=== PATIENT | female | born 1980 | race Caucasian/White ===

== ENCOUNTER 2023-07-03 21:05 | Outpatient (REF) | payer BC, SELFPAY ==
[2023-07-09 13:09] LABS: Age Gdln ACOG Testing Note (.); HPV Aptima Positive (Negative); IGP, Aptima HPV, rfx 16/18,45 Note (.)
== END 2023-07-03 21:06 | disposition home or self-care (01) ==
LOC: LAB 21:05
PROVIDERS: Visit Provider Obstetrics & Gynecology
DX: Z01.419 Encounter for gynecological examination (general) (routine) without abnormal findings (principal)
CPT/HCPCS: 87624; G0145

== ENCOUNTER 2023-07-17 06:55 | Outpatient (REF) | payer BC, SELFPAY ==
--- OUTSIDE RECORDS SUMMARY | 2023-07-20 06:59 | XMS_ITS | CCD ---
Author Name Unknown Address [address] [place] [address] Organization [facility] Care Team Providers Care Switching Clerk Name Role Phone DR GIANFRANCO MORE Attending Unavailable DERIK, DR PENDLETON Consulting Unavailable DR GIANFRANCO MORE Admitting Unavailable Kiepert Sarah REA Primary Care Provider [phone] Derek Manzanares Unavailable Unavailable Unavailable SARAH CHAVEZ Primary Care Unavailable SELF, SELF Referring Unavailable GHAZOUL FREDY Attending Unavailable KIEPERT SARAH A Primary Care Unavailable SELF, SELF Referring Unavailable GHAZOULMARGARITAFREDY Attending Unavailable KIEPERTSARAH A Primary Care Unavailable GHAZOUL FREDY Referring Unavailable GHAZOULRAEANNA Attending Unavailable GHAZOUL FREDY Admitting Unavailable ADI LOPEZ Attending Unavailable Leighton, Dr. Derek Gomez Primary Care Unavailab ADI St Attending Unavailable ADI LOPEZ Referring Unavailable Manzanares, Dr. Derek Gomez Primary Care Unavailab ADI St Attending Unavailable ADI LOPEZ Referring Unavailable Manzanares, Dr. Derek Gomez Primary Care Unavailab ADI St Admitting Unavailable Qi Brantley Unavailable Unavailable Manzanares, Dr. Derek Gomez Primary Care Unavailab MD ADI St Attending Unavailab MD ADI St Attending Unavailab Dr. Jacey Will Referring Unavailable Manzanares, Dr. Derek Gomez Primary Care Unavailab le Leighton, Dr. Derek Gomez Primary Care Unavailab MD ADI St Attending UnavailDerek Barbour MD Primary Care Provider ADI LOPEZ Attending Unavailable DEREK MANZANARES Primary Care Unavailable Work, Summer Admitting Unavailable Workman, Summer Attending Unavailable DEREK MANZANARES Primary Care Unavailable ADI LOPEZ Referring Unavailable DEREK MANZANARES Primary Care Unavailable DEREK LINN Attending Unavailable Derek Manzanares MD Primary Care Provider [phone] WORKMAN, MARBELLA M Referring Unavailable DEREK LINN Referring Unavailable WORKMANMARBELLA M Referring Unavailable DERIK, GIANFRANCO Attending Unavailable DERIK, GIANFRANCO Attending Unavailable Derik, Gianfranco Attending Unavailable Derik, Gianfranco Admitting Unavailable Allergies Allergy Classification Reported Allergen(s) Allergy Type Date of Onset Reaction(s) Facility (12 sources) Azithromycin; Translations: [Azithromycin PACK] Drug Allergy 06-13-19 Hives [facility] (12 sources) Codeine; Translations: [codeine] Drug Allergy 06-13-19 Nausea and Vomiting [facility] (12 sources) Fluconazole; Translations: [Diflucan] Drug Allergy 06-13-19 Arthralgia, Other [facility] (12 sources) moxifloxacin; Translations: [Avelox] Drug Allergy 06-13-19 Shortness of Breath [facility] (12 sources) Penicillins; Translations: [Penicillins] Propensity to adverse reactions to drug 06-13-19 Rash [facility] (12 sources) Sulfamethoxazole / Trimethoprim; Translations: [Bactrim] Drug Allergy 06-13-19 Anaphylaxis [facility] (6 sources) Nyquil Cold & Flu; Translations: [Nyquil Cold & Flu] Allergy to drug (finding) Vomiting MG-Otolaryngol o[facility] [place] [facility] [place] Work Phone: (1 source) No Alert Propensity to adverse reactions to drug 09-05-19 Dept. 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 18 g 3 11/16/2022 Active take 2 puff(s) by in halation every four hours for wheezing albuterol 90 mcg/actuation inhaler Inhal e 2 puffs every 4 hours if needed for wheezing. 0 Active cefdinir 300 mg oral capsule (2 sources) Cephalosporin Antibacterial Start: 07-06-2022 End: 07-11-2022 take 1 capsule by mouth every twelve hours Cefdinir (OMNICEF) 300 MG capsule Take 1 capsule by mouth every 12 hours for 5 days. 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 Inject into upper leg. Call 911 after use. 2 each 1 11/16/2022 11/17/2023 Active EPINEPHrine 0.3 mg/0.3 mL injection syringe inject INTO UPPER LEG 0.3 milliliter if needed for ANAPHYLAXIS CALL 911 AFTER 0 Active Completed/Discontinued Medications Medication Drug Class(es) Dates Sig (Normalized) Sig (Original) lidocaine 1%/ epinephrine 1:100,000 with sodium bicarbonate 8.4% (10 mL Prepared by Pharmacy) (1 source) Start: 07-06-2022 End: 07-06-2022 lidocaine 1%/ epinephrine 1:100,000 with sodium bicarbonate 8.4% (10 mL Prepared by Pharmacy) Multivitamin TABS (1 source) Multivitamin TAB S Quantity: 0 Refills: 0 Ordered: 24-Apr-2023 DO Active sodium chloride 0.154 meq/ml irrigation solution (1 source) Start: 07-06-2022 End: 07-06-2022 Sodium chloride 0.9 % irrigation traMADol hydrochloride 50 mg oral tablet (2 sources) Opioid Agonist Start: 08-09-2022 take 1 tablet by mouth every six hours as needed for pain traMADol HCl - 50 MG Oral Tablet TAKE 1 TABLET Every 6 hours As Needed for pain Quantity: 12 Refills: 0 Ordered: 09-Aug-2022 Adi Lopez MD Start : 09-Aug-2022 Active Problems Active Problems Problem Classification Problem Date Documented Date Episodic/Chronic Abdominal pain (4 sources) Pelvic and perineal pain; Translations: [PELVIC AND PERINEAL PAIN] Onset: 01-03-2022 Episodic Allergic reactions (2 sources) Allergy status to penicillin; Translations: [Allergy to penicillin] Onset: 08-09-2022 08-20-2022 Episodic Asthma (3 sources) Unspecified asthma, uncomplicated; Translations: [Exercise induced bronchospasm] Onset: 08-02-2022 08-20-2022 Chronic Esophageal disorders (2 sources) Gastro-esophageal reflux disease without esophagitis; Translations: [Gastroesophageal reflux disease without esophagitis] Onset: 08-09-2022 08-20-2022 Chronic Immunizations and screening for infectious disease (1 source) Encounter for screening for human papillomavirus (HPV); Translations: [ENC SCREENING HUMAN PAPILLOMAVIRUS] Onset: 01-04-2022 Episodic Melanomas of skin (19 sources) Malignant melanoma of neck; Translations: [Malignant melanoma of scalp and neck] Onset: 07-18-2022 Chronic Neoplasms of unspecified nature or uncertain behavior (6 sources) Neoplasm of uncertain behavior of skin; Translations: [Neoplasm of uncertain behavior of skin] Onset: 07-06-2022 Episodic Other aftercare (1 source) Other product support analyst (current) drug therapy; Translations: [Other product support analyst (current) drug therapy] Onset: 08-02-2022 Episodic Other infections; including parasitic (1 source) Personal history of other infectious and parasitic diseases; Translations: [Personal history of COVID-19] 08-20-2022 Episodic Other nervous system disorders (3 sources) Acute postoperative pain; Translations: [Other acute postoperative pain] Episodic Other screening for suspected conditions (not mental disorders or infectious disease) (1 source) Encounter for screening for malignant neoplasm of cervix; Translations: [ENC SCREENING MALIG NEOPLASM CERV] Onset: 01-04-2022 Episodic Residual codes; unclassified (1 source) No current problems or disability; Translations: [Other specified conditions influencing health status] Onset: 09-04-2022 Episodic Unclassified (2 sources) Post Op Visit; Translations: [Post Op Visit] Onset: 07-18-2022 Unclassified (1 source) Personal history of COVID-19; Translations: [Personal history of COVID-19] Onset: 08-09-2022 Past or Other Problems Problem Classification Problem Date Documented Da te Episodic/Chronic Unclassified (1 source) Onset: 04-15-2023 04-15-2023 Results Test Name Value Interpretation Reference Range Facility [facility] 07-17-2023 L Specimen: [id number] Received: 07/18/23 Status: MONTEZ Galeas Num: [id number] Spec Type: Surgical Subm Dr: Gianfranco More Tissues: A Endocervix - Curettings (ECC) Procedures: HE/2, Gross/Micro L4 Age/ Patient Sex Location Account Attending Physician Magalie Rodriguez 43/F [facility] [id number] Gianfranco More SPEC NUM: [id number] RECD: 07/18/23 STATUS: MONTEZ GALEAS NUM: [id number] DANUTA: 07/17/23- SUBM DR: Gianfranco More ENTERED: 07/18/[address] [facility] [address]: Max,Lab SPEC TYPE: Surgical DEPT: [facility] ORDERED: HE/2, Gross/Micro L4 ORDERED: HE/2, Gross/Micro L4 Pathological Diagnosis Endocervical curettings: -Several small strips of endocervical glandular elements are intermixed among larger portions of squamous epithelial cells, and displaying at least 2 small foci of koilocytosis within the squamous cells, consistent with features of LGSIL, encompassing mild HPV effect, otherwise without any high-grade dysplasia identified Clinical Information ASCUS, HPV Gross Description Received in formalin labeled with the patient's name, date of and ECC is a 3.0 x 0.9 x 0.2 cm aggregate of romo-white mucus and tissue. Entirely submitted in one cassette labeled A1. CPT Codes 52308 Specimen: [id number] Received: 07/18/23 Status: MONTEZ Galeas Num: [id number] Spec Type: Surgical Subm Dr: Gianfranco More Tissues: A Endocervix - Curettings (ECC) Procedures: Pam DIAS/Norberto L4 Patient: Magalie Rodriguez [id number] (Continued) Signed (signature on file) Hermelinda Willis MD 07/19/23 5058 [facility] [place] 05-23-2023 RONAN Telephone ([place]) ----- MAGALIE RODRIGUEZ ([id number]) 1980 F Date Time Provider Department 05/23/23 JUANY MOON During your visit today, we recorded the following information about you: Juany Moon RN 05/23/2023 9:[address] reports reviewed by UDAY. Pt notified of incidental findings of 4-5 mm RML nodule and nonspecific 7mm soft tissue density within SQ structure of L lateral chest wall. He feels both are observable with repeat imaging in 1 year. Pt agreeable and will discuss further at appt in August. She denies further questions, needs or concerns at this time. Juany Moon RN Allergies As of Date: 05/23/2023 Noted Allergy Reaction MOXIFLOXACIN 06/13/2022 12 - Shortness of Breath Comments: Per patient Per patient SULFAMETHOXAZOLE-TRIMETHO PRIM 06/13/2022 10 - Anaphylaxis Comments: Per patient Per patient AZITHROMYCIN 06/13/2022 4 - Hives Comments: Per patient Per patient CODEINE 06/13/2022 11 - Vomiting Comments: Per patient Per patient DIFLUCAN (FLUCONAZOLE) 05/03/2023 14 - Other: See Comments Comments: Muscle weakness NYQUIL ([id number]-ACETAMI N*05/03/2023 11 - Vomiting PENICILLINS 06/13/2022 2 - Rash Comments: Per patient Per patient Date Reviewed: 05/03/2023 Reviewed by: Gretchen Mcrae - Fully Assessed Reason for Visit: Results [95] Prescriptions as of 05/23/2023 - cholecalciferol, vitamin D3, (VITAMIN D3 ORAL) Take 2,000 unit/mL by mouth once daily. - albuterol HFA (PROVENTIL HFA, VENTOLIN HFA) 90 mcg/actuation inhaler inhale 2 puffs every 4 hours if needed for wheezing - EPINEPHrine (EPIPEN) 0.3 mg/0.3 mL auto-injector inject INTO UPPER LEG 0.3 milliliter if needed for ANAPHYLAXIS CALL 911 AFTER Problem List As Of Date: 05/23/2023 (None) Encounter Status:Closed by JUANY MOON on 05/23/23 Normal [facility] CT ABDOMEN PELVIS W IV CONTR Asad 05-22-2023 CT ABDOMEN PELVIS W IV CONTRAST EXAM: CT ABDOMEN PELVIS W IV CONTRAST History: Enlarged inguinal lymph nodes. Malignant melanoma of skin Technique: Multiple contiguous axial images were obtained of the abdomen and pelvis from the level of the lung bases through the ischial tuberosities with contrast. Multiplanar reformats were obtained. Delayed images were obtained. All CT scans at this facility use dose modulation, iterative reconstruction, and/or weight based dosing when appropriate to reduce radiation dose to as low as reasonably achievable. Comparison: None available Findings: A 1.2 cm fluid density structure of the left lobe of the liver is most compatible with a liver cyst. The liver is otherwise unremarkable. The gallbladder, stomach, pancreas, spleen, and adrenal glands are within normal limits. The kidneys enhance uniformly. No urinary tract calculi or hydronephrosis. Delayed images demonstrate normal course and contour of the ureters. Urinary bladder is incompletely distended but otherwise unremarkable. The uterus is present. A small amount of free fluid within the pelvis is likely physiologic. Abdominal aorta is nonaneurysmal. No retroperitoneal or abdominal/pelvic lymphadenopathy. No small bowel obstruction. No overt colonic mass or pericolonic inflammation. No findings of acute appendicitis. No pneumatosis intestinalis, portal venous gas, or pneumoperitoneum. No acute osseous abnormality. Normal-appearing bilateral inguinal lymph nodes are identified. IMPRESSION: No acute abdominopelvic process. ELECTRONICALLY SIGNED BY: Malorie Sorensen, DO Normal Not Available CT CHEST W IV CONTRASTon CT CHEST W IV CONTRAST EXAM: CT CHEST W IV CONTRAST History: Malignant melanoma of skin. And large inguinal lymph nodes. Technique: Multiple contiguous axial images were obtained of the thorax from the thoracic inlet through the upper abdomen With IV contrast. Multiplanar reformats were obtained including coronal maximum intensity projection images (MIPS). All CT scans at this facility use dose modulation, iterative reconstruction, and/or weight based dosing when appropriate to reduce radiation dose to as low as reasonably achievable. Comparison: Chest radiographs November 13, 2022 Findings: Visualized portion of the thyroid gland is within normal limits. No axillary, mediastinal, or hilar lymphadenopathy. No thoracic aortic aneurysm or dissection. Heart size is within normal limits. No significant pericardial effusion. No coronary artery calcifications noted. Esophagus is within normal limits. 4-5 mm right middle lobe nodule as seen on axial series 6 image 36. No consolidation, pleural effusion, or pneumothorax. Respiratory motion mimics sternal and rib fractures. No acute osseous abnormality. No osteoblastic or osteolytic bone lesions identified given motion artifact. Nonspecific 7 mm soft tissue density structure within the subcutaneous soft tissues of the left lateral chest wall as seen on axial series 2 image 48. IMPRESSION: No acute intrathoracic process. 4-5 mm right middle lobe nodule. Follow-up recommended per Fleischner criteria. Nonspecific 7 mm soft tissue density structure within the subcutaneous soft tissues of the left lateral chest wall may represent a lymph node however continued clinical surveillance is recommended. Fleischner Society 2017 Guidelines for Management of Incidentally Detected Pulmonary Nodules in Adults A: Solid Nodules* Single Low risk <6 mm No routine follow-up 6-[address] at 6-12 months, then consider CT at 18-24 months >[address] at 3 months, PET/CT, or tissue sampling Nodules <6 mm do not require routine follow-up, but certain patients at high risk with suspicious nodule morphology, upper lobe location, or both may warrant 12-month follow-up (recommendation 1A). High risk <[address] at 12 months 6-[address] at 6-12 months, then CT at 18-24 months >[address] at 3 months, PET/CT, or tissue sampling Nodules <6 mm do not require routine follow-up, but certain patients at high risk with suspicious nodule morphology, upper lobe location, or both may warrant 12-month follow-up (recommendation 1A). Multiple Low risk <6 mm No routine follow-up 6-[address] at 3-6 months, then consider CT at 18-24 months >[address] at 3-6 months, then consider CT at 18-24 months Use most suspicious nodule as guide to management. Follow-up intervals may vary according to size and risk (recommendation 2A). High risk <[address] at 12 months 6-[address] at 3-6 months, then at 18-24 months >[address] at 3-6 months, then at 18-24 months Use most suspicious nodule as guide to management. Follow-up intervals may vary according to size and risk (recommendation 2A). B: Subsolid Nodules* Single Ground glass <6 mm No routine follow-up >=[address] at 6-12 months to confirm persistence, then CT every 2 years until 5 years In certain suspicious nodules <6 mm, consider follow-up at 2 and 4 years. If solid component(s) or growth develops, consider resection. (Recommendations 3A and 4A). Part solid <6 mm No routine follow-up >=[address] at 3-6 months to confirm persistence. If unchanged and solid component remains <6 mm, annual CT should be performed for 5 years. In practice, part-solid nodules cannot be defined as such until >=6 mm, and nodules <6 mm do not usually require follow-up. Persistent part-solid nodules with solid components >=6 mm should be considered highly suspicious (recommendations 4A-4C) Multiple <[address] at 3-6 months. If stable, consider CT at 2 and 4 years. >=[address] at 3-6 months. Subsequent management based on the most suspicious nodule(s). Multiple <6 mm pure ground-glass nodules are usually benign, but consider follow-up in selected patients at high risk at 2 and 4 years (recommendation 5A). Note.--These recommendations do not apply to lung cancer screening, patients with immunosuppression, or patients with known primary cancer. * Dimensions are average of long and short axes, rounded to the nearest millimeter. Consider all relevant risk factors (see Risk Factors). ELECTRONICALLY SIGNED BY: Malorie Sorensen, DO Normal Not Available CNOVSPon 05-09-2023 CNOVSP Visit (SP) Office ([place]) ----- MAGALIE RODRIGUEZ ([id number]) 1980 F Date Time Provider Department 05/09/23 4:00 PM DEREK LINN During your visit today, we recorded the following information about you: Temperature Pulse Respiration Blood pressure 97.5 degrees 110/minute 16/minute 125/80 Weight Height Last Period 53.6 kg 1.702 m 04/22/23 Derek Linn MD 05/10/2023 7:06 AM Signed PATIENT NAME: Magalei Rodriguez DATE: 05/09/2023 PRIMARY CARE PHYSICIAN: Derek Manzanares MD OTHER PHYSICIANS: Dr. Fredy Johnson, Dr. Adi Lopez ( Onc[facility] ENT), Hyacinth Ramirez PA-C HPI: This is a 43 year old female with a history of early-stage melanoma, self-referred for evaluation of bilateral inguinal lymphadenopathy. The patient presented in the spring with a pigmented lesion over her right lateral neck. She was seen by plastic surgery, and excisional biopsy 07/06/2022 revealed invasive melanoma with a Breslow depth of 0.8 mm. She subsequently was seen by ENT at (Dr. Lopez) and underwent wide excision plus sentinel node biopsy on 08/10/2022. Final pathology revealed no residual disease in the resected specimen, and the sentinel lymph node was negative for metastasis. She was classified as stage IB disease and routine follow-up recommended. She did not undergo preop staging scans. She follows closely with her ENT physician and her outer diameter grinder. She has had no evidence of local recurrence, and no new suspicious skin lesions. However, since November 2022 she has noticed persistent lymphadenopathy in her bilateral inguinal regions. Ultrasound obtained 11/13/2022 revealed lymph nodes measuring up to 1.3 cm. Repeat ultrasound 04/15/2023 revealed the nodes had increased in size to 1.5 cm. Apparently there was some question of vaginal infection after her initial ultrasound, but despite antibiotics the lymph nodes did not resolve. She denies any other areas of adenopathy. No unusual pain. Over the past 2 years she has lost 60 pounds with diet and exercise. She has had no unexpected weight loss, fevers, night sweats or other systemic symptoms. She currently works as a nurse practitioner at [employer]. MEDICATIONS: Current Outpatient Medications Medication Sig albuterol HFA (PROVENTIL HFA, VENTOLIN HFA) 90 mcg/actuation inhaler inhale 2 puffs every 4 hours if needed for wheezing EPINEPHrine (EPIPEN) 0.3 mg/0.3 mL auto-injector inject INTO UPPER LEG 0.3 milliliter if needed for ANAPHYLAXIS CALL 911 AFTER No current facility-administered medications for this visit. ALLERGIES: ALLERGIES Allergen Reactions Moxifloxacin Shortness of Breath Per patient Per patient Sulfamethoxazole-Tr* Anaphylaxis Per patient Per patient Azithromycin Hives Per patient Per patient Codeine Vomiting Per patient Per patient Diflucan [Fluconazo* Other: See Comments Muscle weakness Nyquil [Doxylamin-P* Vomiting Penicillins Rash Per patient Per patient PAST MEDICAL HISTORY: PAST MEDICAL HISTORY Diagnosis Date Melanoma (HCC) PAST SURGICAL HISTORY: No past surgical history on file. FAMILY HISTORY: FAMILY HISTORY Problem Relation Age of Onset Breast Cancer Maternal cousin SOCIAL HISTORY: Social History Tobacco Use Smoking status: Never COMPLETE REVIEW OF SYSTEMS: CONSTITUTION: Negative for pain, fatigue, weight loss, or appetite loss. EENT: Negative for mouth soreness, antibiotics use, epistaxis, visual problems, neck or facial swelling, fever/chills, bleeding gums, or hearing loss. CV: Negative for edema, calf swelling, palpitations, or chest pain. RESPIRATORY: Negative for cough, SOB, hemoptysis, or wheezing. GI: Negative for nausea/vomiting, heartburn, vomiting blood, dysphasia, diarrhea, blood in stool, constipation, early satiety, PICA, vegetarian, poor nutrition, abdominal fullness, or abdominal pain. NEUROLOGICAL: Negative for numbness/tingling, dizziness, gait disturbance, headache, speech disturbance, tremor, hemiparesis/sensory loss, or change in mental status. MUSCULOSKELETAL: Negative for joint pain, joint swelling, or proximal muscle weakness. SKIN: Negative for hair loss, bruising, nail changes, rash, itching, pallor, or jaundice. ENDO/URO: Negative for hot flashes, cold or heat intolerance, urinary frequency, urinary hesitancy, menorrhagia, or hematuria. PSYCH: Negative for anxiety, depression, or other. PHYSICAL EXAM: BP 125/80 Pulse 110 Temp 36.4 ?C (97.5 ?F) (Temporal) Resp 16 Ht 170.2 cm (5' 7 ) Wt 53.6 kg (118 lb 2.7 oz) LMP 04/22/2023 SpO2 100% BMI 18.51 kg/m? GENERAL EXAM: Well developed/well nourished; in no acute distress. SKIN: Negative for lesions, rashes, or ulcers on the upper and lower extremities and face. Negative for palpations/nodules, purpura, and ecchymosis. EENT: Negative for conjunctiva, mucosal p (more content not included)... Normal [facility] Release of Informationon Release of Information [id number] [facility] Coding Summaryon 05-07-2023 Coding Summary HTMLBase 64 KqhdnaxqEXf9eTx+PGhlYWQ+P S7BQRPrN29bwAMndP4nJ4MFTT lOSywgQVBQTElOSyIgbmFtZT1 kaXNjZXJu IC8+MV1kDSPuIxmaiZJfo1S4r TT8P66xoy1sUKjiuGI5QQNnJp Bxnqomj6ypvGh9QUivQdnrPpE t BWAelQ13WQE7mW92Sz86kDAko DQns6fqqHo6LfUcYQIfBQY5vP ksDCohd0YyHJOgU39jkHBqh7U 6 NMRoyWlegICqTxWxjSM3gJ1dU Utjkwvwe8jqstzkLim1bs75gC Fxg2V5wUK9O6NqhfY7WLGauVG g EnwocBNJfF9bqpyss7vyffvvH qDbRZPrTBp5OIn3GTUmzZnhUp DrVA60HQU5ZRUwblUzI1XtVLI s sQnsWwX8g7V1Zz9XA3MBObqpI 1VNTUFSWTwvdGQ+YN55po57U8 NxJbnvQdi6LCIdKKX0wKI4gD2 n QRWmYIxnc3Q0wWD1V8EgzjGqx p3wf3trYQMzQYoaS53yoZHsa0 T8BSBhsBA8FZEdlSqjEbQehE8 3 Oyc+TRAdxRzrm4ZcAaxfd0vqz 8velRi4PykyHGBhkqSwdIuvOR J1c8QwTi0rAYEuiGX9aXN7dC4 i MwGwUoQ2ANcoU975VeFzeLYvY wgvX67sO9XwnSZ+FWEaDzv1YJ BzhCcuFY2jI7ZiZKBuhcvwdLO m mKdzWY1rIZDzgnwoTDLquK0pK NBbQ2i8BbYeJpS0SRplD4EhSA ErporxWz79yZ4iQwQlGfW1QEy u Q1ZtbwK1KABkxQDvZCvtWTP5R 28py7B6ZEHhBYZrQOU6rIP2gZ 1hbGlnbjogbGVmdDsgdmVydGl j MYmcFZgkE234JBCfpRwaToRzG GluZyBEYXRlOiAgMDEvMDIvMj AyNDwvdGQ+JWKbMXR4tFmeSDY n pUUzQZskKq7vbNjzfJdeBT8pQ UTuofqqNUTnuW7tLRBsvLXvkU edNI0qHBEodgxcw321PjKmGXG 0 LYUsmTIpA1YjmG9kFcGkLLMlP NXbY9BbzUOlUElqL267YXbgVc W0HZHrfrFuX8UvUCMerLpcNfA 0 e4G6Bh1Ix9TlblnhQ7KgvMUvL hGiRrjjFHy2Z0SiOmolgYE+PC 00ARBwQZ36ZYd6HDR0iZfzTSm i BDEgQ5DfgD6dEzOlIUFaBKVmI yc+PHRhYmxlIHdpZHRoPScxMD KoGdCqvAdzOV5xZk9zGOPuHVV v hPossFAkOyQfu1fmSWZfITwuU S9nwIfcQ1PitXG7UOCud0j0Vx 11Q45vD9FkfCA+PLPfbFV9cQJ 0 vG6tNqPaOmV6WUcvP814RaWdp STlIbxki9kcn3uhbNe2PmY0JF BdorGxqVgzTEP0o0YjJb57L73 s IHdpZHRoPSIxNSUiIHZhbGlnb w9kuC5aTs3+AUNrrZV9gEJ5fX 2vCfRyRkU1STmiI590RcXimTG v Orvah9kfu4audVu9JyAgNONkk xEvpYvlGAQ5h1GaTk35I5HgbN fpg0PdMkz7li55uOMxg0H5yEY 9 X6DcHAQdxiwcjMAmbAwbSC7rV KLquwckPJSsgO9jHTFiB2d7It KqUlP8OPvrD8CdyvL8XADlvAZ g KQOzdNJIbX6pkeowl2lpaygxV pVtXOUyYGw1QCy1DZZnuRorGq XoEHH7WrS6OLN5mUAfaG0snHv n zaasdN9xXar+SHE9bEUbhOGKS E9mJsnkdHT+EESvOYO4vDgqCJ riLWUhnV2qLRJmV0d3DtBwHoW 1 LHpsX2AbjxR6LEJdkWFqOGChj IMHyP5sfwovy8gphcojKdYuSZ PrCAm6WVf9DKVqhIpxPnSoJGF 0 VlB6USU0vCKwkA4wnFcmdwrne G9wOyc+KczckPvkZPG5NNm0X3 YcVla4GNLjuJwcRN0uvAKwRTa u Qs6wmJlfrTggVR5vBCXqanqbo 952ZlIfp4jwWODdbLHpHTxzKP H8V08bs5E3KLKoARPzFMI7kWK 4 tL5kzOxpjuksmFWmoDmeorHai SswYChyOGjjV390NKSbyMspTp WfVTj4H1EtFms8BLDbkIqnHR7 n sHFgPXvzHu1cmPzoaIikWE6mO ZQqqvteu420ErMza5nnSZOsxS XqKYdgNWQ6X61pn6X0XRSrEQA w KQV8tDV9uE0hgYjhjupflIXdx RdwyjYemKysQFmeXEmoE386GU TagMgpVpHivUn0C8DuAyy9BDH z pPnvFL1ufDDaQUnkFk7sgBxjp NmwUT7uFKFnalsrj343DmZpn7 rjDBAexUUhHQolUBA1U03jc5S 6 NACgDHRlHXZ4qZW2tB5muXtvl jogbGVmdDsgdmVydGljYWwtYW tfK899ERDbqPoiHgClmUacufX g VRcyFJw8H7UiQyzngRX+PC90Y JUqAI27yHPwaRKzn5grvBd3Pf PwBYDfWQY4xDikHFmqq6IuSNT t Y87htVMsx9P8YUWsdThlfUFmC rVbvFC0wF9lCKmbqhvyx9gfhh dfYbcny0jqrh08rI90Z98oWId p EGDnBDYzYATqJMGglTyqtq9xa G9wIi8+GKKooHR4sKH8xT6yTM MjSgQ5LTltV977BpIhoHFoJka j k1cmj2yvbFg1HvY1CTTywqEra SqoLBM1w3OzSe04Q61jYYmxSM IfMPMbRXKvYBQpdGuqbo8mnF4 w Ii8+SIWmvBS8wCA0zK5gBbByP vX2XKkuR161XxKaxRFaVpbbO2 4nZ6LqkID+UAIoRxa5OSXhbSp s MN9uaJLyWQrfEw4kYCW9WuDsP cSpVBloW7FwROUniixdkmhrhY P1LLLeIXZhqF57Ve9reBhhAGZ w jGAFlX8ulrvzy6dxcldxJyCeQ KYrOGs4YKo3NKByjHpgHyRvIL Y0McP9CBA8mGGqmZ9zrPmjhrt g xV4wJ0XqXMImiijzIa81rC0uA tXbPbI9NKeiEct+YNFIV91ZLk tyYWfXRJHOOUBYZQG2J9OkIgv 0 WGYdnLwvNF2rrLUwHPtjTq9ck AlptXayEI1fFKXxwgmiXNRsrL 0uZHVuuOCtpWuuCV7yBBRjvtl m r756AcVyBBW4SLHptMBaP8Pom H3kSzBaGGWeKBHeR2VosAGwVS gmL356EBppPwF1QISzmaGuG8E s KRHclRmdIkI5m9K6Bb8mSI5eZ o9bLSutQG02LX29nZAju1K6jZ S2Q8OwJRKawchsxhxtxFT3NER u ACPkeK18xEAyPRhkEo5dr5M0n 085UCEnBMLycD78Sw1cxPfjKP CmyQOBtR5aamoam3zfrzjzFjU w RNZdAGt2BHk0ECKnkHuwCbKgI KY7GjN6EUA1vTYpuY5ewXtbps kecD5aOlt+ASJcZDUudqI7W5U k Odk1YQNrqGniDC0mlZViSTwkG h8xnWeyqGdiYV9gFLPsgejuSF SkzX4ySIQrmCCahFulRA8uIIX p vuwph334TdBiFHU8MVWntVIgB 2ZzwW8bVmKuWKCwCSFqU4LjkC RxGViaH301TFlmLvK4KUUqmaO p U6FbPFFegSrhLiC0f1K8Yl6WO H4RZFH1C7VrNut8IPMetAjsVX 8vcQZdDGhtLq4zjUzhpGcxKK8 w BISwxluwRYBfmJ8cWVJezQRux BazFJ2mATIqqaoil020GfXhLF F0HTPuxJBwG5QvdX5lVgAnLBF w VGPnB4XarVSnPOglR546ERciO fV4KSZwxeLpT9SySZMjcSqkOw R0t3K7Gw7HPAlrjLZ+CP20mq0 8 P2DyEqllGex1VXSkDTF1dVY6y Y4zXRQrTFthl9V4lGX9G3Xegu Tnaf3gi5zeENUdRDzpK66goTM w s3T2QTAftYM8YNJewPwqVxBmi G93Oyc+LYOplCzvq9HbCplix1 pxu1yiuKe6ZvYsDYHbvkFltMk u JMY9u3EhGn59E85vBPkhXLKpL OPpGFXuMPKzaSathr9foB9hIl 8+YVGqiWG7kVJ6sY0rHwYoYmM 2 MSoyN800SwObrZGlBjgwl8psz 0qwmKh3RnQnIJOcrpGlpRhcOT B0m0AbYe77O1LlhCgqd1KcUch 0 pg59nCOhu9A3wYY5C7WcSIZna zqdpOYaeKjgVL6jPIZcestzXV ZgsF8pTBFcR1i5LiZhAjM2XFi u K8YzzfW1YBRjmTNlWFQetCZJz J9aixzru4ppnkiwDlVjOKSyZS q8YFx7CQIlmKgyViBwOOV2AdQ 2 ATG6eBQxoF7oaVbglytfbD5rR yc+PNu8a6lsqWQrHR5dfCZ7SW 00NG01tUSgd8Y4mCX1K8XsWZS p dsegpcjqyZQ7LMPuLAZxpB21H c3okMvsDd3sUCXeBIZ1ULFihM JpU4KzrV2fXrJmTVMzSEHfP4T l aSQuNFxdJ980UQymFzG1FAFmx iKsN9KyZFIvcOseVzZ1h5C2Wp 0IFS79OT37JA35qVVzv8G7xMF 9 R9MqTDKlhnpgcgnpbHH5ILAlE RNloD96Lw7hmNtlXj9lWETgQG K6ZCJtkLAfZ9StvC6tFaWcYSP w GARpS6CpeLRjZBbwT391RIkmB nF3BAWjxoFrO8LqJEJpwNhnRj B2k0E2Yl5MKc04UT21MB93wOG g q7J1zTY3V7SsXHKseniermhxo GY2GSKqQYLpnX56Po3ffNfzLs 1uSNOoEQN1QYSpuTKiO2ZfwM6 y PvArGPDcHZSfH3MdvQPaQBllL 420XRitYhB5SEMukeLhZ4MzPX WvpGbyUaN7h4N0Dl1VMBdsxke 8 D8GrMffcmQH+CZ96QYWnLW91u YRdeVJzm7rmgZl1VjOtAOIjBS R0sHseBQbnq4LnTDXpS68efCX w c2U (more content not included)... Normal [facility] BI MAMMOGRAM SCREENING TOMOS YPARKERMARYIS BILATERALon 05-01-2023 BI MAMMOGRAM SCREENING TOMOSYNTHESIS BILATERAL This is a summary report. The complete report is available in the patient's medical record. If you cannot access the medical record, please contact the sending organization for a detailed fax or copy. EXAMINATION: BI MAMMOGRAM SCREENING TOMOSYNTHESIS BILATERAL CLINICAL HISTORY: screen COMPARISON: Priors dating back to 2019. RESULT: 3-D tomosynthesis imaging of the bilateral breast(s) was performed. Density: Heterogeneously dense [3] There are no suspicious masses or asymmetries, areas of architectural distortion or suspicious areas of microcalcifications. Stable asymmetries and coarse calcifications. IMPRESSION: BIRADS 2 - Benign Recommended follow-up: Routine Screening Mamm Board Certified Radiologists. Accredited by the ACR and FDA. MAMMOGRAPHY IS VERY IMPORTANT TO YOUR HEALTH. THE [employer] GUIDELINES RECOMMEND THAT WOMEN 40 YEARS OF AGE AND OLDER SHOULD HAVE A MAMMOGRAM EVERY YEAR. A REMINDER LETTER WILL BE SENT AT THE APPROPRIATE TIME. THIS FACILITY UTILIZES A REMINDER SYSTEM TO ENSURE ALL PATIENTS RECEIVE REMINDER NOTIFICATIONS AT THE APPROPRIATE TIME BASED ON THE RECOMMENDATIONS OF THIS EXAM. THIS INCLUDES REMINDERS FOR ROUTINE SCREENING MAMMOGRAMS, DIAGNOSTIC MAMMOGRAMS IN WHICH THE PATIENT IS ASKED TO RETURN FOR ADDITIONAL VIEWS, OR OTHER BREAST IMAGING INTERVENTIONS WHEN APPROPRIATE. THE PATIENT WILL BE PLACED IN THE APPROPRIATE REMINDER SYSTEM INCLUDING A REMINDER AT THE APPROPRIATE TIME FOR ANY PENDING ADDITIONAL VIEWS. ELECTRONICALLY SIGNED BY: Edilson Murdock MD Normal Not Available .Auto Diff 04-27-2023 Auto [place] % 10 % Normal 05-17 [facility] Comment on above: Performed By: #### 1 [id number], 2440189, [id number], 4696645, 8090536, 81693487 #### [facility] (DEFAULT) [address] [place] [address] 96799 Baso Abs# 0.0 x10 Normal 0.0-0.2 [facility] Comment on above: Performed By: #### 1 [id number], 7622846, [id number], 4478256, 6533218, 96204983 #### [facility] (DEFAULT) [address] [place] [address] 27251 Basophils/100 WBC (Bld) 0.8 % Normal 0.2-2.0 [facility] Comment on above: Performed By: #### 1 [id number], 9048897, 7172848746, 5754884, 5099739, 74768286 #### [facility] (DEFAULT) [address] [place] [address] 23091 Eos Abs# 0.0 x10 Normal 0.0-0.4 [facility] Comment on above: Performed By: #### 1 [id number], 6521033, 7550227264, 3644600, 1120060, 32350638 #### [facility] (DEFAULT) [address] [place] [address] 54604 Eosinophils/100 WBC (Bld) 0.8 % Low 0.9-4.0 [facility] Comment on above: Performed By: #### 1 [id number], 1992343, 8545918573, 4764168, 6687346, 04341577 #### [facility] (DEFAULT) [address] [place] [address] Lymph Abs# 1.6 x10 Normal 1.3-2.9 [facility] Comment on above: Performed By: #### 1 [id number], 0360006, 9213004856, 5301389, 1379389, 57802060 #### [facility] (DEFAULT) [address] [place] [address] Lymphocytes/100 WBC (Bld) 36 % Normal 14-48 [facility] Comment on above: Performed By: #### 1 [id number], 7466064, 5179242376, 4707200, 3083853, 61895580 #### [facility] (DEFAULT) [address] [place] [address] [place] Abs# 0.5 x10 Normal 0.0-0.8 [facility] Comment on above: Performed By: #### 1 [id number], 9286307, 7011698628, 8079905, 0617508, 96134335 #### [facility] (DEFAULT) [address] [place] [address] Neut Abs# 2.3 x10 Normal 1.5-9.2 [facility] Comment on above: Performed By: #### 1 [id number], 0542718, 3401790627, 6097081, 3139740, 26679030 #### [facility] (DEFAULT) [address] [place] [address] Neutrophils/100 WBC (Bld) 52 % Normal 44-88 [facility] Comment on above: Performed By: #### 1 [id number], 7927421, 9186986344, 4757672, 4370243, 05476318 #### [facility] (DEFAULT) [address] [place] [address] CBC w/ Auto Diffon 3 Erythrocyte distribution width (RBC) [Ratio] 13.4 % Normal 11.5-15.0 [facility] Comment on above: Performed By: #### 1 [id number], 6779540, 8564369089, 4323433, 4254908, 05377541 #### [facility] (DEFAULT) [address] [place] [address] Hematocrit (Bld) [Volume fraction] 43.3 % High 33.7-40.4 [facility] Comment on above: Performed By: #### 1 [id number], 3410198, 4460971122, 3356120, 5309271, 91089416 #### [facility] (DEFAULT) [address] [place] [address] Hemoglobin (Bld) [Mass/Vol] 14.6 g/dL Normal 11.3-15.9 [facility] Comment on above: Performed By: #### 1 [id number], 4273892, 7759765662, 8257915, 1852690, 89577747 #### [facility] (DEFAULT) [address] [place] [address] Man Diff? Auto Invalid Interpretation Code [facility] Comment on above: Performed By: #### 1 [id number], 3631598, 6960097464, 3046554, 9019543, 01188517 #### [facility] (DEFAULT) [address] [place] [address] MCH (RBC) [Entitic mass] 31 pg Normal 24-34 [facility] Comment on above: Performed By: #### 1 463012670, 1879736, 3998010593, 5116343, 6456142, 88034961 #### [facility] (DEFAULT) [address] [place] [address] MCHC (RBC) [Mass/Vol] 34 g/dL Normal 26-37 [facility] Comment on above: Performed By: #### 1 [id number], 8645108, 1572152281, 9864547, 3976991, 10631533 #### [facility] (DEFAULT) [address] [place] [address] 89545 MCV (RBC) [Entitic vol] 92 fL Normal 81-100 [facility] Comment on above: Performed By: #### 1 [id number], 3883034, 7028216106, 5772731, 2339494, 92107384 #### [facility] (DEFAULT) [address] [place] [address] Platelet 294 x10 Normal 138-427 [facility] Comment on above: Performed By: #### 1 [id number], 1923724, 4194456113, 9990742, 5231953, 88102498 #### [facility] (DEFAULT) [address] [place] [address] Platelet mean volume (Bld) [Entitic vol] 8.9 fL Normal 6.3-10.2 [facility] Comment on above: Performed By: #### 1 396385691, 4672384, 8987409325, 0794443, 1462915, 13623005 #### [facility] (DEFAULT) [address] [place] [address] RBC 4.73 x10 Normal 3.70-5.30 [facility] Comment on above: Performed By: #### 1 [id number], 9601202, 2669946551, 4484468, 5612784, 14944524 #### [facility] (DEFAULT) [address] [place] [address] WBC 4.5 x10 Normal 3.5-10.5 [facility] Comment on above: Performed By: #### 1 [id number], 6491920, 0181572992, 4762438, 4930225, 69009599 #### [facility] (DEFAULT) [address] [place] [address] CMP Standardon 04-27-2023 eGFR Non AA >60 Invalid Interpretation Code [facility] Comment on above: Performed By: #### 1 [id number], 1885010, 6034985016, 9338946, 8312146, 51072524 #### [facility] (DEFAULT) [address] [place] [address] eGFR AA >60 Invalid Interpretation Code [facility] Comment on above: Performed By: #### 1 [id number], 7787877, 7057326698, 0055911, 5289887, 70876238 #### [facility] (DEFAULT) [address] [place] [address] Albumin [Mass/Vol] 4.2 g/dL Normal 3.5-5.[address] [facility] Comment on above: Performed By: #### 1 [id number], 4589397, 6548359429, 5812987, 6043964, 98761035 #### [facility] (DEFAULT) [address] [place] [address] Albumin/Globulin [Mass ratio] 1.5 {ratio} Normal 1.4-2.6 [facility] Comment on above: Performed By: #### 1 [id number], 3598219, 7842000429, 2776934, 7365750, 35703130 #### [facility] (DEFAULT) [address] [place] [address] Alk Phos 73 IU/L Normal 32-91 [facility] Comment on above: Performed By: #### 1 [id number], 9570763, 8151324396, 3482974, 7542939, 92680812 #### [facility] (DEFAULT) [address] [place] [address] ALT [Catalytic activity/Vol] 19.0 U/L Normal 14.0-54.0 [facility] Comment on above: Performed By: #### 1 186407110, 2063230, 3501477158, 5887768, 4301439, 85937174 #### [facility] (DEFAULT) [address] [place] [address] Anion gap [Moles/Vol] 10.5 mmol/L Normal 5.0-19.0 [facility] Comment on above: Performed By: #### 1 636663140, 3464193, 4620303463, 1906190, 7959685, 50418171 #### [facility] (DEFAULT) [address] [place] [address] AST [Catalytic activity/Vol] 22 U/L Normal 15-41 [facility] Comment on above: Performed By: #### 1 980821655, 9785211, 3678967072, 1687329, 5368865, 04204095 #### [facility] (DEFAULT) [address] [place] [address] 25089 Bili Total 0.7 mg/dL Normal 0.3-1.2 [facility] Comment on above: Performed By: #### 1 463164059, 1367321, 0329504383, 3126486, 9904658, 28762604 #### [facility] (DEFAULT) [address] [place] [address] 78281 Calcium [Mass/Vol] 8.8 mg/dL Low 8.9-10.[address] [facility] Comment on above: Performed By: #### 1 [id number], 9660007, 9252164548, 4642369, 3115871, 25120115 #### [facility] (DEFAULT) [address] [place] [address] 80716 Chloride [Moles/Vol] 107 mmol/L Normal 101-111 [facility] Comment on above: Performed By: #### 1 [id number], 7499711, 3321419904, 7478643, 9595051, 50494676 #### [facility] (DEFAULT) [address] [place] [address] 99199 CO2 [Moles/Vol] 26 mmol/L Normal 21-32 [facility] Comment on above: Performed By: #### 1 [id number], 3188522, 7844265993, 6568865, 1839269, 52186696 #### [facility] (DEFAULT) [address] [place] [address] 00952 Creatinine [Mass/Vol] 0.80 mg/dL Normal 0.60-1.30 [facility] Comment on above: Performed By: #### 1 [id number], 9956829, 6529614857, 8841305, 2508437, 50906452 #### [facility] (DEFAULT) [address] [place] [address] 27109 Globulin (S) [Mass/Vol] 2.8 g/dL Normal 1.5-4.3 [facility] Comment on above: Performed By: #### 1 671901756, 0651844, 4726657243, 2232051, 8439273, 48980447 #### [facility] (DEFAULT) [address] [place] [address] 94839 Glucose [Mass/Vol] 100.0 mg/dL Normal 74.0-118.0 [facility] Comment on above: Performed By: #### 1 868074963, 7762997, 3933670146, 8998789, 7436012, 36828889 #### [facility] (DEFAULT) [address] [place] [address] 52897 Osmolality 280 mOsm/L Invalid Interpretation Code [facility] Comment on above: Performed By: #### 1 [id number], 7680569, 6650402958, 0049162, 5595426, 88060366 #### [facility] (DEFAULT) [address] [place] [address] 16696 Potassium [Moles/Vol] 3.5 mmol/L Low 3.6-5.1 [facility] Comment on above: Performed By: #### 1 492948125, 4301344, 7924240273, 3148154, 7292054, 01324866 #### [facility] (DEFAULT) [address] [place] [address] 93979 Protein [Mass/Vol] 7.0 g/dL Normal 6.5-8.[address] [facility] Comment on above: Performed By: #### 1 [id number], 7498861, 8013199186, 5348242, 9047882, 83743123 #### [facility] (DEFAULT) [address] [place] [address] 77784 Sodium [Moles/Vol] 140.0 mmol/L Normal 136.0-144.0 [facility] Comment on above: Performed By: #### 1 362549903, 0444627, 2660018719, 0933737, 4007058, 59221112 #### [facility] (DEFAULT) [address] [place] [address] 23668 Urea nitrogen [Mass/Vol] 15 mg/dL Normal 8-26 [facility] Comment on above: Performed By: #### 1 [id number], 0250847, 3448044049, 0079081, 3321441, 76976477 #### [facility] (DEFAULT) [address] [place] [address] 15785 Urea nitrogen/Creatinine [Mass ratio] 18.7 mg/mg High 4.6-16.2 [facility] Comment on above: Performed By: #### 1 [id number], 0599258, 2244246836, 6742806, 4189449, 15431174 #### [facility] (DEFAULT) [address] [place] [address] 75993 Lipid Panel Standardon 04-27 Cholesterol [Mass/Vol] 154.0 mg/dL Normal 66.0-200.0 [facility] Comment on above: Performed By: #### 1 [id number], 9846000, 7658291260, 0711768, 9547410, 12588387 #### [facility] (DEFAULT) [address] [place] [address] 28624 Cholesterol in HDL [Mass/Vol] 52 mg/dL Normal 40-71 [facility] Comment on above: Performed By: #### 1 [id number], 7949938, 1263391494, 5793839, 7610648, 55199792 #### [facility] (DEFAULT) [address] [place] [address] 71610 Cholesterol in LDL [Mass/Vol] 92 mg/dL Normal 1-100 [facility] Comment on above: Performed By: #### 1 045510861, 0452071, 8194076976, 4057496, 4266793, 27812004 #### [facility] (DEFAULT) [address] [place] [address] 36901 Cholesterol.total/Cho lesterol in HDL [Mass ratio] 2.9 {ratio} Normal 0.0-4.5 [facility] Comment on above: Performed By: #### 1 [id number], 4595648, 4615813597, 1083990, 6705765, 52706051 #### [facility] (DEFAULT) [address] [place] [address] 53274 Triglyceride [Mass/Vol] 54.0 mg/dL Normal 0.0-150.0 [facility] Comment on above: Performed By: #### 1 068326460, 8609198, 6633303748, 3121450, 5427521, 46987397 #### [facility] (DEFAULT) [address] [place] [address] VLDL. 11 mg/dL Normal 5-40 [facility] Comment on above: Performed By: #### 1 305821549, 1222789, 0309216307, 3272155, 8001848, 61919687 #### [facility] (DEFAULT) [address] [place] [address] Provider Orderson 04-27-2023 Provider Orders [id number] Normal [facility] TSHon 04-27-2023 TSH Qn 2.91 m[IU]/L Normal 0.45-5.33 [facility] Comment on above: Performed By: #### 1 [id number], 3702827, 0754843070, 4206649, 8887140, 70221137 #### [facility] (DEFAULT) [address] [place] [address] Vit D25 OHon 04-27-2023 Vitamin D 25 OH 37 ng/mL Normal 30-100 [facility] Comment on above: Performed By: #### 1 [id number], 4005994, 0077745778, 6393114, 7198739, 16941679 #### [facility] (DEFAULT) [address] [place] [address] US ABDOMEN LIMITEDon 023 US ABDOMEN LIMITED US ABDOMEN LIMITED : 04/15/2023 12:58 PM CLINICAL HISTORY: re-check bilateral inguinal lymph nodes. COMPARISON: November 13, 2022 TECHNIQUE: ROUTINE FINDINGS: Multiple lymph nodes are again seen in the groin. The 2 largest in the right groin measure 1.5 x 0.8 x 0.4 cm and 0.5 x 0.5 x 0.3 cm. The 2 largest seen in the left groin measure 1.3 x 0.6 x 0.4 cm and 1.0 x 0.8 x 0.4 cm. IMPRESSION: THERE ARE MULTIPLE LYMPH NODES AGAIN SEEN IN THE GROIN. THE LARGEST MEASURES 1.5 CM AND IS SLIGHTLY LARGER THAN PREVIOUS STUDY. THESE MAY BE REACTIVE. ELECTRONICALLY SIGNED BY: Jacinta Isbell, DO Normal Not Available Established Visit (Otolaryng ology)on 08-27-2022 Established Visit (Otolaryngology) Diagnoses/Problems Melanoma of scalp or neck (172.4) (C43.4) Provider Impressions 42-year-old female referred for melanoma of the right neck with 0.8 mm depth status post wide local excision, sentinel node biopsy. Final pathology showed negative margins and lymph nodes -We will discuss at tumor board -Continue regular follow-up with dermatology -Follow-up with me in 3 to 4 months or earlier with any issues Chief Complaint Melanoma of the right neck History of Present [id number] female referred by Dr. Jacey Chung for evaluation of a melanoma of the right neck. She had a mole on the right side of her neck for quite some time that was recently excised showing a melanoma with approximately 0.8 mm depth. There is no ulceration. She has no prior history of melanoma or other skin cancers. 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 She has not noticed any lymphadenopathy She is otherwise fairly healthy. She uses inhaler for asthma. She has not had any issues with anesthesia in the past. She is a non-smoker. She does not have any listed drug allergies 08/27/22: Patient returns for follow-up after surgery. She is doing well Review of Systems All other systems have been reviewed and are negative for complaint. Active Problems Acute postoperative pain (338.18) (G89.18) Melanoma of scalp or neck (172.4) (C43.4) Allergies Avelox Shortness of breath;; Recorded By: Judi Garcia; 07/30/2022 2:44:30 PM Azithromycin PACK Hives;; Recorded By: Judi Garcia; 07/30/2022 2:44:30 PM Bactrim Anaphylaxis;; Recorded By: Judi Garcia; 07/30/2022 2:44:30 PM codeine Vomiting; Recorded By: Judi Garcia; 07/30/2022 2:44:30 PM Diflucan Muscle weakness; Recorded By: Judi Garcia; 07/30/2022 2:44:30 PM Nyquil Cold AND Flu Vomiting; Recorded By: Judi Garcia; 07/30/2022 2:44:30 PM Penicillins Rash; Recorded By: Judi Garcia; 07/30/2022 2:44:30 PM Current Meds Medication NameInstruction Multivitamin TABS Vitals Vital Signs Recorded: 27Aug2022 11:29AM Height5 ft 6 in [id number] lb BMI Oodwpphjue26.37 kg/m2 BSA Calculated1.61 Tobacco Useb) No PHQ-2 #1. Over the last 2 weeks have you felt down, depressed or hopeless? (If yes, answer PHQ-9 below)No PHQ-2 #2. Over the last 2 weeks have you felt little interest or pleasure in doing things? (If yes, answer PHQ-9 below)No Falls Screening (Age 18+)a) No falls within the last year Physical Exam Steri-Strips removed Right neck incision well approximated and no sign of infection 'Scores and Scales' Signatures Electronically signed by : Adi Lopez MD; Aug 27 2022 12:27PM EST (Author) Normal [employer] Tobacco Screening.on 023 Adult depression screening assessment No [facility] [place] Work Phone: Fall risk assessment a) No falls within the last year [facility] [place] Work Phone: Tobacco use status [facility] b) No [facility] [place] Work Phone: SURGICAL PATHOLOGY RESULTSon 08-16-2022 Pathology Report Name MYNOR RODRIGUEZ Pathologist: MARCELLE SCHNEIDER MD, Board Certified Dermatopathologist Date of Procedure: 08/09/2022 Date Received: 08/10/2022 Date Reported 08/16/2022 Submitting Physician: ADI LOPEZ MD Location: [facility] Other External # FINAL DIAGNOSIS A. SKIN, RIGHT NECK, WIDE LOCAL EXCISION: -- SCAR AND BIOPSY SITE CHANGES, NEGATIVE FOR RESIDUAL MELANOMA -- INCIDENTAL COMPOUND NEVUS, NOT PRESENT AT SURGICAL MARGINS B. SENTINEL LYMPH NODE #1, RIGHT LEVEL 3, EXCISION: -- ONE LYMPH NODE, NEGATIVE FOR METASTATIC MELANOMA (0/1) COMMENT: Routine and immunostained slides including Melan-A, SOX10 and HMB45 were reviewed. C. SENTINEL LYMPH NODE #2, RIGHT LEVEL 3, EXCISION: -- ONE LYMPH NODE, NEGATIVE FOR METASTATIC MELANOMA (0/1) COMMENT: Routine and immunostained slides including Melan-A, SOX10 and HMB45 were reviewed. Electronically Signed Out By MARCELLE SCHNEIDER MD, Board Certified Dermatopathologist/DAVI By the signature on this report, the individual or group listed as making the Final Interpretation/Diagnosis certifies that they have reviewed this case. Diagnostic interpretation performed at [facility] [address] 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 A short stitch is present and is designated as 12:00. A long stitch is present and is designated as 3:00. The specimen is inked: 12:00 to 3:00 to 6:00 blue, 6:00 to 9:00 to 12:00 green. The deep margin is inked juliana. On the skin surface is scar area measuring 2.5 cm in length which extends within 1.0 cm to the 12:00 margin and 1.1 cm from 6:00. The specimen is serially sectioned from 12:00 to 6:00 and entirely submitted in 12 cassettes. EXO B: Received in formalin, labeled with the patient's name and hospital number and B, sentinel lymph node #1 , is a possible lymph node measuring 1.2 x 0.5 x 0.4. The specimen is serially sectioned and entirely submitted in 2 cassettes. EXO C: Received in formalin, labeled with the patient's name and hospital number and C, sentinel lymph node #2 , is a possible lymph node measuring 1.6 x 0.4 x 0.4. The specimen is serially sectioned and entirely submitted in 2 cassettes. EXO Summary of Cassettes: Specimen Label Site A 1 12:00 tip bisected 2-11 body of ellipse 12 6:00 tip bisected exo/08/10/2022 The assays/tests were performed with appropriate positive and negative controls which stained appropriately. [facility] Department of Pathology [address] [place] [id number] [facility] HCG ( test) Johan boy Ql (U)on 08-09-2022 HCG ( test) Ql (U) CANCELED [facility] Comment on above: Result canceled by kendal silver. [facility] HCG,URINEon 08-09-2022 Beta HCG ( test) Ql (U) Negative Normal Negative [facility] Comment on above: Performed By: #### H CGU #### [address] [address] Beta HCG ( test) Ql (U) Canceled Normal [facility] Comment on above: Order Comment: TEST HCG,URINE WAS CANCELLED, 08/09/2022 10:51 DUPLICATE ORDER. Performed By: #### H CGU #### [address] [address] LYMPH GLANDon 08-09-2022 LYMPH GLAND Patient Name: MAGALIE RODRIGUEZ STUDY: LYMPH GLAND; TUMOR LOC SPECT/CT; 08/09/2022 10:08 am; 08/09/2022 10:10 am INDICATION: lymphosentigraphy for SLNB right neck melanoma C43.4: Melanoma of scalp or neck. COMPARISON: None. ACCESSION NUMBER(S): [id number]; [id number] ORDERING CLINICIAN: ADI LOPEZ TECHNIQUE: DIVISION OF NUCLEAR MEDICINE RADIONUCLIDE SENTINEL LYMPH NODE LYMPHOSCINTIGRAPHY A total of 1 millicuries of Tc-99m tilmanocept (Nextworth) was injected intradermally in a circumferential pattern surrounding the patient's right neck melanoma biopsy site. Immediate dynamic images were obtained followed by multiple static images in multiple projections. SPECT/CT images localized to the likely sentinel node region were also acquired. FINDINGS: Immediate dynamic images reveal tracer deposition traveling to right anterior neck, corresponding to an enlarged lymph node in this region. Activity likely representing a sentinel lymph node was identified in the right level 5A. SPECT/CT images localize to the site of likely sentinel location were obtained and localized images were sent to PACS. IMPRESSION: Successful sentinel lymph node localization to the right cervical level 5A. Lead Cytogenetic Technologist localizing images were sent to PACS. I personally reviewed the images/study and I agree with the findings as stated. This study was interpreted at [place], [place]. Electronically signed by: MALORIE LEES MD Normal [facility] NM Lymph Glandon 08-09-2022 NM Lymph node Views Normal [facility] Work Phone: NM Tumor Loc Spec/CTon 08-09 NM Tumor Loc Spec/CT [facility] Work Phone: No Panel Informationon 08-09 [facility] Work Phone: Successful sentinel lymph node localization to the right cervical level 5A. Lead Cytogenetic Technologist localizing images were sent to PACS. I personally reviewed the images/study and I agree with the findings as stated. This study was interpreted at [facility], [place], [place]. [facility] Interpreted By: MALORIE JADE MD and SOLOMON SOL MD Patient Name: MAGALIE RODRIGUEZ STUDY: LYMPH GLAND; TUMOR LOC SPECT/CT; 08/09/2022 10:08 am; 08/09/2022 10:10 am INDICATION: lymphosentigraphy for SLNB right neck melanoma C43.4: Melanoma of scalp or neck. COMPARISON: None. ACCESSION NUMBER(S): [id number]; [id number] ORDERING CLINICIAN: ADI LOPEZ TECHNIQUE: DIVISION OF NUCLEAR MEDICINE RADIONUCLIDE SENTINEL LYMPH NODE LYMPHOSCINTIGRAPHY A total of 1 millicuries of Tc-99m tilmanocept (Lymphoseek) was injected intradermally in a circumferential pattern surrounding the patient's right neck melanoma biopsy site. Immediate dynamic images were obtained followed by multiple static images in multiple projections. SPECT/CT images localized to the likely sentinel node region were also acquired. FINDINGS: Immediate dynamic images reveal tracer deposition traveling to right anterior neck, corresponding to an enlarged lymph node in this region. Activity likely representing a sentinel lymph node was identified in the right level 5A. SPECT/CT images localize to the site of likely sentinel location were obtained and localized images were sent to PACS. [facility] Malorie Lees MD - 08/09/2022 Interpreted By: MALORIE LEES MD and SOLOMON SOL MD Patient Name: MAGALIE RODRIGUEZ STUDY: LYMPH GLAND; TUMOR LOC SPECT/CT; 08/09/2022 10:08 am; 08/09/2022 10:10 am INDICATION: lymphosentigraphy for SLNB right neck melanoma C43.4: Melanoma of scalp or neck. COMPARISON: None. ACCESSION NUMBER(S): [id number]; [id number] ORDERING CLINICIAN: ADI LOPEZ TECHNIQUE: DIVISION OF NUCLEAR MEDICINE RADIONUCLIDE SENTINEL LYMPH NODE LYMPHOSCINTIGRAPHY A total of 1 millicuries of Tc-99m tilmanocept (Lymphoseek) was injected intradermally in a circumferential pattern surrounding the patient's right neck melanoma biopsy site. Immediate dynamic images were obtained followed by multiple static images in multiple projections. SPECT/CT images localized to the likely sentinel node region were also acquired. FINDINGS: Immediate dynamic images reveal tracer deposition traveling to right anterior neck, corresponding to an enlarged lymph node in this region. Activity likely representing a sentinel lymph node was identified in the right level 5A. SPECT/CT images localize to the site of likely sentinel location were obtained and localized images were sent to PACS. IMPRESSION: Successful sentinel lymph node localization to the right cervical level 5A. Lead Cytogenetic Technologist localizing images were sent to PACS. I personally reviewed the images/study and I agree with the findings as stated. This study was interpreted at [facility], [place], [place]. [facility] Work Phone: No Panel InformationOrdered By: Malorie Lees on 08-09-2022 [facility] Work Phone: Order Reconciliationon 08-09 Order Reconciliation Page 1 Discharge Reconciliation Document Reconciliation Type: Discharge requested on behalf of Adi Lopez (Physician) done by Adi Lopez) Discharge - Reconciliation: 09-Aug-2022 14:01 by: Adi Lopez) Home Medications EnteredHOME MEDICATIONS AT DISCHARGE DateReconciliation Comment/ Additional Information Emergen-C with D 1 tab(s) orally once a day 02-Aug-2022 10:53 Emergen-C with D 1 tab(s) orally once a day 02-Aug-2022 10:53 Emergen-C with D is continued as Emergen-C with D Epi EZ Pen 0.3 mg injectable kit 1 injectable Saturday and Saturday, As Needed 02-Aug-2022 10:53 Epi EZ Pen 0.3 mg injectable kit 1 injectable Saturday and Saturday, As Needed 02-Aug-2022 10:53 Epi EZ Pen 0.3 mg injectable kit is continued as Epi EZ Pen 0.3 mg injectable kit ProAir HFA 90 mcg/inh inhalation aerosol 2 puff(s) inhaled every 6 hours, As Needed 02-Aug-2022 10:53 ProAir HFA 90 mcg/inh inhalation aerosol 2 puff(s) inhaled every 6 hours, As Needed 02-Aug-2022 10:53 ProAir HFA 90 mcg/inh inhalation aerosol is continued as ProAir HFA 90 mcg/inh inhalation aerosol Current OrdersDateHOME MEDICATIONS AT DISCHARGE DateReconciliation Comment/ Additional Information Albuterol 2.5 mg/ 3 mL Nebulizer Soln (PROVENTIL)DOSE = 3 mL Inhalation Once via Nebulizer, PRN Wheezing (PACU)Clinician Notes: Ethel-operative order ONLY 09-Aug-2022 11:48 albuterol 2.5 mg/3 mL (0.083%) inhalation solution 3 milliliter(s) inhaled once, As needed, Wheezing (PACU) 09-Aug-2022 14:01 Albuterol 2.5 mg/ 3 mL Nebulizer Soln is continued as albuterol 2.5 mg/3 mL (0.083%) inhalation solution hydrALAZINE (APRESOLINE) Injectable DOSE = 5 mg IntraVenous Push Every 30 Minutes, PRN for SPB>180 and HR<60.Clinician Notes: Ethel-operative order ONLY 09-Aug-2022 11:48 hydrALAZINE (APRESOLINE) Injectable is not required HYDROmorphone Injectable (DILAUDID)DOSE = 0.5 mg IntraVenous Push Every 5 Minutes, PRN Pain - Mod (4-6) (PACU)Clinician Notes: Ethel-operative order ONLYMax total of 4 mg regardless of dose. 09-Aug-2022 11:48 HYDROmorphone Injectable is not required HYDROmorphone Injectable (DILAUDID)DOSE = 1 mg IntraVenous Push Every 5 Minutes, PRN Pain - Severe (7-10) (PACU)Clinician Notes: Ethel-operative order ONLYMax total of 4 mg regardless of dose. 09-Aug-2022 11:48 HYDROmorphone Injectable is not required Labetalol Injectable (TRANDATE)DOSE = 5 mg IntraVenous Push Once, PRN For SBP>180, DBP>100, HR>60Clinician Notes: Ethel-operative order ONLY 09-Aug-2022 11:48 Labetalol Injectable is not required Lactated Ringers Infusion IV Bag Volume = 1,000 mL Run at: 100 mL/hr IntraVenous Clinician Notes: Ethel-operative order ONLY 09-Aug-2022 11:48 Lactated Ringers Infusion is not required Naloxone Injectable (NARCAN)DOSE = 0.2 mg IntraVenous Push Once, PRN If patient RR below 10, obtunded or unarousableClinician Notes: DO NOT ADMINISTER UNTIL PHYSiCIAN HAS BEEN NOTIFIED AND ASSESSED PATIENT 09-Aug-2022 11:48 Naloxone Injectable is not required oxyCODONE 5 mg - Acetaminophen 325 mg Tablet (PERCOCET)DOSE = 1 tablet(s) Oral Every 4 Hours, PRN Pain - Mod (4-6) (PACU) when able to take oralClinician Notes: Ethel-operative order ONLY 09-Aug-2022 11:48 oxyCODONE 5 mg - Acetaminophen 325 mg is not required Promethazine IV Piggy Back in Sodium Chloride 0.9% 50 mL (PHENERGAN)DOSE = 6.25 mg Once, PRN persistent PONV if first line ineffectiveRecommended Infusion Time: 15 minute(s)Clinician Notes: Ethel-operative order ONLY 09-Aug-2022 11:48 Promethazine IV Piggy Back is not required Racemic EPINEPHrine 2.25% Nebulizer Solution DOSE = 0.5 mL Inhalation Every 4 Hours via Nebulizer, PRN Stridor (PACU)Clinician Notes: Ethel-operative order ONLY 09-Aug-2022 11:48 Racemic EPINEPHrine 2.25% Nebulizer Solution is not required All Active Home Medications at time of Discharge Reconciliation: 09-Aug-2022 14:01 albuterol 2.5 mg/3 mL (0.083%) inhalation solution 3 milliliter(s) inhaled once, As needed, Wheezing (PACU) Emergen-C with D 1 tab(s) orally once a day Epi EZ Pen 0.3 mg injectable kit 1 injectable Saturday and Saturday, As Needed ProAir HFA 90 mcg/inh inhalation aerosol 2 puff(s) inhaled every 6 hours, As Needed Normal [facility] Patient Profile - Preop v3on 08-09-2022 Patient Profile - Preop v3 Patient Profile - Preop: Initial Info: Patient DemographicsName: MAGALIE RODRIGUEZ Date: 1980 Address: [address] [place] [address] Primary Phone [phone] Instructions Givenappropriate clothing, bring glasses/contacts case, bring list of medications, 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 (procedure may be cancelled if no school bus driver/custodian), center location, insurance information, remove jewerly/piercings Prep Instructions Reviewedn/a How to be AddressedLINSEY Spoken Language PreferredEnglish Source of Informationpatient Stated Reason for AdmissionWIDE LOCAL EXCISION RIGHT NECK Primary Contact Name and [phone] Limitations on Visitors/Phone Callsnone Medications Brought to Hospitalno General Health: Weight in kg53.1 kilogram(s) Weight in [id number] pound(s) Weight Methodstated Scale Typechair Height in feet5 feet Height in inches5.94 inch(es) Height in cm167.4 centimeter(s) Height Methodstated BMI (kg/m2)18.948 square meter Patient or Family Member Reaction to Anesthesiapatient reaction Patient Reaction to Anesthesianausea and vomiting Blood Avoidance/Restrictionsnon e Previous Transfusion Reactionnot applicable Health Mgmt: [facility] Are You Currently Breastfeedingno Barriers to Managing Healthnone Relationship/Environ: Lives Withalone Living Arrangementshouse Resource/Environmental Concernsnone [facility] at [facility] Tobacco Use: Tobacco Useno Pre-op Checklist: Arrival [id number] Arrival Time06:45 Procedure TypeWIDE EXCISION OF RIGHT NECK MASS NPOyes Last Food [id number] 21:45 Last Clear Fluid [id number] 07:30 ID Band On Patientpatient ID (name), allergy Consent Signedpending Preop Antibioticsnot ordered HCG Urine TestComplete Chlorhexadine Bath Givencompleted at home Soap and Water Bath the Night Before Surgeryyes Hair Washed with Shampooyes Surgical Site Infection Preventionyes Pain Scales and Managementyes Additional Information: Information Review: Allergies, Home Meds and Significant Events have been Reviewed and Verified with Patient/Familyyes Allergy, Intolerance, Adverse Event: Allergies: penicillin: Drug, Rash, Active Zithromax Z-Bakari: Drug, Hives/Urticaria, Active Avelox: Drug, Resp Distress, Active Bactrim: Drug, Anaphylaxis, Active Bee Stings: Environment, Anaphylaxis, Active Berries: Food, Anaphylaxis, Active Intolerances: codeine: Drug, Nausea/Vomiting, Active Diflucan: Drug, Myalgia, Active NyQuil Cold/Flu Relief: Drug, Vomiting, Active Electronic Signatures: Iveth Valentin (BRANDON PRN) (Signed 09-Aug-2022 11:38) Authored: Initial Info, General Health, Health Mgmt, Relationship/Environ, Tobacco Use, Pre-op Checklist, Additional Information Last Updated: 09-Aug-2022 11:38 by Iveth Valentin (RN PRN) Normal [facility] TUMOR LOC SPECT/CTon 023 TUMOR LOC SPECT/CT Patient Name: MAGALIE RODRIGUEZ STUDY: LYMPH GLAND; TUMOR LOC SPECT/CT; 08/09/2022 10:08 am; 08/09/2022 10:10 am INDICATION: lymphosentigraphy for SLNB right neck melanoma C43.4: Melanoma of scalp or neck. COMPARISON: None. ACCESSION NUMBER(S): [id number]; [id number] ORDERING CLINICIAN: ADI LOPEZ TECHNIQUE: DIVISION OF NUCLEAR MEDICINE RADIONUCLIDE SENTINEL LYMPH NODE LYMPHOSCINTIGRAPHY A total of 1 millicuries of Tc-99m tilmanocept (Lymphoseek) was injected intradermally in a circumferential pattern surrounding the patient's right neck melanoma biopsy site. Immediate dynamic images were obtained followed by multiple static images in multiple projections. SPECT/CT images localized to the likely sentinel node region were also acquired. FINDINGS: Immediate dynamic images reveal tracer deposition traveling to right anterior neck, corresponding to an enlarged lymph node in this region. Activity likely representing a sentinel lymph node was identified in the right level 5A. SPECT/CT images localize to the site of likely sentinel location were obtained and localized images were sent to PACS. IMPRESSION: Successful sentinel lymph node localization to the right cervical level 5A. Lead Cytogenetic Technologist localizing images were sent to PACS. I personally reviewed the images/study and I agree with the findings as stated. This study was interpreted at [facility], [place], [place]. Electronically signed by: MALORIE LEES MD [facility] Surgical Pathology Depar tmenton 08-09-2022 [facility] Surgical Pathology Department Name MAGALIE RODRIGUEZ Pathologist: MARCELLE SCHNEIDER MD, Board Certified Dermatopathologist Date of Procedure: 08/09/2022 Date Received: 08/10/2022 Date Reported 08/16/2022 Submitting Physician: ADI LOPEZ MD Location: [facility] Other External # FINAL DIAGNOSIS A. SKIN, RIGHT NECK, WIDE LOCAL EXCISION: -- SCAR AND BIOPSY SITE CHANGES, NEGATIVE FOR RESIDUAL MELANOMA -- INCIDENTAL COMPOUND NEVUS, NOT PRESENT AT SURGICAL MARGINS B. SENTINEL LYMPH NODE #1, RIGHT LEVEL 3, EXCISION: -- ONE LYMPH NODE, NEGATIVE FOR METASTATIC MELANOMA (0/1) COMMENT: Routine and immunostained slides including Melan-A, SOX10 and HMB45 were reviewed. C. SENTINEL LYMPH NODE #2, RIGHT LEVEL 3, EXCISION: -- ONE LYMPH NODE, NEGATIVE FOR METASTATIC MELANOMA (0/1) COMMENT: Routine and immunostained slides including Melan-A, SOX10 and HMB45 were reviewed. Electronically Signed Out By MARCELLE SCHNEIDER MD, Board Certified Dermatopathologist/DAVI By the signature on this report, the individual or group listed as making the Final Interpretation/Diagnosis certifies that they have reviewed this case. Diagnostic interpretation performed at [facility] [address] 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 A short stitch is present and is designated as 12:00. A long stitch is present and is designated as 3:00. The specimen is inked: 12:00 to 3:00 to 6:00 blue, 6:00 to 9:00 to 12:00 green. The deep margin is inked juliana. On the skin surface is scar area measuring 2.5 cm in length which extends within 1.0 cm to the 12:00 margin and 1.1 cm from 6:00. The specimen is serially sectioned from 12:00 to 6:00 and entirely submitted in 12 cassettes. EXO B: Received in formalin, labeled with the patient's name and hospital number and B, sentinel lymph node #1 , is a possible lymph node measuring 1.2 x 0.5 x 0.4. The specimen is serially sectioned and entirely submitted in 2 cassettes. EXO C: Received in formalin, labeled with the patient's name and hospital number and C, sentinel lymph node #2 , is a possible lymph node measuring 1.6 x 0.4 x 0.4. The specimen is serially sectioned and entirely submitted in 2 cassettes. EXO Summary of Cassettes: Specimen Label Site A 1 12:00 tip bisected 2-11 body of ellipse 12 6:00 tip bisected exo/08/10/2022 The assays/tests were performed with appropriate positive and negative controls which stained appropriately. [facility] Department of Pathology [address] [place] [address] Normal [facility] Comment on above: Performed By: #### U [facility] #### [facility] Surgical Pathology Department [address] [place], [place] [id number] Urine Teston 08-09 HCG ( test) Ql (U) Negative Negative [facility] Work Phone: HCG ( test) Ql (U) Canceled [facility] Work Phone: No Panel Informationon 08-07 [facility] Work Phone: [facility] Surgical Pathology Depar tmenton 08-07-2022 [facility] Surgical Pathology Department Name MAGALIE RODRIGUEZ Pathologist: MARCELLE SCHNEIDER MD, Board Certified Dermatopathologist Date of Procedure: 08/07/2022 Date Received: 08/07/2022 Date Reported 08/08/2022 Submitting Physician: ADI LOPEZ MD Location: [facility] Other External # FINAL DIAGNOSIS [facility] [place], [place] SKIN, RIGHT NECK, EXCISION ([id number]: 07/06/2022): -- MELANOMA, INVASIVE, ESTIMATED [facility] [facility] 0.8 MM, SEE COMMENT AND SYNOPTIC REPORT COMMENT: The provided routine and immunostained sections including Melan-A/Ki-67, PRAME and HMB45 with adequate controls show a broad asymmetric compound melanocytic proliferation comprised of increased single and nested moderately enlarged junctional melanocytes with increased ming cytoplasm irregularly distributed along a partially effaced epidermis with confluent growth, pagetoid spread and adnexal extension, transected at a peripheral margin. There are similar-appearing atypical dermal melanocytes measuring 0.8 mm in depth without maturation and with rare mitoses admixed with brisk lymphocytic inflammation. Junctional and dermal melanocytes are positive for Melan-A and PRAME. HMB45 stains junctional and focal dermal melanocytes. Reexcision of this site with 1 cm margins and consideration for sentinel lymph node biopsy are recommended. CASE SUMMARY REPORT Gerry Blcak Vijay [id number] (07/06/2022): SPECIMEN Procedure: Excision Specimen Laterality: Right TUMOR Tumor Site: Skin of scalp and neck: Neck Histologic Type: Superficial spreading melanoma (low-cumulative sun damage (CSD) melanoma) Maximum Tumor ([place]) Thickness (Millimeters): 0.8 mm Macroscopic Satellite Nodule(s): Not identified Ulceration: Not identified Anatomic (Allen) Level: III (Melanoma fills and expands papillary dermis) Mitotic Rate: 1 mitoses per mm2 Microsatellite(s): Not identified Lymphovascular Invasion: Not identified Neurotropism: Not identified Tumor-Infiltrating Lymphocytes: Present, brisk Tumor Regression: Not identified MARGINS Margin Status for Invasive Melanoma: All margins negative for invasive melanoma Distance from Invasive Melanoma to Peripheral Margin: Less than: 2 mm Distance from Invasive Melanoma to Deep Margin: 1.7 mm Margin Status for Melanoma in situ: Melanoma in situ present at margin Margin(s) Involved by Melanoma in Situ: Peripheral REGIONAL LYMPH NODES Regional Lymph Node Status: Not applicable (no regional lymph nodes submitted or found) DISTANT METASTASIS PATHOLOGIC STAGE CLASSIFICATION (pTNM, AJCC 8th Edition) Reporting of pT, pN, and (when applicable) pM categories is based on information available to the pathologist at the time the report is issued. As per the AJCC (Chapter 1, 8th Ed.) it is the managing physician?s responsibility to establish the final pathologic stage based upon all pertinent information, including but potentially not limited to this pathology report. pT Category: pT1b pN Category: pN not assigned (no nodes submitted or found) ADDITIONAL TESTING Lead Cytogenetic Technologist Blocks: Tumor Block: A1 Electronically Signed Out By MARCELLE SCHNEIDER MD, Board Certified Dermatopathologist/DAVI By the signature on this report, the individual or group listed as making the Final Interpretation/Diagnosis certifies that they have reviewed this case. Clinical History: right neck lesion Specimens Submitted As: A: Sofia BienvenidoBienvenido [id number] (07/06/2022) Slide/Block Description Received from [facility], Dept of Pathology, [address] [place] [address], are 9 slides labeled [id number] Keep Slides: N Slides Returned: N Personal Consult: N The assays/tests were performed with appropriate positive and negative controls which stained appropriately. Normal [facility] Comment on above: Performed By: #### U [facility] #### [facility] Surgical Pathology Department [address] [facility] [address] CBC AND DIFFERENTIALon 08-02 % AUTOMATED IMMATURE GRAN 0.2 % Normal 0.0 - 0.9 [facility] Comment on above: Result Comment: Candi ture Granulocyte Count (IG) includes promyelocytes, myelocytes and metamyelocytes but does not include bands. Percent differential counts (%) should be interpreted in the context of the absolute cell counts (cells/L). Performed By: #### C BCDF #### [facility] [address] [address] [address] Basophils (Bld) [#/Vol] 0.02 10*3/uL Normal 0.00 - 0.10 [facility] Comment on above: Performed By: #### C BCDF #### [address] [place] [address] Basophils/100 WBC (Bld) 0.2 % Normal 0.0 - 2.0 [facility] Comment on above: Performed By: #### C BCDF #### [address] [place] [place] [address] Eosinophils (Bld) [#/Vol] 0.01 10*3/uL Normal 0.00 - 0.70 [facility] Comment on above: Performed By: #### C BCDF #### [address] [place] [address] Eosinophils/100 WBC (Bld) 0.1 % Normal 0.0 - 6.0 [facility] Comment on above: Performed By: #### C BCDF #### [address] [place] [address] Erythrocyte distribution width (RBC) [Ratio] 12.9 % Normal 11.5 - 14.5 [facility] Comment on above: Performed By: #### C BCDF #### [address] [place] [address] Hematocrit (Bld) [Volume fraction] 42.5 % Normal 36.0 - 46.0 [facility] Comment on above: Performed By: #### C BCDF #### [address] [place] [address] Hemoglobin (Bld) [Mass/Vol] 13.7 g/dL Normal 12.0 - 16.0 [facility] Comment on above: Performed By: #### C BCDF #### [address] [place] [address] Lymphocytes (Bld) [#/Vol] 1.40 10*3/uL Normal 1.20 - 4.80 [facility] Comment on above: Performed By: #### C BCDF #### [address] [place] [address] Lymphocytes/100 WBC (Bld) 15.7 % Normal 13.0 - 44.0 [facility] Comment on above: Performed By: #### C BCDF #### [address] [place] [address] MCHC (RBC) [Mass/Vol] 32.2 g/dL Normal 32.0 - 36.0 [facility] Comment on above: Performed By: #### C BCDF #### [address] [place] [address] MCV (RBC) [Entitic vol] 93 fL Normal 80 - 100 [facility] Comment on above: Performed By: #### C BCDF #### [address] [place] [address] Monocytes (Bld) [#/Vol] 0.74 10*3/uL Normal 0.10 - 1.00 [facility] Comment on above: Performed By: #### C BCDF #### [address] [place] [address] Monocytes/100 WBC (Bld) 8.3 % Normal 2.0 - 10.0 [facility] Comment on above: Performed By: #### C BCDF #### [address] [place] [address] Neutrophils (Bld) [#/Vol] 6.72 10*3/uL Normal 1.20 - 7.70 [facility] Comment on above: Performed By: #### C BCDF #### [address] [place] [address] Neutrophils/100 WBC (Bld) 75.5 % Normal 40.0 - 80.0 [facility] Comment on above: Performed By: #### C BCDF #### [address] [place] [address] NUCLEATED RBC 0.0 /100 WBC Normal 0.0 - 0.0 [facility] Comment on above: Performed By: #### C BCDF #### [address] [place] [address] Platelets (Bld) [#/Vol] 308 10*3/uL Normal 150 - 450 [facility] Comment on above: Performed By: #### C BCDF #### [address] [place] [address] RBC 4.56 x10E12/L Normal 4.00 - 5.20 [facility] [place] Comment on above: Performed By: #### C BCDF #### [address] [place] [address] WBC (Bld) [#/Vol] 8.9 10*3/uL Normal 4.4 - 11.3 [facility] Comment on above: Performed By: #### C BCDF #### [address] [place] [address] COMPREHENSIVE PANELon 08-02- 2022 Albumin [Mass/Vol] 4.2 g/dL Normal 3.4 - 5.0 [facility] Comment on above: Performed By: #### C MP #### [address] [place] [address] ALP [Catalytic activity/Vol] 68 U/L Normal 33 - 110 [facility] Comment on above: Performed By: #### C MP #### [address] [place] [address] ALT [Catalytic activity/Vol] 20 U/L Normal 7 - 45 [facility] Comment on above: Result Comment: Moon ents treated with Sulfasalazine may generate falsely decreased results for ALT. Performed By: #### C MP #### [address] [place] [address] Anion gap [Moles/Vol] 11 mmol/L Normal 10 - 20 [facility] Comment on above: Performed By: #### C MP #### [address] [place] [address] AST [Catalytic activity/Vol] 16 U/L Normal 9 - 39 [facility] Comment on above: Performed By: #### C MP #### [address] [place] [address] Bilirubin [Mass/Vol] 0.4 mg/dL Normal 0.0 - 1.2 [facility] [place] Comment on above: Performed By: #### C MP #### [address] [place] [address] Calcium [Mass/Vol] 9.1 mg/dL Normal 8.6 - 10.3 [facility] Comment on above: Performed By: #### C MP #### [address] [place] [address] Chloride [Moles/Vol] 105 mmol/L Normal 98 - 107 [facility] [place] Comment on above: Performed By: #### C MP #### [address] [place] [address] Creatinine [Mass/Vol] 0.73 mg/dL Normal 0.50 - 1.05 [facility] Comment on above: Performed By: #### C MP #### [address] [place] [address] eGFR FEMALE >90 Normal >90 [facility] Comment on above: Result Comment: CALC ULATIONS OF ESTIMATED GFR ARE PERFORMED USING THE 2020 CKD-EPI STUDY REFIT EQUATION WITHOUT THE RACE VARIABLE FOR THE IDMS-TRACEABLE CREATININE METHODS. https://jasn.asnjournals.org/content//ASN.577782 4180 Performed By: #### C MP #### [address] [place] [address] Glucose [Mass/Vol] 101 mg/dL High 74 - 99 [facility] Comment on above: Performed By: #### C MP #### [address] [place] [address] HCO3 (Bld) [Moles/Vol] 27 mmol/L Normal 21 - 32 [facility] Comment on above: Performed By: #### C MP #### [address] [place] [address] Potassium [Moles/Vol] 3.6 mmol/L Normal 3.5 - 5.3 [facility] Comment on above: Performed By: #### C MP #### [address] [place] [address] Protein [Mass/Vol] 6.8 g/dL Normal 6.4 - 8.2 [facility] Comment on above: Performed By: #### C MP #### [address] [place] [address] Sodium [Moles/Vol] 139 mmol/L Normal 136 - 145 [facility] Comment on above: Performed By: #### C MP #### [address] [place] [address] Urea nitrogen [Mass/Vol] 10 mg/dL Normal 6 - 23 [facility] Comment on above: Performed By: #### C MP #### [address] [place] [address] Complete Blood Count + Diffe rentialon 08-02-2022 Basophils/100 WBC (Bld) 0.2 % 0.0 - 2.0 [employer] [facility] cityRevel SystemsLakeWood [facility] Center Work Phone: [phone] Erythrocyte distribution width (RBC) [Ratio] 12.9 % See Below [email or web address] cityYour Office [facility]ol[facility] Work Phone: Comment on above: Reference Range: 11. 5 - 14.5 Hematocrit (Bld) [Volume fraction] 42.5 % See Below [email or web address]Lex[facility] cityYour Office Agentnj [facility] [employer] Work Phone: Comment on above: Reference Range: 36. 0 - 46.0 Hemoglobin (Bld) [Mass/Vol] 13.7 g/dL See Below [email or web address] cityYour Office Agentnj [facility] [employer] Work Phone: Comment on above: Reference Range: 12. 0 - 16.0 Lymphocytes/100 WBC (Bld) 15.7 % See Below [employer]LexVictorOpsnj [employer] Work Phone: Comment on above: Reference Range: 13. 0 - 44.0 MCHC (RBC) [Mass/Vol] 32.2 g/dL See Below [employer] [facility]Lex[facility] cityYour Office Agentnj [facility] [employer] Work Phone: Comment on above: Reference Range: 32. 0 - 36.0 MCV (RBC) [Entitic vol] 93 fL 80 - 100 [facility] Work Phone: Monocytes/100 WBC (Bld) 8.3 % 2.0 - 10.0 [facility] Work Phone: Neutrophils/100 WBC (Bld) 75.5 % See Below [facility] Work Phone: Comment on above: Reference Range: 40. 0 - 80.0 Platelets (Bld) [#/Vol] 308 10*3/uL 150 - 450 [facility] Work Phone: RBC (Bld) [#/Vol] 4.56 {x10E12/L} See Below [facility] Work Phone: Comment on above: Reference Range: 4.0 0 - 5.20 WBC (Bld) [#/Vol] 8.9 10*3/uL 4.4 - 11.3 [facility] SystemsMarianna juliane [facility] Work Phone: Complete Blood Count + Differential 0.02 {x10E9/L} See Below [facility] Work Phone: Comment on above: Reference Range: 0.0 0 - 0.10 Complete Blood Count + Differential 0.01 {x10E9/L} See Below [facility] Work Phone: Comment on above: Reference Range: 0.0 0 - 0.70 Complete Blood Count + Differential 0.74 {x10E9/L} See Below Bharat MatrimonyRoosevelt sevillaRevel SystemsDarling [place] Work Phone: Comment on above: Reference Range: 0.1 0 - 1.00 Complete Blood Count + Differential 1.40 {x10E9/L} See Below Bharat MatrimonyRoosevelt sevillaRevel SystemsDarling [place] Work Phone: Comment on above: Reference Range: 1.2 0 - 4.80 Complete Blood Count + Differential 6.72 {x10E9/L} See Below [employer] Work Phone: Comment on above: Reference Range: 1.2 0 - 7.70 Complete Blood Count + Differential 0.1 % 0.0 - 6.0 [employer] Work Phone: Complete Blood Count + Differential 0.2 % 0.0 - 0.9 [employer] Work Phone: Comment on above: Immature Granulocyte Count (IG) includes promyelocytes, myelocytes and metamyelocytes but does not include bands. Percent differential counts (%) should be interpreted in the context of the absolute cell counts (cells/L). Complete Blood Count + Differential 0.0 {/100_WBC} 0.0 - 0.0 [employer] Work Phone: Laboratory - Chemistry and C hemistry - challengeon 08-02-2022 Albumin BCP dye [Mass/Vol] 4.2 g/dL 3.4 - 5.0 [employer] Work Phone: ALP [Catalytic activity/Vol] 68 U/L 33 - 110 [employer] Work Phone: ALT With P-5'-P [Catalytic activity/Vol] 20 U/L 7 - 45 [email or web address] [employer] Work Phone: Comment on above: Patients treated wit h Sulfasalazine may generate falsely decreased results for ALT. Anion gap [Moles/Vol] 11 mmol/L 10 - 20 [facility] [employer] Work Phone: AST With P-5'-P [Catalytic activity/Vol] 16 U/L 9 - 39 MGActelis [employer] Work Phone: Bilirubin [Mass/Vol] 0.4 mg/dL 0.0 - 1.2 [facility] tolaryng ology-[place] [facility] Work Phone: Calcium [Mass/Vol] 9.1 mg/dL 8.6 - 10.3 [facility]Marianna laryng ology-[place] [facility] Work Phone: Chloride [Moles/Vol] 105 mmol/L 98 - 107 [facility] tolaryng olog[facility] [facility] Work Phone: CO2 [Moles/Vol] 27 mmol/L 21 - 32 [facility]Otolar yng ology-[place] Work Phone: Creatinine [Mass/Vol] 0.73 mg/dL See Below [facility] Otolaryng olog[facility]-[place] [facility] Work Phone: Comment on above: Reference Range: 0.5 0 - 1.05 Glucose [Mass/Vol] 101 mg/dL above high threshold 74 - 99 [facility]tol[facility] Work Phone: Potassium [Moles/Vol] 3.6 mmol/L 3.5 - 5.3 [facility]ol[facility] Work Phone: Protein [Mass/Vol] 6.8 g/dL 6.4 - 8.2 [facility]Marianna laryng ology-[place] [facility] Work Phone: Sodium [Moles/Vol] 139 mmol/L 136 - 145 [facility]Reza laryng ology-[place] [facility] Work Phone: Urea nitrogen [Mass/Vol] 10 mg/dL 6 - 23 [facility]tol[facility] Work Phone: No Panel Informationon 08-02 >90 >90 [facility]tol[facility] Work Phone: Comment on above: CALCULATIONS OF TABITHA MATED GFR ARE PERFORMED USING THE 2020 CKD-EPI STUDY REFIT EQUATION WITHOUT THE RACE VARIABLE FOR THE IDMS-TRACEABLE CREATININE METHODS.https://jasn.asnjournals.org/content/early// N.7418772140 No Panel Informationon 07-30 Radiology Study observation (narrative) [facility] Work Phone: Initial Visit (Otolaryngolog y)on 07-27-2022 Initial Visit (Otolaryngology) Diagnoses/Problems Melanoma of scalp or neck (172.4) (C43.4) Provider Impressions 42-year-old female referred for melanoma of the right neck with 0.8 mm depth. We discussed indications for sentinel lymph node biopsy. She certainly falls in the consider category however she will require additional excision and morbidity of sentinel lymph node biopsy is low. We discussed risks of bleeding, infection, numbness, cranial neuropathies. We discussed how sentinel lymph node status impacts overall staging. All questions were answered and consent was obtained. Chief Complaint Melanoma of the right neck History of Present [id number] female referred by Dr. Jacey Chung for evaluation of a melanoma of the right neck. She had a mole on the right side of her neck for quite some time that was recently excised showing a melanoma with approximately 0.8 mm depth. There is no ulceration. She has no prior history of melanoma or other skin cancers. 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 She has not noticed any lymphadenopathy She is otherwise fairly healthy. She uses inhaler for asthma. She has not had any issues with anesthesia in the past. She is a non-smoker. She does not have any listed drug allergies Review of Systems All other systems have been reviewed and are negative for complaint. Active Problems Melanoma of scalp or neck (172.4) (C43.4) Physical Exam CONSTITUTIONAL: Vitals -deferred due to COVID precautions, well developed, well nourished. VOICE: Normal RESPIRATION: Breathing comfortably, no stridor. CV: No clubbing/cyanosis/edema in hands. EYES: EOM Intact, sclera normal. NEURO: Alert and oriented times 3, Cranial nerves II-XII intact and symmetric bilaterally. HEAD AND FACE: Symmetric facial features, no masses or lesions, sinuses nontender to palpation. SALIVARY GLANDS: Parotid and submandibular glands normal bilaterally. EARS: Normal external ears, external auditory canals, and TMs to otoscopy, normal hearing to whispered voice. NOSE: External nose midline, anterior rhinoscopy is normal with limited visualization to the anterior aspect of the interior turbinates. No lesions noted. ORAL CAVITY/OROPHARYNX/LIPS: Normal mucous membranes, normal floor of mouth/tongue/OP, no masses or lesions are noted. PHARYNGEAL VILLELA AND NASOPHARYNX: No masses noted. Mucosa appears clean and moist NECK/LYMPH: No LAD, no thyroid masses. Trachea palpably midline, right neck incision is healing well SKIN: No surrounding pigmentation or nodularity PSYCH: Alert and oriented with appropriate mood and affect 'Scores and Scales' Signatures Electronically signed by : Adi Lopez MD; Jul 30 2022 4:03AM EST (Author) Normal [employer] SCREENING MAMMOGRAM W/VALENTÍN, BILATERAL*on 01-22-2022 SCREENING MAMMOGRAM W/VALENTÍN, BILATERAL* CLINICAL HISTORY: Screening Mammogram COMPARISON: Priors from 2019 TECHNIQUE: 2D and 3D mammogram imaging of both breasts was performed. RESULT: DENSITY: Heterogeneously dense, which may obscure small masses. There is no suspicious mass, asymmetry, architectural distortion, or calcification. No significant change since the prior mammograms. Calcifications, unchanged. IMPRESSION: BIRADS 2 : BENIGN FINDINGS, NORMAL INTERVAL FOLLOW UP. FOLLOW UP: 12 months DENSITY: Heterogeneously dense MAMMOGRAPHY IS VERY IMPORTANT TO YOUR HEALTH. THE CURRENT [employer] GUIDELINES RECOMMENDS ANNUAL MAMMOGRAPHY BEGINNING AT AGE 40 THIS FACILITY USES A REMINDER SYSTEM TO ENSURE ALL PATIENTS RECEIVE REMINDER NOTIFICATIONS AT THE APPROPRIATE TIME BASED ON THE RECOMMENDATIONS OF THIS EXAM. Board Certified Radiologist. Accredited by the ACR and FDA. Report reported and signed by Edilson Murdock on 01/22/[address] [facility] US Pelvic Complete w/Transva ginalon 01-15-2022 US Pelvic Complete w/Transvaginal HISTORY: Pelvic pain and pressure. COMPARISON: None TECHNIQUE: Sonography of the pelvis was performed by transvaginal and transabdominal techniques. Images were obtained and stored in a permanent archive. RESULT: Uterus: -Orientation: Anteverted -Size: 7.5 x 5.1 x 3.5 -Myometrium: Homogeneous echotexture. Probable small fibroid within the fundal region measuring around 0.9 cm. -Endometrial echo complex: 0.6 cm. -Cervix: normal Right ovary: Normal sonographic appearance. -Size: 2.1 x 1.5 x 1.5 -Complex cyst: None. -Solid mass: None. -Vascular flow present. Left ovary: 1.5 cm anechoic cyst/follicle. 0.8 cm anechoic cyst/follicle. -Size: 2.6 x 2.2 x 1.7 -Complex cyst: None. -Solid mass: None. -Vascular flow present. Free fluid: Small volume, likely physiologic. IMPRESSION: Probable small fibroid within the fundal region. Unremarkable sonographic appearance of the ovaries. Small volume free fluid, likely physiologic. Report reported and signed by Edilson Murdock on 01/15/2022 1212 Normal [facility] [employer] PAP ACOG PANEL 2: 30 to 65on 01-12-2022 . . Normal [facility] Comment on above: Result Comment: Perf ormed at: WB Performed By: #### [id number] #### [facility] [address] [address] [address] Petey Willis Age Gdln ACOG Testing 30-65 Normal [facility] Comment on above: Performed By: #### [id number] #### [facility] [address] [address] [address] Petey Willis DIAGNOSIS: Comment Normal [facility] Comment on above: Result Comment: NEGA TIVE FOR INTRAEPITHELIAL LESION OR MALIGNANCY. Performed at: WB Performed By: #### [id number] #### [facility] [address] [address] [address] Petey Willis HPV Aptima Positive Abnormal Negative [facility] Comment on above: Result Comment: This nucleic acid amplification test detects fourteen high-risk HPV types (16,18,31,33,35,39,45,51,52,56,58,59,66,68) without differentiation. Performed at: =G Performed By: #### [id number] #### [facility] [address] [address] [address] Petey Willis HPV Genotype 16 Negative Normal Negative [facility] Comment on above: Result Comment: Perf ormed at: =G Performed By: #### [id number] #### [facility] [address] [address] [address] Petey Willis HPV Genotype 18,45 Negative Normal Negative [facility] Comment on above: Result Comment: Perf ormed at: =G Performed By: #### [id number] #### [facility] [address] [place] [address] Dr. Petey Willis Methodology: Comment Normal [facility] Comment on above: Result Comment: This liquid based ThinPrep(R) pap test was screened with the use of an image guided system. Performed at: WB Performed By: #### 4 [id number] #### [facility] [address] [place] [address] Dr. Petey Willis Note: Comment Normal [facility] Comment on above: Result Comment: The Pap smear is a screening test designed to aid in the detection of premalignant and malignant conditions of the uterine cervix. It is not a diagnostic procedure and should not be used as the sole means of detecting cervical cancer. Both false-positive and false-negative reports do occur. . Performed at: WB Performed By: #### [id number] #### [facility] [address] [place] [address] Dr. Petey Willis Performed by: Comment Normal [facility] Comment on above: Result Comment: Rasheeda Parekh, Sole Conditioner (ASCP) Performed at: WB Performed By: #### [id number] #### [facility] [address] [place] [address] Dr. Petey Willis Specimen adequacy: Comment Normal [facility] Comment on above: Result Comment: Sati sfactory for evaluation. Performed at: WB Performed By: #### [id number] #### [facility] [address] [place] [address] Dr. Petey Willis CHLAMYDIA/GONOCOCCUS BA (SW AB/URINE/PAPon 01-06-2022 Chlamydia trachomatis, BA Negative Normal Negative [facility] Comment on above: Performed By: #### C T/NGNA #### [facility] [address] [place] [address] Dr. Petey Willis Neisseria gonorrhoeae, BA Negative Normal Negative [facility] Comment on above: Performed By: #### C T/NGNA #### [facility] [address] [place] [address] Dr. Petey Willis VAGINITIS/VAGINOSIS DNA PROB Bhavik 01-05-2022 Summer species Negative Normal Negative [facility] Comment on above: Performed By: #### V AGINT #### [facility] [address] [address] [address] Petey Willis Gardnerella vaginalis Negative Normal Negative [facility] Comment on above: Performed By: #### V AGINT #### [facility] [address] [address] [address] Petey Willis Trichomonas vaginalis Negative Normal Negative [facility] Comment on above: Performed By: #### V AGINT #### [facility] [address] [address] [address] Petey Willis Vital Signs Date Time Vital Sign Value Performing Clinician Facility 04-15-2023 10:35-0500 Body height 170.2 cm Adi Lopez MD Work Phone: [facility] 04-15-2023 10:35-0500 Body mass index (BMI) [Ratio] 18.89 kg/m2 Adi Lopez MD Work Phone: [facility] 04-15-2023 10:35-0500 Body temperature 97.2 [degF] Adi Lopez MD Work Phone: [facility] 04-15-2023 10:35-0500 Body weight 54.7 kg Adi Lopez MD Work Phone: [facility] 08-27-2022 11:29-0400 Body height 167.64 cm Derek Manzanares Work Phone: [facility] [place] Work Phone: 08-27-2022 11:29-0400 Body mass index (BMI) [Ratio] 19.37 kg/m2 Derek Manzanares Work Phone: [facility] [place] Work Phone: 08-27-2022 11:29-0400 Body surface area Derived from formula 1.61 m2 Derek Manzanares Work Phone: [facility] [place] Work Phone: 08-27-2022 11:29-0400 Body weight 54.43 kg Derek Manzanares Work Phone: [facility] [place] Work Phone: 08-09-2022 10:54-0400 Body height 167.4 cm Adi Lopez MD Work Phone: [facility] 08-09-2022 10:54-0400 Body mass index (BMI) [Ratio] 18.95 kg/m2 Adi Lopez MD Work Phone: [facility] 08-09-2022 10:54-0400 Body weight 53.1 kg Adi Lopez MD Work Phone: [facility] 07-18-2022 10:34-0400 Body height 167.6 cm Fredy Johnson MD Work Phone: [facility] 07-18-2022 10:34-0400 Body mass index (BMI) [Ratio] 18.76 kg/m2 Fredy Johnson MD Work Phone: [facility] 07-18-2022 10:34-0400 Body temperature 97.2 [degF] Fredy Johnson MD Work Phone: [facility] 07-18-2022 10:34-0400 Body weight 52.71 kg Fredy Johnson MD Work Phone: [facility] 07-18-2022 10:34-0400 Diastolic blood pressure 66 mm[Hg] Fredy Johnson MD Work Phone: [facility] 07-18-2022 10:34-0400 Heart rate 95 /min Fredy Johnson MD Work Phone: [facility] 07-18-2022 10:34-0400 Systolic blood pressure 120 mm[Hg] Fredy Johnson MD Work Phone: 1(337)233-398812 [place] [address] 07-06-2022 13:44-0500 Diastolic blood pressure 58 mm[Hg] Fredy Johnson MD Work Phone: 5(745)278-140712 [place] [address] 07-06-2022 13:44-0500 Heart rate 83 /min Fredy Johnson MD Work Phone: 8(478)045-187112 [place] [address] 07-06-2022 13:44-0500 Respiratory rate 16 /min Fredy Johnson MD Work Phone: 9(528)644-394912 [place] [address] 07-06-2022 13:44-0500 SaO2% (BldA) [Mass fraction] 98 % Fredy Johnson MD Work Phone: 2(093)756-697112 [place] [address] 07-06-2022 13:44-0500 Systolic blood pressure 118 mm[Hg] Fredy Johnson MD Work Phone: 0(373)822-062512 [place] [address] 07-06-2022 13:29-0500 Body temperature 98.01 [degF] Fredy Johnson MD Work Phone: 8(084)287-398112 [place] [address] 07-06-2022 12:44-0500 Body height 167.6 cm Fredy Johnson MD Work Phone: 0(294)214-966012 [place] [address] 07-06-2022 12:37-0500 Body mass index (BMI) [Ratio] 18.88 kg/m2 Fredy Johnson MD Work Phone: 5(824)611-097712 [place] [address] 07-06-2022 12:37-0500 Body weight 53.07 kg Fredy Johnson MD Work Phone: 1(639)319-182912 [place] [address] 06-13-2022 11:38-0500 Body height 167.6 cm Fredy Johnson MD Work Phone: 9(593)331-194312 [place] [address] 06-13-2022 11:38-0500 Body mass index (BMI) [Ratio] 19.09 kg/m2 Fredy Johnson MD Work Phone: [facility] 06-13-2022 11:38-0500 Body temperature 97.9 [degF] Fredy Johnson MD Work Phone: [facility] 06-13-2022 11:38-0500 Body weight 53.66 kg Fredy Johnson MD Work Phone: [facility] 06-13-2022 11:38-0500 Diastolic blood pressure 76 mm[Hg] Fredy Johnson MD Work Phone: [facility] 06-13-2022 11:38-0500 Heart rate 78 /min Fredy Johnson MD Work Phone: [facility] 06-13-2022 11:38-0500 Systolic blood pressure 122 mm[Hg] Fredy Johnson MD Work Phone: [facility] 1980 23:00-0500 >na< Qi Brantley Dept. of Dermato logy Encounters Encounter Date Encounter Type Care Provider Facility Start: 07-17-2023 End: 07-17-2023 ambulatory GIANFRANCO DERIK Not Available Start: 07-17-2023 End: 07-17-2023 ambulatory Gianfranco Derik Facility:[facility] Start: 07-03-2023 End: 07-03-2023 ambulatory GIANFRANCO DERIK Not Available Start: 06-12-2023 Chart abstracting Gianfranco Derik DO Work Phone: [facility] Start: 05-22-2023 End: 05-23-2023 ambulatory DEREK LINN Not Available Start: 05-09-2023 End: 05-09-2023 ambulatory ADI LOPEZ Facility:[facility] Start: 05-01-2023 End: 05-02-2023 ambulatory SUMMER M WORKMAN Not Available Start: 04-27-2023 End: 04-28-2023 ambulatory Summer Workman Facility:[facility] Start: 04-15-2023 End: 04-16-2023 ambulatory SUMMER M WORKMAN Not Available Start: 04-15-2023 End: 04-16-2023 ambulatory ADI LOPEZ [facility] Start: 04-15-2023 End: 04-15-2023 Office outpatient visit 15 minutes Adi Lopez MD Work Phone: [facility] Comment on above: Melanoma of neck (CM S/HCC) (Primary Dx) Start: 09-04-2022 Qi Brantley Dept. of D ermatology Start: 08-27-2022 Postop follow up vis it related to original px Derek Manzanares Work Phone: [facility] [place] Work Phone: Start: 08-27-[address] Derek Manzanares Facility:[id number] Start: 08-09-2022 End: 08-09-2022 ambulatory ADI LOPEZ Facility:[id number] Start: 08-09-2022 End: 08-09-2022 Subsequent hospital visit by physician Adi Lopez MD Work Phone: [facility] Comment on above: Malignant melanoma o f scalp and neck (CMS/HCC); Unspecified asthma, uncomplicated; Gastro-esophageal reflux disease without esophagitis; Personal history of COVID-19; Allergy status to penicillin Start: 08-09-2022 Chart Update Derek Manzanares Work Phone: [facility] Work Phone: Start: 08-09-2022 ambulatory ADI LOPEZ Faci lity:[id number] Start: 08-07-[address] Derek Manzanares Facility:[facility] Start: 08-02-2022 Chart Update Derek Manzanares Work Phone: [facility] Work Phone: Start: 08-02-2022 ambulatory ADI Rosadoi lity:[id number] Start: 08-02-2022 Encounter for preprocedural laboratory examination ADI LOPEZ [facility] Start: 07-27-2022 Office consultation new/estab patient 60 min Derek Manzanares Work Phone: [facility] Work Phone: Start: 07-27-2022 ambulatory MD ADI LOPEZ Facility:[id number] Start: 07-18-2022 ambulatory [facility] Start: 07-18-2022 End: 07-18-2022 Office outpatient visit 25 minutes Fredy Johnson MD Work Phone: [facility] Plastic Surgery Comment on above: Melanoma of right si de of neck (Primary Dx) Start: 07-06-2022 End: [facility] Start: 07-06-2022 End: 07-06-2022 Subsequent hospital visit by physician Fredy Johnson MD Work Phone: [facility] Comment on above: Neoplasm of uncertai n behavior of skin Start: 06-13-2022 New [facility] Start: 06-13-2022 End: 06-13-2022 Office outpatient new 30 minutes Fredy Johnson MD Work Phone: [facility] Plastic Surgery Comment on above: Neoplasm of uncertai n behavior of skin (Primary Dx) Start: 01-03-2022 End: 01-03-[address] GIANFRANCO MORE Facility:H1 Procedures Date Procedure Procedure Detail Performing Clinician Start: 05-01-2023 Mammography Gianfranco More DO Work Phone: Start: 09-04-2022 Qi Brantley Start: 08-09-2022 SURGICAL PATHOLOGY RESULTS Adi stallings MD Work Phone: Start: 08-09-2022 NM TUMOR LOC SPECT CT Adi Lopez MD Work Phone: Start: 08-09-2022 Lymphatics & lymph nodes imaging Adi Lopez MD Work Phone: Start: 08-09-2022 Choriogonadotropin ( test) [Presence] in Urine Adi Lopez MD Work Phone: Start: 01-22-2022 Mammography Adi Lopez MD Work Phone: Plan of Treatment Date Care Activity Detail Author Start: 2030 Zoster Vaccines (1 o f 2) Zoster Vaccines (1 of 2) [facility] Start: 05-01-2024 Screening for malignant neoplasm of breast Mammogram [facility] Start: 07-03-2023 End: 07-03-2023 Patient encounter procedure 07/03/2023 11:00 AM EST Office Visit [facility] [address] [place] [place] [id number] Gianfranco More DO [address] [place] [address] [facility] Start: 04-15-2023 End: 04-15-2023 Patient encounter procedure 04/15/2023 10:45 AM EST Office Visit [address] [place] [address] [place] [address] [place] [id number] [address] [place] [address] [facility] Start: 01-22-2023 Screening for malignant neoplasm of breast Mammogram [facility] Start: 01-04-2023 Influenza vaccination Influenza Vacc ine (#1) [facility] Start: 08-27-2022 POV, Provider: Adi Lopez, Status: Pen, Time: 11:15 AM POV, Provider: Adi Lopez, Status: Pen, Time: 11:15 AM [facility] Work Phone: Start: 08-09-2022 [facility], Provider: Adi Lopez, Status: Pen, Time: 12:00 PM [facility], Provider: Adi Lopez, Status: Pen, Time: 12:00 PM [id number] on [address] Work Phone: Start: 07-18-2022 End: 07-18-2022 Patient encounter procedure 07/18/2022 Office Visit Plastic Surgery Fredy Johnson MD [address] [place] [address] [facility] Start: 07-06-2022 End: 07-06-2022 Exc b9 lesion mrgn xcp sk tg s/n/h/f/g 2.1-3.0cm EXCISION LESION SKIN NECK SCALP Neoplasm of uncertain behavior of skin 07/06/2022 12:50 PM EST [facility] Start: 01-04-2022 Influenza vaccination INFLUENZA VACC INE (#1) [facility] Start: 08-04-2020 COVID-19 Vaccine (3 - Moderna series) COVID-19 Vaccine (3 - Moderna series) [facility] Start: 2020 Lipid panel LIPID SCREENING [facility] Start: 2020 Screening for malignant neoplasm of breast [facility] Start: 2010 Screening for malignant neoplasm of cervix [facility] Start: 2002 DTaP/Tdap/Td Vaccine s (1 - Tdap) DTaP/Tdap/Td Vaccines (1 - Tdap) [facility] Start: 2001 Screening for malignant neoplasm of cervix [facility] Start: 1999 Third diphtheria, tetanus and acellular pertussis (DTaP) vaccination TDAP (ADULT) [facility] Start: 1998 Hepatitis C screening Hepatitis C [facility] Start: 1995 HIV screening HIV SCREENING DISCUSSI ON [facility] Start: 1981 MMR Vaccines (1 of 1 - Standard series) MMR Vaccines (1 of 1 - Standard series) [facility] Start: 1980 COVID-19 VACCINE (#1) COVID-19 VACCI NE (#1) [facility] Start: 1980 Examination of skin Derm Melanoma Sk in Check [facility] Start: 1980 Hepatitis B Vaccines (1 of 3 - 3-dose series) Hepatitis B Vaccines (1 of 3 - 3-dose series) [facility] Start: 1980 Hepatitis C screening HEPATITI S C VIRUS SCREENING [facility] Start: 1980 HIV screening HIV Screening [facility] Start: 1980 Lipid panel Lipid Panel [facility] Start: 1980 Tetanus vaccination TETANUS [facility] Start: 1980 Yearly Adult Physical Yearly Adult P hysical [facility] SURGICAL PATHOLOGY REQUEST SURGICAL PATHOLOGY REQUEST Surg Path Routine Neoplasm of uncertain behavior of skin Release Upon Ordering for 1 Occurrences starting 07/06/2022 [facility] Comment on above: Release Upon Orderin g for 1 Occurrences starting 07/06/2022 Immunizations Immunization Date Immunization Notes Care Provider Loraine mae 1980 pneumococcal conjuga te vaccine, 7 valent Qi Brantley Dept. of Dermatology Payers Date Payer Category Payer Self-pay 2021 Unknown [id number] 2021 Unknown [id number] 1980 Unknown [id number] 2.16.84 [id number] 1980 Unknown [id number] 2.16.8 40.1.198102.3.579.2.983 1980 Unknown [id number] 2.16.8 40.1.750843.3.579.2.983 1980 Unknown [id number] 2.16.8 40.1.617299.3.579.2.983 1980 Unknown [id number] 2.16.8 40.1.168685.3.579.2.1069 1980 Unknown [id number] 2.16.8 40.1.052157.3.579.2.1069 1980 Unknown [id number] 2.16.8 40.1.040874.3.579.2.1069 1980 Unknown [id number] 2.16. 840.1.775752.3.579.2.356 1980 Unknown [id number] 2.16. 840.1.410617.3.579.2.356 1980 Unknown [id number] 2.16. 840.1.029155.3.579.2.356 1980 Unknown [id number] 2.16.8 40.1.702683.3.579.2.1245 1980 Unknown [id number] 2.16.8 40.1.084119.3.579.2.718 1980 Unknown [id number] 2.16.84 0.1.314132.3.579.2.1259 1980 Unknown [id number] 2.16.84 0.1.413038.3.579.2.1259 1980 Unknown [id number] 2.16.84 0.1.418504.3.579.2.1259 1980 Unknown [id number] 2.16.84 0.1.531042.3.579.2.1259 1980 Unknown [id number] 2.16.840 .1.063971.3.579.2.1259 1980 Unknown [id number] 2.16.840 .1.968601.3.579.2.1259 1959 Unknown [id number] Unknown [id number] 2.16.8 40.1.537014.3.579.2.531 Social History Date Type Detail Facility Start: 06-13-2022 End: 06-12-2023 Tobacco smoking status OKIS Never smoked tobacco [facility] Start: 06-13-2022 End: 06-12-2023 Tobacco use and exposure Smokeless tobacco non-user [facility] Start: 06-13-2022 End: 07-18-2022 Alcohol intake Ex-drinker (finding) [facility] Start: 1980 Sex Assigned At Not on file [facility] Start: 07-08-2022 End: 04-15-2023 Exposure to SARS-CoV-2 (event) Not sure [facility] Start: 09-04-2022 Dept. of D ermatology Start: 1980 Sex Assigned At Female D ept. of Dermatology Start: 04-15-2023 Gender identity Not on file [facility] Work Phone: Start: 04-15-2023 History of Social function [facility] Work Phone: Start: 06-12-2023 Alcohol intake Lifetime non-d jhon (finding) [facility] Start: 06-12-2023 Alcohol Comment caffeine: 1-2 cups per day [facility] Goals Date Patient Goal Desired Activity /State Clinical Notes 06-13-2022 to 05-09-2023 Adi Lopez MD - 04/15/2023 10:45 AM ESTOp Note - Adi Lopez MD - 08/09/2022 1:38 PM EDTOp Note - Adi Lopez MD - 08/09/2022 1:38 PM EDTAdi Lopez MD - 08/09/2022 1:36 PM EDT Note Date & Type Note Facility 05-09-2023 Note HNO ID: [id number] Author: DEREK LINN MD Service: ? Author Type: Physician Type: Progress Notes Filed: 05/10/2023 07:06 Note Text: PATIENT NAME: Magalie Rodriguez DATE: 05/09/2023 PRIMARY CARE PHYSICIAN: Derek aMnzanares MD OTHER PHYSICIANS: Dr. Fredy Johnson, Dr. Adi Lopez ( Oncologic ENT), Hyacinth Ramirez PA-C HPI: This is a 43 year old female with a history of early-stage melanoma, self-referred for evaluation of bilateral inguinal lymphadenopathy. The patient presented in the spring with a pigmented lesion over her right lateral neck. She was seen by plastic surgery, and excisional biopsy 07/06/2022 revealed invasive melanoma with a Breslow depth of 0.8 mm. She subsequently was seen by ENT at (Dr. Lopez) and underwent wide excision plus sentinel node biopsy on 08/10/2022. Final pathology revealed no residual disease in the resected specimen, and the sentinel lymph node was negative for metastasis. She was classified as stage IB disease and routine follow-up recommended. She did not undergo preop staging scans. She follows closely with her ENT physician and her outer diameter grinder. She has had no evidence of local recurrence, and no new suspicious skin lesions. However, since November 2022 she has noticed persistent lymphadenopathy in her bilateral inguinal regions. Ultrasound obtained 11/13/2022 revealed lymph nodes measuring up to 1.3 cm. Repeat ultrasound 04/15/2023 revealed the nodes had increased in size to 1.5 cm. Apparently there was some question of vaginal infection after her initial ultrasound, but despite antibiotics the lymph nodes did not resolve. She denies any other areas of adenopathy. No unusual pain. Over the past 2 years she has lost 60 pounds with diet and exercise. She has had no unexpected weight loss, fevers, night sweats or other systemic symptoms. She currently works as a nurse practitioner at [employer]. MEDICATIONS: Current Outpatient Medications Medication Sig albuterol HFA (PROVENTIL HFA, VENTOLIN HFA) 90 mcg/actuation inhaler inhale 2 puffs every 4 hours if needed for wheezing EPINEPHrine (EPIPEN) 0.3 mg/0.3 mL auto-injector inject INTO UPPER LEG 0.3 milliliter if needed for ANAPHYLAXIS CALL 911 AFTER No current facility-administered medications for this visit. ALLERGIES: ALLERGIES Allergen Reactions Moxifloxacin Shortness of Breath Per patient Per patient Sulfamethoxazole-Tr* Anaphylaxis Per patient Per patient Azithromycin Hives Per patient Per patient Codeine Vomiting Per patient Per patient Diflucan [Fluconazo* Other: See Comments Muscle weakness Nyquil [Doxylamin-P* Vomiting Penicillins Rash Per patient Per patient PAST MEDICAL HISTORY: PAST MEDICAL HISTORY Diagnosis Date Melanoma (HCC) PAST SURGICAL HISTORY: No past surgical history on file. FAMILY HISTORY: FAMILY HISTORY Problem Relation Age of Onset Breast Cancer Maternal cousin SOCIAL HISTORY: Social History Tobacco Use Smoking status: Never COMPLETE REVIEW OF SYSTEMS: CONSTITUTION: Negative for pain, fatigue, weight loss, or appetite loss. EENT: Negative for mouth soreness, antibiotics use, epistaxis, visual problems, neck or facial swelling, fever/chills, bleeding gums, or hearing loss. CV: Negative for edema, calf swelling, palpitations, or chest pain. RESPIRATORY: Negative for cough, SOB, hemoptysis, or wheezing. GI: Negative for nausea/vomiting, heartburn, vomiting blood, dysphasia, diarrhea, blood in stool, constipation, early satiety, PICA, vegetarian, poor nutrition, abdominal fullness, or abdominal pain. NEUROLOGICAL: Negative for numbness/tingling, dizziness, gait disturbance, headache, speech disturbance, tremor, hemiparesis/sensory loss, or change in mental status. MUSCULOSKELETAL: Negative for joint pain, joint swelling, or proximal muscle weakness. SKIN: Negative for hair loss, bruising, nail changes, rash, itching, pallor, or jaundice. ENDO/URO: Negative for hot flashes, cold or heat intolerance, urinary frequency, urinary hesitancy, menorrhagia, or hematuria. PSYCH: Negative for anxiety, depression, or other. PHYSICAL EXAM: BP 125/80 Pulse 110 Temp 36.4 ?C (97.5 ?F) (Temporal) Resp 16 Ht 170.2 cm (5' 7 ) Wt 53.6 kg (118 lb 2.7 oz) LMP 04/22/2023 SpO2 100% BMI 18.51 kg/m? GENERAL EXAM: Well developed/well nourished; in no acute distress. SKIN: Negative for lesions, rashes, or ulcers on the upper and lower extremities and face. Negative for palpations/nodules, purpura, and ecchymosis. EENT: Negative for conjunctiva, mucosal pallor, JVD, LAP, thyromegaly, and glossitis. Supple AND PERRL. EXTREMITIES: Negative for cyanosis, clubbing, and crepitus. LUNGS: Negative to auscultation, respiratory effort, and percussion. CARDIOVASCULAR: Regular rate. Negative for murmurs/S3S4/abnormal sounds, edema, and carotid bruits. ABDOMEN: Negative for masses, hernia, a (more content not included)... [facility] 04-15-2023 History of Present illness Narrative ENT Follow up Visit History Of Present Illness Magalie Rodriguez is a 43 y.o. female presents for follow up referred by Dr. Jacey Chung for evaluation of a melanoma of the right neck. She had a mole on the right side of her neck for quite some time that was recently excised showing a melanoma with approximately 0.8 mm depth. She underwent wide local excision and SLN. margins and nodes negative. stage 1a 04/15/23: Patient returns for follow-up. She recently had an ultrasound of her inguinal nodes due to palpable lymph nodes. These are not enlarged and they are planning a 3-month follow-up which will be completed today. She is otherwise doing well. She continues to see dermatology Past Medical History She has no past medical history on file. Surgical History She has no past surgical history on file. Social History She has no history on file for tobacco use, alcohol use, and drug use. Family History No family history on file. Allergies Patient has no allergy information on record. Physical Exam: CONSTITUTIONAL: No acute distress VOICE: No hoarseness or other abnormality RESPIRATION: Breathing comfortably, no stridor CV: No clubbing/cyanosis/edema in hands EYES: EOM intact, sclera normal NEURO: Alert and oriented times 3, Cranial nerves II-XII grossly intact and symmetric bilaterally HEAD AND FACE: Symmetric facial features, no masses or lesions, sinuses non-tender to palpation SALIVARY GLANDS: Parotid and submandibular glands normal bilaterally EARS: Normal external ears, external auditory canals, and TMs to otoscopy, normal hearing to whispered voice. NOSE: External nose midline, anterior rhinoscopy is normal with limited visualization to the anterior aspect of the interior turbinates, no bleeding or drainage, no lesions ORAL CAVITY/OROPHARYNX/LIPS: Normal mucous membranes, normal floor of mouth/tongue/OP, no masses or lesions PHARYNGEAL VILLELA: No masses or lesions NECK/LYMPH: No palpable LAD, no thyroid masses, trachea midline SKIN: incision well healed, small area of redundant skin at the bottom of the incision PSYCH: Alert and oriented with appropriate mood and affect Last Recorded Vitals There were no vitals taken for this visit. Assessment and Plan 43 y.o. femalereferred for melanoma of the right neck with 0.8 mm depth status post wide local excision, sentinel node biopsy. Final pathology showed negative margins and lymph nodes. stage 1a -Continue regular follow-up with dermatology -Follow-up with me in 4-6 months or earlier with any issues -She will contact our office if there are any concerns on follow-up ultrasound Adi Lopez MD documented in this encounter [facility] Work Phone: 08-09-2022 Note Post Operative Note: PreOp Diagnosis: melanoma right neck Post-Procedure Diagnosis: melanoma right neck Procedure: 1. Wide local excision right neck melanoma > 4 cm 2. sentinel lymph node biopsy 3. Identification of sentinel node with gamma. Surgeon: lawanda Resident/Fellow/Other Laundry Marker Supervisor: lilibeth Estimated Blood Loss (mL): 2 Specimen: yes Findings: sentinel node identified level 3 Commission on Cancer Synoptic Reports: Operation performed with curative intentyes mm (to the tenth of a millimeter)0.8 Clinical margin width (measured from the edge of the lesion or the prior excision scar)1 cm Depth of excisionfull-thickness skin/subcutaneous tissue down to fascia (melanoma) Operative Report Dictated: Dictation: not applicable - note contains Operative Report Operative Report: Indications: Patient was referred for management of a invasive melanoma of the right neck with 0.8 mm depth. Margins were negative for invasive melanoma however there is still some melanoma in situ at one of the margins. Therefore 1 cm wide local excision and sentinel lymph node biopsy was discussed. We reviewed risks of bleeding, infection, numbness, cranial neuropathies. Consent was obtained Procedure: Patient was taken back to the operating room and laid supine on the table. Timeout was performed, general anesthesia induced, patient was intubated. The table was turned and the right neck was exposed. The prior scar was outlined with 1 cm margins. The skin was then injected with local anesthesia. The neck was then prepped and draped in sterile fashion. We started with the wide local excision. 15 blade was used to make skin incision down into the subcutaneous fat. Bovie cautery was then used to elevate the lesion off of the lateral surface of the sternocleidomastoid muscle and the great auricular nerve. The greater auricular nerve was intact. The lesion was excised circumferentially until it was removed. It was then oriented for pathology and passed off the field. The defect measured larger than 4 cm. Next the sentinel lymph node was identified deep to the anterior aspect of the sternocleidomastoid muscle. The anterior edge of the muscle was dissected away from the jugular vein. The fascia overlying the fibrofatty tissue of level 3 was then opened identifying 2 lymph nodes adjacent to each other. Both of these were circumferentially dissected and removed. One of them had strong activity with the gamma probe and was called sentinel lymph node 1. The other had weaker activity and was sentinel node 2. The remainder of the surgical bed and neck was then inspected with the gamma probe and there is no further activity. The wound was then copiously irrigated and hemostasis was achieved. Fibrillar was placed in the lateral neck surgical bed. The incision was then closed in layers using 3-0 Vicryl for the deep layer and a running subcuticular Monocryl for the skin. Mastisol and Steri-Strips were placed. Patient was then extubated without issue and taken to PACU in stable condition Attestation: Note Completion: Attending AttestationI performed the procedure without a resident Electronic Signatures: Adi Lopez) (Signed 09-Aug-2022 13:44) Authored: Post Operative Note, Note Completion Last Updated: 09-Aug-2022 13:44 by Adi Lopez) [facility] 08-09-2022 Note History & Physical R eviewed: /Lactating: Are You no Are You Currently Breastfeedingno (1) I have reviewed the History and Physical dated: 02-Aug-2022 History and Physical reviewed and relevant findings noted. Patient examined to review pertinent physical findings.: No significant changes Home Medications Reviewed: no changes noted Allergies Reviewed: no changes noted ERAS (Enhanced Recovery After Surgery): ERAS Patient: no Consent: COVID-19 Consent: COVID-19 Risk ConsentSurgeon has reviewed del cid risks related to the risk of luis COVID-19 and if they contract COVID-19 what the risks are. Electronic Signatures: Adi Lopez) (Signed 09-Aug-2022 13:37) Authored: History & Physical Reviewed, ERAS, Consent, Note Completion Last Updated: 09-Aug-2022 13:37 by Adi Lopez) References: 1. Data Referenced From Patient Profile - Preop v3 09-Aug-2022 10:54 [facility] 08-09-2022 Miscellaneous Notes Post Operative Note: PreOp Diagnosis: melanoma right neck Post-Procedure Diagnosis: melanoma right neck Procedure: 1. Wide local excision right neck melanoma > 4 cm 2. sentinel lymph node biopsy 3. Identification of sentinel node with gamma. Surgeon: lawanda Resident/Fellow/Other Laundry Marker Supervisor: lilibeth Estimated Blood Loss (mL): 2 Specimen: yes Findings: sentinel node identified level 3 Commission on Cancer Synoptic Reports: Operation performed with curative intent yes mm (to the tenth of a millimeter) 0.8 Clinical margin width (measured from the edge of the lesion or the prior excision scar) 1 cm Depth of excision full-thickness skin/subcutaneous tissue down to fascia (melanoma) Operative Report Dictated: Dictation: not applicable - note contains Operative Report Operative Report: Indications: Patient was referred for management of a invasive melanoma of the right neck with 0.8 mm depth. Margins were negative for invasive melanoma however there is still some melanoma in situ at one of the margins. Therefore 1 cm wide local excision and sentinel lymph node biopsy was discussed. We reviewed risks of bleeding, infection, numbness, cranial neuropathies. Consent was obtained Procedure: Patient was taken back to the operating room and laid supine on the table. Timeout was performed, general anesthesia induced, patient was intubated. The table was turned and the right neck was exposed. The prior scar was outlined with 1 cm margins. The skin was then injected with local anesthesia. The neck was then prepped and draped in sterile fashion. We started with the wide local excision. 15 blade was used to make skin incision down into the subcutaneous fat. Bovie cautery was then used to elevate the lesion off of the lateral surface of the sternocleidomastoid muscle and the great auricular nerve. The greater auricular nerve was intact. The lesion was excised circumferentially until it was removed. It was then oriented for pathology and passed off the field. The defect measured larger than 4 cm. Next the sentinel lymph node was identified deep to the anterior aspect of the sternocleidomastoid muscle. The anterior edge of the muscle was dissected away from the jugular vein. The fascia overlying the fibrofatty tissue of level 3 was then opened identifying 2 lymph nodes adjacent to each other. Both of these were circumferentially dissected and removed. One of them had strong activity with the gamma probe and was called sentinel lymph node 1. The other had weaker activity and was sentinel node 2. The remainder of the surgical bed and neck was then inspected with the gamma probe and there is no further activity. The wound was then copiously irrigated and hemostasis was achieved. Fibrillar was placed in the lateral neck surgical bed. The incision was then closed in layers using 3-0 Vicryl for the deep layer and a running subcuticular Monocryl for the skin. Mastisol and Steri-Strips were placed. Patient was then extubated without issue and taken to PACU in stable condition Attestation: Note Completion: Attending Attestation I performed the procedure without a resident Electronic Signatures: Adi Lopez) (Signed 09-Aug-2022 13:44) Authored: Post Operative Note, Note Completion Last Updated: 09-Aug-2022 13:44 by Adi Lopez) documented in this encounter [facility] Work Phone: 08-09-2022 Note Formatting of this n ote is different from the original. Post Operative Note: PreOp Diagnosis: melanoma right neck Post-Procedure Diagnosis: melanoma right neck Procedure: 1. Wide local excision right neck melanoma > 4 cm 2. sentinel lymph node biopsy 3. Identification of sentinel node with gamma. Surgeon: lawanda Resident/Fellow/Other Laundry Marker Supervisor: lilibeth Estimated Blood Loss (mL): 2 Specimen: yes Findings: sentinel node identified level 3 Commission on Cancer Synoptic Reports: Operation performed with curative intent yes mm (to the tenth of a millimeter) 0.8 Clinical margin width (measured from the edge of the lesion or the prior excision scar) 1 cm Depth of excision full-thickness skin/subcutaneous tissue down to fascia (melanoma) Operative Report Dictated: Dictation: not applicable - note contains Operative Report Operative Report: Indications: Patient was referred for management of a invasive melanoma of the right neck with 0.8 mm depth. Margins were negative for invasive melanoma however there is still some melanoma in situ at one of the margins. Therefore 1 cm wide local excision and sentinel lymph node biopsy was discussed. We reviewed risks of bleeding, infection, numbness, cranial neuropathies. Consent was obtained Procedure: Patient was taken back to the operating room and laid supine on the table. Timeout was performed, general anesthesia induced, patient was intubated. The table was turned and the right neck was exposed. The prior scar was outlined with 1 cm margins. The skin was then injected with local anesthesia. The neck was then prepped and draped in sterile fashion. We started with the wide local excision. 15 blade was used to make skin incision down into the subcutaneous fat. Bovie cautery was then used to elevate the lesion off of the lateral surface of the sternocleidomastoid muscle and the great auricular nerve. The greater auricular nerve was intact. The lesion was excised circumferentially until it was removed. It was then oriented for pathology and passed off the field. The defect measured larger than 4 cm. Next the sentinel lymph node was identified deep to the anterior aspect of the sternocleidomastoid muscle. The anterior edge of the muscle was dissected away from the jugular vein. The fascia overlying the fibrofatty tissue of level 3 was then opened identifying 2 lymph nodes adjacent to each other. Both of these were circumferentially dissected and removed. One of them had strong activity with the gamma probe and was called sentinel lymph node 1. The other had weaker activity and was sentinel node 2. The remainder of the surgical bed and neck was then inspected with the gamma probe and there is no further activity. The wound was then copiously irrigated and hemostasis was achieved. Fibrillar was placed in the lateral neck surgical bed. The incision was then closed in layers using 3-0 Vicryl for the deep layer and a running subcuticular Monocryl for the skin. Mastisol and Steri-Strips were placed. Patient was then extubated without issue and taken to PACU in stable condition Attestation: Note Completion: Attending Attestation I performed the procedure without a resident Electronic Signatures: Aid Lopez) (Signed 09-Aug-2022 13:44) Authored: Post Operative Note, Note Completion Last Updated: 09-Aug-2022 13:44 by Adi Lopez) [facility] Work Phone: 08-09-2022 History and physical note History & Physical Reviewed: /Lactating: Are You no Are You Currently no (1) I have reviewed the History and Physical dated: 02-Aug-2022 History and Physical reviewed and relevant findings noted. Patient examined to review pertinent physical findings.: No significant changes Home Medications Reviewed: no changes noted Allergies Reviewed: no changes noted ERAS (Enhanced Recovery After Surgery): ERAS Patient: no Consent: COVID-19 Consent: COVID-19 Risk Consent Surgeon has reviewed del cid risks related to the risk of luis COVID-19 and if they contract COVID-19 what the risks are. Electronic Signatures: Adi Lopez) (Signed 09-Aug-2022 13:37) Authored: History & Physical Reviewed, ERAS, Consent, Note Completion Last Updated: 09-Aug-2022 13:37 by Adi Lopez) References: 1. Data Referenced From Patient Profile - Preop v3 09-Aug-2022 10:54 [facility] Work Phone: 08-09-2022 History and physical note History & Physical Reviewed: /Lactating: Are You no Are You Currently no (1) I have reviewed the History and Physical dated: 02-Aug-2022 History and Physical reviewed and relevant findings noted. Patient examined to review pertinent physical findings.: No significant changes Home Medications Reviewed: no changes noted Allergies Reviewed: no changes noted ERAS (Enhanced Recovery After Surgery): ERAS Patient: no Consent: COVID-19 Consent: COVID-19 Risk Consent Surgeon has reviewed del cid risks related to the risk of luis COVID-19 and if they contract COVID-19 what the risks are. Electronic Signatures: Adi Lopez) (Signed 09-Aug-2022 13:37) Authored: History & Physical Reviewed, ERAS, Consent, Note Completion Last Updated: 09-Aug-2022 13:37 by Adi Lopez) References: 1. Data Referenced From Patient Profile - Preop v3 09-Aug-2022 10:54 documented in this encounter [facility] Work Phone: 07-18-2022 History of Present illness Narrative General Plastics Review of Systems: Do you have any of the following: Chills, Fatigue, Fever or Night Sweats: no. Ear pain or eye discharge: no. Hearing loss or visual changes: no. Sore throat or chronic cough: no. Shortness of breath: states resolving covid. Chest pain, swelling, or heart palpitations: no. Abdominal pain: no. Constipation or diarrhea: no. Heartburn or Nausea: no. Rash or skin problems: no. Dizziness or numbness: states dizziness related to resolving covid. Headaches or Migraines: no. Seizures: no. Joint pain, joint swelling or muscle weakness: no. Bruise or bleed easily: no. Any swollen lymph nodes: no. Have you used any nicotine products in the last 3 months? no. Do you use any cannabis, THC or marijuana containing products? no. Subjective: Magalie Rodriguez is an 42 y.o. female who presents for evaluation of recently excised lesion of the right neck. She denies any problems postsurgical. Is recently recovering from Covid. Allergies Allergen Reactions Avelox [Moxifloxacin] Shortness of Breath Per patient Bactrim [Sulfamethoxazole-Trimethoprim] Anaphylaxis Per patient Codeine Nausea and Vomiting Per patient Diflucan [Fluconazole] Arthralgia Per patient Penicillins Rash Per patient Z-Bakari [Azithromycin] Hives Per patient No current outpatient medications on file. No current facility-administered medications for this visit. No past medical history on file. Past Surgical History: Procedure Laterality Date EXCISION LESION SKIN NECK SCALP Right 07/06/2022 Excision lesion Rt neck (3cm) OTHER SURGICAL 2014 excision sun lesion bridge of nose WISDOM TEETH EXTRACTION 1998 Family History Problem Relation Age of Onset Breast Cancer Maternal Cousin Social History Socioeconomic History Marital status: Spouse name: Not on file Number of children: Not on file Years of education: Not on file Highest education level: Not on file Occupational History Not on file Tobacco Use Smoking status: Never Smokeless tobacco: Never Substance and Sexual Activity Alcohol use: Not Currently Drug use: Never Sexual activity: Not on file Other Topics Concern Not on file Social History Narrative Not on file Social Determinants of Health Financial Resource Strain: Not on file Food Insecurity: Not on file Transportation Needs: Not on file Physical Activity: Not on file Stress: Not on file Social Connections: Not on file Intimate Partner Violence: Not on file Housing Stability: Not on file Review of Systems Pertinent items are noted in HPI. General Plastics Review of Systems: Do you have any of the following: Chills, Fatigue, Fever or Night Sweats: no. Ear pain or eye discharge: no. Hearing loss or visual changes: no. Sore throat or chronic cough: no. Shortness of breath: states resolving covid. Chest pain, swelling, or heart palpitations: no. Abdominal pain: no. Constipation or diarrhea: no. Heartburn or Nausea: no. Rash or skin problems: no. Dizziness or numbness: states dizziness related to resolving covid. Headaches or Migraines: no. Seizures: no. Joint pain, joint swelling or muscle weakness: no. Bruise or bleed easily: no. Any swollen lymph nodes: no. Have you used any nicotine products in the last 3 months? no. Do you use any cannabis, THC or marijuana containing products? no. Objective: BP 120/66 (BP Location: Left arm, BP Position: Sitting) Pulse 95 Temp 97.2 F (36.2 C) (Temporal) Ht 1.676 m (5' 6 ) Wt 52.7 kg (116 lb 3.2 oz) BMI 18.76 kg/m Smoking Status Never On examination, the incision is well approximated. Reinforcing Prolene sutures are removed. A thin layer of antibiotic ointment is applied to the site. The pathology was reviewed with the patient which demonstrated an invasive melanoma (Allen's level III, Breslow's thickness 0.8 mm) of approximately 2.5 cm at its widest diameter. There was no ulceration, no lymphovascular perineural invasion. The radial melanoma in situ is within 1 mm of the margin. I described the need for further surgical intervention for complete excision. Additionally I reviewed the need for complete dermatologic evaluation. She desires referral to [facility] and we will put this referral into the ENT department. Additionally, we will refer her to Dr. Perez dermatology for evaluation and surveillance Assessment: Melanoma right neck Plan: The pt is to call with any further problems or questions, otherwise I will see them back PRN. We will coordinate referrals. documented in this encounter [facility] 07-06-2022 Nurse Surgical operation note Discharged in stable condition with personal belongings and written discharge instructions. Patient walked to discharge door per self. [facility] 07-06-2022 Nurse Note Discharged in stable condition with personal belongings and written discharge instructions. Patient walked to discharge door per self. Discharge instructions reviewed with patient, understanding stated. Patient transported to PACU via cart with this RN and REPAIR COIL WINDER. Report given to BRANDON Mensah. OR 2 temp 67.2F, humidity 47%. documented in this encounter [facility] 07-06-2022 Nurse Surgical operation note Discharge instructions reviewed with patient, understanding stated. [facility] 07-06-2022 Hospital Discharge instructions Fredy Johnson MD - 07/06/2022 1:37 PM EST Keep your back elevated (recliner position) for the next 2-3 nights to reduce bleeding and swelling. Take the oral antibiotic (Omnicef) 2 x a day until finished. Keep steri-strips dry. Do not remove tape until seen in the office. If tape falls off, apply antibiotic ointment (like neosporin or bacitracin) on the area daily. documented in this encounter [facility] 07-06-2022 Note Formatting of this n ote is different from the original. POST OPERATIVE/PROCEDURE NOTE Magalie Rodriguez ([id number]) SURGEON Surgeon(s) and Role: * Fredy Johnson MD - Primary AERONAUTICAL INSPECTOR None ANESTHESIOLOGIST No anesthesia staff entered. SURGICAL STAFF Plant Sciences Professor: Laura Lambert RN; Emily Sharma RN Scrub Person: Ros Bhatti PROCEDURE PERFORMED Excision lesion right neck (3.0cm) with intermediate closure PRIMARY CLOSURE Yes ANESTHESIA (type of) Local ESTIMATED BLOOD LOSS Minimal DRAINS None BLOOD PRODUCTS None FLUIDS No intake or output data in the 24 hours ending 07/06/22 1332 PRE OPERATIVE DIAGNOSIS Neoplasm of uncertain behavior of skin [D48.5] POST OPERATIVE DIAGNOSIS Post-Op Diagnosis Codes: * Neoplasm of uncertain behavior of skin [D48.5] FINDINGS pending CONDITION OF PATIENT stable COMPLICATIONS None GRAFTS AND/OR IMPLANTS See OR Nursing Documentation SPECIMENS Microbiology specimen sent ID Type Source Tests Collected by Time Destination A : right neck lesion Permanent TISSUE SURGICAL PATHOLOGY REQUEST Fredy Johnson MD 07/06/2022 1315 Fredy Johnson MD July 06, 2022 1:32 PM [facility] 07-06-2022 Miscellaneous Notes POST OPERATIVE/PROCEDURE NOTE Magalie Rodriguez ([id number]) SURGEON Surgeon(s) and Role: * Fredy Johnson MD - Primary AERONAUTICAL INSPECTOR None ANESTHESIOLOGIST No anesthesia staff entered. SURGICAL STAFF Plant Sciences Professor: Laura Lambert RN; Emily Sharma RN Scrub Person: Ros Bhatti PROCEDURE PERFORMED Excision lesion right neck (3.0cm) with intermediate closure PRIMARY CLOSURE Yes ANESTHESIA (type of) Local ESTIMATED BLOOD LOSS Minimal DRAINS None BLOOD PRODUCTS None FLUIDS No intake or output data in the 24 hours ending 07/06/22 1332 PRE OPERATIVE DIAGNOSIS Neoplasm of uncertain behavior of skin [D48.5] POST OPERATIVE DIAGNOSIS Post-Op Diagnosis Codes: * Neoplasm of uncertain behavior of skin [D48.5] FINDINGS pending CONDITION OF PATIENT stable COMPLICATIONS None GRAFTS AND/OR IMPLANTS See OR Nursing Documentation SPECIMENS Microbiology specimen sent ID Type Source Tests Collected by Time Destination A : right neck lesion Permanent TISSUE SURGICAL PATHOLOGY REQUEST Fredy Johnson MD 07/06/2022 1315 Fredy Johnson MD July 06, 2022 1:32 PM documented in this encounter [facility] 07-06-2022 Nurse Surgical operation note Patient transported to PACU via cart with this RN and REPAIR COIL WINDER. Report given to BRANDON Mensah. [facility] 07-06-2022 History and physical note I have examined the patient and reviewed the previous H&P completed on date 06/13/22 and there are no changes. See paper H&P in chart Fredy Johnson MD, 07/06/2022, 12:40 PM. [facility] 07-06-2022 History and physical note I have examined the patient and reviewed the previous H&P completed on date 06/13/22 and there are no changes. See paper H&P in chart Freyd Johnson MD, 07/06/2022, 12:40 PM. documented in this encounter [facility] 07-06-2022 Nurse Surgical operation note OR 2 temp 67.2F, humidity 47%. [facility] 06-13-2022 History of Present illness Narrative General Plastics Review of Systems: Do you have any of the following: Chills, Fatigue, Fever or Night Sweats: no. Ear pain or eye discharge: no. Hearing loss or visual changes: no. Sore throat or chronic cough: no. Shortness of breath: no. Chest pain, swelling, or heart palpitations: no. Abdominal pain: no. Constipation or diarrhea: no. Heartburn or Nausea: no. Rash or skin problems: no. Dizziness or numbness: states hx of vertigo. Headaches or Migraines: no. Seizures: no. Joint pain, joint swelling or muscle weakness: no. Bruise or bleed easily: states bruises easily. Any swollen lymph nodes: no. Have you used any nicotine products in the last 3 months? no. Do you use any cannabis, THC or marijuana containing products? no. Subjective: Jennifer Mejias is an 42 y.o. female who presents for evaluation of Lesion on right side of neck. States present for at least 9 years, and more recently increase in size and became flaky. Denies pain to site but does c/o itching. Allergies Allergen Reactions Avelox [Moxifloxacin] Shortness of Breath Per patient Bactrim [Sulfamethoxazole-Trimethoprim] Anaphylaxis Per patient Codeine Nausea and Vomiting Per patient Diflucan [Fluconazole] Arthralgia Per patient Penicillins Rash Per patient Z-Bakari [Azithromycin] Hives Per patient No current outpatient medications on file. No current facility-administered medications for this visit. No past medical history on file. Past Surgical History: Procedure Laterality Date OTHER SURGICAL 2014 excision sun lesion bridge of nose WISDOM TEETH EXTRACTION 1998 Family History Problem Relation Age of Onset Breast Cancer Maternal Cousin Social History Socioeconomic History Marital status: Spouse name: Not on file Number of children: Not on file Years of education: Not on file Highest education level: Not on file Occupational History Not on file Tobacco Use Smoking status: Never Smokeless tobacco: Never Substance and Sexual Activity Alcohol use: Not Currently Drug use: Never Sexual activity: Not on file Other Topics Concern Not on file Social History Narrative Not on file Social Determinants of Health Financial Resource Strain: Not on file Food Insecurity: Not on file Transportation Needs: Not on file Physical Activity: Not on file Stress: Not on file Social Connections: Not on file Intimate Partner Violence: Not on file Housing Stability: Not on file Review of Systems Pertinent items are noted in HPI. General Plastics Review of Systems: Do you have any of the following: Chills, Fatigue, Fever or Night Sweats: no. Ear pain or eye discharge: no. Hearing loss or visual changes: no. Sore throat or chronic cough: no. Shortness of breath: no. Chest pain, swelling, or heart palpitations: no. Abdominal pain: no. Constipation or diarrhea: no. Heartburn or Nausea: no. Rash or skin problems: no. Dizziness or numbness: states hx of vertigo. Headaches or Migraines: no. Seizures: no. Joint pain, joint swelling or muscle weakness: no. Bruise or bleed easily: states bruises easily. Any swollen lymph nodes: no. Have you used any nicotine products in the last 3 months? no. Do you use any cannabis, THC or marijuana containing products? no. Objective: BP 122/76 (BP Location: Left arm, BP Position: Sitting) Pulse 78 Temp 97.9 F (36.6 C) (Temporal) Ht 1.676 m (5' 6 ) Wt 53.7 kg (118 lb 4.8 oz) BMI 19.09 kg/m Smoking Status Never General: alert, cooperative, no distress, appears stated age Skin: Pigmented hyperkeratotic lesion of right neck which is oval and well-circumscribed. Some variegation in color Eyes: conjunctivae/corneas clear. PERRL, EOM's intact. Mouth: no lesions Lymph Nodes: Cervical, supraclavicular, and axillary nodes normal. Lungs: clear to auscultation bilaterally Heart: regular rate and rhythm, S1, S2 normal, no murmur Abdomen: soft, non-tender. No masses, no organomegaly Extremities: extremities normal, atraumatic, no edema Neurologic: negative Psychiatric: non focal. Judgement and Affect WNL. Assessment: Lesion right neck Plan: The procedure for excision / biopsy was reviewed with the patient. They are aware that this will be done in a procedure room at the hospital. Alternatives and risks were also reviewed. (these include but are not exclusive of scar tissue, tenderness, and potential need for further surgery.) The specimen will be evaluated by pathology. The patient is aware of the potential need for further surgery depending on the results. We will SCHEDULE THE PROCEDURE in the near future. SURGERY TO BE SCHEDULED FOLLOWS: ANESTHESIA: local PROCEDURE: 1. Excision lesion right neck documented in this encounter [facility] Evaluation note Diagnosis Neoplasm of uncertain behavior of skin- Primary [facility] Neoplasm of uncertain behavior of skin [facility] Diagnosis Melanoma of right side of neck- Primary [facility]AD[facility]. [facility] Dermatology Evaluation note* Diagnosis Malignant melanoma of scalp and neck (CMS/HCC) Unspecified asthma, uncomplicated Gastro-esophageal reflux disease without esophagitis Personal history of COVID-19 Allergy status to penicillin documented in this encounter [facility] Work Phone: Evaluation note* Diagnosis Melanoma of neck (CMS/HCC)- Primary documented in this encounter [facility] Work Phone: History of Present illness Narrative* 42-year-old female referred by Dr. Jacey Chung for evaluation of a melanoma of the right neck. She had a mole on the right side of her neck for quite some time that was recently excised showing a melanoma with approximately 0.8 mm depth. There is no ulceration. She has no prior history of melanoma orother skin cancers. 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 She has not noticed any lymphadenopathy * She is otherwise fairly healthy. She uses inhaler for asthma. She has not had any issues with anesthesia in the past. She is a non-smoker. She does not have any listed drug allergies [id number] Work Phone: History of Present illness Narrative* 42-year-old female referred by Dr. Jacey Chung for evaluation of a melanoma of the right neck. She had a mole on the right side of her neck for quite some time that was recently excised showing a melanoma with approximately 0.8 mm depth. There is no ulceration. She has no prior history of melanoma orother skin cancers. 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 She has not noticed any lymphadenopathy * She is otherwise fairly healthy. She uses inhaler for asthma. She has not had any issues with anesthesia in the past. She is a non-smoker. She does not have any listed drug allergies [facility] Work Phone: History of Present illness Narrative* 42-year-old female referred by Dr. Jacey Chung for evaluation of a melanoma of the right neck. She had a mole on the right side of her neck for quite some time that was recently excised showing a melanoma with approximately 0.8 mm depth. There is no ulceration. She has no prior history of melanoma orother skin cancers. 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 She has not noticed any lymphadenopathy * She is otherwise fairly healthy. She uses inhaler for asthma. She has not had any issues with anesthesia in the past. She is a non-smoker. She does not have any listed drug allergies [id number] Work Phone: History of Present illness Narrative* 42-year-old female referred by Dr. Jacey Chung for evaluation of a melanoma of the right neck. She had a mole on the right side of her neck for quite some time that was recently excised showing a melanoma with approximately 0.8 mm depth. There is no ulceration. She has no prior history of melanoma orother skin cancers. 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 She has not noticed any lymphadenopathy * She is otherwise fairly healthy. She uses inhaler for asthma. She has not had any issues with anesthesia in the past. She is a non-smoker. She does not have any listed drug allergies [facility] Work Phone: History of Present illness Narrative* 42-year-old female referred by Dr. Jacey Chung for evaluation of a melanoma of the right neck. She had a mole on the right side of her neck for quite some time that was recently excised showing a melanoma with approximately 0.8 mm depth. There is no ulceration. She has no prior history of melanoma orother skin cancers. 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 She has not noticed any lymphadenopathy * She is otherwise fairly healthy. She uses inhaler for asthma. She has not had any issues with anesthesia in the past. She is a non-smoker. She does not have any listed drug allergies * 08/27/22: Patient returns for follow-up after surgery. She is doing well [id number] Work Phone: Reason for referral (narrative)* Consultation (Urgent) - New Request Specialty Diagnoses / Procedures Referred By Roman edmonds Referred To Contact Dermatology Diagnoses Melanoma of right side of neck Fredy Johnson MD [address] [place] [address] Guero Perez MD [address] [facility] [address] [place] [address] Referral ID Status Reason Start Date Expiration Date V isits Requested Visits Authorized [id number] New Request 07/18/2022 08/12/2023 1 1 * Consultation (Urgent) - New Request Specialty Diagnoses / Procedures Referred By Roman edmonds Referred To Contact Otolaryngology Diagnoses Melanoma of right side of neck Fredy Johnson MD [address] [place] [id number] Referral ID Status Reason Start Date Expiration Date V isits Requested Visits Authorized [id number] New Request 07/18/2022 08/12/2023 1 [facility] Name Reason for referral NA NA Dept. of Dermatology Reason for visit Narrative* Auth/Cert Specialty Diagnoses / Procedures Referred By Roman edmonds Referred To Contact Diagnoses Neoplasm of uncertain behavior of skin Neoplasm of uncertain behavior of skin [D48.5] Procedures ND EXC SKIN BENIG 2.1-3CM REMAINDR BODY EXCISION LESION SKIN NECK SCALP Fredy Johnson MD [address] [place] [address] Referral ID Status Reason Start Date Expiration Date Visits Re quested Visits Authorized [id number] 06/18/2022 1 1 [facility] Summary Purpose Family History No Family History Records FoundNo Family History Records FoundNo Family History Records FoundNo Family History Records FoundNo Family History Records FoundNo Family History Records FoundNo Family History Records FoundNo Family History Records FoundNo Family History Records FoundNo Family History Records FoundNo Family History Records Found Advance Directives No Advanced Directives Records FoundNo Advanced Directives Records FoundNo Advanced Directives Records FoundNo Advanced Directives Records FoundNo Advanced Directives Records FoundNo Advanced Directives Records FoundNo Advanced Directives Records FoundNo Advanced Directives Records FoundNo Advanced Directives Records FoundNo Advanced Directives Records FoundNo Advanced Directives Records Found Chief Complaint Melanoma of the right neckMelanoma of the right neckMelanoma of the right neck Melanoma of the right neckMelanoma of the right neck Additional Source Comments INFORMATION SOURCE (unrecogn ized section and content) DATE CREATED AUTHOR 01/12/2022 [facility] DATE CREATED AUTHOR AUTHOR'S ORGANIZ ATION 02/03/2022 [facility] DATE CREATED AUTHOR AUTHOR'S ORGANIZ ATION 08/10/2022 [facility] DATE CREATED AUTHOR AUTHOR'S ORGANIZ ATION 08/20/2022 [facility] DATE CREATED AUTHOR AUTHOR'S ORGANIZ ATION 08/28/2022 [employer] DATE CREATED AUTHOR AUTHOR'S ORGANIZ ATION 09/07/2022 [facility] DATE CREATED AUTHOR AUTHOR'S ORGANIZ ATION 04/21/2023 [facility] DATE CREATED AUTHOR AUTHOR'S ORGANIZ ATION 05/10/2023 [facility] DATE CREATED AUTHOR AUTHOR'S ORGANIZ ATION 05/24/2023 [facility] DATE CREATED AUTHOR AUTHOR'S ORGANIZ ATION 07/19/2023 [facility]ists EPIC DATE CREATED AUTHOR AUTHOR'S ORGANIZ ATION 07/19/2023 [facility] Reason for Visit (unrecogniz ed section and content) Reason Comments New Patient Lesion on right side of neck. States present for at least 9 years, and more recently increase in size and became flaky. Denies pain to site but does c/o itching. Reason Comments Post Op Visit Post op 07/06/22 excis ion lesion of right neck. States COVID positive x10 days ago. Reason Comments Other Wide loca excision r ight neck, possible skin graft, sentinel lymph node biopsy for right neck melanoma [id number] C43.4 Reason Comments Follow-up Care Teams (unrecognized sec tion and content) Switching Clerk Relationship Specialty Start Date End Date SaltySarah jarrett, CYTOMETRY TECHNOLOGIST [address] [place] [phone] PCP - General Nurse Practitioner - [facility] 06/13/22 Switching Clerk Relationship Specialty Start Date End Date RamosSarah edmonds CYTOMETRY TECHNOLOGIST [address] [place] [phone] PCP - General Nurse Practitioner - [facility] 06/13/22 Switching Clerk Relationship Specialty Start Date End Date RamosSarah edmonds CYTOMETRY TECHNOLOGIST [address] [place] [address] PCP - General Nurse Practitioner - [facility] 06/13/22 Switching Clerk Relationship Specialty Start Date End Date Derek Manzanares MD [address] [place] [address] PCP - General 07/27/22 Switching Clerk Relationship Specialty Start Date End Date Derek Manzanares MD [address] [place] [phone] PCP - General 07/27/22 Switching Clerk Relationship Specialty Start Date End Date Derek Manzanares MD [address] [place] [address] PCP - General Family Medicine 09/11/22 PRN Active and Recently Administ ered Medications (unrecognized section and content) Medication Order 07/04/2022 07/05/2022 07/06/2022 lidocaine 1%/ epinephrine 1:100,000 with sodium bicarbonate 8.4% (10 mL Prepared by Pharmacy) NEEDED, Starting on Sat07/06/22 at 1314, Until Sat07/06/22 at 1555, Intra-op/Intra-Proc 1314 (Given - Provid er: Fredy Johnson MD - Comment: given to sterile field) Sodium chloride 0.9 % irrigation NEEDED, Starting on Sat07/06/22 at 1314, Until Sat07/06/22 at 1555, Intra-op/Intra-Proc 1314 (Given - Provid er: Fredy Johnson MD - Comment: given to sterile field) FOR RECORDS PERTAINING TO PATIENTS WHO ARE OR HAVE BEEN ENROLLED IN A CHEMICAL DEPENDENCY/SUBSTANCEABUSE PROGRAM, SOME INFORMATION MAY BE OMITTED. This clinical summary was aggregated from multiple sources. Caution should be exercised in using it in the provision of clinical care. This summary normalizes information from multiple sources, and as a consequence, information in this document may materially change the coding, format and clinical context of patient data. In addition, data may be omitted in some cases. CLINICAL DECISIONS SHOULD BE BASED ON THE PRIMARY CLINICAL RECORDS. [email or web address] provides no warranty or guarantee of the accuracy or completeness of information in this document.
== END 2023-07-17 06:56 | disposition home or self-care (01) ==
LOC: LAB 06:55
PROVIDERS: Visit Provider Obstetrics & Gynecology
DX: R87.612 Low grade squamous intraepithelial lesion on cytologic smear of cervix (LGSIL) (principal)
CPT/HCPCS: 88305

== ENCOUNTER 2024-01-22 19:31 | Outpatient (REF) | payer BC, SELFPAY ==
--- OUTSIDE RECORDS SUMMARY | 2024-01-22 19:36 | XMS_ITS | CCD ---
Author Organization [facility] Care Team Providers Care Qa Consultant Name Role Phone DERIK, DR PENDLETON Attending Unavailable DERIK, DR PENDLETON Consulting Unavailable DERIK, DR PENDLETON Admitting Unavailable Kiepert Sarah REA Primary Care Provider [phone] Derek Manzanares Unavailable Unavailable Unavailable KATHY SARAH A Primary Care Unavailable SELF, SELF Referring Unavailable GHAZOUL, FREDY Attending Unavailable KIEPERT, SARAH A Primary Care Unavailable SELF, SELF Referring Unavailable GHAZOUL, FREDY Attending Unavailable KIEPERT, SARAH A Primary Care Unavailable GHAZOUL, FREDY Referring Unavailable GHAZOUL, FREDY Attending Unavailable GHAZOUL, FREDY Admitting Unavailable ADI LOPEZ Attending Unavailable Leighton, Dr. Derek Natarajan Primary Care Unavailab ADI St Attending Unavailable ADI LOPEZ Referring Unavailable Leighton, Dr. Derek Natarajan Primary Care Unavailab ADI St Attending Unavailable ADI LOPEZ Referring Unavailable Manzanares, Dr. Derek Natarajan Primary Care Unavailab ADI St Admitting Unavailable Qi Brantley Unavailable Unavailable Manzanares, Dr. Derek Natarajan Primary Care Unavailab MD ADI St Attending Unavailab MD ADI St Attending Unavailab Dr. Jacey Will Referring Unavailable Manzanares, Dr. Derek Natarajan Primary Care Unavailab le Leighton, Dr. Derek Natarajan Primary Care Unavailab MD ADI St Attending Unavailab le Derek Manzanares MD Primary Care Provider ADI LOPEZ Attending Unavailable DEREK MANZANARES Primary Care Unavailable Workman, Summer Admitting Unavailable Workman, Summer Attending Unavailable DEREK MANZANARES Primary Care Unavailable Derek Manzanares MD Primary Care Provider Hazel Morey Attending Unavailable Derik, Gianfranco Admitting Unavailable Derik, Gianfranco Attending Provider Fredy Johnson Unavailable Derek Manzanares MD Primary Care Provider DEREK LINN Attending Unavailable MANZANARES, DEREK NATARAJAN Primary Care Unavailable DEREK LINN Referring Unavailable ADI LOPEZ Referring Unavailable MANZANARES, DEREK NATARAJAN Primary Care Unavailable DEREK LINN Attending Unavailable ADI LOPEZ Attending Unavailable DEREK MANZANARES Primary Care Unavailable WORKMAN, SUMMER M Referring Unavailable DEREK LINN Referring Unavailable GIANFRANCO MORE Attending Unavailable GIANFRANCO MORE Attending Unavailable DERIK, GIANFRANCO Referring Unavailable WORKMAN, SUMMER M Referring Unavailable DOUGLAS CISNEROS Attending Unavailable SARAH GANDHI Referring Unavailable Allergies Allergy Classification Reported Allergen(s) Allergy Type Date of Onset Reaction(s) Facility (15 sources) Azithromycin; Translations: [Azithromycin PACK] Drug Allergy 06-13-19 Hives [facility] (15 sources) Codeine; Translations: [codeine] Drug Allergy 06-13-19 Nausea and Vomiting, Vomiting [facility] (15 sources) Fluconazole; Translations: [Diflucan] Drug Allergy 06-13-19 Arthralgia, Other, Other: See Comments [facility] (15 sources) moxifloxacin; Translations: [Avelox] Drug Allergy 06-13-19 Shortness of Breath [facility] (15 sources) Penicillins; Translations: [Penicillins] Propensity to adverse reactions to drug 06-13-19 Rash [facility] (15 sources) Sulfamethoxazole / Trimethoprim; Translations: [Bactrim] Drug Allergy 06-13-19 Anaphylaxis [facility] (6 sources) Nyquil Cold & Flu; Translations: [Nyquil Cold & Flu] Allergy to drug (finding) Vomiting MG-Otolaryngol ogy-[place] [facility] [place] Work Phone: (1 source) No Alert Propensity to adverse reactions to drug 09-05-19 Dept. of Dermatology (2 sources) Acetaminophen / Dextromethorphan / Doxylamine / Pseudoephedrine; Translations: [OZXAHFYNX-OGQ-MH-A CETAMINOPHEN] Drug Allergy 05-03-20 Vom[facility] Medications Current Medications Medication Drug Class(es) Dates Sig (Normalized) Sig (Original) cefdinir 300 mg oral capsule (2 sources) Cephalosporin Antibacterial Start: 07-06-2022 End: 07-11-2022 take 1 capsule by mouth every twelve hours Cefdinir (OMNICEF) 300 MG capsule Take 1 capsule by mouth every 12 hours for 5 days. 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 18 g 3 11/16/2022 Active take 2 puff(s) by in halation every four hours for wheezing albuterol 90 mcg/actuation inhaler Inhale 2 puffs every 4 hours if needed for wheezing. Active Comment on above: inhale 2 puffs every 4 hours if needed for wheezing cholecalciferol, vitamin D3, (VITAMIN D3 ORAL) (1 source) take 2000 [IU] by mouth once daily cholecalciferol, vitamin D3, (VITAMIN D3 ORAL) Take 2,000 unit/mL by mouth once daily. 0 Active Comment on above: Take 2,000 unit/mL b y mouth once daily. 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 Inject into upper leg. Call 911 after use. 2 each 1 11/16/2022 11/17/2023 Active Comment on above: inject INTO UPPER LE G 0.3 milliliter if needed for ANAPHYLAXIS CALL 911 AFTER lidocaine 1%/ epinephrine 1:100,000 with sodium bicarbonate 8.4% (10 mL Prepared by Pharmacy) (1 source) Start: 3 End: 3 lidocaine 1%/ epinephrine 1:100,000 with sodium bicarbonate 8.4% (10 mL Prepared by Pharmacy) Multivitamin TABS (1 source) Multivitamin TAB S Quantity: 0 Refills: 0 Ordered: 27-Aug-2022 DO Active sodium chloride 0.154 meq/ml irrigation solution (1 source) Start: 3 End: 3 Sodium chloride 0.9 % irrigation traMADol hydrochloride 50 mg oral tablet (2 sources) Opioid Agonist Start: 3 take 1 tablet by mouth every six [...] [ENC SCREENING HUMAN PAPILLOMAVIRUS] Onset: 01-04-2022 Episodic Lymphadenitis (1 source) Inguinal lymphadenopathy; Translations: [Localized enlarged lymph nodes] 08-14-2023 Episodic Melanomas of skin (20 sources) Malignant melanoma of neck; Translations: [Malignant melanoma of scalp and neck] Onset: 07-18-2022 Chronic Neoplasms of unspecified nature or uncertain behavior (6 sources) Neoplasm of uncertain behavior of skin; Translations: [Neoplasm of uncertain behavior of skin] Onset: 07-06-2022 Episodic Other aftercare (1 source) Other longterm (current) drug therapy; Translations: [Other termite control technician (current) drug therapy] Onset: 08-02-2022 Episodic Other infections; including parasitic (1 source) Personal history of other infectious and parasitic diseases; Translations: [Personal history of COVID-19] 08-20-2022 Episodic Other lower respiratory disease (1 source) Nodule of lung; Translations: [Solitary pulmonary nodule] 08-19-2023 Episodic Other lower respiratory disease (2 sources) Solitary pulmonary nodule; Translations: [Solitary pulmonary nodule] Onset: 08-19-2023 Episodic Other nervous system disorders (3 sources) [...] Problem Date Documented Da te Episodic/Chronic Unclassified (2 sources) Onset: 04-15-2023 Resolved: 08-19-2023 04-15-2023 Results Test Name Value Interpretation Reference Range Facility BI US BREAST LIMITED RIGHTon 10-04-2023 BI US BREAST LIMITED RIGHT This is a summary report. The complete report is available in the patient's medical record. If you cannot access the medical record, please contact the sending organization for a detailed fax or copy. FINDINGS: Two benign cysts correspond with the palpable lump, 11 o'clock location, largest 1.5 x 2.3 x 2.9 cm, the second approximates 1.0 - 2.0 cm. No suspicious nodule or mass. IMPRESSION: BI-RADS 2 - Benign TRANSCRIBED BY: ELECTRONICALLY SIGNED BY: Isai Amato MD Normal Not Available CNOVSPon 08-13-2023 CNOVSP Visit (SP) Office ([place]) ----- EVEMAGALIE SORIANO ([id number]) 1980 F Date Time Provider Department 08/13/23 3:45 PM DEREK LINN During your visit today, we recorded the following information about you: Temperature Pulse Respiration Blood pressure 97 degrees 69/minute 16/minute 133/61 Weight Height 55.4 kg 1.702 m Derek Linn MD 08/14/2023 7:41 AM Signed PATIENT NAME: Magalie Rodriguez DATE: 08/13/2023 PRIMARY CARE PHYSICIAN: Derek Manzanares MD OTHER PHYSICIANS: Dr. Fredy Johnson, Dr. Adi Lopez ( Oncologic ENT), Hyacinth Ramirez PA-C Portions of this encounter note have been copied from my note from 05/09/2023 and has been updated where appropriate, and reflect my current medical decision making from today. CC: This is a 43 year old female with a history of early-stage melanoma, seen for scheduled follow-up. INTERIM HISTORY: Since the patient's initial visit here she underwent staging CT scans on 05/22/2023. Her chest CT revealed a small pulmonary nodule with benign characteristics, as well as a small soft tissue density over her left chest wall. She was seen by dermatology and there was a small mole near that area which was resected and benign. CT abdomen/pelvis negative. Normal-appearing inguinal lymph nodes were identified. Clinically the patient can still feel small lymph nodes in her bilateral inguinal regions, but unchanged. No tenderness or signs of infection. She also has noticed 2 small areas around the surgical scar over her right neck. These appear to be areas of a previous stitch. No evidence of malignancy. MEDICATIONS: Current Outpatient Medications Medication Sig cholecalciferol, vitamin D3, (VITAMIN D3 ORAL) Take 2,000 unit/mL by mouth once daily. albuterol HFA (PROVENTIL HFA, VENTOLIN HFA) 90 [...] Diagnosis Date Melanoma (HCC) PAST SURGICAL HISTORY: PAST SURGICAL HISTORY Procedure Laterality Date PAST SURGICAL HISTORY OF Melanoma removed Right neck FAMILY HISTORY: FAMILY HISTORY Problem Relation Age of Onset other (Nonhodgkins) Paternal Grandmother Breast Cancer Maternal cousin SOCIAL HISTORY: Social History Tobacco Use Smoking status: Never Passive exposure: Never Smokeless tobacco: Never Substance Use Topics Alcohol use: Not Currently Drug use: Not Currently COMPLETE REVIEW OF SYSTEMS: CONSTITUTION: Negative for [...] anxiety, depression, or other. PHYSICAL EXAM: BP 133/61 Pulse 69 Temp 36.1 ?C (97 ?F) (Temporal) Resp 16 Ht 170.2 cm (5' 7.01 ) Wt 55.4 kg (122 lb 2.2 oz) LMP 04/22/2023 SpO2 98% BMI 19.12 kg/m? GENERAL EXAM: Well developed/well nourished; in [...] and percussion. CARDIOVASCULAR: Regular rate. Negative for murm (more content not included)... Normal [facility] 07-17-2023 L Specimen: [id number] Received: 07/18/23 Status: MONTEZ Galeas Num: [id number] Spec Type: Surgical Subm Dr: Gianfranco More Tissues: A Endocervix - Curettings (ECC) Procedures: HE/2, Gross/Micro L4 Age/ Patient Sex Location Account Attending Physician Magalie Rodriguez 43/F [facility] [id number] Gianfranco More SPEC NUM: [id number] RECD: 07/18/23 STATUS: MONTEZ GALEAS NUM: [id number] DANUTA: 07/17/23- SUBM DR: Gianfranco More ENTERED: 07/18/23 [facility] DR: Max,Lab SPEC TYPE: Surgical DEPT: [...] in one cassette labeled A1. CPT Codes 60196 Specimen: [id number] Received: 07/18/23 Status: MONTEZ Gudelia Num: [id number] Spec Type: Surgical Subm Dr: Gianfranco More Tissues: A Endocervix - Curettings (ECC) Procedures: HE/2, Gross/Micro L4 Patient: Magalie Rodriguez R [id number] (Continued) Signed (signature on file) Chin-Emmanuel Willis MD 07/19/23 1633 [facility] Rossy 05-23-2023 CNPN Telephone ([place]) ----- MAGALIE RODRIGUEZ ([id number]) 1980 F Date Time Provider Department 05/23/23 JUANY MOON HEMILYA During your visit today, we recorded the following information about you: Juany Moon RN 05/23/2023 9:[address] reports reviewed by BRTori. Pt notified of incidental findings of 4-5 mm RML nodule and nonspecific 7mm soft tissue density within SQ structure of L lateral chest wall. He feels both are observable with repeat imaging in 1 year. Pt agreeable and [facility]. She denies further questions, needs [...] Other: See Comments Comments: Muscle weakness NYQUIL ([id number] N*05/03/2023 11 - Vomiting PENICILLINS 06/13/2022 2 [...] JUANY MOON on 05/23/23 Normal [facility] CT ABDOMEN PELVIS W IV CONTR [...] Sorensen, DO Normal Not Available CNOVSPon 05-09-2023 CNOVS Visit (SP) Office ([place]) ----- MAGALIE RODRIGUEZ ([id number]) 1980 F Date Time Provider Department 05/09/23 4:00 PM DEREK LINN During your visit today, we recorded the following information about you: Temperature Pulse Respiration Blood pressure 97.5 degrees 110/minute 16/minute 125/80 Weight Height Last Period 53.6 kg 1.702 m 04/22/23 Derek Linn MD 05/10/2023 7:06 AM Signed PATIENT NAME: Magalie Rodriguez DATE: 05/09/2023 PRIMARY [...] closely with her ENT physician and her welding machine operator helper gas. She has had no evidence of local [...] currently works as a nurse practitioner at [employer]. MEDICATIONS: Current Outpatient Medications Medication [...] (more content not included)... Normal [facility] Release of Informationon Release of Information [id number] [facility] Coding Summaryon 05-07-2023 Coding Summary HTMLBase 64 CjraghahOMx1uPo+PGhlYWQ+P [id number] lOSywgQVBQTElOSyIgbmFtZT1 kaXNjZXJu IC8+OZ4aVVBaZiffrAYud0M6s GW3N51hhn1aUOuywRH7NUSzXf Upnviic0wvvJo0IGwdGasbVfQ t AOEceR73KKP9oF71Yc79bYWvx ZNut9epoNp5SjIyDBAcRYD5rM uaNFchw1KmZEUcJ03nwNUzu0T 6 LXJbfDxtyGJcKqImlVD7pI9nY Lvsffisd1lghmwwUtc1wl98jY Psd5C8eKY4R5TdgbU7RNQobLE g WburkONThV3vexxtr2llrcuqV gWaVSYaNXz4YFz1CVWkkOxqOa UqOO65JIZ5NEAbkzXmJ0QgDOQ s eWebBbO3j0N2Ol9UB8HOSdmuZ 1VNTUFSWTwvdGQ+QX35wj49Q1 GvDbowEvw6KBUmTIU1mSS9sW8 n YGKtXRzxw1A6zEL5Y9SfeqAyn b0qx2wzWDQeGJvcG05bmGCxv8 O0XWAycXG8JANvdVxxDfZstB7 3 Oyc+ELZolIppb1LcScdiq4gng 0qlaMm3XkkwVHLwvjYokTucIQ O0j8PxGv6tLPBoqNI6mVW6zQ9 i QiUnUnF4XWvuN543DyHofSHrS vgnN67iU3JozZG+OMVgAik3PT KbcOxkXE0xQ1RcZLZocjpjtWZ m mMcrLF1wVXLayzulQYGsdN1rO LFiH4h5MiYxTkU2LKujY3WgUD SihwurGn82mU4eGbYtQjA7HPd u P8ZsjzT6IMIojIKnBDsuDDA2E 85gh2T7YSXtBDSzALG2bUC1iE 1hbGlnbjogbGVmdDsgdmVydGl j ZAqhXDygN764BBOklVwfGlEiT GluZyBEYXRlOiAgMDEvMDIvMj AyNDwvdGQ+MQGvAXX8eXwgDIZ n cNLuCBvuIg0ixRsdzPitYW0yM MUpfsjsQCWkhY1xGCLptQUgcK lzKL1fIQZcgbifm053VeQpDAJ 0 DFXrqWGeD0JplI5kJuKdSXYpS LRaS4YasXFiBMaeM746MIjsCg A6DNSbphLyW9AxOAIxpIwwCvQ 0 i3O3Xk8Lt4LhhwcbT2JlsEAeZ sJqSzmxNDm7D4FmHsfwvMZ+PC 67JCYhTE61XZf8NHZ7oFsjOPb i MOBlS1XzsX0oKdPgWTMgZCVpE yc+PHRhYmxlIHdpZHRoPScxMD WkZmBfcKkaWZ0mTf6wVRDhOYS v xBpphUDgPuWys6vzTUNsNMsyD Y4dhSimX6IegYM1QPBmw4z1Zr 12L57sG7PxlAT+MADrgVP2tOO 0 vD8wOkHwKzT3KYwsP302MjMqo SYxXzdem6bze4tgnWz1GuC9HT PuyxVckDdiYRJ0d6OsEw69T11 s IHdpZHRoPSIxNSUiIHZhbGlnb b4ixZ1zFd9+BVLbbIP0kYZ2sU 4wLdJiFcX3YZchE467CgEodXA v Etmmr0oso4cjqMi3XyYoRSXma kGgvGpyGEG2q8MaOz48R5OpvB gfh0BzJiq0lt33eWYge2O5yNI 9 N0LyHCPwmhwmwKSxhNeoDJ5iZ YUiyyyxHPQdwU7iTMQhN1h3Jx EaLbW2XThxQ8VphnB3VEWgxBH g NHVzoTZEyI6hetrvm1kvqnixH rGuLDPeGJv0AOl1VMGjnMikJy JxCGF9WzM8UPT1sCWyzD8diIt n lfwbbC5bLck+APP9lPCubBDNO X8pHfgljFS+EGZdKCD6aQyuZC shEKNxbN6bKIOmS6y2IzPkWpT 1 TNqsG2HvjeF2BZItoAOvDQFly BWOdH1wicwpw4dfymwjMqSmMU FxLAs7JHo2OBWmpXfrStCbINJ 0 RlP9TZD8tNStqM0faXrctwxnt G9wOyc+FfblxNpuNFY6KFj3C0 LcMcy3DDAxgIcdCD4kwKQiLGq u Lq2nyIskkFuaHI0iHJFhtivdt 223GmHcy0pvYFKxpSPeGUzeGU M8F96gq6Y3HASdTAVqMXJ9oIG 4 rT7ftPkmbgzsoKBfkExepzLcu XitVLwdUJfcD077WJIatMfnUj EiVBp0L2MiOoj5IZJyuKxhAR4 n fIFgPBxyEq6erNtbfBalKA7zU LLzmuagr043ByNmc2heTOIytM OyBPqcOWU4W10dz2R2SYZvZNH w YHR0wJO4sM1ugOfpepngsWTbr QztknImvWnwHTnsRBpsM609LW AhbJkiGpQrjCu6Z3UtHqi8NZV z hTpwQZ7oePLpNDmbOm4vdJvec CrzAP2rQXYuskocs745WoUtc2 tdEPAqiQEuGWvcFEL9M68kg9E 6 YHIjUXBjNWV2aLH6mN0duViak jogbGVmdDsgdmVydGljYWwtYW mdC723PGGkkUbeGaEtpTfiwxT g GIakYQv5Y9PiWsarkXI+PC90Y WWaBF25eNResMPri6sriSz8Pp RkAHVbYHX1gRheBQccw2EyXCQ t F40cdSOnm6Q5FHMyjSedeEAdH hBmsJB1nQ8hSMbwyibel6czdp epPhiyp7wpya35eV13A28iJWb p DKJqQZWyILMuKTShgLlsdr8uk G9wIi8+MGDdhSJ1bTH0pX1bBL VyDsS8IGytQ881RwIkcALrTdv j y5hwi9vbbGh6EsW0SFFybtMnx RliSUA8g2QlXi94K43aWJsmLV ExUJBvEJKcYTKukHqrvz1qpO2 w Ii8+KQVsiYY1jPI4nA2pPkZtJ mG7MIwfJ162DjYjuTSaQajmK8 1uE2GkjLL+UWNkTgf6WXKbrIv s AO4yrOEhWQegAm6aTZZ0UjTfR mUnOOoxC2FuTCFdshxsmghhfM A0IXVwLXVdbJ36Nr3zpQqsLLO w fECPkO9kzfsyw6hshfhnIvWjQ HAhJZl9UDk5SEZvsVdbQeMrFB X7GvR5JLQ2hJOfsL5fiYklynv g kB6pO6NfYQOxmrtiEn12uU6nL lJaBzW2ZFziUgx+DEIIA41NOv ggXYoFNYFPOYZIMWT5U1VmCyh 0 KKAtqWbtSH7wiIKmXKmoGz5ow PndiFabOY3yYDAhskbbBVSrxM 4oVSAruADzvQbxYS4oCTYiaso m m387EgDnWKZ5MHGtkFUuR2Zna F7qSwPfHZMtOBEvF9EwrFVdEV uoV448BGzhJeP0BRYgbtTsD2R s MCFqoJyzKdG4r3X5Ov7mXA8yP b2vGHvyHO21CK88tHWod6E6aC E6K3CeDCKtliqgotnakBT8XAK u QPXedV98mNThQQhdDn9jy2B5d 124XEFtVHSuvE76Sc0fiVsjUM GgeVCXiD6umzoly8hphtdsZpY w ALVvNFm4LNm3DDVpxFfvHqQrQ NV5PuJ9IDM2oDYkyJ3nxNymel oncN5pRdi+ZWMrZPRepgQ7B8Z k Nxf8EHNnpFjgOI6djSGfUAhbH w7irHmnmYnkRJ7iJXSxauvlQC JnwQ0kISEtoXZatEomQN2oUHJ p ghivk588UgTkORV7XVSsvUToL 7JhlV7xOoTtXDCtCWNwZ8TksQ IjQXgpG519YAbkVhV7BOHbrzJ p H7QaJMPalWsdDzN0v6S9Ce3TL L0BBOV4O7ZbUjd3EJCuxAtgKU 0bnJUcBVukCg4kqCvojTnvNI2 w PMFankiwHYEkwP2kJGAxiECih BibQU4yAWXmqkmht950KbPqKT W9WGLdgXQzI7IncB1dCdXjXUU w WLMnJ0KblFWuSEccI759MCvcZ dI8BYAfsqLtX8LoNLHzcPwwYi V3e5C0Rt0BFQxzyOH+ZG68ng2 8 H8WdXwpxFlk2WDClJUH1rJY7q F2nULAuNJthj7X3iGF1C9Neig Pvue5wh7mqWWDaFBbqC23qgES w a9H6EVErxKZ0FXUhtAtrErJmh G93Oyc+VMPhqRyyc2UbWxogl9 sdf6nabKe1JxPjRVButnMkpPi u YCO7d4UaRt54B64fSWazRQMqF DGxUFFtLBXpoBkngn8geD4hNe 8+WEGojUV8mKP1mJ2tKpMaGdV 2 GMgdR477SaOioELtIftvh5ioz 9rrkYg4RbEzKQFqzzBcxOcqWD Y3k8ApCh75R7EehIgrc1BdNmj 0 fe69gARfe1S9mLH7T6KjSVRgy qbywRUevNqtEZ1gCNVkpuhjVV NrfC4tQCWiP1o5OpIkYiA9TEa u A0IbgnI1AVZlcADhQDMmlCHTw L6xuoqhs2msvxcvXhMmIQHgQV u5DAr2LVAucRdbNhCeRLE2ZvD 2 XOQ8nRMsmN6ygPlouaqwzE5jC yc+TJw0f5wtqIVzHQ7svXJ5YF 31ZH30nZMyx8G8oTI5C0FhLZL p hxsdhpvnhKJ4UVJyTEDrxA53R o7mgCuoWz6lFBHzCLK1XLWwsO MgF7IvqH0hSgXrCKYbGXGqU5X l zVNrOUurX200SXxnRpJ3FYVaz uQqR6QyFZWzxRxtKcR0b5Y6Wa 8LLF32KN71LY06rRCtr1U7xZQ 9 H7ZbZBHddhgqjuokmET3HZMkU MJxfH24Dp0ttGhtSh3mXPHgUF R4SNNrqQYjO5FkyK4sWzHrHOU w FAGuL7TthHSfHGyuA868QHmlJ fE6FCWytmJzL9BsCDFjeMfgLj K5v3Z6Gs2HRy06TJ24BZ68vAE g k2T9rHS0C0AvXITqvxjyakiuc EI9JWEwHKDpgH67Ij3kuVogAe 6lUQWwZUR0MXYesKUtQ1ZejH8 y MiWyAEIdOLJxL4VogARyNFpoS 710OUudZkF5BWXkqlMdG1HhFK UikWfzShY3c5E1Iu8TNQmcxcl 8 I4EbOcpymHM+KW48OCYbPF98e SMlkUVst9mlfYi7XdXpQIWwXL X4cWpmJKthw3MvYWFtJ74hxPL w c2U (more content not included)... Normal [facility] BI MAMMOGRAM SCREENING TOMOS MAXIMIS BILATERALon 05-01-2023 BI MAMMOGRAM SCREENING TOMOSYNTHESIS BILATERAL [...] IS VERY IMPORTANT TO YOUR HEALTH. THE [employer] GUIDELINES RECOMMEND THAT WOMEN 40 [...] Murdock MD Normal Not Available .Auto Diff 1on 04-27-2023 Auto [employer] % 10 % Normal 05-17 [facility] Comment on above: Performed By: #### 1 [id number] #### [facility] (DEFAULT) [address] [place] [address] Baso Abs# 0.0 x10 Normal 0.0-0.2 [facility] Comment on above: Performed By: #### 1 [id number] #### [facility] (DEFAULT) [address] [place] [address] Basophils/100 WBC (Bld) 0.8 % Normal 0.2-2.0 [facility] Comment on above: Performed By: #### 1 [id number], [id number] #### [facility] (DEFAULT) [address] [place] [address] Eos Abs# 0.0 x10 Normal 0.0-0.4 [facility] Comment on above: Performed By: #### 1 [id number], [id number], [id number], [id number] #### [facility] (DEFAULT) [address] [place] [address] Eosinophils/100 WBC (Bld) 0.8 % Low 0.9-4.0 [facility] Comment on above: Performed By: #### 1 [id number], [id number], [id number], 7403192, 3702007, [id number] #### [facility] (DEFAULT) [address] [place] [address] Lymph Abs# 1.6 x10 Normal 1.3-2.9 [facility] Comment on above: Performed By: #### 1 [id number], 5317227, [id number], 1896847, 4917504, [id number] #### [facility] (DEFAULT) [address] [place] [address] Lymphocytes/100 WBC (Bld) 36 % Normal 14-48 [facility] Comment on above: Performed By: #### 1 [id number], 6853442, [id number], 8016025, 5496474, 09100136 #### [facility] (DEFAULT) [address] [place] [address] Bucks Abs# 0.5 x10 Normal 0.0-0.8 [facility] Comment on above: Performed By: #### 1 [id number], 5334485, [id number], 7323964, 4367690, 62449646 #### [facility] (DEFAULT) [address] [place] [address] Neut Abs# 2.3 x10 Normal 1.5-9.2 [facility] Comment on above: Performed By: #### 1 [id number], 6950570, [id number], 2463558, 7199053, 92160622 #### [facility] (DEFAULT) [address] [place] [address] Neutrophils/100 WBC (Bld) 52 % Normal 44-88 [facility] Comment on above: Performed By: #### 1 [id number], 2963619, [id number], 6979703, 6727046, 87901713 #### [facility] (DEFAULT) [address] [place] [address] CBC w/ Auto Diffon 3 Erythrocyte distribution width (RBC) [Ratio] 13.4 % Normal 11.5-15.0 [facility] Comment on above: Performed By: #### 1 [id number], 5214914, [id number], 0217342, 4666800, 89948296 #### [facility] (DEFAULT) [address] [place] [address] Hematocrit (Bld) [Volume fraction] 43.3 % High 33.7-40.4 [facility] Comment on above: Performed By: #### 1 [id number], 4342212, 4409686324, 9450315, 4008835, 69073258 #### [facility] (DEFAULT) [address] [place] [address] Hemoglobin (Bld) [Mass/Vol] 14.6 g/dL Normal 11.3-15.9 [facility] Comment on above: Performed By: #### 1 [id number], 5947913, [id number], 4221881, 5811228, 36422299 #### [facility] (DEFAULT) [address] [place] [address] Man Diff? Auto Invalid Interpretation Code [facility] Comment on above: Performed By: #### 1 [id number], 5697311, [id number], 3566299, 6968869, 97682677 #### [facility] (DEFAULT) [address] [place] [address] MCH (RBC) [Entitic mass] 31 pg Normal 24-34 [facility] Comment on above: Performed By: #### 1 [id number], 8069240, [id number], 8894461, 4340785, 66140284 #### [facility] (DEFAULT) [address] [place] [address] MCHC (RBC) [Mass/Vol] 34 g/dL Normal 26-37 [facility] Comment on above: Performed By: #### 1 [id number], 9477267, 7673789056, 1436765, 4635708, 79080382 #### [facility] (DEFAULT) [address] [place] [address] MCV (RBC) [Entitic vol] 92 fL Normal 81-100 [facility] Comment on above: Performed By: #### 1 [id number], 1706848, [id number], 7639774, 3233955, 10455415 #### [facility] (DEFAULT) [address] [place] [address] Platelet 294 x10 Normal 138-427 [facility] Comment on above: Performed By: #### 1 [id number], 8037360, 0971012361, 2260429, 7303658, 90910041 #### [facility] (DEFAULT) [address] [place] [address] Platelet mean volume (Bld) [Entitic vol] 8.9 fL Normal 6.3-10.2 [facility] Comment on above: Performed By: #### 1 [id number], 9392210, 6887069558, 3727087, 8590887, 07067696 #### [facility] (DEFAULT) [address] [place], [place] [address] RBC 4.73 x10 Normal 3.70-5.30 [facility] Comment on above: Performed By: #### 1 [id number], 0371838, [id number], 0351127, 4565640, 05641697 #### [facility] (DEFAULT) [address] [place] [address] WBC 4.5 x10 Normal 3.5-10.5 [facility] Comment on above: Performed By: #### 1 [id number], 7273721, [id number], 3437729, 1213531, 24747189 #### [facility] (DEFAULT) [address] [place] [address] CMP Standardon 04-27-2023 eGFR Non AA >60 Invalid Interpretation Code [facility] Comment on above: Performed By: #### 1 [id number], 6484140, [id number], 6191565, 6840311, 08803755 #### [facility] (DEFAULT) [address] [place] [address] eGFR AA >60 Invalid Interpretation Code [facility] Comment on above: Performed By: #### 1 [id number], 3817536, [id number], 0635367, 9986625, 52957503 #### [facility] (DEFAULT) [address] [place] [address] Albumin [Mass/Vol] 4.2 g/dL Normal 3.5-5.0 [facility] Comment on above: Performed By: #### 1 [id number], 7820219, 8463064262, 4863313, 9626906, 61226157 #### [facility] (DEFAULT) [address] [place] [address] Albumin/Globulin [Mass ratio] 1.5 {ratio} Normal 1.4-2.6 [facility] Comment on above: Performed By: #### 1 [id number], 2921283, 5651094556, 0244707, 0930794, 23627500 #### [facility] (DEFAULT) [address] [place] [address] Alk Phos 73 IU/L Normal 32-91 [facility] Comment on above: Performed By: #### 1 [id number], 8583356, 4643443412, 4124103, 3861698, 15771668 #### [facility] (DEFAULT) [address] [place] [address] ALT [Catalytic activity/Vol] 19.0 U/L Normal 14.0-54.0 [facility] Comment on above: Performed By: #### 1 [id number], 2673126, 6346298307, 5728096, 9552664, 83993811 #### [facility] (DEFAULT) [address] [place] [address] Anion gap [Moles/Vol] 10.5 mmol/L Normal 5.0-19.0 [facility] Comment on above: Performed By: #### 1 [id number], 4126014, 3737981573, 5117619, 6793582, 53707152 #### [facility] (DEFAULT) [address] [place] [address] 57694 AST [Catalytic activity/Vol] 22 U/L Normal 15-41 [facility] Comment on above: Performed By: #### 1 [id number], 9945038, 8821006846, 8033856, 1620025, 10328669 #### [facility] (DEFAULT) [address] [place] [address] Bili Total 0.7 mg/dL Normal 0.3-1.2 [facility] Comment on above: Performed By: #### 1 [id number], 1401627, 8308207775, 6567997, 1902562, 67652560 #### [facility] (DEFAULT) [address] [place] [address]402 Calcium [Mass/Vol] 8.8 mg/dL Low 8.9-10.3 [facility] Comment on above: Performed By: #### 1 [id number], 9618835, 0995570572, 8746986, 5566699, 77514520 #### [facility] (DEFAULT) [address] [place] [address] 98345 Chloride [Moles/Vol] 107 mmol/L Normal 101-111 [facility] Comment on above: Performed By: #### 1 [id number], 6992369, 4857296168, 2996996, 2751582, 66713995 #### [facility] (DEFAULT) [address] [place] [address] 34008 CO2 [Moles/Vol] 26 mmol/L Normal 21-32 [facility] Comment on above: Performed By: #### 1 [id number], 8587189, 7379818846, 1263883, 8136535, 17399112 #### [facility] (DEFAULT) [address] [place] [address] Creatinine [Mass/Vol] 0.80 mg/dL Normal 0.60-1.30 [facility] Comment on above: Performed By: #### 1 [id number], 8063215, 2762311410, 3285563, 5493747, 49959958 #### [facility] (DEFAULT) [address] [place] [address] Globulin (S) [Mass/Vol] 2.8 g/dL Normal 1.5-4.3 [facility] Comment on above: Performed By: #### 1 [id number], 0547233, 4024985136, 7963080, 5017107, 24497227 #### [facility] (DEFAULT) [address] [place] [address] Glucose [Mass/Vol] 100.0 mg/dL Normal 74.0-118.0 [facility] Comment on above: Performed By: #### 1 [id number], 9438815, 6293407206, 7260113, 0818623, 85605361 #### [facility] (DEFAULT) [address] [place] [address] 18563 Osmolality 280 mOsm/L Invalid Interpretation Code [facility] Comment on above: Performed By: #### 1 [id number], 1573641, 9342420449, 7099940, 3776215, 15958320 #### [facility] (DEFAULT) [address] [place] [address] 96608 Potassium [Moles/Vol] 3.5 mmol/L Low 3.6-5.1 [facility] Comment on above: Performed By: #### 1 [id number], 9817139, 6266429130, 6010006, 7415470, 71509259 #### [facility] (DEFAULT) [address] [place] [address] 02863 Protein [Mass/Vol] 7.0 g/dL Normal 6.5-8.1 [facility] Comment on above: Performed By: #### 1 [id number], 7830112, 7757270618, 4165608, 1127088, 50371490 #### [facility] (DEFAULT) [address] [place] [address] 49060 Sodium [Moles/Vol] 140.0 mmol/L Normal 136.0-144.0 [facility] Comment on above: Performed By: #### 1 [id number], 6058451, 9750102909, 1510275, 6174224, 72463323 #### [facility] (DEFAULT) [address] [place] [address] 69453 Urea nitrogen [Mass/Vol] 15 mg/dL Normal 8-26 [facility] Comment on above: Performed By: #### 1 989043599, 7111835, 5373952443, 9193128, 1485424, 73652711 #### [facility] (DEFAULT) [address] [place] [address] 89031 Urea nitrogen/Creatinine [Mass ratio] 18.7 mg/mg High 4.6-16.2 [facility] Comment on above: Performed By: #### 1 395654336, 2187015, 3764322417, 6266264, 3426408, 58270929 #### [facility] (DEFAULT) [address] [place] [address] 57778 Lipid Panel Standardon 04-27 Cholesterol [Mass/Vol] 154.0 mg/dL Normal 66.0-200.0 [facility] Comment on above: Performed By: #### 1 [id number], 5598145, 7910521610, 5046692, 5230967, 71233517 #### [facility] (DEFAULT) [address] [place] [address] 09376 Cholesterol in HDL [Mass/Vol] 52 mg/dL Normal 40-71 [facility] Comment on above: Performed By: #### 1 [id number], 3136424, 1156092292, 1080804, 4792429, 92777053 #### [facility] (DEFAULT) [address] [place] [address] 47927 Cholesterol in LDL [Mass/Vol] 92 mg/dL Normal 1-100 [facility] Comment on above: Performed By: #### 1 337951648, 7477074, 2564995204, 3011689, 1106443, 96280277 #### [facility] (DEFAULT) [address] [place] [address] 62261 Cholesterol.total/Cho lesterol in HDL [Mass ratio] 2.9 {ratio} Normal 0.0-4.5 [facility] Comment on above: Performed By: #### 1 394906289, 1687033, 8253930156, 9057171, 5207347, 04642290 #### [facility] (DEFAULT) [address] [place] [address] 88665 Triglyceride [Mass/Vol] 54.0 mg/dL Normal 0.0-150.0 [facility] Comment on above: Performed By: #### 1 195683581, 5100089, 0986270573, 5318424, 9918225, 00837241 #### [facility] (DEFAULT) [address] [place] [address] 50747 VLDL. 11 mg/dL Normal 5-40 [facility] Comment on above: Performed By: #### 1 056500224, 3807078, 3280722921, 0826322, 3884592, 98255192 #### [facility] (DEFAULT) [address] [place] [address] 42035 Provider Orderson 04-27-2023 Provider Orders [id number] FF Normal [facility] TSHon 04-27-2023 TSH Qn 2.91 m[IU]/L Normal 0.45-5.33 [facility] Comment on above: Performed By: #### 1 [id number], 5500498, 0731392585, 9339258, 3520136, 75339679 #### [facility] (DEFAULT) [address] [place] [address] 25507 Vit D25 OHon 04-27-2023 Vitamin D 25 OH 37 ng/mL Normal 30-100 [facility] Comment on above: Performed By: #### 1 [id number], 2307123, 5135747842, 5484742, 8124276, 98665606 #### [facility] (DEFAULT) [address] [place] [address] US ABDOMEN LIMITEDon 023 US ABDOMEN LIMITED [...] MAY BE REACTIVE. ELECTRONICALLY SIGNED BY: Jacinta Isbell DO Normal Not Available Established Visit (Otolaryng [...] of the right neck History of Present [id number]-yvo female referred by Dr. 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 She has not noticed any lymphadenopathy She [...] Recorded: 27Aug2022 11:29AM Height5 ft 6 in Shafvr106 lb BMI Epdrbfxsup52.37 kg/m2 BSA Calculated1.61 Tobacco Useb) No PHQ-2 [...] Aug 27 2022 12:27PM EST (Author) Normal [employer] Tobacco Screening.on 023 Adult depression screening assessment No [facility] [facility] [place] Work Phone: Fall risk assessment a) No falls within the last year [facility] [facility] [place] Work Phone: Tobacco use status CPHS b) No [facility] [facility] [place] Work Phone: SURGICAL PATHOLOGY RESULTSon 08-16-2022 Pathology Report Name MYNOR RODRIGUEZ Pathologist: MARCELLE SCHNEIDER MD, Board Certified Dermatopathologist Date of Procedure: 08/09/2022 Date Received: 08/10/2022 Date Reported 08/16/2022 Submitting Physician: ADI LOPEZ MD Location: [facility] Other External # FINAL DIAGNOSIS A. SKIN, [...] reviewed this case. Diagnostic interpretation performed at [facility] [address] [facility] [address] Clinical History: malignant melanoma of head ICD-10 [...] positive and negative controls which stained appropriately. [facility] Department of Pathology [address] [place] [address] HCG ( test) IAliya brunson Ql (U)on 08-09-2022 HCG ( test) Ql (U) CANCELED [facility] Comment on above: Result canceled by kendal silver. [facility] HCG,URINEon 08-09-2022 Beta HCG ( test) Ql (U) Negative Normal Negative [facility] Comment on above: Performed By: #### H CGU #### [address] [address] Beta HCG ( test) Ql (U) Canceled Normal [facility] Comment on above: Order Comment: TEST HCG,URINE WAS CANCELLED, 08/09/2022 10:51 DUPLICATE ORDER. Performed By: #### H CGU #### [address] [address] LYMPH GLANDon 08-09-2022 LYMPH GLAND Patient Name: MAGALIE RODRIGUEZ STUDY: LYMPH GLAND; TUMOR LOC SPECT/CT; 08/09/2022 10:08 am; 08/09/2022 10:10 am INDICATION: lymphosentigraphy for SLNB right neck melanoma C43.4: Melanoma of scalp or neck. COMPARISON: None. ACCESSION NUMBER(S): [id number]; [id number] ORDERING CLINICIAN: ADI LOPEZ TECHNIQUE: DIVISION OF NUCLEAR MEDICINE RADIONUCLIDE SENTINEL LYMPH NODE LYMPHOSCINTIGRAPHY A total of 1 millicuries of Tc-99m tilmanocept ([employer]) was injected intradermally in a circumferential pattern [...] localization to the right cervical level 5A. [employer] localizing images were sent to PACS. I personally reviewed the images/study and I agree with the findings as stated. This study was interpreted at [place], [place]. Electronically signed by: MALORIE LEES MD Normal [facility] NM Lymph Glandon 08-09-2022 NM Lymph node Views Normal [facility] Work Phone: NM Tumor Loc Spec/CTon 08-09 NM Tumor Loc Spec/CT Normal [facility] Work Phone: No Panel Informationon 08-09 [facility] Work Phone: Successful sentinel lymph node localization to the right cervical level 5A. [employer] Engineer localizing images were sent to PACS. I personally reviewed the images/study and I agree with the findings as stated. This study was interpreted at [place], [place]. [facility] Interpreted By: MALORIE JADE MD and SOLOMON SOL MD Patient Name: MAGALIE RODRIGUEZ STUDY: LYMPH GLAND; TUMOR LOC SPECT/CT; 08/09/2022 10:08 am; 08/09/2022 10:10 am INDICATION: lymphosentigraphy for SLNB right neck melanoma C43.4: Melanoma of scalp or neck. COMPARISON: None. ACCESSION NUMBER(S): [id number]; [id number] ORDERING CLINICIAN: ADI LOPEZ TECHNIQUE: DIVISION OF [...] and localized images were sent to PACS. [facility] Malorie Lees MD - 08/09/2022 Interpreted By: MALORIE LEES MD and SOLOMON SOL MD Patient Name: MAGALIE RODRIGUEZ STUDY: LYMPH GLAND; TUMOR LOC SPECT/CT; 08/09/2022 10:08 am; 08/09/2022 10:10 am INDICATION: lymphosentigraphy for SLNB right neck melanoma C43.4: Melanoma of scalp or neck. COMPARISON: None. ACCESSION NUMBER(S): [id number]; [id number] ORDERING CLINICIAN: ADI LOPEZ TECHNIQUE: DIVISION OF [...] localization to the right cervical level 5A. Solar Mechanical Engineer localizing images were sent to PACS. I personally reviewed the images/study and I agree with the findings as stated. This study was interpreted at [facility], [place], [place]. [facility] Work Phone: No Panel InformationOrdered By: Malorie Lees on 08-09-2022 [facility] Work Phone: Order Reconciliationon 08-09 Order Reconciliation [...] inhaled every 6 hours, As Needed Normal [facility] Patient Profile - Preop v3on 08-09-2022 Patient Profile - Preop v3 Patient Profile - Preop: Initial Info: Patient DemographicsName: MAGALIE RODRIGUEZ Date: 1980 Address: [address] [place] [address] Primary Phone [phone] Instructions Givenappropriate clothing, bring glasses/contacts case, bring list of medications, 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 (procedure may be cancelled if no tow bar driver), center location, insurance information, remove jewerly/piercings Prep Instructions Reviewedn/a How to be AddressedLINSEY Spoken Language PreferredEnglish Source of Informationpatient Stated Reason for AdmissionWIDE LOCAL EXCISION RIGHT NECK Primary Contact Name and [id number] Limitations on Visitors/Phone Callsnone Medications Brought to Hospital[facility] General Health: Weight in kg53.1 kilogram(s) Weight in xcu029 pound(s) Weight Methodstated Scale Typechair Height in feet5 feet Height in inches5.94 inch(es) Height in cm167.4 centimeter(s) Height Methodstated BMI (kg/m2)18.948 square meter Patient or Family Member Reaction to Anesthesiapatient reaction Patient Reaction to Anesthesianausea and vomiting Blood Avoidance/Restrictionsnon e Previous Transfusion Reactionnot applicable Health Mgmt: [facility] Are You Currently Breastfeedingno Barriers to Managing Healthnone Relationship/Environ: Lives Withalone Living Arrangementshouse Resource/Environmental Concernsnone Anticipated Transition [facility] Services Anticipated at Transitionnone Tobacco Use: Tobacco Useno Pre-op Checklist: Arrival [id number] Arrival Time06:45 Procedure TypeWIDE EXCISION OF RIGHT NECK MASS NPOyes Last Food [id number]-7465 21:45 Last Clear Fluid [id number]-Kms-6444 07:30 ID Band On Patientpatient ID (name), [...] Relief: Drug, Vomiting, Active Electronic Signatures: Iveth Valentin) (Signed 09-Aug-2022 11:38) Authored: Initial Info, General Health, Health Mgmt, Relationship/Environ, Tobacco Use, Pre-op Checklist, Additional Information Last Updated: 09-Aug-2022 11:38 by Iveth Valentin (RN PRN) [facility] TUMOR LOC SPECT/CTon 023 TUMOR LOC SPECT/CT Patient Name: MAGALIE RODRIGUEZ STUDY: LYMPH GLAND; TUMOR LOC SPECT/CT; 08/09/2022 10:08 am; 08/09/2022 10:10 am INDICATION: lymphosentigraphy for SLNB right neck melanoma C43.4: Melanoma of scalp or neck. COMPARISON: None. ACCESSION NUMBER(S): [id number]; [id number] ORDERING CLINICIAN: ADI LOPEZ TECHNIQUE: DIVISION OF [...] localization to the right cervical level 5A. Solar Mechanical Engineer localizing images were sent to PACS. I personally reviewed the images/study and I agree with the findings as stated. This study was interpreted at [facility], [place], [place]. Electronically signed by: MALORIE LEES MD [facility] Surgical Pathology Depar tmenton 08-09-2022 [facility] Surgical Pathology Department Name MAGALIE RODRIGUEZ Pathologist: [...] HMB45 were reviewed. Electronically Signed Out By MARECLLE SCHNEIDER MD, Board Certified Dermatopathologist/DAVI By the signature on this report, the individual or group listed as making the Final Interpretation/Diagnosis certifies that they have reviewed this case. Diagnostic interpretation performed at [facility] [address] [address] 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 [facility] Department of Pathology [id number] [place] [address] Normal [facility] Comment on above: Performed By: #### U [facility] #### [facility] Surgical Pathology Department [address] [facility] [address] Urine Teston 08-09 HCG ( test) Ql (U) Negative Negative [facility] Work Phone: HCG ( test) Ql (U) Canceled [facility] [facility] Work Phone: No Panel Informationon 08-07 [facility] [facility] Work Phone: [facility] Surgical Pathology Depar tmenton 08-07-2022 [facility] Surgical Pathology Department Name MAGALIE RODRIGUEZ Pathologist: MARCELLE SCHNEIDER MD, Board Certified Dermatopathologist Date of Procedure: 08/07/2022 Date Received: 08/07/2022 Date Reported 08/08/2022 Submitting Physician: ADI LOPEZ MD Location: [facility] Other External # FINAL DIAGNOSIS [facility] [place], [place] SKIN, RIGHT NECK, EXCISION ([id number]: 07/06/2022): -- MELANOMA, INVASIVE, ESTIMATED [facility] [...] node biopsy are recommended. CASE SUMMARY REPORT HerbertBienvenido Sofia Potter [id number] (07/06/2022): SPECIMEN Procedure: Excision Specimen Laterality: Right [...] (no nodes submitted or found) ADDITIONAL TESTING Solar Mechanical Engineer Blocks: Tumor Block: A1 Electronically Signed Out By MARCELLE SCHNEIDER MD, Board Certified Dermatopathologist/DAIV By the signature on this report, the individual or group listed as making the Final Interpretation/Diagnosis certifies that they have reviewed this case. Clinical History: right neck lesion Specimens Submitted As: A: Sofia Potter [id number] (07/06/2022) Slide/Block Description Received from [facility], Dept of Pathology, [address] [facility], [place] [address], are 9 slides labeled [id number] Keep Slides: N Slides Returned: N Personal Consult: N The assays/tests were performed with appropriate positive and negative controls which stained appropriately. Normal [facility] Comment on above: Performed By: #### U [facility] #### [facility] Surgical Pathology Department [address] [facility] [address] CBC AND DIFFERENTIALon 08-02 % AUTOMATED IMMATURE GRAN 0.2 % Normal 0.0 - 0.9 [facility] Comment on above: Result Comment: Candi ture Granulocyte Count (IG) includes promyelocytes, myelocytes and metamyelocytes but does not include bands. Percent differential counts (%) should be interpreted in the context of the absolute cell counts (cells/L). Performed By: #### C BCDF #### [address] [address] Basophils (Bld) [#/Vol] 0.02 10*3/uL Normal 0.00 - 0.10 [facility] Comment on above: Performed By: #### C BCDF #### [address] [address] Basophils/100 WBC (Bld) 0.2 % Normal 0.0 - 2.0 [facility] Comment on above: Performed By: #### C BCDF #### [address] [address] Eosinophils (Bld) [#/Vol] 0.01 10*3/uL Normal 0.00 - 0.70 [facility] Comment on above: Performed By: #### C BCDF #### [address] [address] Eosinophils/100 WBC (Bld) 0.1 % Normal 0.0 - 6.0 [facility] Comment on above: Performed By: #### C BCDF #### [address] [address] Erythrocyte distribution width (RBC) [Ratio] 12.9 % Normal 11.5 - 14.5 [facility] Comment on above: Performed By: #### C BCDF #### [address] [place] [address] Hematocrit (Bld) [Volume fraction] 42.5 % Normal 36.0 - 46.0 [facility] Comment on above: Performed By: #### C BCDF #### [address] [place] [address] Hemoglobin (Bld) [Mass/Vol] 13.7 g/dL Normal 12.0 - 16.0 [facility] Comment on above: Performed By: #### C BCDF #### [address] [place] [address] Lymphocytes (Bld) [#/Vol] 1.40 10*3/uL Normal 1.20 - 4.80 [facility] Comment on above: Performed By: #### C BCDF #### [address] [place] [address] Lymphocytes/100 WBC (Bld) 15.7 % Normal 13.0 - 44.0 [facility] Comment on above: Performed By: #### C BCDF #### [address] [place] [address] MCHC (RBC) [Mass/Vol] 32.2 g/dL Normal 32.0 - 36.0 [facility] Comment on above: Performed By: #### C BCDF #### [address] [place] [address] MCV (RBC) [Entitic vol] 93 fL Normal 80 - 100 [facility] Comment on above: Performed By: #### C BCDF #### [address] [place] [address] Monocytes (Bld) [#/Vol] 0.74 10*3/uL Normal 0.10 - 1.00 [facility] Comment on above: Performed By: #### C BCDF #### [address] [place] [address] Monocytes/100 WBC (Bld) 8.3 % Normal 2.0 - 10.0 [facility] Comment on above: Performed By: #### C BCDF #### [address] [place] [address] Neutrophils (Bld) [#/Vol] 6.72 10*3/uL Normal 1.20 - 7.70 [facility] Comment on above: Performed By: #### C BCDF #### [address] [place] [address] Neutrophils/100 WBC (Bld) 75.5 % Normal 40.0 - 80.0 [facility] Comment on above: Performed By: #### C BCDF #### [address] [place] [address] NUCLEATED RBC 0.0 /100 WBC Normal 0.0 - 0.0 [facility] [place] Comment on above: Performed By: #### C BCDF #### [address] [place] [address] Platelets (Bld) [#/Vol] 308 10*3/uL Normal 150 - 450 [facility] Comment on above: Performed By: #### C BCDF #### [address] [place] [address] RBC 4.56 x10E12/L Normal 4.00 - 5.20 [facility] Comment on above: Performed By: #### C BCDF #### [address] [place] [address] WBC (Bld) [#/Vol] 8.9 10*3/uL Normal 4.4 - 11.3 [facility] Comment on above: Performed By: #### C BCDF #### [address] [place] [address] COMPREHENSIVE PANELon 2022 Albumin [Mass/Vol] 4.2 g/dL Normal 3.4 - 5.0 [facility] Comment on above: Performed By: #### C MP #### [address] [place] [address] ALP [Catalytic activity/Vol] 68 U/L Normal 33 - 110 [facility] Comment on above: Performed By: #### C MP #### [address] [place] [address] ALT [Catalytic activity/Vol] 20 U/L Normal 7 - 45 [facility] Comment on above: Result Comment: Moon ents treated with Sulfasalazine may generate falsely decreased results for ALT. Performed By: #### C MP #### [address] [place] [address] Anion gap [Moles/Vol] 11 mmol/L Normal 10 - 20 [facility] Comment on above: Performed By: #### C MP #### [address] [place] [address] AST [Catalytic activity/Vol] 16 U/L Normal 9 - 39 [facility] Comment on above: Performed By: #### C MP #### [address] [place] [address] Bilirubin [Mass/Vol] 0.4 mg/dL Normal 0.0 - 1.2 [facility] Comment on above: Performed By: #### C MP #### [address] [place] [address] Calcium [Mass/Vol] 9.1 mg/dL Normal 8.6 - 10.3 [facility] Comment on above: Performed By: #### C MP #### [address] [place] [address] Chloride [Moles/Vol] 105 mmol/L Normal 98 - 107 [facility] Comment on above: Performed By: #### C MP #### [address] [place] [address] Creatinine [Mass/Vol] 0.73 mg/dL Normal 0.50 - 1.05 [facility] Comment on above: Performed By: #### C MP #### [address] [place] [address] eGFR FEMALE >90 Normal >90 [facility] Comment on above: Result Comment: CALC ULATIONS OF ESTIMATED GFR ARE PERFORMED USING THE 2020 CKD-EPI STUDY REFIT EQUATION WITHOUT THE RACE VARIABLE FOR THE IDMS-TRACEABLE CREATININE METHODS. https://jasn.asnjournals.org/content/early//ASN.177265 4367 Performed By: #### C MP #### [address] [place] [address] Glucose [Mass/Vol] 101 mg/dL High 74 - 99 [facility] Comment on above: Performed By: #### C MP #### [address] [place] [address] HCO3 (Bld) [Moles/Vol] 27 mmol/L Normal 21 - 32 [facility] Comment on above: Performed By: #### C MP #### [address] [place] [address] Potassium [Moles/Vol] 3.6 mmol/L Normal 3.5 - 5.3 [facility] Comment on above: Performed By: #### C MP #### [address] [place] [address] Protein [Mass/Vol] 6.8 g/dL Normal 6.4 - 8.2 [facility] Comment on above: Performed By: #### C MP #### [address] [place] [address] Sodium [Moles/Vol] 139 mmol/L Normal 136 - 145 [facility] Comment on above: Performed By: #### C MP #### [address] [place] [address] Urea nitrogen [Mass/Vol] 10 mg/dL Normal 6 - 23 [facility] Comment on above: Performed By: #### C MP #### [address] [place] [address] Complete Blood Count + Diffe rentialon 08-02-2022 Basophils/100 WBC (Bld) 0.2 % 0.0 - 2.0 MG-Otolaryng ology-[facility] Work Phone: Erythrocyte distribution width (RBC) [Ratio] 12.9 % See Below [facility] Work Phone: Comment on above: Reference Range: 11. 5 - 14.5 Hematocrit (Bld) [Volume fraction] 42.5 % See Below Flow StudiokittyWoqu.com roelLocation Based TechnologiesDarling leone Work Phone: Comment on above: Reference Range: 36. 0 - 46.0 Hemoglobin (Bld) [Mass/Vol] 13.7 g/dL See Below RangespanRenetta suzypriteshLocation Based TechnologiesDarling leone Work Phone: Comment on above: Reference Range: 12. 0 - 16.0 Lymphocytes/100 WBC (Bld) 15.7 % See Below Flow Studioreese suzyCa leone Work Phone: Comment on above: Reference Range: 13. 0 - 44.0 MCHC (RBC) [Mass/Vol] 32.2 g/dL See Below Rangespan Renetta Zahira leone Work Phone: Comment on above: Reference Range: 32. 0 - 36.0 MCV (RBC) [Entitic vol] 93 fL 80 - 100 Jalousierreese suzypriteshLocation Based TechnologiesDarling leone Work Phone: Monocytes/100 WBC (Bld) 8.3 % 2.0 - 10.0 JalousierkittyWoqu.com suzypriteshLocation Based TechnologiesDarling leone Work Phone: Neutrophils/100 WBC (Bld) 75.5 % See Below Flow Studioreese suzypriteshLocation Based TechnologiesDarling leone Work Phone: Comment on above: Reference Range: 40. 0 - 80.0 Platelets (Bld) [#/Vol] 308 10*3/uL 150 - 450 JalousierkittyWoqu.com szuypriteshLocation Based TechnologiesDarling leone Work Phone: RBC (Bld) [#/Vol] 4.56 {x10E12/L} See Below TechTurnkittyWoqu.com roelLocation Based TechnologiesDarling leone Work Phone: Comment on above: Reference Range: 4.0 0 - 5.20 WBC (Bld) [#/Vol] 8.9 10*3/uL 4.4 - 11.3 [facility]Rezacarol[facility] roelLocation Based TechnologiesDarling leone Work Phone: Complete Blood Count + Differential 0.02 {x10E9/L} See Below Flow Studiovasquez Y'allpriteshLocation Based TechnologiesDarling leone Work Phone: Comment on above: Reference Range: 0.0 0 - 0.10 Complete Blood Count + Differential 0.01 {x10E9/L} See Below Flow Studiovasquez almontepriteshLocation Based TechnologiesDarling leone Work Phone: Comment on above: Reference Range: 0.0 0 - 0.70 Complete Blood Count + Differential 0.74 {x10E9/L} See Below Flow Studioreese Y'allpriteshLocation Based TechnologiesDarling [employer] Work Phone: Comment on above: Reference Range: 0.1 0 - 1.00 Complete Blood Count + Differential 1.40 {x10E9/L} See Below Flow Studiovasquez Y'allpriteshDividend Solarclaritza [employer] Work Phone: Comment on above: Reference Range: 1.2 0 - 4.80 Complete Blood Count + Differential 6.72 {x10E9/L} See Below Flow StudiokittyWoqu.com Y'allmakeristclaritza [employer] Work Phone: Comment on above: Reference Range: 1.2 0 - 7.70 Complete Blood Count + Differential 0.1 % 0.0 - 6.0 Flow Studioreese Y'allpriteshDividend Solarclaritza [employer] Work Phone: Complete Blood Count + Differential 0.2 % 0.0 - 0.9 Flow Studioreese Y'allpriteshDividend Solarnh [employer] Work Phone: Comment on above: Immature Granulocyte Count (IG) includes promyelocytes, myelocytes and metamyelocytes but does not include bands. Percent differential counts (%) should be interpreted in the context of the absolute cell counts (cells/L). Complete Blood Count + Differential 0.0 {/100_WBC} 0.0 - 0.0 Location Based TechnologiesRoosevelt Y'allpriteshLocation Based TechnologiesDarling leone Work Phone: Laboratory - Chemistry and C hemistry - challengeon 08-02-2022 Albumin BCP dye [Mass/Vol] 4.2 g/dL 3.4 - 5.0 MG-Otolaryng oly-[facility] Work Phone: ALP [Catalytic activity/Vol] 68 U/L 33 - 110 MG-Otolaryng oly-[facility] Work Phone: ALT With P-5'-P [Catalytic activity/Vol] 20 U/L 7 - 45 MG-Otolaryng oly-[facility] Work Phone: Comment on above: Patients treated wit h Sulfasalazine may generate falsely decreased results for ALT. Anion gap [Moles/Vol] 11 mmol/L 10 - 20 MG- Otolaryng oly-[facility] Work Phone: AST With P-5'-P [Catalytic activity/Vol] 16 U/L 9 - 39 MG-Otolaryng Y'ally-[facility] Work Phone: Bilirubin [Mass/Vol] 0.4 mg/dL 0.0 - 1.2 MG-O tolaryng [facility] Work Phone: Calcium [Mass/Vol] 9.1 mg/dL 8.6 - 10.3 [facility] [facility] Work Phone: Chloride [Moles/Vol] 105 mmol/L 98 - 107 [facility]aryng [facility] Work Phone: CO2 [Moles/Vol] 27 mmol/L 21 - 32 [facility] yng [facility] Work Phone: Creatinine [Mass/Vol] 0.73 mg/dL See Below MG- Otolaryng oly-[facility] Work Phone: Comment on above: Reference Range: 0.5 0 - 1.05 Glucose [Mass/Vol] 101 mg/dL above high threshold 74 - 99 MG-Otolaryng oly-[facility] Work Phone: Potassium [Moles/Vol] 3.6 mmol/L 3.5 - 5.3 [facility] Work Phone: Protein [Mass/Vol] 6.8 g/dL 6.4 - 8.2 MG-Reza laryng ology-Toonh vasu Work Phone: Sodium [Moles/Vol] 139 mmol/L 136 - 145 [place] laryng [facility]logy-[facility] vasu Work Phone: Urea nitrogen [Mass/Vol] 10 mg/dL 6 - 23 MG-Otolaryng oly-[facility] Work Phone: No Panel Informationon 08-02 >90 >90 MG[facility]tolaryng oly[facility] vasu Work Phone: Comment on above: CALCULATIONS OF TABITHA MATED GFR ARE PERFORMED USING THE 2020 CKD-EPI STUDY REFIT EQUATION WITHOUT THE RACE VARIABLE FOR THE IDMS-TRACEABLE CREATININE METHODS.https://jasn.asnjournals.org/content/early/ N.0081579016 No Panel Informationon 07-30 Radiology Study observation (narrative) [facility] Work Phone: Initial Visit (Otolaryngolog y)on 07-27-2022 [...] of the right neck History of Present [id number] female referred by Dr. Jacey Chung for [...] NOMS. She has not noticed any lymphadenopathy She [...] Jul 30 2022 4:03AM EST (Author) Normal [employer] SCREENING MAMMOGRAM W/VALENTÍN, BILATERAL*on 01-22-2022 SCREENING MAMMOGRAM [...] VERY IMPORTANT TO YOUR HEALTH. THE CURRENT [employer] AND [employer] GUIDELINES RECOMMENDS ANNUAL MAMMOGRAPHY BEGINNING AT AGE 40 THIS FACILITY USES A REMINDER SYSTEM TO ENSURE ALL PATIENTS RECEIVE REMINDER NOTIFICATIONS AT THE APPROPRIATE TIME BASED ON THE RECOMMENDATIONS OF THIS EXAM. Board Certified Radiologist. Accredited by the ACR and FDA. Report reported and signed by Edilson Murdock on 01/22/2022 1008 Normal [facility] US Pelvic Complete w/Transva ginalon 01-15-2022 [...] by Edilson Murdock on 01/15/2022 1212 Normal [facility] PAP ACOG PANEL 2: 30 to 65on 01-12-2022 . . Normal [facility] Comment on above: Result Comment: Perf ormed at: WB Performed By: #### [id number] #### [facility] [address] [address] [address] Petey Willis Age Gdln ACOG Testing 30-65 Normal [facility] Comment on above: Performed By: #### [id number] #### [facility] [address] [address] [address] Petey iWllis DIAGNOSIS: Comment Normal [facility] Comment on above: Result Comment: NEGA TIVE FOR INTRAEPITHELIAL LESION OR MALIGNANCY. Performed at: WB Performed By: #### [id number] #### [facility] [address] [address] [address] Petey Willis HPV Aptima Positive Abnormal Negative [facility] Comment on above: Result Comment: This nucleic acid amplification test detects fourteen high-risk HPV types (16,18,31,33,35,39,45,51,52,56,58,59,66,68) without differentiation. Performed at: =G Performed By: #### [id number] #### [facility] [address] [address] [address] Petey Willis HPV Genotype 16 Negative Normal Negative [facility] Comment on above: Result Comment: Perf ormed at: =G Performed By: #### [id number] #### [facility] [address] [address] [address] Petey Willis HPV Genotype 18,45 Negative Normal Negative [facility] Comment on above: Result Comment: Perf ormed at: =G Performed By: #### [id number] #### [facility] [address] [address] [address] Petey Willis Methodology: Comment Normal [facility] Comment on above: Result Comment: This liquid based ThinPrep(R) pap test was screened with the use of an image guided system. Performed at: WB Performed By: #### [id number] #### [facility] [address] [place] [address] Dr. Petey Willis Note: Comment Normal [facility] Comment on above: Result Comment: The Pap smear is a screening test designed to aid in the detection of premalignant and malignant conditions of the uterine cervix. It is not a diagnostic procedure and should not be used as the sole means of detecting cervical cancer. Both false-positive and false-negative reports do occur. . Performed at: WB Performed By: #### [id number] #### [facility] [address] [address] [address] Petey Willis Performed by: Comment Normal [facility] Comment on above: Result Comment: Rasheeda Parekh, [employer] (ASCP) Performed at: WB Performed By: #### [id number] #### [facility] [address] [address] [address] Petey Willis Specimen adequacy: Comment Normal [facility] Comment on above: Result Comment: Sati sfactory for evaluation. Performed at: WB Performed By: #### [id number] #### [facility] [address] [place] [address] Dr. Petey Willis CHLAMYDIA/GONOCOCCUS BA (SW AB/URINE/PAPon 01-06-2022 Chlamydia trachomatis, BA Negative Normal Negative [facility] Comment on above: Performed By: #### C T/NGNA #### [facility] [address] [place] [address] Dr. Petey Willis Neisseria gonorrhoeae, BA Negative Normal Negative [facility] Comment on above: Performed By: #### C T/NGNA #### [facility] [address] [place] [address] Dr. Petey Willis VAGINITIS/VAGINOSIS DNA PROB Bhavik 01-05-2022 Summer species Negative Normal Negative [facility] Comment on above: Performed By: #### V AGINT #### [facility] [address] [place] [address] Dr. Petey Willis Gardnerella vaginalis Negative Normal Negative [facility] Comment on above: Performed By: #### V AGINT #### [facility] [address] [place] [address] Dr. Petey Willis Trichomonas vaginalis Negative Normal Negative [facility] Comment on above: Performed By: #### V AGINT #### [facility] [address] [place] [address] Dr. Petey Willis Vital Signs Date Time Vital Sign Value Performing Clinician Facility 08-19-2023 16:09-0400 Body height 170.2 cm Adi Lopez MD Work Phone: [facility] 08-19-2023 16:09-0400 Body mass index (BMI) [Ratio] 18.7 kg/m2 Adi Lopez MD Work Phone: [facility] 08-19-2023 16:09-0400 Body temperature 98.8 [degF] Adi Lopez MD Work Phone: [facility] 08-19-2023 16:09-0400 Body weight 54.16 kg Adi Lopez MD Work Phone: [facility] 08-19-2023 16:09-0400 Diastolic blood pressure 85 mm[Hg] Adi Lopez MD Work Phone: [facility] 08-19-2023 16:09-0400 Systolic blood pressure 135 mm[Hg] Adi Lopez MD Work Phone: [facility] 08-13-2023 15:39-0400 Body height 170.2 cm Derek Linn MD Work Phone: [facility] 08-13-2023 15:39-0400 Body temperature 97 [degF] Derek Linn MD Work Phone: [facility] 08-13-2023 15:39-0400 Body weight 55.4 kg Derek Linn MD Work Phone: [facility] 08-13-2023 15:39-0400 Diastolic blood pressure 61 mm[Hg] Derek Linn MD Work Phone: [facility] 08-13-2023 15:39-0400 Heart rate 69 /min Derek Linn MD Work Phone: [facility] 08-13-2023 15:39-0400 Respiratory rate 16 /min Derek Linn MD Work Phone: [facility] 08-13-2023 15:39-0400 SaO2% (BldA) [Mass fraction] 98 % Derek Linn MD Work Phone: [facility] 08-13-2023 15:39-0400 Systolic blood pressure 133 mm[Hg] Derek Linn MD Work Phone: [facility] 04-15-2023 10:35-0500 Body height 170.2 cm Adi Lopez MD Work Phone: [facility] 04-15-2023 10:35-0500 Body mass index (BMI) [Ratio] 18.89 kg/m2 Adi Lopez MD Work Phone: [facility] 04-15-2023 10:35-0500 Body temperature 97.2 [degF] Adi Lopez MD Work Phone: [facility] 04-15-2023 10:35-0500 Body weight 54.7 kg Adi Lopez MD Work Phone: [facility] 08-27-2022 11:29-0400 Body height 167.64 cm Derek Godinez [employer] Work Phone: LL-Trxgskmuodgwhf-Ry on [facility] [place] Work Phone: 08-27-2022 11:29-0400 Body mass index (BMI) [Ratio] 19.37 kg/m2 Derek Godinez Manzanares Work Phone: SE-Viqnowgajafzcw-Ty on [facility] [place] Work Phone: 08-27-2022 11:29-0400 Body surface area Derived from formula 1.61 m2 Derek Godinez [employer] Work Phone: QF-Avcgvicuuruied-Qo on [facility] [place] Work Phone: 08-27-2022 11:29-0400 Body weight 54.43 kg Derek Godinez Manzanares Work Phone: PD-Ggobjubfdxgwyo-Rh on [facility] [place] Work Phone: 08-09-2022 10:54-0400 Body height 167.4 cm Adi Lopez MD Work Phone: [facility] 08-09-2022 10:54-0400 Body mass index (BMI) [Ratio] 18.95 kg/m2 Adi Lopez MD Work Phone: [facility] 08-09-2022 10:54-0400 Body weight 53.1 kg Adi Lopez MD Work Phone: [facility] 07-18-2022 10:34-0400 Body height 167.6 cm Fredy Johnson MD Work Phone: [facility] 07-18-2022 10:34-0400 Body mass index (BMI) [Ratio] 18.76 kg/m2 Fredy Johnson MD Work Phone: 9(245)270-144180 [place] [address] 07-18-2022 10:34-0400 Body temperature 97.2 [degF] Fredy Johnson MD Work Phone: 4(506)588-229380 [place] [address] 07-18-2022 10:34-0400 Body weight 52.71 kg Fredy Johnson MD Work Phone: 1(444)179-441780 [place] [address] 07-18-2022 10:34-0400 Diastolic blood pressure 66 mm[Hg] Fredy Johnson MD Work Phone: 7(751)873-653380 [place] [address] 07-18-2022 10:34-0400 Heart rate 95 /min Fredy Johnson MD Work Phone: 4(145)830-742480 [place] [address] 07-18-2022 10:34-0400 Systolic blood pressure 120 mm[Hg] Fredy Johnson MD Work Phone: 0(256)794-452580 [place] [address] 07-06-2022 13:44-0500 Diastolic blood pressure 58 mm[Hg] Fredy Johnson MD Work Phone: 8(102)711-873880 [place] [address] 07-06-2022 13:44-0500 Heart rate 83 /min Fredy Johnson MD Work Phone: 8(103)468-724761 [place] [address] 07-06-2022 13:44-0500 Respiratory rate 16 /min Fredy Johnson MD Work Phone: [facility] 07-06-2022 13:44-0500 SaO2% (BldA) [Mass fraction] 98 % Fredy Johnson MD Work Phone: 8(888)535-010961 [place] [address] 07-06-2022 13:44-0500 Systolic blood pressure 118 mm[Hg] Fredy Johnson MD Work Phone: 2(144)243-309980 [place] [address] 07-06-2022 13:29-0500 Body temperature 98.01 [degF] Fredy Johnson MD Work Phone: 2(382)821-306080 [place] [address] 07-06-2022 12:44-0500 Body height 167.6 cm Fredy Johnson MD Work Phone: 3(933)510-935380 [place] [address] 07-06-2022 12:37-0500 Body mass index (BMI) [Ratio] 18.88 kg/m2 Fredy Johnson MD Work Phone: 5(958)223-702380 [place] [address] 07-06-2022 12:37-0500 Body weight 53.07 kg Fredy Johnson MD Work Phone: 1(307)561-451480 [place] [address] 06-13-2022 11:38-0500 Body height 167.6 cm Fredy Johnson MD Work Phone: 3(822)002-892480 [place] [address] 06-13-2022 11:38-0500 Body mass index (BMI) [Ratio] 19.09 kg/m2 Fredy Johnson MD Work Phone: 8(789)023-538380 [place] [address] 06-13-2022 11:38-0500 Body temperature 97.9 [degF] Fredy Johnson MD Work Phone: 1(935)817-965380 [place] [address] 06-13-2022 11:38-0500 Body weight 53.66 kg Fredy Johnson MD Work Phone: 4(398)308-329780 [place] [address] 06-13-2022 11:38-0500 Diastolic blood pressure 76 mm[Hg] Fredy Johnson MD Work Phone: 6(140)965-744880 [place] [address] 06-13-2022 11:38-0500 Heart rate 78 /min Fredy Johnson MD Work Phone: 0(701)418-559580 [place] [address] 06-13-2022 11:38-0500 Systolic blood pressure 122 mm[Hg] Fredy Johnson MD Work Phone: [facility] 1980 23:00-0500 >na< Qi [facility] Dept. of Dermato logy Encounters Encounter Date Encounter Type Care Provider Facility Start: 01-08-2024 End: 01-08-2024 ambulatory DOUGLAS CRAFTJaylanGABRIELENORMA Not Available Start: 10-04-2023 End: 10-04-2023 ambulatory GIANFRANCO DERIK Not Available Start: 08-19-2023 End: 08-19-2023 ambulatory [facility] Ambulatory Start: 08-19-2023 End: 08-19-2023 Office outpatient visit 15 minutes Adi Lopez MD Work Phone: [facility] Comment on above: Melanoma of neck (Mu lti); Lung nodule Start: 08-13-2023 End: 08-13-2023 ambulatory DEREK LINN Facility:[facility] Start: 08-13-2023 End: 08-13-2023 ambulatory Derek Linn MD Work Phone: Hematology/Oncology Comment on above: Malignant melanoma o f skin (HCC) (Primary Dx); Inguinal lymphadenopathy Start: 08-13-2023 End: 08-13-2023 Patient encounter procedure Derek Linn MD Work Phone: [facility] Start: 07-17-2023 End: 07-17-2023 ambulatory GIANFRANCO DERIK Not Available Start: 07-17-2023 End: 07-17-2023 ambulatory Gianfranco Derik Facility:[facility] Start: 07-17-2023 End: 07-17-2023 ambulatory Gianfranco Derik Work Phone: [facility] Work Phone: Start: 07-17-2023 End: 07-17-2023 Departed Referred Gianfranco Derik Work Phone: [facility] Behavioral Health Work Phone: Start: 07-03-2023 End: 07-03-2023 ambulatory GIANFRANCO DERIK Not Available Start: 06-12-2023 Chart abstracting Gianfranco Derikandres MCCRACKEN Work Phone: [facility] Start: 05-22-2023 End: 05-22-2023 ambulatory DEREK LINN Not Available Start: 05-09-2023 End: 05-09-2023 ambulatory ADI LOPEZ Facility:[facility] Start: 05-01-2023 End: 05-01-2023 ambulatory MARBELLA Valle WORKMAN Not Available Start: 04-27-2023 End: 04-28-2023 ambulatory Summer Workman Facility:[facility] Start: 04-15-2023 End: 04-16-2023 ambulatory ADI LOPEZ [facility] Start: 04-15-2023 End: 04-15-2023 Office outpatient visit 15 minutes Adi Lopez MD Work Phone: [facility] Comment on above: Melanoma of neck (CM S/HCC) (Primary Dx) Start: 09-04-2022 Qi [facility] Dept. of D ermatology Start: 08-27-2022 Postop follow up vis it related to original px Derek Manzanares Work Phone: EJ-Nmcgrgkpznxqfo-Pik n [facility] [place] Work Phone: Start: 08-27-[address] Derek Manzanares Facility:[id number] Start: 08-09-2022 End: 08-09-2022 ambulatory ADI LOPEZ Facility:[id number] Start: 08-09-2022 End: 08-09-2022 Subsequent hospital visit by physician Adi Lopez MD Work Phone: [facility] Comment on above: Malignant melanoma o f scalp and neck (CMS/HCC); Unspecified asthma, uncomplicated; Gastro-esophageal reflux disease without esophagitis; Personal history of COVID-19; Allergy status to penicillin Start: 08-09-2022 Chart Update Derek Manzanares Work Phone: KO-Anttjzm[facility]otlik-[place] Work Phone: Start: 08-09-2022 ambulatory ADI LOPEZ Faci lity:[id number] Start: 08-07-[address] Derek Manzanares Facility:[facility] Start: 08-02-2022 Chart Update Derek Manzanares Work Phone: EV-[facility]ruanpyygteny-[place] Work Phone: Start: 08-02-2022 ambulatory ADI LOPEZ Faci lity:[id number] Start: 08-02-2022 Encounter for preprocedural laboratory examination ADI LOPEZ [facility] Start: 07-27-2022 Office consultation new/estab patient 60 min Derek Manzanares Work Phone: WM-Alfyepcqlhiqzl-[place] Work Phone: Start: 07-27-2022 ambulatory MD ADI LOPEZ Facility:[id number] Start: 07-18-2022 [facility] Start: 07-18-2022 End: 07-18-2022 Office outpatient visit 25 minutes Fredy Johnson MD Work Phone: [facility] Comment on above: Melanoma of right si de of neck (Primary Dx) Start: 07-06-2022 End: 07-06-2022 [facility] Start: 07-06-2022 End: 07-06-2022 Subsequent hospital visit by physician Fredy Johnson MD Work Phone: [facility] Comment on above: Neoplasm of uncertai n behavior of skin Start: 06-13-2022 [facility] Start: 06-13-2022 End: 06-13-2022 Office outpatient new 30 minutes Fredy Johnson MD Work Phone: [facility] Comment on above: Neoplasm of [...] Treatment Date Care Activity Detail Author Start: 2040 RSV patient s and/or patients aged 60+ years (1 - 1-dose 60+ series) RSV patients and/or patients aged 60+ years (1 - 1-dose 60+ series) [facility] Start: 2030 Zoster Vaccines (1 o f 2) Zoster Vaccines (1 of 2) [facility] Start: 05-01-2024 Screening for malign ant neoplasm of breast [facility] Start: 01-05-2024 Influenza vaccination Influenz a Vaccine (Season Ended) [facility] Start: 08-19-2023 End: 08-18-2024 Creatinine [Mass/volume] in Serum or Plasma Creatinine Lab Routine Melanoma of neck (Multi) Lung nodule Expected: 08/19/2023 (Approximate), Expires: 08/18/2024 [facility] Work Phone: Comment on above: Expected: 08/19/2023 (Approximate), Expires: 08/18/2024 Start: 08-19-2023 End: 08-18-2024 CT Chest W contrast IV CT chest w IV contrast Imaging Routine Melanoma of neck (Multi) Lung nodule Expected: 08/19/2023, Expires: 08/18/2024 [facility] Service Area Work Phone: Comment on above: Expected: 08/19/2023 , Expires: 08/18/2024 Start: 08-19-2023 End: 08-18-2024 Urea nitrogen [Mass/volume] in Serum or Plasma Blood Urea Nitrogen Lab Routine Melanoma of neck (Multi) Lung nodule Expected: 08/19/2023 (Approximate), Expires: 08/18/2024 [facility] Work Phone: Comment on above: Expected: 08/19/2023 (Approximate), Expires: 08/18/2024 Start: 07-03-2023 End: 07-03-2023 Patient encounter procedure 07/03/2023 11:00 AM EST Office Visit [facility] [address] [place] [id number] Gianfranco More DO [address] [place] [address] [facility] Start: 05-06-2023 Behavioral Health Screening [facility]al [facility] Scre[facility] Start: 04-15-2023 End: 04-15-2023 Patient encounter procedure 04/15/2023 10:45 AM EST Office Visit [facility] [address] [place] [address] [place] [id number] [address] [facility] Department of [place] [address] [facility] Start: 01-22-2023 Screening for malign ant neoplasm of breast Mammogram [facility] Start: 01-04-2023 Covid-19 Vaccine ( season) Covid-19 Vaccine ( season) [facility] Start: 01-04-2023 COVID-19 Vaccine ( season) COVID-19 Vaccine ( season) [facility] Start: 01-04-2023 Influenza vaccination Influenza Vacc ine (#1) [facility] Start: 08-27-2022 POV, Provider: Adi Lopez, Status: Pen, Time: 11:15 AM POV, Provider: Adi Lopez, Status: Pen, Time: 11:15 AM [facility] Work Phone: Start: 08-09-2022 [facility]: Adi Lopez, Status: Pen, Time: 12:00 PM [facility], Provider: Adi Lopez, Status: Pen, Time: 12:00 PM LY-Jnlrravymrozoq-Er on [id number] [place] Work Phone: Start: 07-18-2022 End: 07-18-2022 Patient encounter procedure 07/18/2022 Office Visit Plastic Surgery Fredy Johnson MD [address] [place] [address] [facility] Start: 07-06-2022 End: 07-06-2022 Exc b9 lesion mrgn xcp sk tg s/n/h/f/g 2.1-3.0cm EXCISION LESION SKIN NECK SCALP Neoplasm of uncertain behavior of skin 07/06/2022 12:50 PM EST [facility] Start: 01-04-2022 Influenza vaccination INFLUENZA VACC INE (#1) [facility] Start: 08-04-2020 COVID-19 Vaccine (3 - Moderna series) COVID-19 Vaccine (3 - Moderna series) [facility] Start: 2020 Lipid panel LIPID SCREENING [facility] Start: 2020 Screening for malign ant neoplasm of breast [facility] Start: 2010 Screening for malign ant neoplasm of cervix [facility] Start: 2002 DTaP/Tdap/Td Vaccine s (1 - Tdap) DTaP/Tdap/Td Vaccines (1 - Tdap) [facility] Start: 2001 Screening for malign ant neoplasm of cervix [facility] Start: 1999 Hepatitis B Vaccine (1 of 3 - 19+ 3-dose series) Hepatitis B Vaccine (1 of 3 - 19+ 3-dose series) [facility] Start: 1999 Hepatitis B Vaccines (1 of 3 - 19+ 3-dose series) Hepatitis B Vaccines (1 of 3 - 19+ 3-dose series) [facility] Start: 1999 Third diphtheria, tetanus and acellular pertussis (DTaP) vaccination TDAP (ADULT) [facility] Start: 1999 Urine microalbumin profile DTaP,Tdap,Td Vaccine (1 - Tdap) [facility] Start: 1998 Hepatitis C screening Hepatitis C Sc reening [facility] Start: 1998 HIV screening HIV Screening [facility] Start: 1995 HIV screening HIV SCREENING DISCUSSI ON [facility] Start: 1981 MMR Vaccines (1 of 1 - Standard series) MMR Vaccines (1 of 1 - Standard series) [facility] Start: 1980 COVID-19 VACCINE (#1) COVID-19 VACCI NE (#1) [facility] Start: 1980 Examination of skin Derm Melanoma Sk in Check [facility] Start: 1980 Hepatitis B Vaccines (1 of 3 - 3-dose series) Hepatitis B Vaccines (1 of 3 - 3-dose series) [facility] Start: 1980 Hepatitis C screening HEPATITI S C VIRUS SCREENING [facility] Start: 1980 HIV screening HIV Screening [facility] Start: 1980 Lipid panel Lipid Panel [facility] Start: 1980 Tetanus vaccination TETANUS [facility] Start: 1980 Yearly Adult Physical Yearly Adult P hysical [facility] SURGICAL PATHOLOGY REQUEST SURGICAL PATHOLOGY REQUEST Surg Path Routine Neoplasm of uncertain behavior of skin Release Upon Ordering for 1 Occurrences starting 07/06/2022 [facility] Comment on above: Release Upon Orderin g for 1 Occurrences starting 07/06/2022 Immunizations Immunization Date Immunization Notes Care Provider Loraine mae 1980 pneumococcal conjuga te vaccine, 7 valent Qi [facility] Payers Date Payer Category Payer Self-pay 2021 Unknown [id number] 2021 Unknown [id number] 1980 Unknown [id number] 2.16.84 [id number] 1980 Unknown [id number] 2.16.8 40.1.109466.3.579.2.983 1980 Unknown [id number] 2.16.8 40.1.500340.3.579.2.983 1980 Unknown [id number] 2.16.8 40.1.036758.3.579.2.983 1980 Unknown [id number] 2.16.8 40.1.748745.3.579.2.1069 1980 Unknown [id number] 2.16.8 40.1.359564.3.579.2.1069 1980 Unknown [id number] 2.16.8 40.1.025580.3.579.2.1069 1980 Unknown [id number] 2.16. 840.1.131880.3.579.2.356 1980 Unknown [id number] 2.16. 840.1.617957.3.579.2.356 1980 Unknown [id number] 2.16. 840.1.202282.3.579.2.356 1980 Unknown [id number] 2.16.8 40.1.280769.3.579.2.1245 1980 Unknown [id number] 2.16.8 40.1.254617.3.579.2.718 1980 Unknown [id number] 2.16.8 40.1.411848.3.579.2.1244 1980 Unknown [id number] 2.16.84 0.1.338125.3.579.2.1259 1980 Unknown [id number] 2.16.84 0.1.077319.3.579.2.1259 1980 Unknown [id number] 2.16.84 0.1.324664.3.579.2.1259 1980 Unknown [id number] 2.16.84 0.1.471594.3.579.2.1259 1980 Unknown [id number] 2.16.84 0.1.290240.3.579.2.1259 1980 Unknown [id number] 2.16.84 0.1.377261.3.579.2.1259 1980 Unknown [id number] 2.16.840 .1.105666.3.579.2.1259 1980 Unknown [id number] 2.16.840 .1.619930.3.579.2.1259 1959 Unknown [id number] Unknown [id number] 2.16.8 40.1.601222.3.579.2.531 Unknown Anabel JOYCE/DEDRICK [id number] Social History Date Type Detail Facility Start: 06-13-2022 End: 04-15-2023 Tobacco smoking status NHIS Never smoked tobacco [facility] Start: 06-13-2022 End: 04-15-2023 Tobacco use and exposure Smokeless tobacco non-user [facility] Start: 06-13-2022 End: 08-13-2023 Alcohol intake Ex-drinker (finding) [facility] Start: 1980 Sex Assigned At Not on file A [facility] Start: 07-08-2022 End: 08-19-2023 Exposure to SARS-CoV-2 (event) Not sure [facility] Start: 09-04-2022 Dept. of D ermatology Start: 1980 End: 1980 Sex Assigned At Female [facility] Start: 04-15-2023 End: 08-19-2023 Gender identity Not on file [facility] Work Phone: Start: 04-15-2023 End: 08-19-2023 History of Social function [facility] Work Phone: Start: 06-12-2023 Alcohol intake Lifetime non-d jhon (finding) [facility] Start: 06-12-2023 Alcohol Comment caffeine: 1-2 cups per day [facility] Adult Depression Screening Assessment 0 [facility] NEGATED: Highlighted rowStart: NINF History of tobacco use Passive smoker [facility] Goals Date Patient Goal Desired Activity /State Clinical Notes 06-13-2022 to 08-19-2023 Adi Lopez MD - 08/19/2023 4:00 PM EDTMDerek zaldivar MD - 08/13/2023 6:11 AM RICHTAdi Lopez MD - 04/15/2023 10:45 AM ESTOp Note - Adi Lopez MD - 08/09/2022 1:38 PM EDT Note Date & Type Note Facility 08-19-2023 History of Present illness Narrative ENT Follow [...] SLN. margins and nodes negative. stage 1a 08/19/23: Patient returns for follow-up. After last visit she had CT scans and was evaluated by oncology. There was a lung nodule noted on her CT scan. She also had a chest wall lymph node. She had an excision except that area. She is also noticed an area by the incision that looks like possible suture Past Medical History She has no past medical history on file. Surgical History She has no past surgical history on file. Social History She reports that she has never smoked. She has never used smokeless tobacco. No history on file for alcohol use and drug use. Family History No family history on file. Allergies Moxifloxacin, Sulfamethoxazole-trimethoprim, Azithromycin, Codeine, Fluconazole, and Penicillins Physical Exam: CONSTITUTIONAL: No acute distress VOICE: [...] redundant skin at the bottom of the incision. Small portion of exposed Vicryl near the superior aspect of the incision PSYCH: Alert and oriented with appropriate mood and affect Last Recorded Vitals Blood pressure 135/85, temperature 37.1 C (98.8 F), temperature source Temporal, height 1.702 m (5' 7 ), weight 54.2 kg (119 lb 6.4 oz). Assessment and Plan 43 y.o. femalereferred for melanoma of the right neck with 0.8 mm depth status post wide local excision, sentinel node biopsy. Final pathology showed negative margins and lymph nodes. stage 1a -Continue regular follow-up with dermatology -Follow-up with me in 4-6 months or earlier with any issues -Order was provided for repeat CT scan of the chest. Although the lung nodule is small we would like to follow given her history of melanoma -She will contact our office if there are any concerns Adi Lopez MD documented in this encounter [facility] Work Phone: 08-13-2023 Note HNO ID: [id number] Author: DEREK LINN MD Service: ? Author Type: Physician Type: Progress Notes Filed: 08/14/2023 07:41 Note Text: PATIENT NAME: Magalie Rodriguez DATE: 08/13/2023 PRIMARY CARE PHYSICIAN: Derek Manzanares MD OTHER PHYSICIANS: Dr. Fredy Johnson, Dr. Adi Lopez ( Oncologic ENT), Hyacinth Ramirez PA-C Portions of this encounter note have been copied from my note from 05/09/2023 and has been updated where appropriate, and reflect my current medical decision making from today. CC: This is a 43 year old female with a history of early-stage melanoma, seen for scheduled follow-up. INTERIM HISTORY: Since the patient's initial visit here she underwent staging CT scans on 05/22/2023. Her chest CT revealed a small pulmonary nodule with benign characteristics, as well as a small soft tissue density over her left chest wall. She was seen by dermatology and there was a small mole near that area which was resected and benign. CT abdomen/pelvis negative. Normal-appearing inguinal lymph nodes were identified. Clinically the patient can still feel small lymph nodes in her bilateral inguinal regions, but unchanged. No tenderness or signs of infection. She also has noticed 2 small areas around the surgical scar over her right neck. These appear to be areas of a previous stitch. No evidence of malignancy. MEDICATIONS: Current Outpatient Medications Medication Sig cholecalciferol, vitamin D3, (VITAMIN D3 ORAL) Take 2,000 unit/mL by mouth once daily. albuterol HFA (PROVENTIL HFA, VENTOLIN HFA) 90 [...] Diagnosis Date Melanoma (HCC) PAST SURGICAL HISTORY: PAST SURGICAL HISTORY Procedure Laterality Date PAST SURGICAL HISTORY OF Melanoma removed Right neck FAMILY HISTORY: FAMILY HISTORY Problem Relation Age of Onset other (Nonhodgkins) Paternal Grandmother Breast Cancer Maternal cousin SOCIAL HISTORY: Social History Tobacco Use Smoking status: Never Passive exposure: Never Smokeless tobacco: Never Substance Use Topics Alcohol use: Not Currently Drug use: Not Currently COMPLETE REVIEW OF SYSTEMS: CONSTITUTION: Negative for [...] anxiety, depression, or other. PHYSICAL EXAM: BP 133/61 Pulse 69 Temp 36.1 ?C (97 ?F) (Temporal) Resp 16 Ht 170.2 cm (5' 7.01 ) Wt 55.4 kg (122 lb 2.2 oz) LMP 04/22/2023 SpO2 98% BMI 19.12 kg/m? GENERAL EXAM: Well developed/well nourished; in [...] carotid bruits. ABDOMEN: Negative for masses, hernia, and spleen/liver abnormalities. RECTAL: Not done PSYCHIATRIC: Negative for mood/affect changes, recent AND remote memory changes, and judgement and insight. NEUROLOGICAL: Alert, oriented x person, place, time. Cranial n (more content not included)... [facility] 08-13-2023 History of Present illness Narrative PATIENT NAME: Magalie Rodriguez DATE: 08/13/2023 PRIMARY CARE PHYSICIAN: Derek Manzanares MD OTHER PHYSICIANS: Dr. Fredy Johnson, Dr. Adi Lopez ( Oncologic ENT), Hyacinth Ramirez PA-C Portions of this encounter note have been copied from my note from 05/09/2023 and has been updated where appropriate, and reflect my current medical decision making from today. CC: This is a 43 year old female with a history of early-stage melanoma, seen for scheduled follow-up. INTERIM HISTORY: Since the patient's initial visit here she underwent staging CT scans on 05/22/2023. Her chest CT revealed a small pulmonary nodule with benign characteristics, as well as a small soft tissue density over her left chest wall. She was seen by dermatology and there was a small mole near that area which was resected and benign. CT abdomen/pelvis negative. Normal-appearing inguinal lymph nodes were identified. Clinically the patient can still feel small lymph nodes in her bilateral inguinal regions, but unchanged. No tenderness or signs of infection. She also has noticed 2 small areas around the surgical scar over her right neck. These appear to be areas of a previous stitch. No evidence of malignancy. MEDICATIONS: Current Outpatient Medications Medication Sig cholecalciferol, vitamin D3, (VITAMIN D3 ORAL) Take 2,000 unit/mL by mouth once daily. albuterol HFA (PROVENTIL HFA, VENTOLIN HFA) 90 [...] Diagnosis Date Melanoma (HCC) PAST SURGICAL HISTORY: PAST SURGICAL HISTORY Procedure Laterality Date PAST SURGICAL HISTORY OF Melanoma removed Right neck FAMILY HISTORY: FAMILY HISTORY Problem Relation Age of Onset other (Nonhodgkins) Paternal Grandmother Breast Cancer Maternal cousin SOCIAL HISTORY: Social History Tobacco Use Smoking status: Never Passive exposure: Never Smokeless tobacco: Never Substance Use Topics Alcohol use: Not Currently Drug use: Not Currently COMPLETE REVIEW OF SYSTEMS: CONSTITUTION: Negative for [...] anxiety, depression, or other. PHYSICAL EXAM: BP 133/61 Pulse 69 Temp 36.1 C (97 F) (Temporal) Resp 16 Ht 170.2 cm (5' 7.01 ) Wt 55.4 kg (122 lb 2.2 oz) LMP 04/22/2023 SpO2 98% BMI 19.12 kg/m GENERAL EXAM: Well developed/well nourished; in no acute distress. SKIN: Negative for lesions, rashes, or ulcers on the upper and lower extremities and face. Negative for palpations/nodules, purpura, and ecchymosis. EENT: Negative for conjunctiva, mucosal pallor, JVD, LAP, thyromegaly, and glossitis. Supple & PERRL. EXTREMITIES: Negative for cyanosis, clubbing, and crepitus. LUNGS: Negative to auscultation, respiratory effort, and percussion. CARDIOVASCULAR: Regular rate. Negative for murmurs/S3S4/abnormal sounds, edema, and carotid bruits. ABDOMEN: Negative for masses, hernia, and spleen/liver abnormalities. RECTAL: Not done PSYCHIATRIC: Negative for mood/affect changes, recent & remote memory changes, and judgement and insight. NEUROLOGICAL: Alert, oriented x person, place, time. Cranial nerves 2-12 intact. Sensory for pain, light touch, vibration intact on all 4 extremities. Reflexes symmetric for biceps/brachioradial/patella/achi lles. LYMPH NODES: 1 to 2 cm lymph nodes palpable in both inguinal regions. No associated redness or tenderness. No other obvious adenopathy. PATHOLOGY: 08/10/2022 Right neck wide excision and sentinel node biopsy Scar and biopsy site changes, negative for residual melanoma. Incidental compound nevus. 1 lymph node, negative for metastatic melanoma (0/1) 07/06/2022 Excisional biopsy right neck lesion ([employer]) Invasive melanoma, Breslow's depth 0.8 mm RADIOLOGY/OTHER STUDIES: 05/22/2023 CT chest, abdomen, [facility] No acute intrathoracic process. 4 to 5 mm right middle lobe nodule stable. No acute abdominal pelvic process. Normal-appearing bilateral inguinal lymph nodes are identified. 04/15/2023 Abdominal ultrasound ([facility]) Multiple lymph nodes again seen in the groin, largest measures 1.5 cm and is slightly larger than previous study. These may be reactive. 11/13/2022 Abdominal ultrasound ([facility]) Prominent lymph nodes in the left inguinal area measuring 1.3 x 0.4 x 0.8 cm ASSESSMENT/PLAN: 1. Melanoma of skin (HCC) - ICD9: 172.9, ICD10: C43.9 Stage IB (T1b, N0, M0) invasive melanoma of the right neck diagnosed July 2022. Status post excisional biopsy 07/06/2022. Tumor depth 0.8 mm. Status post wide excision with sentinel node biopsy 08/10/2022. Final pathology revealed no residual disease in the wide excision, and the sentinel lymph node was negative for metastasis. Staging CT scans 05/22/2023 revealed no evidence of metastases. Currently the patient has no evidence disease. At this time I would recommend continued routine follow-up to include physical exam every 6 months. Would check labs +/- restaging scans if suspicious signs or symptoms develop. Per patient request she will follow-up with her welding machine operator helper gas and surgeon. I did not schedule a return visit here, but would be happy to see her in the future if I can be of assistance. 2. Bilateral inguinal lymphadenopathy Persistent lymphadenopathy in the bilateral inguinal regions since November 2022. Baseline ultrasounds nondiagnostic. CT abdomen/pelvis 06/01/2023 revealed no suspicious lymphadenopathy. Most likely she has benign lymphadenopathy from chronic inflammation. She will follow-up with her PCP for continued management. Derek Linn MD CC: Dr. Adi Lopez (ENT at ) Hyacinth Ramirez PA-C ([facility]) documented in this encounter [facility] 05-09-2023 Note HNO ID: [id number] Author: DEREK LINN MD Service: ? Author [...] closely with her ENT physician and her welding machine operator helper gas. She has had no evidence of local [...] currently works as a nurse practitioner at [employer]. MEDICATIONS: Current Outpatient Medications Medication [...] a (more content not included)... [facility] 04-15-2023 History of Present illness Narrative [...] Adi Lopez MD documented in this encounter [facility] Work Phone: 08-09-2022 Note Post Operative Note: PreOp Diagnosis: melanoma right neck Post-Procedure Diagnosis: melanoma right neck Procedure: 1. Wide local excision right neck melanoma > 4 cm 2. sentinel lymph node biopsy 3. Identification of sentinel node with gamma. Surgeon: lawanda Resident/Fellow/Other Mold Presser: lilibeth Estimated Blood Loss (mL): 2 Specimen: [...] Last Updated: 09-Aug-2022 13:44 by Adi Lopez) [facility] 08-09-2022 Note History & Physical R eviewed: [...] Patient Profile - Preop v3 09-Aug-2022 10:54 [facility] 08-09-2022 Miscellaneous Notes Post Operative Note: PreOp Diagnosis: melanoma right neck Post-Procedure Diagnosis: melanoma right neck Procedure: 1. Wide local excision right neck melanoma > 4 cm 2. sentinel lymph node biopsy 3. Identification of sentinel node with gamma. Surgeon: lawanda Resident/Fellow/Other Mold Presser: lilibeth Estimated Blood Loss (mL): 2 Specimen: [...] by Adi Lopez) documented in this encounter [facility] Work Phone: 08-09-2022 Note Formatting of this n ote is different from the original. Post Operative Note: PreOp Diagnosis: melanoma right neck Post-Procedure Diagnosis: melanoma right neck Procedure: 1. Wide local excision right neck melanoma > 4 cm 2. sentinel lymph node biopsy 3. Identification of sentinel node with gamma. Surgeon: lawanda Resident/Fellow/Other Mold Presser: lilibeth Estimated Blood Loss (mL): 2 Specimen: [...] Last Updated: 09-Aug-2022 13:44 by Adi Lopez) [facility] Work Phone: 08-09-2022 History and physical note [...] Patient Profile - Preop v3 09-Aug-2022 10:54 [facility] Work Phone: 08-09-2022 History and physical note [...] v3 09-Aug-2022 10:54 documented in this encounter [facility] Work Phone: 07-18-2022 History of Present illness [...] complete dermatologic evaluation. She desires referral to [facility] and we will put this referral into the ENT department. Additionally, we will refer her to Dr. Perez dermatology for evaluation and surveillance Assessment: Melanoma right neck Plan: The pt is to call with any further problems or questions, otherwise I will see them back PRN. We will coordinate referrals. documented in this encounter [facility] 07-06-2022 Nurse Surgical operation note Discharged in stable condition with personal belongings and written discharge instructions. Patient walked to discharge door per self. [facility] 07-06-2022 Nurse Note Discharged in stable condition with personal belongings and written discharge instructions. Patient walked to discharge door per self. Discharge instructions reviewed with patient, understanding stated. Patient transported to PACU via cart with this RN and WEB SITE DESIGNER. Report given to BRANDON Mensah. OR 2 temp 67.2F, humidity 47%. documented in this encounter [facility] 07-06-2022 Nurse Surgical operation note Discharge instructions reviewed with patient, understanding stated. [facility] 07-06-2022 Hospital Discharge instructions Fredy Johnson MD [...] the area daily. documented in this encounter [facility] 07-06-2022 Note Formatting of this n ote is different from the original. POST OPERATIVE/PROCEDURE NOTE Magalie Rodriguez ([id number]) SURGEON Surgeon(s) and Role: * Fredy Johnson MD - Primary FISHER PURSE SEINE None ANESTHESIOLOGIST No anesthesia staff entered. SURGICAL STAFF Lunchroom Food Service Supervisor: Laura Lambert RN; Emily Sharma RN Scrub Person: Ros Tyler Bhatti PROCEDURE PERFORMED Excision lesion right neck [...] TISSUE SURGICAL PATHOLOGY REQUEST Fredy Johnson MD 07/06/20221314 Fredy Johnson MD July 06, 2022 1:32 PM [facility] 07-06-2022 Miscellaneous Notes POST OPERATIVE/PROCEDURE NOTE Magalie Rodriguez ([id number]) SURGEON Surgeon(s) and Role: * Fredy Johnson MD - Primary FISHER PURSE SEINE None ANESTHESIOLOGIST No anesthesia staff entered. SURGICAL STAFF Lunchroom Food Service Supervisor: Laura Lambert RN; Emily Sharma RN Scrub Person: Ros Tyler Bhatti PROCEDURE PERFORMED Excision lesion right neck [...] TISSUE SURGICAL PATHOLOGY REQUEST Fredy Johnson MD 07/06/20221314 Fredy Johnson MD July 06, 2022 1:32 PM documented in this encounter [facility] 07-06-2022 Nurse Surgical operation note Patient transported to PACU via cart with this RN and WEB SITE DESIGNER. Report given to BRANDON Mensah. [facility] 07-06-2022 History and physical note I have examined the patient and reviewed the previous H&P completed on date 06/13/22 and there are no changes. See paper H&P in chart Fredy Johnson MD, 07/06/2022, 12:40 PM. [facility] 07-06-2022 History and physical note I have examined the patient and reviewed the previous H&P completed on date 06/13/22 and there are no changes. See paper H&P in chart Fredy Johnson MD, 07/06/2022, 12:40 PM. documented in this encounter [facility] 07-06-2022 Nurse Surgical operation note OR 2 temp 67.2F, humidity 47%. [facility] 06-13-2022 History of Present illness Narrative [...] lesion right neck documented in this encounter [facility] Evaluation note Diagnosis Neoplasm of uncertain behavior of skin- Primary [facility] Diagnosis Neoplasm of uncertain behavior of skin [facility] Melanoma of right side of neck- Primary [facility]/ADept. of Dermatology Evaluation note* Diagnosis Malignant melanoma of scalp and neck (CMS/HCC) Unspecified asthma, uncomplicated Gastro-esophageal reflux disease without esophagitis Personal history of COVID-19 Allergy status to penicillin documented in this encounter [facility] Work Phone: Evaluation note* Diagnosis Melanoma of neck (CMS/HCC)- Primary documented in this encounter [facility] Work Phone: Evaluation noteNo assessment information available [facility] Work Phone: Evaluation note* Diagnosis Malignant melanoma of skin (HCC)- Primary Melanoma of skin, site unspecified Inguinal lymphadenopathy Enlargement of lymph nodes [facility] Melanoma of neck (Multi) Lung nodule Other diseases of lung, not elsewhere classified documented in this encounter [facility] Work Phone: History of Present illness Narrative* [...] does not have any listed drug allergies AD-Zykpppolrxmjig-Gvttvrfk Work Phone: History of Present illness Narrative* [...] does not have any listed drug allergies RF-Jvffinabcvxgxw-Cxiq MOB02 [place] Work Phone: History of Present illness Narrative* [...] does not have any listed drug allergies UF-Zemtnfjvwmgnrd-Yetslmkr Work Phone: History of Present illness Narrative* [...] does not have any listed drug allergies [facility] Work Phone: History of Present illness [...] follow-up after surgery. She is doing well YK-Qmbqusvcfqluok-[id number] [facility]02 [place] Work Phone: Reason for referral (narrative)* Consultation (Urgent) - New Request Specialty Diagnoses / Procedures Referred By Roman edmonds Referred To Contact Dermatology Diagnoses Melanoma of right side of neck Fredy Johnson MD [address] [place] [address] Guero Perez MD [address] [place] [address] Referral ID Status Reason Start Date Expiration Date V isits Requested Visits Authorized [id number] New Request 07/18/2022 08/12/2023 1 1 * Consultation (Urgent) - New Request Specialty Diagnoses / Procedures Referred By Roman edmonds Referred To Contact Otolaryngology Diagnoses Melanoma of right side of neck Fredy Johnson MD [address] [place] [phone] Referral ID Status Reason Start Date Expiration Date V isits Requested Visits Authorized [id number] New Request 07/18/2022 08/12/2023 1 1 [facility] Name Reason for referral NA NA Dept. of Dermatology Reason for visit Narrative* Auth/Cert Specialty Diagnoses / Procedures Referred By Roman edmonds Referred To Contact Diagnoses Neoplasm of uncertain behavior of skin Neoplasm of uncertain behavior of skin [D48.5] Procedures CA EXC SKIN BENIG 2.1-3CM REMAINDR BODY EXCISION LESION SKIN NECK SCALP Fredy Johnson MD [address] [place] [address] Referral ID Status Reason Start Date Expiration Date Visits Re quested Visits Authorized [id number] 06/18/2022 1 1 [facility] Summary Purpose Family History No Family History [...] the right neckMelanoma of the right neck Reason for Referral Specialty Diagnoses / Procedures Referred By Roman edmonds Referred To Contact Radiology Diagnoses Melanoma of neck (Multi) Lung nodule Procedures [place] [address] [facility] Department [place] [address] Referral ID Status Reason Start Date Expiration Date Visits Requested Visits Authorized [id number] Pending Review Perform Procedure 08/19/2023 08/18/2024 1 1 Additional Source Comments INFORMATION SOURCE (unrecogn ized section and content) DATE CREATED AUTHOR 01/12/2022 [facility] DATE CREATED AUTHOR AUTHOR'S ORGANIZ ATION 02/03/2022 [facility] dical Specialist DATE CREATED AUTHOR AUTHOR'S ORGANIZ ATION 08/10/2022 [facility] DATE CREATED AUTHOR AUTHOR'S ORGANIZ ATION 08/20/2022 [facility] DATE CREATED AUTHOR AUTHOR'S ORGANIZ ATION 08/28/2022 [employer] DATE CREATED AUTHOR AUTHOR'S ORGANIZ ATION 09/07/2022 [facility] DATE CREATED AUTHOR AUTHOR'S ORGANIZ ATION 04/21/2023 [facility] DATE CREATED AUTHOR AUTHOR'S ORGANIZ ATION 05/10/2023 [facility] DATE CREATED AUTHOR AUTHOR'S ORGANIZ ATION 07/19/2023 [facility] DATE CREATED AUTHOR AUTHOR'S ORGANIZ ATION 08/14/2023 [facility] DATE CREATED AUTHOR AUTHOR'S ORGANIZ ATION 08/23/2023 [facility] DATE CREATED AUTHOR AUTHOR'S ORGANIZ ATION 01/10/2024 [facility] dical Specialists EPIC Reason for Visit (unrecogniz ed section and [...] lymph node biopsy for right neck melanoma [id number] C43.4 Reason Comments Follow-up Reason Comments Melanoma Follow up Care Teams (unrecognized sec tion and content) Qa Consultant Relationship Specialty Start Date End Date Sarah Panchal RN BUILDING [address] [place] [address] PCP - General Nurse Practitioner - Family 06/13/22 Qa Consultant Relationship Specialty Start Date End Date Sarah Panchal CNP [address] [place] [address] PCP - General Nurse Practitioner - Family 06/13/22 Qa Consultant Relationship Specialty Start Date End Date Sarah Panchal RN [address]ILDING [address] [place] [address] PCP - General Nurse Practitioner - Family 06/13/22 Qa Consultant Relationship Specialty Start Date End Date Derek Manzanares MD [address] [place] [phone] PCP - General 07/27/22 Qa Consultant Relationship Specialty Start Date End Date Derek Manzanares MD [address] [place] [phone] PCP - General 07/27/22 Qa Consultant Relationship Specialty Start Date End Date Derek Manzanares MD [address] [place] [address] PCP - General Family Medicine 09/11/22 Team Status: Inactive Member Role Status Dates Gianfranco More Attending Provider Active Start: [facility] 2023 End: July 17, 2023 Qa Consultant Relationship Specialty Start Date End Date Derek Manzanares MD [address] [place] [address] PCP - General Family Medicine 05/03/23 Fredy Johnson [address] [place] [address] Referring Plastic Surgery 07/24/22 Qa Consultant Relationship Specialty Start Date End Date Derek Manzanares MD [address] [place] [phone] PCP - General 07/27/22 PRN Active and Recently Administ ered Medications [...] MD - Comment: given to sterile field) Goals (unrecognized section and content) Goals may be documented in a n alternate section Source Comments (unrecognize d section and content) In the event this informatio n is protected by the Federal Confidentiality of Alcohol and Drug Abuse Patient Records regulations: The Federal rules restrict any use of the information to criminally investigate or prosecute any alcohol or drug abuse patient.[facility] FOR RECORDS PERTAINING TO PATIENTS WHO ARE [...] BE BASED ON THE PRIMARY CLINICAL RECORDS. [employer] provides no warranty or guarantee of the accuracy or completeness of information in this document.
[2024-01-29 02:07] LABS: HPV Aptima Positive (Negative); HPV Genotype 16 Negative (Negative); HPV Genotype 18,45 Negative (Negative); Pap IG (Image Guided) Note (.)
== END 2024-01-22 19:32 | disposition home or self-care (01) ==
LOC: LAB 19:31
PROVIDERS: Visit Provider Obstetrics & Gynecology
DX: R87.610 Atypical squamous cells of undetermined significance on cytologic smear of cervix (ASC-US) (principal); R87.810 Cervical high risk human papillomavirus (HPV) DNA test positive
CPT/HCPCS: 87624; 88175

== ENCOUNTER 2024-08-12 21:14 | Outpatient (REF) | payer OTHER, SELFPAY ==
--- OUTSIDE RECORDS SUMMARY | 2024-08-12 21:20 | XMS_ITS | CCD ---
Author Organization [facility] Care Team Providers Care Tie In Hand Name Role Phone DERIK, DR PENDLETON Attending Unavailable DERIK, DR PENDLETON Consulting Unavailable DERIK, DR PENDLETON Admitting Unavailable Kiepert Sarah REA Primary Care Provider [phone] Derek Manzanares Unavailable Unavailable Unavailable KIEPERT, SARAH A Primary Care Unavailable SELF, SELF Referring Unavailable GHAZOUL, FREDY Attending Unavailable KIEPERT, SARAH A Primary Care Unavailable SELF, SELF Referring Unavailable GHAZOUL, FREDY Attending Unavailable KIEPERT, SARAH A Primary Care Unavailable GHAZOUL, FREDY Referring Unavailable GHAZOUL, FREDY Attending Unavailable GHAZOUL, FREDY Admitting Unavailable ADI MCCARTNEY Attending Unavailable Leighton, Dr. Derek Natarajan Primary Care Unavailab ADI St Attending Unavailable ADI MCCARTNEY Referring Unavailable Leighton, Dr. Derek Natarajan Primary Care Unavailab ADI St Attending Unavailable ADI MCCARTNEY Referring Unavailable Leighton, Dr. Derek Natarajan Primary Care Unavailab ADI St Admitting Unavailable Fercho Qi Unavailable Unavailable Manzanares, Dr. Derek Natarajan Primary Care Unavailab MD ADI St Attending Unavailab MD ADI St Attending Unavailab kelly Chung, Dr. Jacey Lancaster Referring Unavailable Manzanares, Dr. Derek Natarajan Primary Care Unavailab le Leighton, Dr. Derek Natarajan Primary Care Unavailab MD ADI St Attending Unavailab le Derek Manzanares MD Primary Care Provider [phone] ADI MCCARTNEY Attending Unavailable DEREK MANZANARES Primary Care Unavailable Work, Summer Admitting Unavailable Work, Summer Attending Unavailable DEREK MANZANARES Primary Care Unavailable Derek Manzanares MD Primary Care Provider Derik, Gianfranco Attending Unavailable Deirk, Gianfranco Admitting Unavailable Derik, Gianfranco Attending Provider [phone] Fredy Johnson Unavailable Derek Manzanares MD Primary Care Provider [phone] DEREK LINN Attending Unavailable MANZANARES, DEREK NATARAJAN Primary Care Unavailable DEREK LINN Referring Unavailable THADI SAWYER Referring Unavailable MANZANARES, DEREK NATARAJAN Primary Care Unavailable DEREK LINN Attending Unavailable THUENERADI Attending Unavailable MANZANARESDEREK Primary Care Unavailable ADI MCCARTNEY E Attending Unavailable MANZANARESDEREK Primary Care Unavailable DERIK, GIANFRANCO Referring Unavailable DERIK, GIANFRANCO Attending Unavailable DERIK, GIANFRANCO Attending Unavailable DERIK, GIANFRANCO Referring Unavailable ITZDOUGLAS ANTHONY H Attending Unavailable ANDREI VELAZQUEZ Referring Unavailable DERIK, GIANFRANCO Attending Unavailable ITZKOHEATHERTZ, DOUGLAS H Attending Unavailable PAKO MCCARTNEYSON Referring Unavailable Allergies Allergy Classification Reported Allergen(s) Allergy Type Date of Onset Reaction(s) Facility (20 sources) Azithromycin; Translations: [Azithromycin PACK] Drug Allergy 06-13-19 [facility] (20 sources) Codeine; Translations: [codeine] Drug Allergy 06-13-19 Nausea and Vomiting, Vomiting, Rash, GI intolerance [facility] (16 sources) Fluconazole; Translations: [Diflucan] Drug Allergy 06-13-19 Arthralgia, Other, Other: See Comments [facility] (20 sources) moxifloxacin; Translations: [Avelox] Drug Allergy 06-13-19 Shortness of Breath, Palpitations [facility] (20 sources) Penicillins; Translations: [Penicillins] Propensity to adverse reactions to drug 06-13-19 Rash [facility] (20 sources) Sulfamethoxazole / Trimethoprim; Translations: [Bactrim] Drug Allergy 06-13-19 23 Anaphylaxis [facility] (6 sources) Nyquil Cold & Flu; Translations: [Nyquil Cold & Flu] Allergy to drug (finding) Vomiting [facility]-Otol[facility]o [facility] [facility] [place] Work Phone: (1 source) No Alert Propensity to adverse reactions to drug 09-05-19 [facility] (2 sources) Acetaminophen / Dextromethorphan / Doxylamine / Pseudoephedrine; Translations: [[id number]-[id number]-GJ-A CETAMINOPHEN] Drug Allergy 05-03-20 23 Vomiting [facility] (11 sources) Fluconazole Propensity to adverse reactions 06-13-19 Unknown [facility] (11 sources) Honey bee venom Allergy to substance 07-01-19 Anaphylaxis [facility] (11 sources) Covid-19 (Mrna) Vaccine Allergy to substance 07-01-19 [facility] Medications Current Medications Medication Drug Class(es) Dates Sig (Normalized) Sig (Original) betamethasone 0.5 mg/ml / clotrimazole 10 mg/ml topical cream (8 sources) Azole Antifungal, Corticosteroid Start: 01-22-2024 clotrimazole-beta methasone (Lotrisone) cream Indications: Vaginal irritation Apply 1 application topically Daily Apply to affected area daily for 7 days 45 g 01/22/2024 Active cefdinir 300 mg oral capsule (6 sources) Cephalosporin Antibacterial Start: 02-14-2024 End: 02-24-2024 take 1 capsule by mouth once cefdinir (Omnicef) 300 MG capsule Indications: Acute bronchitis, unspecified organism Take 1 capsule (300 mg) by mouth every 12 (twelve) hours for 10 days 20 capsule 02/14/2024 02/24/2024 Active Start: 01-21-2024 End: 01-28-2024 take 1 capsule by mouth in the morning cefdinir (Omnicef) 300 MG capsule Indications: Dysuria Take 1 capsule (300 mg) by mouth in the morning and 1 capsule (300 mg) before bedtime. Do all this for 7 days. 14 capsule 01/21/2024 01/28/2024 Active Start: 07-06-2022 End: 07-11-2022 take 1 capsule by mouth every twelve hours Cefdinir (OMNICEF) 300 MG capsule Take 1 capsule by mouth every 12 hours for 5 days. 10 capsule 0 07/06/2022 07/11/2022 Active terconazole 4 mg/ml vaginal cream (3 sources) Azole Antifungal Start: 02-14-2024 End: 02-21-2024 terconazole (Terazol 7) 0.4 % vaginal cream Indications: Acute bronchitis, unspecified organism Insert 1 applicator into the vagina at bedtime for 7 days 45 g 02/14/2024 02/21/2024 Active Start: 01-22-2024 End: 01-29-2024 terconazole (Terazol 7) 0.4 % vaginal cream Indications: Vaginal irritation Insert 1 applicator into the vagina at bedtime for 7 days 45 g 01/22/2024 01/29/2024 Active Completed/Discontinued Medications Medication Drug Class(es) Dates Sig (Normalized) Sig (Original) [id number] 200 actuat albuterol 0.09 mg/actuat metered dose inhaler (15 sources) beta2-Adrenergic Agonist Start: 04-03-2023 take 2 [...] 2,000 unit/mL b y mouth once daily. [id number] 0.3 ml EPINEPHrine 1 mg/ml auto-injector (15 sources) alpha-Adrenergic Agonist, beta-Adrenergic Agonist, Catecholamine Start: [...] 911 after use. 2 each 1 11/16/2022 Active Comment on above: inject INTO UPPER [...] Quantity: 12 Refills: 0 Ordered: 09-Aug-2022 Adi Mccartney MD Start : 09-Aug-2022 Active Problems Active Problems Problem Classification Problem Date Documented Date Episodic/Chronic Abdominal pain (4 sources) Pelvic and perineal pain; Translations: [PELVIC AND PERINEAL PAIN] Onset: 01-03-2022 Episodic Acute bronchitis (1 source) Acute bronchitis; Translations: [Acute bronchitis, unspecified] 02-14-2024 Episodic Allergic reactions (2 sources) Allergy status to penicillin; Translations: [Allergy to penicillin] Onset: 08-09-2022 08-20-2022 Episodic Asthma (3 sources) Unspecified asthma, uncomplicated; Translations: [Exercise induced bronchospasm] Onset: 08-02-2022 08-20-2022 Chronic Cancer of cervix (1 source) Atypical squamous cells of undetermined significance on cervical Papanicolaou smear; Translations: [Atypical squamous cells of undetermined significance on cytologic smear of cervix (ASC-US)] 01-22-2024 Episodic Esophageal disorders (2 sources) Gastro-esophageal reflux disease without esophagitis; Translations: [Gastroesophageal reflux disease without esophagitis] Onset: 08-09-2022 08-20-2022 Chronic Genitourinary symptoms and ill-defined conditions (1 source) Dysuria; Translations: [Dysuria] 01-21-2024 Episodic Immunizations and screening for infectious disease (1 source) Encounter for screening for human papillomavirus (HPV); Translations: [ENC SCREENING HUMAN PAPILLOMAVIRUS] Onset: 01-04-2022 Episodic Lymphadenitis (1 source) Inguinal lymphadenopathy; Translations: [Localized enlarged lymph nodes] 08-14-2023 Episodic Melanomas of skin (20 sources) Malignant melanoma of neck; Translations: [Malignant melanoma of scalp and neck] Onset: 07-18-2022 Chronic Menstrual disorders (4 sources) Menometrorrhagia; Translations: [Excessive and frequent menstruation with irregular cycle] 01-22-2024 Chronic Neoplasms of unspecified nature or uncertain behavior (6 sources) Neoplasm of uncertain behavior of skin; Translations: [Neoplasm of uncertain behavior of skin] Onset: 07-06-2022 Episodic Other aftercare (1 source) Other long-term (current) drug therapy; Translations: [Other manager long term care (current) drug therapy] Onset: 08-02-2022 Episodic Other female genital disorders (1 source) Pain in female genitalia on intercourse; Translations: [Unspecified dyspareunia] 01-22-2024 Chronic Other female genital disorders (1 source) Abnormal uterine bleeding; Translations: [Abnormal uterine and vaginal bleeding, unspecified] 01-22-2024 Chronic Other female genital disorders (1 source) Vaginal irritation; Translations: [Other specified noninflammatory disorders of vagina] 01-22-2024 Episodic Other infections; including parasitic (1 source) Personal history of other infectious and parasitic diseases; Translations: [Personal history of COVID-19] 08-20-2022 Episodic Other lower respiratory disease (2 sources) Nodule of lung; Translations: [Solitary pulmonary nodule] 08-19-2023 Episodic Other nervous system disorders (3 sources) Acute postoperative pain; Translations: [Other acute postoperative pain] Episodic Other screening for suspected conditions (not mental disorders or infectious disease) (3 sources) Encounter for screening for malignant neoplasm of cervix; Translations: [Patient encounter status] Onset: 01-04-2022 08-12-2024 Episodic Residual codes; unclassified (1 source) No current problems or disability; Translations: [Other specified conditions influencing health status] Onset: 09-04-2022 Episodic Unclassified (2 sources) Post Op Visit; Translations: [Post Op Visit] Onset: 07-18-2022 Unclassified (1 source) Personal history of COVID-19; Translations: [Personal history of COVID-19] Onset: 08-09-2022 Past or Other Problems Problem Classification Problem Date Documented Da te Episodic/Chronic Nonmalignant breast conditions (14 sources) Solitary cyst of breast; Translations: [Solitary cyst of right breast] Onset: 01-08-2024 01-08-2024 Episodic Other lower respiratory disease (2 sources) Solitary pulmonary nodule; Translations: [Solitary pulmonary nodule] Onset: 08-19-2023 Episodic Unclassified (3 sources) Onset: 04-15-2023 Resolved: 03-13-2024 04-15-2023 Results Test Name Value Interpretation Reference Range Facility Urinalysis macro (dipstick) panel (U)on 08-12-2024 Bilirubin, UA Negative Negative - 4(70) +++ mg/dL [facility] Blood, UA Negative Negative - 50 Michael/mcL [facility] Clarity, UA Clear [facility] Color, UA Yellow [facility] Glucose, UA Negative Negative - 1999(110) ++++ mg/dL [facility] Interpretation and review of laboratory results Normal [facility] Ketones, UA Negative Negative - 160(16) ++++ mg/dL [facility] Leukocytes, UA Negative Negative - 500+++ Diana/mcL [facility] Nitrite, UA Negative Negative - Positive [facility] pH, UA 5.5 5 - 9 [facility] Protein, UA Negative Negative - 1999(20) ++++ mg/dL [facility] Spec Grav, UA 1.015 1 - 1.03 [facility] Urobilinogen, UA 0.2 0.2 - 12 mg/dL [facility] BI MAMMOGRAM SCREENING TOMOS YNTHESIS BILATERALon 06-18-2024 BI MAMMOGRAM SCREENING TOMOSYNTHESIS BILATERAL This is a summary report. The complete report is available in the patient's medical record. If you cannot access the medical record, please contact the sending organization for a detailed fax or copy. Examination: BI MAMMOGRAM SCREENING TOMOSYNTHESIS BILATERAL Clinical History: yearly Technique: Screening digital mammography study of both breasts was performed with 2-D and 3-D tomosynthesis imaging. Study was compared to the screening mammogram study of the breasts dated 05/01/2023 and ultrasound study of the right breast dated 10/04/2023. Findings: There is no evidence of interval dominant spiculated mass, grouped microcalcifications, or skin thickening which would be suggestive of malignancy. Scattered benign-appearing calcifications are noted bilaterally. Partially visualized axillary lymph node suggested on the left which appears grossly unremarkable. IMPRESSION: Impression: No specific evidence of malignancy seen in either breast. BIRADS 2 - Benign Findings DENSITY: The breasts are extremely dense, which lowers the sensitivity of mammography. FOLLOW-UP: Routine Screening Mammogram ELECTRONICALLY SIGNED BY: Adrian Betancourt M.D. Normal Not Available CT CHEST WO IV CONTRASTon CT CHEST WO IV CONTRAST EXAMINATION: CT CHEST WO IV CONTRAST HISTORY: Follow-up lung nodules. History of melanoma. TECHNIQUE: Spiral CT acquisition of the chest from the thoracic inlet to the upper abdomen without contrast. Dedicated sagittal and coronal reconstructions. All CT scans at this facility use dose modulation, iterative reconstruction, and/or weight based dosing when appropriate to reduce radiation dose to as low as reasonably achievable. COMPARISON: None. RESULT: Lung parenchyma and pleura: Central airways grossly patent. No focal consolidation, pleural effusion, or pneumothorax. Biapical pleural-parenchymal thickening/scarring. Few small, less than 6 mm, pulmonary nodules. For example 5 mm nodule right middle lobe (series 3 image 74), unchanged. 5 mm nodule left lower lobe (series 3 image 86), probably grossly unchanged from prior study but partially obscured by motion on the prior study. For additional areas of subpleural reticulation, probably representing areas of scarring/atelectasis, for example right lower lobe (series 3 image 102). Thoracic inlet, heart, and mediastinum: Visualized thyroid unremarkable. No axillary, mediastinal, or hilar lymphadenopathy. Normal thoracic aorta. Normal pulmonary size artery. Normal heart size. No coronary artery calcifications. No pericardial effusion or thickening. Esophagus nondilated. Bones: No acute osseous findings. No destructive osseous lesions. Soft tissues: 7 mm nodule within the subcutaneous tissues of the left lateral chest wall (series 2 image 87), unchanged, likely benign process such as lymph node. Upper abdomen: No acute abnormality in the imaged upper abdomen. Small liver cyst, partially imaged, grossly unchanged. IMPRESSION: Small, less than 6 mm, pulmonary nodules, unchanged. ELECTRONICALLY SIGNED BY: Edilson Murdock MD Normal Not Available PAP IG, APT HPV RFX 16/18,45 on 01-29-2024 HPV APTIMA Positive Abnormal Negative [facility] Comment on above: This nucleic acid am plification test detects fourteen high- risk HPV types (16,18,31,33,35,39,45,51,52,56,58,59,66,68) without differentiation. Interpretation and review of laboratory results Abnormal [facility] PAP IG (IMAGE GUIDED) Note . [facility] Comment on above: TESTS RESULT FLAG UN ITS REF RANGE LAB Clinician Provided Cytology Information Source.............Cervix;Endocervix No. of containers..01 ThinPrep Vial DIAGNOSIS: 01 NEGATIVE FOR INTRAEPITHELIAL LESION OR MALIGNANCY. Specimen adequacy: 01 Satisfactory for evaluation. Endocervical and/or squamous metaplastic cells (endocervical component) are present. Performed by: [facility] ([facility]) . 01 Note: Note 01 The Pap smear is a screening test designed to aid in the detection of premalignant and malignant conditions of the uterine cervix. It is not a diagnostic procedure and should not be used as the sole means of detecting cervical cancer. Both false-positive and false-negative reports do occur. Test Methodology: Note 01 This liquid based ThinPrep(R) pap test was screened with the use of an image guided system. HPV Genotype Reflex Note 01 Criteria met, see HPV Genotype results. FLAG LEGEND: L-Low Normal,H-High Normal,LL-Alert Low,HH-Alert High <-Panic Low,>-Panic High,A-Abnormal,AA-Critical Abnormal Performed at: [address] [facility] [id number] Luli Vanessa MD, [facility] HPV GENOTYPE 16 Negative Negative [facility] HPV GENOTYPE 18,45 Negative Negative [facility] Comment on above: Performed at: WB - [facility] [address] [id number] Drop Board Worker: Luli Vanessa MD, Phone: [phone] Performed at: =G - [facility] [address] [id number] Drop Board Worker: Luli Vanessa MD, Phone: [phone] BRUSH-SPATULA CERVIX ENDOCERVIX [facility] BREAST LIMITED RIGHTon 10-04-2023 [facility] BREAST LIMITED RIGHT This is a summary [...] Amato MD Normal Not Available CNOVSPon 08-13-2023 [facility] Visit (SP) Office ([place]) ----- MAGALIE RODRIGUEZ ([id number]) 1980 F Date Time Provider Department 08/13/23 3:45 PM DEREK ILNN During your visit today, we recorded the following information about you: Temperature Pulse Respiration Blood pressure 97 degrees 69/minute 16/minute 133/61 Weight Height 55.4 kg 1.702 m Derek Linn MD 08/14/2023 7:41 AM Signed PATIENT NAME: Magalie Rodriguez DATE: 08/13/2023 PRIMARY CARE PHYSICIAN: Derek Manzanares MD OTHER PHYSICIANS: Dr. Fredy Johnson, Dr. Adi Mccartney ( Oncologic ENT), Hyacinth Ramirez PA-C Portions [...] for murm (more content not included)... Normal [facility] 07-17-2023 L Specimen: [id number] Received: 07/18/23 Status: MONTEZ Faust Num: [id number] Spec Type: Surgical Subm Dr: Gianfranco More Tissues: A Endocervix - Curettings (ECC) Procedures: HE/2, Gross/Micro L4 Age/ Patient Sex Location Account Attending Physician Magalie Rodriguez R 43/F [facility] [id number] Gianfranco More SPEC NUM: [id number] RECD: 07/18/23 STATUS: MONTEZ FAUST NUM: [id number] DANUTA: 07/17/23- SUBM DR: Gianfranco More ENTERED: 07/18/[address] [facility] [address]: Max,Lab SPEC TYPE: Surgical DEPT: [...] in one cassette labeled A1. CPT Codes 54523 Specimen: [id number] Received: 07/18/23 Status: MONTEZ Faust Num: [id number] Spec Type: Surgical Subm Dr: Gianfranco More Tissues: A Endocervix - Curettings (ECC) Procedures: LIZZ/Pam Larios/Norberto L4 Patient: Magalie Rodriguez [id number] (Continued) Signed (signature on file) Ky Willis MD 07/19/23 1633 [facility] Rossy 05-23-2023 CNPN Telephone ([place]) ----- MAGALIE RODRIGUEZ ([id number]) 1980 F Date Time Provider Department 05/23/23 JUANY MOONILYA During your visit today, we recorded the [...] Other: See Comments Comments: Muscle weakness NYQUIL ([id number] N*05/03/2023 11 - Vomiting PENICILLINS 06/13/2022 2 [...] Encounter Status:Closed by JUANY MOON on 05/23/23 [facility] CNOVSPon 05-09-2023 CNOVSP Visit (SP) Office ([place]) ----- MAGALIE RODRIGUEZ ([id number]) 1980 F Date Time Provider Department 05/09/23 [...] OTHER PHYSICIANS: Dr. Fredy Johnson, Dr. Adi Mccartney ( Oncologic ENT), Hyacinth Ramirez PA-C HPI: [...] subsequently was seen by ENT at (Dr. Mccartney) and underwent wide excision plus sentinel node biopsy on 08/10/2022. Final pathology revealed no residual disease in the resected specimen, and the sentinel lymph node was negative for metastasis. She was classified as stage IB disease and routine follow-up recommended. She did not undergo preop staging scans. She follows closely with her ENT physician and her financial services technician. She has had no evidence of local [...] currently works as a nurse practitioner at [employer]. MEDICATIONS: Current Outpatient Medications Medication [...] mucosal p (more content not included)... Normal [facility] Release of Informationon Release of Information [id number] [facility] Coding Summaryon 05-07-2023 Coding Summary [facility] ZzylceoiEAh3eKu+PGhlYWQ+P T1KYONtY81mvGLriF4jB3DUVT lOSywgQVBQTElOSyIgbmFtZT1 kaXNjZXJu IC8+NC5vCAEdMqeciDGvs4E6t CV2Q64hgg8tEJidiNV5CHPiVu Begxeeu2dqmLw0AGrePfwsVtJ t FXUvcG91MCA6rH92Tc27oEKsv BUzg3rchEp8HiHgUUOkPXQ7lF vwAKcwe1PsZFNdW10hyFTed2I 6 CATlyXxpaIAnBoGviXE3gW5bD Tdgzjqjw2opbxsnZxo0lk65xJ Abg0T4aQR8W1DxcvQ3FTSggZZ g EcyjwKIYcX9zjrrsb7cqqihsU mAiQPOqJCz9RFy1PHCppHkaRm AaSA35DDG2RABghsZoI1EnNXG s zYscUyS4i7N3Pj1UH7HGYbtcI 1VNTUFSWTwvdGQ+AO23bm00D4 QnVqleYqw6YHVoXYE4sYZ7aX6 n DFKwFAkto3T5bBK6Q8FuqhCmy x1ks7yyZOVaKFgeQ25dtLLhs7 M4MNBriIB2PFDvlXbyHqReyM8 3 Oyc+EWAoqPehb4GeJjtmn6sdl 4xawJq7FvmhBIMdwdXexGiqOL D4v0FrRw8gJNCenJG8lNV5fM3 i DvPbCzJ6IUjbN496IvAohFPhU mzzP59jH3CixOQ+WTYlPmj7WZ CiqKiqZK3gI9DnBWJlqlcvuDA m vCowIY3nOABcxnezHUQjeV2eE CAoG0a2ZiTxCpI6IDbkM5XiES DppvfgHa66cA7lYnPkYuH9EKy u T6DanwP0ODPjcSWrTAhzCYY6W 81uc7I5IMKrDLCjHHF2oSC6uS 1hbGlnbjogbGVmdDsgdmVydGl j YRciADerB075XUFwmSdhKyLzH GluZyBEYXRlOiAgMDEvMDIvMj AyNDwvdGQ+ZQYfUZX8iOlpMRS n kUKxBKeeHk0znLoizHupTA0yI BLessmaXBFmcZ7sOZJxfOPnxP tyZM7wIMQbnyspe277WiJzUYN 0 SKVqrAAuZ4GwpO6zOtWuITJmY JBpC6LqqZDgZUioI503OEzkCf N3DNMhrtVlG2QqWSWnnWlnGrL 0 z9H2Ww3Lm3SagjvbQ9GkiEQfX xFzBklkFFh8Y0HmQvxciKY+PC 70FITyLG78BQs9ZIW5qJsqDAw i QROiW1XkrU6yTkHjNOCiWKRkH yc+PHRhYmxlIHdpZHRoPScxMD KnQxUhyOpxTA2xGc4iOAOhOBI v cJsdwXEcAxDqb5kzYBQtGLdhY U9bhUffG1RyrVX9JVTgf1k6Nq 79M39vT1OdkHU+LODacNK8bGM 0 uA0aHzQlOoB7PTopI971IbPbu HFiGldmu7yje8vyfQi2SpO3GN NwuvFqgJuaTXN1u5FeMs45G64 s IHdpZHRoPSIxNSUiIHZhbGlnb n3yiM0aUk9+IKKphTD5pKY4rB 5wYhFdTfU4VPayP873UaGpvHM v Cvvuv8dbk6notVb4MqXsXKYdu yRdpZukBWG8s7BtIt55T4IxkL gds2FqUmd9ql21fTSps3E7nTJ 9 I2ZlUBHgmdrzoPPctNiaJG4uW KVcogojVVVuwT2tHCNcW3d4Em IhNnD5FMvuS8PgktT7UKYrbRG g ANOcmZELgP0oyeoww1mygntnX wMmRTEbVHc4XFq7QCRxgRitGl MfBWY5OdF8VCB4aYZeiP0taEt n brcpkE1jMiu+CRK4bQSpqTGUA B4wDkqpdVC+LTDjSES0kXcrOH viTVSvlS0yZWHeB8d0VeEsPpO 1 QHmaR3KubqX6RDQpeANuDJKpv ZBQuH1mxbjpy1hkzokxHcPvNX IfQUv7RVf7RHLkvVnjHfTgSJM 0 CdO6IVQ0eQElkV5sxWnwzoanl G9wOyc+WvdteOliFVT5VZk1Z3 XaEfn9RXJomOchMO5vzXKsRBa u Ba7atKwinDynXH1xSMDjyfyls 221CkRcb5faVEQobVKpXFgkOU L5B19dr8E8FFXmPCDqNEL5tGF 4 gK3ozYdccoupmYHqfYtxmdGwo QbgVInrLWljB339ESGotLekHo SjPSv8S3KlYrr2YXTmmGdpMP1 n yVZgQJawMm1kwJmjkUbsTM4uJ OQdsyued919AyPjv3mjHKBtsN EbGFafSYP7B45gi4U7HXKsZBE w ASS6hFX0aG5zyMllkwlbsFWik AsvluMyyHbcLYufFAsaA724QD DjcPisBfDlzJp7A9OcCly3AMX z jNrwLW0bcUYiJOfbLp4flSbbs QspCH1fUKHmqyses651WzBew8 lfAVLmnRFbMQifWAE6H01io1C 6 CVUqCIYmSEX3pUA5gD8vxBmmh jogbGVmdDsgdmVydGljYWwtYW agZ666VZJvjRmsXkXnvIwqmnO g CXitQXr2P0RpOzjagRY+PC90Y LHxWZ54pSCjgXYsh1dktMh5Gu JqFBNjPTH2oJhrAChze8OtDIA t O53dzJTmr5G6BEKnqRbfcYGeN kMouNQ8yI2iCMysdjuge2mifc blCabdx8sxok10oP78D86uBDz p USSiXHIyLCJmTDLosFhiwg0dq G9wIi8+OTXesYQ2fXH6dQ5bEA JiEfI5UEetL224BwCtqGXeIqn j v2mlt6uhzUf8PuS0SCTqjkJfe LvhEFT5d3QsBr05N64oNMiiVM LaKHNkVPBqQNUvjKwgsa7dyR5 w Ii8+KOIiuXR4sVL2rE8nJoGoA nV1CTnjW967FzMklMIzWlkoZ9 9xD8XltFI+IIFwHmt5WXYvgFe s IC8utXKqTNwsHf2qNXF6JqMfY sMpDStlU0TeLNRbwrtmwxvhpS H1CIHlRGDdfL09Kz8fcUkyUMQ w gXKSeS4nfuicy7nlpajzYcHkJ TGlWSk6LYq2NAIwcPteRwKkBY A1GgC2VML1xZPmbR5rsRssbsf g oM6lW0VqOEWsrwkjFj96dX6wI uCqKvN7QLyjTti+VEBQF95WLz jmZTwOZLSZFDOZFUR8G0UtGcm 0 SDMffWpyWQ7iwEFbSMtlFn1vd WjifGfcBS5qMLTtawbqPKNfpA 0jHUXtjNPmmWkfIH6bNSOjtlw m g122KdGnUBZ0LVJnkJPtK9Bwr W5oDpYhNXZmWJWgD3MwtSKzDH huB457XNiiWzE8XMZyrhCeY2G s EDFssSoxKqH2v5I7Vm8eUN0cF u5qKWriQI29KH87fSVey1K1yX B7Y0KdRIDjlezeudcmbSR0SQV u KEMkuO10dDHuRNngSl3qa8S6b 718SMDcOBDieZ74Wi4gcPgfAV XoxFUWmB3ywerce2sxdthvCpX w PKViVMs0QUj3WIQgiQwmOeGxQ AO7TgI8NTQ6yUWmnJ9kfHlcec lgsG0aMtp+GFXlNPIidgM2M0G k Pzy0TKCfbQrzLW8zdXOvQQcwA e2ulNeuyHaaQV3mPFKjbhorVA GkdN9jIIVwyJQcdIgbOH4sYHU p rjgyj308MiDmLEN1KSRrbAUoC 3YzgP4sZzDqSDUhQDHtW1YayB FeHJjmI312UUxoFvW1IGNjjxA p Y1ScJIKxaTswDiV8o0V9Rb2XB X8QOQM9F5RiEkk4YTScxTrmHO 9vgDRcEDiuLx3zwYgizUxbKA6 w JHZdqwelVCZcnU9nFMUuqRHjv FwdSN4nDRMzmwteh670TvDySP A3HREnxQHgJ7VbgF1wGxZiFUF w XJXpA2QarEIeTRumZ817WTimT hU9UCCxehXrJ6UvMFJnnDbbCq I4z9N8Ww1WJVjgyST+FI58tw4 8 R5MqGfznExf8RPLaFRH5lOW4b B1yDTEsMYkqy9J9uFX9V5Vftr Opsr7br5mfFFQgGFroE88rsYR w y4Q3HLBqxZN4FFAdhLsvQuDhk G93Oyc+AIVsdKncp2DeIuzcx9 nlw7xojTl3LqPzWHBideFcpUb u IAO2s7UnWx68O87cMQeqKIFiL RNjXHDcQFSyqMbaea6ufY7sHh 8+BIOxzTY8jOS3rD8lVbPoRmP 2 YSytZ056EmFwoVXvHbgra8adu 6yezIx7IaEgAHUfdnAduQogTO X2m7WcWw36D0BnpVuek0RoMct 0 nl83eBHfj8D7cVI7M1IfGLChn dzkyIVlxUfoVW3dHIKbffikCU NsuL3gIOXtC5y9QwTlEzQ9ZLy u O5EhvpL6SRTqxFReYESatEXXe T7ufmhps7sfqzokPqUgHSKxBB z9VXx0PAVekMayOnNbTDT1LjD 2 MEF0gDWgyP8byVgifthsbU1pC yc+SSi7s5jeeVVsZW5lgCG1EO 80UI89pQToj3O3lQE8F2RoGPL p jlblbqoeiYA2WFUhUPRzkJ99O k4anFimZw9sTTEsRWY1IQNezE CpJ2FnpJ8hGjWxRKXhLGNtU5U l kUZcDCyxL775AMnnCrK8YUKfs jEmQ8UlNTVdoJwtXeV5k0N5Pv 9TKR34ZG59DW28tGAyz9K8dNJ 9 Y6HySLFygplcryibfJS6UBUjD VWdbG29Vp9kiAquVq0zYGRdPT W8VZNqpACaJ3LjkX3vRaJwLAF w NNNiD1AbqHZwHEtqF298TLveQ kG7QJZugmQxQ5CiISTjaVysOl P8e0A0Hy0SOy18OB42EZ42dOJ g a0L4lNM6F8GcXDTzkfuvhltly UO2YKLxHTRlgT66Zy6lmUgjLt 8pLZUpAOV0KRThfYZcZ9HxbK4 y RoUgKQLkVDAwY3QczEOfACptZ 547EWooTjF8MVWqczIgX3EkFH KxjSlnFkU9d6D9Vx7KYHsyecb 8 C4UqZsyepHZ+DN32IIAnIF27y TPgbTAtq5sruHa8EoKsAPOqZT L9wSqiMErlp4CpOSJlG41tcZK w c2U (more content not included)... Normal [facility] .Auto Diff 04-27-2023 Auto Appling % 10 % Normal 05-17 [facility] Comment on above: Performed By: #### 1 [id number], 4381656, 7293643978, 2685064, 7281080, 15340684 #### [facility] (DEFAULT) [address] [place] [address] 95115 Baso Abs# 0.0 x10 Normal 0.0-0.2 [facility] Comment on above: Performed By: #### 1 [id number], 8750184, 4372381207, 7860953, 6771458, 31099216 #### [facility] (DEFAULT) [address] [place] [address] Basophils/100 WBC (Bld) 0.8 % Normal 0.2-2.0 [facility] Comment on above: Performed By: #### 1 [id number], 8192420, 7715734478, 7376793, 7324701, 64518445 #### [facility] (DEFAULT) [address] [place] [address] Eos Abs# 0.0 x10 Normal 0.0-0.4 [facility] Comment on above: Performed By: #### 1 [id number], 0126359, 4429833756, 1565461, 3286220, 89808683 #### [facility] (DEFAULT) [address] [place] [address] 07885 Eosinophils/100 WBC (Bld) 0.8 % Low 0.9-4.0 [facility] Comment on above: Performed By: #### 1 [id number], 4330884, 8013811726, 3042705, 1507295, 77297504 #### [facility] (DEFAULT) [address] [place] [address] 50650 Lymph Abs# 1.6 x10 Normal 1.3-2.9 [facility] Comment on above: Performed By: #### 1 [id number], 4436089, 7678263877, 9356543, 5244570, 87214249 #### [facility] (DEFAULT) [address] [place] [address] 86177 Lymphocytes/100 WBC (Bld) 36 % Normal 14-48 [facility] Comment on above: Performed By: #### 1 [id number], 1692582, 4041179636, 2159620, 6890135, 22706313 #### [facility] (DEFAULT) [address] [place] [address] Appling Abs# 0.5 x10 Normal 0.0-0.8 [facility] Comment on above: Performed By: #### 1 [id number], 9125962, 7400211890, 7211650, 9669051, 66409652 #### [facility] (DEFAULT) [address] [place] [address] Neut Abs# 2.3 x10 Normal 1.5-9.2 [facility] Comment on above: Performed By: #### 1 118378784, 7408064, 4036475732, 9290385, 3260111, 43382899 #### [facility] (DEFAULT) [address] [place] [address] Neutrophils/100 WBC (Bld) 52 % Normal 44-88 [facility] Comment on above: Performed By: #### 1 [id number], 0542665, 1604207696, 0739739, 5093923, 22102391 #### [facility] (DEFAULT) [address] [place] [address] CBC w/ Auto Diffon 3 Erythrocyte distribution width (RBC) [Ratio] 13.4 % Normal 11.5-15.0 [facility] Comment on above: Performed By: #### 1 595789563, 0812105, 6098024933, 2798043, 7954779, 57421001 #### [facility] (DEFAULT) [address] [place] [address] Hematocrit (Bld) [Volume fraction] 43.3 % High 33.7-40.4 [facility] Comment on above: Performed By: #### 1 [id number], 6695922, 2837493512, 3771923, 5727183, 58014237 #### [facility] (DEFAULT) [address] [place] [address] Hemoglobin (Bld) [Mass/Vol] 14.6 g/dL Normal 11.3-15.9 [facility] Comment on above: Performed By: #### 1 545852600, 7501956, 1130399446, 9059812, 5035754, 29130737 #### [facility] (DEFAULT) [address] [place] [address] Man Diff? Auto Invalid Interpretation Code [facility] Comment on above: Performed By: #### 1 [id number], 8098163, 8297375733, 9100208, 6929210, 82912452 #### [facility] (DEFAULT) [address] [place] [address] 51460 MCH (RBC) [Entitic mass] 31 pg Normal 24-34 [facility] Comment on above: Performed By: #### 1 485585028, 5347781, 9222420528, 6097567, 3021117, 95896551 #### [facility] (DEFAULT) [address] [place] [address] MCHC (RBC) [Mass/Vol] 34 g/dL Normal 26-37 [facility] Comment on above: Performed By: #### 1 276642230, 3671737, 3629708195, 2539215, 4573314, 12619766 #### [facility] (DEFAULT) [address] [place] [address] 24756 MCV (RBC) [Entitic vol] 92 fL Normal 81-100 [facility] Comment on above: Performed By: #### 1 582494612, 0980009, 8201927523, 7080064, 1635085, 74203524 #### [facility] (DEFAULT) [address] [place] [address] 30220 Platelet 294 x10 Normal 138-427 [facility] Comment on above: Performed By: #### 1 078452777, 9445845, 0360738378, 2426882, 6012524, 69207715 #### [facility] (DEFAULT) [address] [place] [address] 80708 Platelet mean volume (Bld) [Entitic vol] 8.9 fL Normal 6.3-10.2 [facility] Comment on above: Performed By: #### 1 024712372, 3009045, 0641930184, 9327213, 2172045, 47482488 #### [facility] (DEFAULT) [address] [place] [address] RBC 4.73 x10 Normal 3.70-5.30 [facility] Comment on above: Performed By: #### 1 402101356, 7048884, 7725618158, 3259107, 8118013, 74095599 #### [facility] (DEFAULT) [address] [place] [address] WBC 4.5 x10 Normal 3.5-10.5 [facility] Comment on above: Performed By: #### 1 139515437, 7211768, 8338304710, 0620043, 6276255, 37683392 #### [facility] (DEFAULT) [address] [place] [address] Standardon 04-27-2023 eGFR Non AA >60 Invalid Interpretation Code [facility] Comment on above: Performed By: #### 1 [id number], 4137345, 6754288687, 6362979, 4711904, 72601049 #### [facility] (DEFAULT) [address] [place] [address] eGFR AA >60 Invalid Interpretation Code [facility] Comment on above: Performed By: #### 1 562094749, 2449540, 7080647039, 0912548, 9132346, 71075849 #### [facility] (DEFAULT) [address] [place] [address] Albumin [Mass/Vol] 4.2 g/dL Normal 3.5-5.0 [facility] Comment on above: Performed By: #### 1 016580502, 3070702, 1920669217, 1428939, 0047609, 58844345 #### [facility] (DEFAULT) [address] [place] [address] Albumin/Globulin [Mass ratio] 1.5 {ratio} Normal 1.4-2.6 [facility] Comment on above: Performed By: #### 1 061994932, 8811225, 9936334900, 2044454, 6490609, 10088377 #### [facility] (DEFAULT) [address] [place] [address] Alk Phos 73 IU/L Normal 32-91 [facility] Comment on above: Performed By: #### 1 942687534, 6042518, 2562711788, 7981815, 6443970, 09553048 #### [facility] (DEFAULT) [address] [place] [address] 14073 ALT [Catalytic activity/Vol] 19.0 U/L Normal 14.0-54.0 [facility] Comment on above: Performed By: #### 1 535004697, 7955798, 7459995578, 4844291, 3678668, 46234250 #### [facility] (DEFAULT) [address] [place] [address] 03732 Anion gap [Moles/Vol] 10.5 mmol/L Normal 5.0-19.0 [facility] Comment on above: Performed By: #### 1 134264837, 2223510, 8601126113, 8516796, 3815241, 41643605 #### [facility] (DEFAULT) [address] [place] [address] AST [Catalytic activity/Vol] 22 U/L Normal 15-41 [facility] Comment on above: Performed By: #### 1 481662884, 4468301, 7923470297, 7854618, 3967333, 10857463 #### [facility] (DEFAULT) [address] [place] [address] 56958 Bili Total 0.7 mg/dL Normal 0.3-1.2 [facility] Comment on above: Performed By: #### 1 590271778, 3979987, 0565752200, 8657574, 1779091, 60593285 #### [facility] (DEFAULT) [address] [place] [address] 42982 Calcium [Mass/Vol] 8.8 mg/dL Low 8.9-10.3 [facility] Comment on above: Performed By: #### 1 952436959, 9875976, 0005404597, 5798362, 4556276, 55832369 #### [facility] (DEFAULT) [address] [place] [address] 04366 Chloride [Moles/Vol] 107 mmol/L Normal 101-111 [facility] Comment on above: Performed By: #### 1 359416284, 2427923, 5798140427, 2920213, 1722648, 13051656 #### [facility] (DEFAULT) [address] [place] [address] CO2 [Moles/Vol] 26 mmol/L Normal 21-32 [facility] Comment on above: Performed By: #### 1 808119781, 2014532, 2487147775, 4445273, 6191797, 60455031 #### [facility] (DEFAULT) [address] [place] [address] Creatinine [Mass/Vol] 0.80 mg/dL Normal 0.60-1.30 [facility] Comment on above: Performed By: #### 1 881051601, 7419940, 4761800713, 4386391, 6956081, 49205354 #### [facility] (DEFAULT) [address] [place] [address] Globulin (S) [Mass/Vol] 2.8 g/dL Normal 1.5-4.3 [facility] Comment on above: Performed By: #### 1 331953047, 2029764, 7789560895, 8771998, 1423269, 05409040 #### [facility] (DEFAULT) [address] [place] [address] Glucose [Mass/Vol] 100.0 mg/dL Normal 74.0-118.0 [facility] Comment on above: Performed By: #### 1 229695286, 5669895, 5481418995, 6773494, 8681653, 29691762 #### [facility] (DEFAULT) [address] [place] [address] 13656 Osmolality 280 mOsm/L Invalid Interpretation Code [facility] Comment on above: Performed By: #### 1 975306272, 0494981, 0789190768, 1886401, 1963241, 84683436 #### [facility] (DEFAULT) [address] [place] [address] Potassium [Moles/Vol] 3.5 mmol/L Low 3.6-5.1 [facility] Comment on above: Performed By: #### 1 453986034, 5193682, 8332258023, 1860308, 3987419, 77013140 #### [facility] (DEFAULT) [address] [place] [address] 83474 Protein [Mass/Vol] 7.0 g/dL Normal 6.5-8.1 [facility] Comment on above: Performed By: #### 1 258180981, 7863574, 3714365688, 7920575, 7269805, 66902893 #### [facility] (DEFAULT) [address] [place] [address] 30916 Sodium [Moles/Vol] 140.0 mmol/L Normal 136.0-144.0 [facility] Comment on above: Performed By: #### 1 143233861, 3964024, 7341043147, 8709401, 5410151, 61004313 #### [facility] (DEFAULT) [address] [place] [address] 40507 Urea nitrogen [Mass/Vol] 15 mg/dL Normal 8-26 [facility] Comment on above: Performed By: #### 1 822198885, 1848892, 1562202890, 2770721, 1814345, 87847204 #### [facility] (DEFAULT) [address] [place] [address] 73186 Urea nitrogen/Creatinine [Mass ratio] 18.7 mg/mg High 4.6-16.2 [facility] Comment on above: Performed By: #### 1 669617662, 8278191, 4519487815, 7197045, 1821106, 51186634 #### [facility] (DEFAULT) [address] [place] [address] 61917 Lipid Panel Standardon 04-27 Cholesterol [Mass/Vol] 154.0 mg/dL Normal 66.0-200.0 [facility] Comment on above: Performed By: #### 1 728018953, 3224878, 4608413564, 3835553, 5464427, 00685801 #### [facility] (DEFAULT) [address] [place] [address] 82941 Cholesterol in HDL [Mass/Vol] 52 mg/dL Normal 40-71 [facility] Comment on above: Performed By: #### 1 712863373, 1187137, 0376779510, 1504071, 0221758, 20205698 #### [facility] (DEFAULT) [address] [place] [address] 72394 Cholesterol in LDL [Mass/Vol] 92 mg/dL Normal 1-100 [facility] Comment on above: Performed By: #### 1 183001873, 6073656, 1872688345, 4637045, 4411396, 83058166 #### [facility] (DEFAULT) [address] [place] [address] 82437 Cholesterol.total/Cho lesterol in HDL [Mass ratio] 2.9 {ratio} Normal 0.0-4.5 [facility] Comment on above: Performed By: #### 1 073070615, 1041914, 1800228331, 1742075, 7218858, 32072156 #### [facility] (DEFAULT) [address] [place] [address] 56746 Triglyceride [Mass/Vol] 54.0 mg/dL Normal 0.0-150.0 [facility] Comment on above: Performed By: #### 1 530514717, 8576919, 9592674397, 3978310, 0143497, 86240837 #### [facility] (DEFAULT) [address] [place] [address] 78056 VLDL. 11 mg/dL Normal 5-40 [facility] Comment on above: Performed By: #### 1 344442869, 4341963, 1567585522, 0359339, 5180451, 48764477 #### [facility] (DEFAULT) [address] [place] [address] 76417 Provider Orderson 04-27-2023 Provider Orders [id number] FF Normal [facility] TSHon 04-27-2023 TSH Qn 2.91 m[IU]/L Normal 0.45-5.33 [facility] Comment on above: Performed By: #### 1 [id number], 0661974, 0826392410, 1339614, 8681630, 59773272 #### [facility] (DEFAULT) [address] [place] [address] Vit D25 OHon 04-27-2023 Vitamin D 25 OH 37 ng/mL Normal 30-100 [facility] Comment on above: Performed By: #### 1 892805649, 1017674, 4617741160, 9564681, 0604880, 58904231 #### [facility] (DEFAULT) [address] [place] [address] Established Visit (Otolaryng ology)on 08-27-2022 Established Visit [...] of the right neck History of Present Yofepjc14-evpc-khl female referred by Dr. 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 She has not noticed any lymphadenopathy She [...] Recorded: 27Aug2022 11:29AM Height5 ft 6 in Vbclmo970 lb BMI Lbdsqpskxp37.37 kg/m2 BSA Calculated1.61 Tobacco Useb) No PHQ-2 [...] Scales' Signatures Electronically signed by : Adi Mccartney MD; Aug 27 2022 12:27PM EST (Author) Normal [employer] Tobacco Screening.on 023 Adult depression screening assessment No [facility] [facility] [place] Work Phone: Fall risk assessment a) No falls within the last year [facility] [facility] [place] Work Phone: Tobacco use status CPHS b) No [facility] [facility] [place] Work Phone: SURGICAL PATHOLOGY RESULTSon 08-16-2022 Pathology Report Name MYNOR RODRIGUEZ Pathologist: MARCELLE SCHNEIDER MD, Board Certified Dermatopathologist Date of Procedure: 08/09/2022 Date Received: 08/10/2022 Date Reported 08/16/2022 Submitting Physician: ADI MCCARTNEY MD Location: [facility] Other External # FINAL DIAGNOSIS A. [...] reviewed this case. Diagnostic interpretation performed at [facility] [address] [place] [facility] [address] Clinical History: malignant melanoma of head ICD-10 [...] positive and negative controls which stained appropriately. [facility] Department of Pathology [address] [place] [address] HCG ( test) Johan brunson Ql (U)on 08-09-2022 HCG ( test) Ql (U) CANCELED [facility] Comment on above: Result canceled by kendal silver. [facility] HCG,URINEon 08-09-2022 Beta HCG ( test) Ql (U) Negative Normal Negative [facility] Comment on above: Performed By: #### H CGU #### [address] [address] Beta HCG ( test) Ql (U) Canceled Normal [facility] Comment on above: Order Comment: TEST HCG,URINE WAS CANCELLED, 08/09/2022 10:51 DUPLICATE ORDER. Performed By: #### H CGU #### [address] [address] LYMPH GLANDon 08-09-2022 LYMPH GLAND Patient Name: MAGALIE RODRIGUEZ STUDY: LYMPH GLAND; TUMOR LOC SPECT/CT; 08/09/2022 10:08 am; 08/09/2022 10:10 am INDICATION: lymphosentigraphy for SLNB right neck melanoma C43.4: Melanoma of scalp or neck. COMPARISON: None. ACCESSION NUMBER(S): [id number]; [id number] ORDERING CLINICIAN: ADI MCCARTNEY TECHNIQUE: DIVISION OF NUCLEAR MEDICINE RADIONUCLIDE SENTINEL LYMPH NODE LYMPHOSCINTIGRAPHY A total of 1 millicuries of Tc-99m tilmanocept (LymphSMRxT) was injected intradermally in a circumferential pattern [...] localization to the right cervical level 5A. Press Feeder Broom[employer] localizing images were sent to PACS. I personally reviewed the images/study and I agree with the findings as stated. This study was interpreted at [place], [place]. Electronically signed by: MALORIE LEES MD Normal [facility] NM Lymph Glandon 08-09-2022 NM Lymph node Views Normal [facility] Work Phone: NM Tumor Loc Spec/CTon 08-09 NM Tumor Loc Spec/CT Normal [facility] Work Phone: No Panel Informationon 08-09 [facility] Work Phone: Successful sentinel lymph node localization to the right cervical level 5A. Press Feeder [employer]room[employer] localizing images were sent to PACS. I personally reviewed the images/study and I agree with the findings as stated. This study was interpreted at [facility], [place], [place]. [facility] Interpreted By: MALORIE JADE MD and SOLOMON SOL MD Patient Name: MAGALIE RODRIGUEZ STUDY: LYMPH GLAND; TUMOR LOC SPECT/CT; 08/09/2022 10:08 am; 08/09/2022 10:10 am INDICATION: lymphosentigraphy for SLNB right neck melanoma C43.4: Melanoma of scalp or neck. COMPARISON: None. ACCESSION NUMBER(S): [id number]; [id number] ORDERING CLINICIAN: ADI MCCARTNEY TECHNIQUE: DIVISION OF NUCLEAR MEDICINE RADIONUCLIDE SENTINEL [...] and localized images were sent to PACS. [facility] Malorie Lees MD - 08/09/2022 Interpreted By: MALORIE LEES MD and SOLOMON SOL MD Patient Name: MAGALIE RODRIGUEZ STUDY: LYMPH GLAND; TUMOR LOC SPECT/CT; 08/09/2022 10:08 am; 08/09/2022 10:10 am INDICATION: lymphosentigraphy for SLNB right neck melanoma C43.4: Melanoma of scalp or neck. COMPARISON: None. ACCESSION NUMBER(S): [id number]; [id number] ORDERING CLINICIAN: ADI MCCARTNEY TECHNIQUE: DIVISION OF NUCLEAR MEDICINE RADIONUCLIDE SENTINEL [...] localization to the right cervical level 5A. Press [employer] localizing images were sent to PACS. I personally reviewed the images/study and I agree with the findings as stated. This study was interpreted at [facility], [place], [place]. [facility] Work Phone: No Panel InformationOrdered By: Malorie Lees on 08-09-2022 [facility] Work Phone: Order Reconciliationon 08-09 Order Reconciliation Page 1 Discharge Reconciliation Document Reconciliation Type: Discharge requested on behalf of Adi Mccartney (Physician) done by Adi Mccartney) Discharge - Reconciliation: 09-Aug-2022 14:01 by: Adi Mccartney) Home Medications EnteredHOME MEDICATIONS AT DISCHARGE DateReconciliation [...] inhaled every 6 hours, As Needed Normal [facility] Patient Profile - Preop v3on 08-09-2022 Patient Profile - Preop v3 Patient Profile - Preop: Initial Info: Patient DemographicsName: MAGALIE RODRIGUEZ Date: 1980 Address: [address] [place] [address] Primary Phone [phone] Instructions Givenappropriate clothing, bring glasses/contacts case, bring list of medications, bring responsible adult as the parts driver (procedure may be cancelled if no parts driver), center location, insurance information, remove jewerly/piercings Prep Instructions Reviewedn/a How to be AddressedLINSEY Spoken Language PreferredEnglish Source of Informationpatient Stated Reason for AdmissionWIDE LOCAL EXCISION RIGHT NECK Primary Contact Name and [id number] Limitations on Visitors/Phone Callsnone Medications Brought to Hospital[facility] General Health: Weight in kg53.1 kilogram(s) Weight in kgu323 pound(s) Weight Methodstated Scale Typechair Height in feet5 feet Height in inches5.94 inch(es) Height in cm167.4 centimeter(s) Height Methodstated BMI (kg/m2)18.948 square meter Patient or Family Member Reaction to Anesthesiapatient reaction Patient Reaction to Anesthesianausea and vomiting Blood Avoidance/Restrictionsnon e Previous Transfusion Reactionnot applicable Health Mgmt: [facility] Are You Currently Breastfeedingno Barriers to Managing Healthnone Relationship/Environ: Lives Withalone Living Arrangementshouse Resource/Environmental Concernsnone Anticipated [place] Anticipated at Transitionnone Tobacco Use: Tobacco Useno Pre-op Checklist: Arrival [id number] Arrival Time06:45 Procedure TypeWIDE EXCISION OF RIGHT NECK MASS NPOyes Last Food [id number] 21:45 Last Clear Fluid [id number] 07:30 ID Band On Patientpatient ID (name), [...] Last Updated: 09-Aug-2022 11:38 by Iveth Valentin (BRANDON PRN) Normal [facility] TUMOR LOC SPECT/CTon 023 TUMOR LOC SPECT/CT Patient Name: MAGALIE RODRIGUEZ STUDY: LYMPH GLAND; TUMOR LOC SPECT/CT; 08/09/2022 10:08 am; 08/09/2022 10:10 am INDICATION: lymphosentigraphy for SLNB right neck melanoma C43.4: Melanoma of scalp or neck. COMPARISON: None. ACCESSION NUMBER(S): [id number]; [id number] ORDERING CLINICIAN: ADI MCCARTNEY TECHNIQUE: DIVISION OF NUCLEAR MEDICINE RADIONUCLIDE SENTINEL [...] localization to the right cervical level 5A. Press [employer] localizing images were sent to PACS. I personally reviewed the images/study and I agree with the findings as stated. This study was interpreted at [facility], [place], [place]. Electronically signed by: MALORIE LEES MD [facility] Surgical Pathology Depar tmenton 08-09-2022 [facility] Surgical Pathology Department Name MAGALIE RODRIGUEZ Pathologist: MARCELLE SCHNEIDER MD, Board Certified Dermatopathologist Date of Procedure: 08/09/2022 Date Received: 08/10/2022 Date Reported 08/16/2022 Submitting Physician: ADI MCCARTNEY MD Location: [place] Other External # FINAL DIAGNOSIS A. SKIN, [...] reviewed this case. Diagnostic interpretation performed at [facility] [address] 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 [facility] Department of Pathology [address] [place] [id number] Normal [facility] Comment on above: Performed By: #### [facility] #### [facility] Surgical Pathology Department [address] [facility] [address] Urine Teston 08-09 HCG ( test) Ql (U) Negative Negative [facility] Work Phone: HCG ( test) Ql (U) Canceled [facility] Work Phone: No Panel Informationon 08-07 [facility] Work Phone: [facility] Surgical Pathology Depar tmenton 08-07-2022 [facility] Surgical Pathology Department Name MAGALIE RODRIGUEZ Pathologist: MARCELLE SCHNEIDER MD, Board Certified Dermatopathologist Date of Procedure: 08/07/2022 Date Received: 08/07/2022 Date Reported 08/08/2022 Submitting Physician: ADI MCCARTNEY MD Location: [facility] Other External # FINAL DIAGNOSIS [facility] [place], [place] SKIN, RIGHT NECK, EXCISION ([id number]: 07/06/2022): -- MELANOMA, INVASIVE, ESTIMATED [facility] [...] biopsy are recommended. CASE SUMMARY REPORT Gerry Black BienvenidoBienvenido [id number] (07/06/2022): SPECIMEN Procedure: Excision Specimen Laterality: Right [...] (no nodes submitted or found) ADDITIONAL TESTING Press Feeder Broomcorn Blocks: Tumor Block: A1 Electronically Signed Out By MARCELLE SCHNEIDER MD, Board Certified Dermatopathologist/DAVI By the signature on this report, the individual or group listed as making the Final Interpretation/Diagnosis certifies that they have reviewed this case. Clinical History: right neck lesion Specimens Submitted As: A: Sofia Potter [id number] (07/06/2022) Slide/Block Description Received from [facility], Dept of Pathology, [address] [place] [address], [place] [id number], are 9 slides labeled [id number] Keep Slides: N Slides Returned: N Personal Consult: N The assays/tests were performed with appropriate positive and negative controls which stained appropriately. Normal [facility] Comment on above: Performed By: #### [facility] #### [facility] Surgical Pathology Department [id number] [facility] [address] CBC AND DIFFERENTIALon 08-02 % AUTOMATED IMMATURE GRAN 0.2 % Normal 0.0 - 0.9 [facility] Comment on above: Result Comment: Candi ture Granulocyte Count (IG) includes promyelocytes, myelocytes and metamyelocytes but does not include bands. Percent differential counts (%) should be interpreted in the context of the absolute cell counts (cells/L). Performed By: #### C BCDF #### [address] [place] [address] Basophils (Bld) [#/Vol] 0.02 10*3/uL Normal 0.00 - 0.10 [facility] Comment on above: Performed By: #### C BCDF #### [address] [address] Basophils/100 WBC (Bld) 0.2 % Normal 0.0 - 2.0 [facility] Comment on above: Performed By: #### C BCDF #### [address] [address] Eosinophils (Bld) [#/Vol] 0.01 10*3/uL Normal 0.00 - 0.70 [facility] Comment on above: Performed By: #### C BCDF #### [address] [address] Eosinophils/100 WBC (Bld) 0.1 % Normal 0.0 - 6.0 [facility] Comment on above: Performed By: #### C BCDF #### [address] [address] Erythrocyte distribution width (RBC) [Ratio] 12.9 % Normal 11.5 - 14.5 [facility] Comment on above: Performed By: #### C BCDF #### [address] [address] Hematocrit (Bld) [Volume fraction] 42.5 % Normal 36.0 - 46.0 [facility] Comment on above: Performed By: #### C BCDF #### [address] [address] Hemoglobin (Bld) [Mass/Vol] 13.7 g/dL Normal 12.0 - 16.0 [facility] Comment on above: Performed By: #### C BCDF #### [address] [place] [address] Lymphocytes (Bld) [#/Vol] 1.40 10*3/uL Normal 1.20 - 4.80 [facility] Comment on above: Performed By: #### C BCDF #### [address] [place] [address] Lymphocytes/100 WBC (Bld) 15.7 % Normal 13.0 - 44.0 [facility] Comment on above: Performed By: #### C BCDF #### [address] [place] [address] MCHC (RBC) [Mass/Vol] 32.2 g/dL Normal 32.0 - 36.0 [facility] Comment on above: Performed By: #### C BCDF #### [address] [place] [address] MCV (RBC) [Entitic vol] 93 fL Normal 80 - 100 [facility] Comment on above: Performed By: #### C BCDF #### [address] [place] [address] Monocytes (Bld) [#/Vol] 0.74 10*3/uL Normal 0.10 - 1.00 [facility] Comment on above: Performed By: #### C BCDF #### [address] [place] [address] Monocytes/100 WBC (Bld) 8.3 % Normal 2.0 - 10.0 [facility] Comment on above: Performed By: #### C BCDF #### [address] [place] [address] Neutrophils (Bld) [#/Vol] 6.72 10*3/uL Normal 1.20 - 7.70 [facility] Comment on above: Performed By: #### C BCDF #### [address] [place] [address] Neutrophils/100 WBC (Bld) 75.5 % Normal 40.0 - 80.0 [facility] Comment on above: Performed By: #### C BCDF #### [address] [place] [address] NUCLEATED RBC 0.0 /100 WBC Normal 0.0 - 0.0 [facility] Comment on above: Performed By: #### C BCDF #### [address] [place] [address] Platelets (Bld) [#/Vol] 308 10*3/uL Normal 150 - 450 [facility] Comment on above: Performed By: #### C BCDF #### [address] [place] [address] RBC 4.56 x10E12/L Normal 4.00 - 5.20 [facility] Comment on above: Performed By: #### C BCDF #### [address] [place] [address] WBC (Bld) [#/Vol] 8.9 10*3/uL Normal 4.4 - 11.3 [facility] Comment on above: Performed By: #### C BCDF #### [address] [place] [address] COMPREHENSIVE PANELon 2022 Albumin [Mass/Vol] 4.2 g/dL Normal 3.4 - 5.0 [facility] Comment on above: Performed By: #### C MP #### [address] [place] [address] ALP [Catalytic activity/Vol] 68 U/L Normal 33 - 110 [facility] Comment on above: Performed By: #### C MP #### [address] [place] [address] ALT [Catalytic activity/Vol] 20 U/L Normal 7 - 45 [facility] Comment on above: Result Comment: Moon ents treated with Sulfasalazine may generate falsely decreased results for ALT. Performed By: #### C MP #### [address] [place] [address] Anion gap [Moles/Vol] 11 mmol/L Normal 10 - 20 [facility] Comment on above: Performed By: #### C MP #### [address] [place] [address] AST [Catalytic activity/Vol] 16 U/L Normal 9 - 39 [facility] Comment on above: Performed By: #### C MP #### [address] [place] [address] Bilirubin [Mass/Vol] 0.4 mg/dL Normal 0.0 - 1.2 [facility] Comment on above: Performed By: #### C MP #### [address] [place] [address] Calcium [Mass/Vol] 9.1 mg/dL Normal 8.6 - 10.3 [facility] Comment on above: Performed By: #### C MP #### [address] [place] [address] Chloride [Moles/Vol] 105 mmol/L Normal 98 - 107 [facility] Comment on above: Performed By: #### C MP #### [address] [place] [address] Creatinine [Mass/Vol] 0.73 mg/dL Normal 0.50 - 1.05 [facility] Comment on above: Performed By: #### C MP #### [address] [place] [address] eGFR FEMALE >90 Normal >90 [facility] Comment on above: Result Comment: CALC ULATIONS OF ESTIMATED GFR ARE PERFORMED USING THE 2020 CKD-EPI STUDY REFIT EQUATION WITHOUT THE RACE VARIABLE FOR THE IDMS-TRACEABLE CREATININE METHODS. https://jasn.asnjournals.org/content//ASN.407506 4449 Performed By: #### C MP #### [address] [place] [address] Glucose [Mass/Vol] 101 mg/dL High 74 - 99 [facility] Comment on above: Performed By: #### C MP #### [address] [place] [address] HCO3 (Bld) [Moles/Vol] 27 mmol/L Normal 21 - 32 [facility] Comment on above: Performed By: #### C MP #### [address] [place] [address] Potassium [Moles/Vol] 3.6 mmol/L Normal 3.5 - 5.3 [facility] Comment on above: Performed By: #### C MP #### [address] [address] Protein [Mass/Vol] 6.8 g/dL Normal 6.4 - 8.2 [facility] Comment on above: Performed By: #### C MP #### [address] [place] [address] Sodium [Moles/Vol] 139 mmol/L Normal 136 - 145 [facility] Comment on above: Performed By: #### C MP #### [address] [place] [address] Urea nitrogen [Mass/Vol] 10 mg/dL Normal 6 - 23 [facility] Comment on above: Performed By: #### C MP #### [address] [place] [address] Complete Blood Count + Diffe rentialon 08-02-2022 Basophils/100 WBC (Bld) 0.2 % 0.0 - 2.0 [facility]ERSwivelsouth carverFarmaciaClubnorthwest medical centerLTN [employer] Communications Work Phone: Erythrocyte distribution width (RBC) [Ratio] 12.9 % See Below [facility] K[facility]ISHERSwivell.v. stabler memorial hospitalLTN [employer] Communications Work Phone: Comment on above: Reference Range: 11. 5 - 14.5 Hematocrit (Bld) [Volume fraction] 42.5 % See Below ApptimateRutland Heights State HospitalLTN Global Communications Work Phone: Comment on above: Reference Range: 36. 0 - 46.0 Hemoglobin (Bld) [Mass/Vol] 13.7 g/dL See Below [facility] HillACCB Biotech Ltd[employer] Work Phone: Comment on above: Reference Range: 12. 0 - 16.0 Lymphocytes/100 WBC (Bld) 15.7 % See Below [employer] SystemsRoosevelt leone Work Phone: Comment on above: Reference Range: 13. 0 - 44.0 MCHC (RBC) [Mass/Vol] 32.2 g/dL See Below [employer] Roosevelt leone Work Phone: Comment on above: Reference Range: 32. 0 - 36.0 MCV (RBC) [Entitic vol] 93 fL 80 - 100 -Otvasquez leone Work Phone: Monocytes/100 WBC (Bld) 8.3 % 2.0 - 10.0 ApptimateRoosevelt leone Work Phone: Neutrophils/100 WBC (Bld) 75.5 % See Below [employer] SystemsRoosevelt leone Work Phone: Comment on above: Reference Range: 40. 0 - 80.0 Platelets (Bld) [#/Vol] 308 10*3/uL 150 - 450 [employer]timateRoosevelt leone Work Phone: RBC (Bld) [#/Vol] 4.56 {x10E12/L} See Below ApptimateRoosevelt leone Work Phone: Comment on above: Reference Range: 4.0 0 - 5.20 WBC (Bld) [#/Vol] 8.9 10*3/uL 4.4 - 11.3 -Reza laryng Zahira leone Work Phone: Complete Blood Count + Differential 0.02 {x10E9/L} See Below [employer] SystemsSongolarzehra leone Work Phone: Comment on above: Reference Range: 0.0 0 - 0.10 Complete Blood Count + Differential 0.01 {x10E9/L} See Below [employer] SystemsRoosevelt sevillaApptimateDarling leone Work Phone: Comment on above: Reference Range: 0.0 0 - 0.70 Complete Blood Count + Differential 0.74 {x10E9/L} See Below ApptimateRenetta Travel Desiyamercy hospital [facility] – watongaApptimateCanby Medical Center Work Phone: Comment on above: Reference Range: 0.1 0 - 1.00 Complete Blood Count + Differential 1.40 {x10E9/L} See Below ApptimateSongsouth carverlalitha suzymercy hospital [facility]onga – watongaApptimateCanby Medical Center Work Phone: Comment on above: Reference Range: 1.2 0 - 4.80 Complete Blood Count + Differential 6.72 {x10E9/L} See Below ApptimateRenetta suzymercy hospital [facility]ong[facility] – watongaApptimateCanby Medical Center Work Phone: Comment on above: Reference Range: 1.2 0 - 7.70 Complete Blood Count + Differential 0.1 % 0.0 - 6.0 SensorTransouth carverlalitha Travel DesiyaMaple Grove Hospital Work Phone: Complete Blood Count + Differential 0.2 % 0.0 - 0.9 ApptimateFoxborough State Hospitallalitha Travel DesiyaMaple Grove Hospital Work Phone: Comment on above: Immature Granulocyte Count (IG) includes promyelocytes, myelocytes and metamyelocytes but does not include bands. Percent differential counts (%) should be interpreted in the context of the absolute cell counts (cells/L). Complete Blood Count + Differential 0.0 {/100_WBC} 0.0 - 0.0 ApptimateSongsouth carverlalitha Travel DesiyaMaple Grove Hospital Work Phone: Laboratory - Chemistry and C hemistry - challengeon 08-02-2022 Albumin BCP dye [Mass/Vol] 4.2 g/dL 3.4 - 5.0 [facility]ongs[facility] carverlalitha Travel Desiyamercy hospital [facility]onga – watongaApptimateCanby Medical Center Work Phone: [phone] ALP [Catalytic activity/Vol] 68 U/L 33 - 110 [facility]ERSongsouth carverlalitha suzyMaple Grove Hospital Work Phone: ALT With P-5'-P [Catalytic activity/Vol] 20 U/L 7 - 45 PLC Systemssouth carverlalitha Travel DesiyaMaple Grove Hospital Work Phone: Comment on above: Patients treated wit h Sulfasalazine may generate falsely decreased results for ALT. Anion gap [Moles/Vol] 11 mmol/L 10 - 20 MG- Otolaryng ology-[facility] Work Phone: AST With P-5'-P [Catalytic activity/Vol] 16 U/L 9 - 39 MG-Otolaryng oly-Amcom Softwarecook hospital Work Phone: Bilirubin [Mass/Vol] 0.4 mg/dL 0.0 - 1.2 MG-O tolaryng oly-[facility] Work Phone: Calcium [Mass/Vol] 9.1 mg/dL 8.6 - 10.3 MG-Ponderay laryng oly-[facility] Work Phone: Chloride [Moles/Vol] 105 mmol/L 98 - 107 MG-O tolaryng oly-Am[facility] Softwarecook hospital Work Phone: CO2 [Moles/Vol] 27 mmol/L 21 - 32 MG-Otolar yng oly-Amcom Softwarecook hospital Work Phone: Creatinine [Mass/Vol] 0.73 mg/dL See Below MG- Otolaryng oly-Amcom Softwarecook hospital Work Phone: Comment on above: Reference Range: 0.5 0 - 1.05 Glucose [Mass/Vol] 101 mg/dL above high threshold 74 - 99 MG-Otolaryng oly-Amcom Softwarecook hospital Work Phone: Potassium [Moles/Vol] 3.6 mmol/L 3.5 - 5.3 MG- Otolaryng oly-[facility] Work Phone: Protein [Mass/Vol] 6.8 g/dL 6.4 - 8.2 MG-Reza laryng ology-[facility] Work Phone: Sodium [Moles/Vol] 139 mmol/L 136 - 145 MG-Reza laryng ology-Amcom Softwarecook hospital Work Phone: Urea nitrogen [Mass/Vol] 10 mg/dL 6 - 23 [facility]tol[facility] ology-[facility] Work Phone: No Panel Informationon 08-02 >90 >90 MG-Otolaryngulf coast veterans health care systemDarling Work Phone: Comment on above: CALCULATIONS OF TABITHA MATED GFR ARE PERFORMED USING THE 2020 CKD-EPI STUDY REFIT EQUATION WITHOUT THE RACE VARIABLE FOR THE IDMS-TRACEABLE CREATININE METHODS.https://jasn.asnjournals.org/content/early// N.2753642314 No Panel Informationon 07-30 Radiology Study observation (narrative) [facility] Work Phone: Initial Visit (Otolaryngolog y)on 07-27-2022 [...] of the right neck History of Present [id number] female referred by Dr. 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 She has not noticed any lymphadenopathy She [...] Scales' Signatures Electronically signed by : Adi Mccartney MD; Jul 30 2022 4:03AM EST (Author) Normal [employer] SCREENING MAMMOGRAM W/VALENTÍN, BILATERAL*on 01-22-2022 SCREENING MAMMOGRAM [...] VERY IMPORTANT TO YOUR HEALTH. THE CURRENT [employer] GUIDELINES RECOMMENDS ANNUAL MAMMOGRAPHY BEGINNING AT AGE 40 THIS FACILITY USES A REMINDER SYSTEM TO ENSURE ALL PATIENTS RECEIVE REMINDER NOTIFICATIONS AT THE APPROPRIATE TIME BASED ON THE RECOMMENDATIONS OF THIS EXAM. Board Certified Radiologist. Accredited by the ACR and FDA. Report reported and signed by Edilson Murdock on 01/22/2022 1008 Normal [facility] US Pelvic Complete w/Transva ginalon 01-15-2022 [...] by Edilson Murdock on 01/15/2022 1212 Normal [facility] Specialist PAP ACOG PANEL 2: 30 to 65on 01-12-2022 . . Normal [facility] Comment on above: Result Comment: Perf ormed at: WB Performed By: #### [id number] #### [facility] [address] [place] [address] Dr. Petey Willis Age Gdln ACOG Testing 30-65 Normal [facility] Comment on above: Performed By: #### [id number] #### [facility] [address] [place] [address] Dr. Petey Willis DIAGNOSIS: Comment Normal [facility] Comment on above: Result Comment: NEGA TIVE FOR INTRAEPITHELIAL LESION OR MALIGNANCY. Performed at: WB Performed By: #### 4 [id number] #### [facility] [address] [place] [address] Dr. Petey Willis HPV Aptima Positive Abnormal Negative [facility] Comment on above: Result Comment: This nucleic acid amplification test detects fourteen high-risk HPV types (16,18,31,33,35,39,45,51,52,56,58,59,66,68) without differentiation. Performed at: =G Performed By: #### [id number] #### [facility] [address] [place] [address] Dr. Petey Willis HPV Genotype 16 Negative Normal Negative [facility] Comment on above: Result Comment: Perf ormed at: =G Performed By: #### [id number] #### [facility] [address] [place] [address] Dr. Petey Willis HPV Genotype 18,45 Negative Normal Negative [facility] Comment on above: Result Comment: Perf ormed at: =G Performed By: #### [id number] #### [facility] [address] [place] [address] Dr. Petey Willis Methodology: Comment Normal [facility] Comment on above: Result Comment: This liquid based ThinPrep(R) pap test was screened with the use of an image guided system. Performed at: WB Performed By: #### [id number] #### [facility] [address] [place] [address] Dr. Petey Willis Note: Comment Normal [facility] Comment on above: Result Comment: The Pap smear is a screening test designed to aid in the detection of premalignant and malignant conditions of the uterine cervix. It is not a diagnostic procedure and should not be used as the sole means of detecting cervical cancer. Both false-positive and false-negative reports do occur. . Performed at: WB Performed By: #### [id number] #### [facility] [address] [place] [address] Dr. Petey Willis Performed by: Comment Normal [facility] Comment on above: Result Comment: Rasheeda Parekh, Stitcher Special Machine (ASCP) Performed at: WB Performed By: #### [id number] #### [facility] [address] [place] [address] Dr. Petey Willis Specimen adequacy: Comment Normal [facility] Comment on above: Result Comment: Sati sfactory for evaluation. Performed at: WB Performed By: #### [id number] #### [facility] [address] [place] [address] Dr. Petey Willis CHLAMYDIA/GONOCOCCUS BA (SW AB/URINE/PAPon 01-06-2022 Chlamydia trachomatis, BA Negative Normal Negative [facility] Comment on above: Performed By: #### C T/NGNA #### [facility] [address] [place] [address] Dr. Petey Willis Neisseria gonorrhoeae, BA Negative Normal Negative [facility] Comment on above: Performed By: #### C T/NGNA #### [facility] [address] [place] [address] Dr. Petey Willis VAGINITIS/VAGINOSIS DNA PROB Bhavik 01-05-2022 Summer species Negative Normal Negative [facility] Comment on above: Performed By: #### V AGINT #### [facility] [address] [place] [address] Dr. Petey Willis Gardnerella vaginalis Negative Normal Negative [facility] Comment on above: Performed By: #### V AGINT #### [facility] [address] [place] [address] Dr. Petey iWllis Trichomonas vaginalis Negative Normal Negative [facility] Comment on above: Performed By: #### V AGINT #### [facility] [address] [place] [address] Dr. Petey Willis Vital Signs Date Time Vital Sign Value Performing Clinician Facility 08-12-2024 15:22-0400 Body mass index (BMI) [Ratio] 18.86 kg/m2 [employer] Derik DO Work Phone: [facility] 08-12-2024 15:22-0400 Body weight 54.61 kg Gianfranco Derik DO Work Phone: [facility] 08-12-2024 15:22-0400 Diastolic blood pressure 68 mm[Hg] Gianfranco Derik DO Work Phone: [facility] 08-12-2024 15:22-0400 Systolic blood pressure 100 mm[Hg] Gianfranco Derik DO Work Phone: [facility] 03-13-2024 14:44-0500 Body height 170.2 cm Adi Mccartney MD Work Phone: [facility] 03-13-2024 14:44-0500 Body mass index (BMI) [Ratio] 18.72 kg/m2 Adi Mccartney MD Work Phone: [facility] 03-13-2024 14:44-0500 Body weight 54.2 kg Adi Mccartney MD Work Phone: [facility] 01-22-2024 13:16-0400 Body height 170.2 cm Gianfranco Derik DO Work Phone: [facility] 01-22-2024 13:16-0400 Body mass index (BMI) [Ratio] 18.48 kg/m2 Gianfranco Derik DO Work Phone: [facility] 01-22-2024 13:16-0400 Body weight 53.52 kg Gianfranco Derik DO Work Phone: [facility] 01-22-2024 13:16-0400 Diastolic blood pressure 78 mm[Hg] Gianfranco Derik DO Work Phone: [facility] 01-22-2024 13:16-0400 Systolic blood pressure 128 mm[Hg] Gianfranco Derik DO Work Phone: [facility] 01-08-2024 13:43-0400 Body height 170.2 cm Douglas Itzkowitz DO Work Phone: [facility] 01-08-2024 13:43-0400 Body mass index (BMI) [Ratio] 18.64 kg/m2 Douglas Itzkowitz DO Work Phone: [facility] 01-08-2024 13:43-0400 Body weight 53.98 kg Douglas Itzkowitz DO Work Phone: [facility] 01-08-2024 13:43-0400 Diastolic blood pressure 68 mm[Hg] Douglas Itzkowitz DO Work Phone: [facility] 01-08-2024 13:43-0400 Systolic blood pressure 132 mm[Hg] Douglas Itzkowitz DO Work Phone: [facility] 08-19-2023 16:09-0400 Body height 170.2 cm Adi Mccartney MD Work Phone: [facility] 08-19-2023 16:09-0400 Body mass index (BMI) [Ratio] 18.7 kg/m2 Adi Mccartney MD Work Phone: [facility] 08-19-2023 16:09-0400 Body temperature 98.8 [degF] Adi Mccartney MD Work Phone: [facility] 08-19-2023 16:09-0400 Body weight 54.16 kg Adi Mccartney MD Work Phone: [facility] 08-19-2023 16:09-0400 Diastolic blood pressure 85 mm[Hg] Adi Mccartney MD Work Phone: [facility] 08-19-2023 16:09-0400 Systolic blood pressure 135 mm[Hg] Adi Mccartney MD Work Phone: [facility] 08-13-2023 15:39-0400 Body height 170.2 cm Derek Linn MD Work Phone: [facility] 08-13-2023 15:39-0400 Body temperature 97 [degF] Derek Linn MD Work Phone: [facility] 08-13-2023 15:39-0400 Body weight 55.4 kg Derek Linn MD Work Phone: [facility] 08-13-2023 15:39-0400 Diastolic blood pressure 61 mm[Hg] Derek Linn MD Work Phone: [facility] 08-13-2023 15:39-0400 Heart rate 69 /min Derek Linn MD Work Phone: [facility] 08-13-2023 15:39-0400 Respiratory rate 16 /min Derek Linn MD Work Phone: [facility] 08-13-2023 15:39-0400 SaO2% (BldA) [Mass fraction] 98 % Derek Linn MD Work Phone: [facility] 08-13-2023 15:39-0400 Systolic blood pressure 133 mm[Hg] Derek Linn MD Work Phone: [facility] 04-15-2023 10:35-0500 Body height 170.2 cm Adi Mccartney MD Work Phone: [facility] 04-15-2023 10:35-0500 Body mass index (BMI) [Ratio] 18.89 kg/m2 Adi Mccartney MD Work Phone: [facility] 04-15-2023 10:35-0500 Body temperature 97.2 [degF] Adi Mccartney MD Work Phone: [facility] 04-15-2023 10:35-0500 Body weight 54.7 kg Adi Mccartney MD Work Phone: [facility] 08-27-2022 11:29-0400 Body height 167.64 cm Derek Ardonter Work Phone: XP-Gwvrjrgffuksvp-Ak on [facility] [place] Work Phone: 08-27-2022 11:29-0400 Body mass index (BMI) [Ratio] 19.37 kg/m2 Derek Ardonter Work Phone: AO-Oqocdjkwoorwdy-Ys on [facility] [place] Work Phone: 08-27-2022 11:29-0400 Body surface area Derived from formula 1.61 m2 Derek Godinez Manzanares Work Phone: DO-Eqyageritvofkg-Qk on [facility]OB[facility] [place] Work Phone: 08-27-2022 11:29-0400 Body weight 54.43 kg Derek Manzanares Work Phone: [facility]-Imusmmdebmvaha-Je on MOB[facility] [place] Work Phone: 08-09-2022 10:54-0400 Body height 167.4 cm Adi Mccartney MD Work Phone: [facility] 08-09-2022 10:54-0400 Body mass index (BMI) [Ratio] 18.95 kg/m2 Adi Mccartney MD Work Phone: [facility] 08-09-2022 10:54-0400 Body weight 53.1 kg Adi Mccartney MD Work Phone: [facility] 07-18-2022 10:34-0400 Body height 167.6 cm Fredy Johnson MD Work Phone: [facility] 07-18-2022 10:34-0400 Body mass index (BMI) [Ratio] 18.76 kg/m2 Fredy Johnson MD Work Phone: 8(783)318-500277 [place] [address] 07-18-2022 10:34-0400 Body temperature 97.2 [degF] Fredy Johnson MD Work Phone: 6(546)373-146577 [place] [address] 07-18-2022 10:34-0400 Body weight 52.71 kg Fredy Johnson MD Work Phone: 5(413)275-332777 [place] [address] 07-18-2022 10:34-0400 Diastolic blood pressure 66 mm[Hg] Fredy Johnson MD Work Phone: 8(438)269-396877 [place] [address] 07-18-2022 10:34-0400 Heart rate 95 /min Fredy Johnson MD Work Phone: [facility] 07-18-2022 10:34-0400 Systolic blood pressure 120 mm[Hg] Fredy Johnson MD Work Phone: [facility] 07-06-2022 13:44-0500 Diastolic blood pressure 58 mm[Hg] Fredy Johnson MD Work Phone: [facility] 07-06-2022 13:44-0500 Heart rate 83 /min Fredy Johnson MD Work Phone: 9(093)258-237033 [place] [address] 07-06-2022 13:44-0500 Respiratory rate 16 /min Fredy Johnson MD Work Phone: 4(791)428-894677 [place] [address] 07-06-2022 13:44-0500 SaO2% (BldA) [Mass fraction] 98 % Fredy Johnson MD Work Phone: 1(532)091-153877 [place] [address] 07-06-2022 13:44-0500 Systolic blood pressure 118 mm[Hg] Fredy Johnson MD Work Phone: 3(576)048-330677 [place] [address] 07-06-2022 13:29-0500 Body temperature 98.01 [degF] Fredy Johnson MD Work Phone: 5(307)871-316777 [place] [address] 07-06-2022 12:44-0500 Body height 167.6 cm Fredy Johnson MD Work Phone: 3(986)972-587877 [place] [address] 07-06-2022 12:37-0500 Body mass index (BMI) [Ratio] 18.88 kg/m2 Fredy Johnson MD Work Phone: 1(009)515-953177 [place] [address] 07-06-2022 12:37-0500 Body weight 53.07 kg Fredy Johnson MD Work Phone: 0(771)904-828577 [place] [address] 06-13-2022 11:38-0500 Body height 167.6 cm Fredy Johnson MD Work Phone: 6(564)645-367077 [place] [address] 06-13-2022 11:38-0500 Body mass index (BMI) [Ratio] 19.09 kg/m2 Fredy Johnson MD Work Phone: 5(626)386-640377 [place] [address] 06-13-2022 11:38-0500 Body temperature 97.9 [degF] Fredy Johnson MD Work Phone: 1(478)590-209877 [place] [address] 06-13-2022 11:38-0500 Body weight 53.66 kg Fredy Johnson MD Work Phone: 4(213)162-692177 [place] [address] 06-13-2022 11:38-0500 Diastolic blood pressure 76 mm[Hg] Fredy Johnson MD Work Phone: [facility] 06-13-2022 11:38-0500 Heart rate 78 /min Fredy Johnson MD Work Phone: [facility] 06-13-2022 11:38-0500 Systolic blood pressure 122 mm[Hg] Fredy Johnson MD Work Phone: [facility] 1980 23:00-0500 >na< Qi Brantley Dept. of Dermato logy Encounters Encounter Date Encounter Type Care Provider Facility Start: 08-12-2024 End: 08-12-2024 Patient encounter procedure Gianfranco Derik DO Work Phone: [facility] Work Phone: Start: 08-12-2024 End: 08-12-2024 Periodic preventive med est patient 40-64yrs Gianfranco Derik DO Work Phone: [facility] Comment on above: Well woman exam with routine gynecological exam; Breast cancer screening by mammogram; Menorrhagia with regular cycle Start: 08-12-2024 End: 08-12-2024 Bamboo flowsheet Gianfarnco Derik DO Work Phone: [facility] Start: 08-12-2024 End: 08-12-2024 Bamboo flowsheet Gianfranco Derik DO Work Phone: [facility] Start: 06-18-2024 End: 06-18-2024 ambulatory GIANFRANCO DERIK Not Available Start: 03-13-2024 End: 03-13-2024 Office outpatient visit 15 minutes Adi Mccartney MD Work Phone: [facility] Comment on above: Melanoma of neck (Mu lti) (Primary Dx); Lung nodule Start: 03-13-2024 End: 03-13-2024 ambulatory ADI MCCARTNEY [facility] Ambulatory Start: 03-09-2024 End: 03-09-2024 ambulatory ADI MCCARTNEY Not Available Start: 02-26-2024 End: 02-26-2024 Office outpatient visit 15 minutes Douglas H Itzkowitz DO Work Phone: [facility] Comment on above: Cyst of breast, toña gn solitary, right (Primary Dx) Start: 02-26-2024 End: 02-26-2024 ambulatory DOUGLAS H ITZKOWITZ Not Available Start: 02-14-2024 End: 02-14-2024 Telephone encounter Yesenia Hill SHOWER ROOM ATTENDANT Work Phone: [facility] Start: 01-22-2024 End: 01-22-2024 Bamboo flowsheet Gianfranco Derik DO Work Phone: [facility] Start: 01-22-2024 End: 01-29-2024 Bamboo flowsheet Gianfranco Derik DO Work Phone: [facility] Start: 01-22-2024 End: 01-29-2024 Clinisync Result Encounter Gianfranco Derik DO Work Phone: [facility] External Department Unsolicited Start: 01-22-2024 End: 01-22-2024 Office outpatient visit 10 minutes Gianfranco Derik DO Work Phone: [facility] Comment on above: ASCUS with positive high risk HPV cervical; Dyspareunia in female; Vaginal irritation; Menorrhagia with irregular cycle; Dysmenorrhea; Abnormal uterine bleeding (AUB) Start: 01-22-2024 End: 01-22-2024 ambulatory GIANFRANCO DERIK Not Available Start: 01-21-2024 End: 01-21-2024 Telephone encounter Marlee Rodríguez SHOWER ROOM ATTENDANT Work Phone: [facility] Start: 01-08-2024 End: 01-08-2024 Office outpatient new 45 minutes Douglas H Itzkowitz DO Work Phone: [facility] Comment on above: Cyst of breast, toña gn solitary, right (Primary Dx) Start: 01-08-2024 End: 01-08-2024 ambulatory DOUGLAS H ITYOEL Not Available Start: 10-04-2023 End: 10-04-2023 ambulatory GIANFRANCO DERIK Not Available Start: 08-19-2023 End: 08-19-2023 ambulatory [facility] Ambulatory Start: 08-19-2023 End: 08-19-2023 Office outpatient visit 15 minutes Adi Mccartney MD Work Phone: [facility] Comment on above: Melanoma of neck (Mu lti); Lung nodule Start: 08-13-2023 End: 08-13-2023 ambulatory DEREK LINN Facility:[facility] Start: 08-13-2023 End: 08-13-2023 ambulatory Derek Linn MD Work Phone: Hematology/Oncology Comment on above: Malignant melanoma o f skin (HCC) (Primary Dx); Inguinal lymphadenopathy Start: 08-13-2023 End: 08-13-2023 Patient encounter procedure Derek Linn MD Work Phone: [facility] Start: 07-17-2023 End: 07-17-2023 ambulatory GIANFRANCO DERIK Not Available Start: 07-17-2023 End: 07-17-2023 ambulatory Gianfranco Derik Facility:[facility] Start: 07-17-2023 End: 07-17-2023 ambulatory Gianfranco Derik Work Phone: [facility] Work Phone: Start: 07-17-2023 End: 07-17-2023 Departed Referred Gianfranco Derik Work Phone: [facility] Work Phone: Start: 07-03-2023 End: 07-03-2023 ambulatory GIANFRANCO DERIK Not Available Start: 06-12-2023 Chart abstracting Gianfranco Derik DO Work Phone: [facility] Start: 05-09-2023 End: 05-09-2023 [facility] Start: 04-27-2023 End: 04-28-2023 ambulatory Summer Workman Facility:[facility] Start: 04-15-2023 End: 04-16-2023 ambulatory ADI MCCARTNEY [facility] Start: 04-15-2023 End: 04-15-2023 Office outpatient visit 15 minutes Adi Mccartney MD Work Phone: [facility] Comment on above: Melanoma of neck (CM S/HCC) (Primary Dx) Start: 09-04-2022 Qi Brantley Dept. of D ermatology Start: 08-27-2022 Postop follow up vis it related to original px Derek Manzanares Work Phone: ZC-Pxlpnnmxgbxawm-Ngx n MOB02 [place] Work Phone: Start: 08-27-[address] Derek Manzanares Facility:[id number] Start: 08-09-2022 End: 08-09-2022 ambulatory ADI MCCARTNEY Facility:[id number] Start: 08-09-2022 End: 08-09-2022 Subsequent hospital visit by physician Adi Mccartney MD Work Phone: [facility] Comment on above: Malignant melanoma o f scalp and neck (CMS/HCC); Unspecified asthma, uncomplicated; Gastro-esophageal reflux disease without esophagitis; Personal history of COVID-19; Allergy status to penicillin Start: 08-09-2022 Chart Update Derek Manzanares Work Phone: [facility] Work Phone: Start: 08-09-2022 ambulatory ADI MCCARTNEY Faci lity:[id number] Start: 08-07-[address] Derek Manzanares Facility:[facility] Start: 08-02-2022 Chart Update Derek Manzanares Work Phone: [facility] [place] Work Phone: Start: 08-02-2022 ambulatory ADI MCCARTNEY Faci lity:[id number] Start: 08-02-2022 Encounter for preprocedural laboratory examination ADI MCCARTNEY [facility] Start: 07-27-2022 Office consultation new/estab patient 60 min Derek Manzanares Work Phone: [facility] [place] Work Phone: Start: 07-27-2022 ambulatory MD ADI MCCARTNEY Facility:[id number] Start: 07-18-2022 [facility] Start: 07-18-2022 End: 07-18-2022 Office outpatient visit 25 minutes Fredy Johnson MD Work Phone: [facility] Comment on above: Melanoma of right si de of neck (Primary Dx) Start: 07-06-2022 End: 07-06-2022 [facility] Start: 07-06-2022 End: 07-06-2022 Subsequent hospital visit by physician Fredy Johnson MD Work Phone: [facility] Comment on above: Neoplasm of uncertai n behavior of skin Start: 06-13-2022 [facility] Start: 06-13-2022 End: 06-13-2022 Office outpatient new 30 minutes Fredy Johnson MD Work Phone: [facility] Comment on above: Neoplasm of uncertai n behavior of skin (Primary Dx) Start: 01-03-2022 End: 01-03-[address] GIANFRANCO MORE Facility:H1 Procedures Date Procedure Procedure Detail Performing Clinician Start: 08-12-2024 Urnls dip stick/tablet rgnt non-auto w/o micrscp Gianfranco More DO Work Phone: Start: 06-18-2024 Mammography Gianfranco More DO Work Phone: Start: 03-13-2024 Follow-up visit Follow-up ADI MCCARTNEY Start: 01-22-2024 PAP IG, APT HPV RFX 16/18,45 Gianfranco More DO Work Phone: Start: 01-22-2024 Microscopic observation [Identifier] in Cervix by Cyto stain Gianfranco More DO Work Phone: Start: 05-01-2023 Mammography Gianfranco More DO Work Phone: Start: 09-04-2022 Qi Brantley Start: 08-09-2022 SURGICAL PATHOLOGY RESULTS Adi stallings MD Work Phone: Start: 08-09-2022 NM TUMOR LOC SPECT CT Adi Mccartney MD Work Phone: Start: 08-09-2022 Lymphatics & lymph nodes imaging Adi Mccartney MD Work Phone: Start: 08-09-2022 Choriogonadotropin ( test) [Presence] in Urine Adi Mccartney MD Work Phone: Start: 01-22-2022 Mammography Adi Mccartney MD Work Phone: Plan of Treatment Date Care Activity Detail Author Start: 2040 RSV patient s and/or patients aged 60+ years (1 - 1-dose 60+ series) RSV patients and/or patients aged 60+ years (1 - 1-dose 60+ series) [facility] Start: 2030 Zoster Vaccines (1 o f 2) Zoster Vaccines (1 of 2) [facility] Start: 01-21-2029 Screening for malign ant neoplasm of cervix [facility] Start: 08-18-2025 End: 08-18-2025 Patient encounter procedure 08/18/2025 10:00 AM EDT Office Visit [facility] [address] [place] [address] Gianfranco More, DO [address] [place], [place] [id number] [facility] Start: 06-18-2025 Screening for malign ant neoplasm of breast Mammogram [facility] Start: 01-04-2025 Influenza vaccination Influenz a Vaccine (Season Ended) [facility] Start: 08-12-2024 End: 08-12-2024 Patient encounter procedure 08/12/2024 3:20 PM EDT Office Visit [facility] [address] [place] [id number] Gianfranco More, DO [address] [place] [address] Arrived [facility] Comment on above: Arrived Start: 08-12-2024 End: 10-12-2025 MG Breast - bilateral Screening Bilateral screening mammogram Imaging Routine Breast cancer screening by mammogram Expected: 08/12/2024 (Approximate), Expires: 10/12/2025 [facility] Work Phone: Comment on above: Expected: 08/12/2024 (Approximate), Expires: 10/12/2025 Start: 08-12-2024 End: 02-11-2025 US Pelvis US Pelvis w/ TV Imaging Routine Menorrhagia with regular cycle Expected: 08/12/2024, Expires: 02/11/2025 [facility] Comment on above: Expected: 08/12/2024 , Expires: 02/11/2025 Start: 07-22-2024 End: 07-22-2024 Patient encounter procedure 07/22/2024 11:00 AM EDT Office Visit [facility] [address] [place] [id number] Gianfranco More, DO [address] [place] [address] [facility] Start: 07-08-2024 End: 07-08-2024 Patient encounter procedure 07/08/2024 11:00 AM EST Office Visit [facility] [address] [place] [phone] Gianfranco More, DO [address] [place] [address] [facility] Start: 05-01-2024 Screening for malign ant neoplasm of breast [facility] Start: 02-19-2024 End: 02-19-2024 Patient encounter procedure 02/19/2024 3:45 PM EDT Office Visit [facility] [address] [facility] [address] [place] [address] Douglas Hui DO [address] [facility] [address] [place] [address] [facility] [address] [facility] Start: 01-22-2024 End: 01-22-2024 Patient encounter procedure [facility] Comment on above: Arrived Start: 01-05-2024 COVID-19 Vaccine () COVID-19 Vaccine () [facility] Start: 01-05-2024 Influenza vaccination [facility] Start: 08-19-2023 End: 08-18-2024 Creatinine [Mass/volume] in Serum or Plasma Creatinine Lab Routine Melanoma of neck (Multi) Lung nodule Expected: 08/19/2023 (Approximate), Expires: 08/18/2024 [facility] Work Phone: Comment on above: Expected: 08/19/2023 (Approximate), Expires: 08/18/2024 Start: 08-19-2023 End: 08-18-2024 CT Chest W contrast IV CT chest w IV contrast Imaging Routine Melanoma of neck (Multi) Lung nodule Expected: 08/19/2023, Expires: 08/18/2024 [facility] Service Area Work Phone: Comment on above: Expected: 08/19/2023 , Expires: 08/18/2024 Start: 08-19-2023 End: 08-18-2024 Urea nitrogen [Mass/volume] in Serum or Plasma Blood Urea Nitrogen Lab Routine Melanoma of neck (Multi) Lung nodule Expected: 08/19/2023 (Approximate), Expires: 08/18/2024 [facility] Work Phone: Comment on above: Expected: 08/19/2023 (Approximate), Expires: 08/18/2024 Start: 07-03-2023 End: 07-03-2023 Patient encounter procedure 07/03/2023 11:00 AM EST Office Visit [facility] [address] [address] Gianfranco More DO [address] [place] [address] [facility] Start: 05-06-2023 Behavioral Health Screening Behavioral Health Screening [facility] Start: 04-15-2023 End: 04-15-2023 Patient encounter procedure 04/15/2023 10:45 AM EST Office Visit [facility] [address] [place] [address] [place] [address] [address] [place] [address] [facility] Start: 01-22-2023 Screening for malign ant neoplasm of breast Mammogram [facility] Start: 01-04-2023 Covid-19 Vaccine ( season) Covid-19 Vaccine ( season) [facility] Start: 01-04-2023 COVID-19 Vaccine ( season) COVID-19 Vaccine ( season) [facility] Start: 01-04-2023 Influenza vaccination Influenza Vacc ine (#1) [facility] Start: 08-27-2022 POV, Provider: Adi Mccartney, Status: Pen, Time: 11:15 AM POV, Provider: Adi Mccartney, Status: Pen, Time: 11:15 AM [facility] Work Phone: Start: 08-09-2022 [facility] Provider: Adi Mccartney, Status: Pen, Time: 12:00 PM [facility], Provider: Adi Mccartney, Status: Pen, Time: 12:00 PM [facility] [place] Work Phone: Start: 07-18-2022 End: 07-18-2022 Patient encounter procedure 07/18/2022 Office Visit Plastic Surgery Fredy Johnson MD [address] [place] [address] [facility] Start: 07-06-2022 End: 07-06-2022 Exc b9 lesion mrgn xcp sk tg s/n/h/f/g 2.1-3.0cm EXCISION LESION SKIN NECK SCALP Neoplasm of uncertain behavior of skin 07/06/2022 12:50 PM EST [facility] [place] Start: 01-04-2022 Influenza vaccination INFLUENZA VACC INE (#1) [facility] Start: 08-04-2020 COVID-19 Vaccine (3 - Moderna series) COVID-19 Vaccine (3 - Moderna series) [facility] Start: 2020 Lipid panel LIPID SCREENING [facility] Start: 2020 Screening for malign ant neoplasm of breast [facility] Start: 2010 Screening for malign ant neoplasm of cervix [facility] Start: 2002 DTaP/Tdap/Td Vaccine s (1 - Tdap) DTaP/Tdap/Td Vaccines (1 - Tdap) [facility] Start: 2001 Screening for malign ant neoplasm of cervix [facility] Start: 1999 Hepatitis B Vaccine (1 of 3 - 19+ 3-dose series) Hepatitis B Vaccine (1 of 3 - 19+ 3-dose series) [facility] Start: 1999 Hepatitis B Vaccines (1 of 3 - 19+ 3-dose series) Hepatitis B Vaccines (1 of 3 - 19+ 3-dose series) [facility] Start: 1999 Third diphtheria, tetanus and acellular pertussis (DTaP) vaccination TDAP (ADULT) [facility] Start: 1999 Urine microalbumin profile DTaP,Tdap,Td Vaccine (1 - Tdap) [facility] Start: 1998 Hepatitis C screening Hepatitis C [facility] Start: 1998 HIV screening HIV Screening [facility] Start: 1995 HIV screening HIV SCREENING DISCUSSI ON [facility] Start: 1981 MMR Vaccines (1 of 1 - Standard series) MMR Vaccines (1 of 1 - Standard series) [facility] Start: 1980 COVID-19 VACCINE (#1) COVID-19 VACCI NE (#1) [facility] Start: 1980 Examination of skin Derm Melanoma Sk in Check [facility] Start: 1980 Hepatitis B Vaccines (1 of 3 - 3-dose series) Hepatitis B Vaccines (1 of 3 - 3-dose series) [facility] Start: 1980 Hepatitis C screening HEPATITI S C VIRUS SCREENING [facility] Start: 1980 HIV screening HIV Screening [facility] Start: 1980 Lipid panel Lipid Panel [facility] Start: 1980 Tetanus vaccination TETANUS [facility] Start: 1980 Yearly Adult Physical Yearly Adult P hysical [facility] SURGICAL PATHOLOGY REQUEST SURGICAL PATHOLOGY REQUEST Surg Path Routine Neoplasm of uncertain behavior of skin Release Upon Ordering for 1 Occurrences starting 07/06/2022 [facility] Comment on above: Release Upon Orderin g for 1 Occurrences starting 07/06/2022 THIN PREP TIS PAP AN D HR HPV DNA THIN PREP TIS PAP AND HR HPV DNA Pathology and Cytology Routine ASCUS with positive high risk HPV cervical Ordered: 01/22/2024 [facility] Room n House Work Phone: Comment on above: Ordered: 01/22/2024 THIN PREP TIS PAP AN D HR HPV DNA THIN PREP TIS PAP AND HR HPV DNA Pathology and Cytology Routine Well woman exam with routine gynecological exam Ordered: 08/12/2024 [facility] Room n House Comment on above: Ordered: 08/12/2024 Immunizations Immunization Date Immunization Notes Care Provider Loraine mae 1980 pneumococcal conjuga te vaccine, 7 valent Qi Brantley Dept. of Dermatology Payers Date Payer Category Payer Unknown [id number] 2023 Self-pay 2022 [employer] Valdo arias [facility] Care [facility] [id number] 2022 Private Health Insurance [id number] 2021 Unknown [id number]. 1.13.172. [id number] 2021 Unknown [id number] 1980 Unknown [id number] 2.840.1.716558.3.579. 2.593 1980 Unknown [id number] 2.16840.1.548581.3.579. 2.983 1980 Unknown [id number] 2.16840.1.445155.3.579. 2.983 1980 Unknown [id number] 2.16840.1.158253.3.579. 2.983 1980 Unknown [id number] 2.16840.1.956601.3.579. 2.1069 1980 Unknown [id number] 2.16840.1.052908.3.579. 2.1069 1980 Unknown [id number] 2.16.840.1.158398.3.579. 2.1069 1980 Unknown [id number] 2.16840.1.970855.3.579. 2.356 1980 Unknown [id number] 2.16.840.1.390193.3.579. 2.356 1980 Unknown [id number] 2.16.840.1.541897.3.579. 2.356 1980 Unknown [id number] 2.16.840.1.438717.3.579. 2.1245 1980 Unknown [id number] 2.16.840.1.423944.3.579. 2.718 1980 Unknown [id number] 2.16.840.1.002175.3.579. 2.1244 1980 Unknown [id number] 2.16.840.1.880889.3.579. 2.1244 1980 Unknown [id number] 2.16.840.1.017532.3.579. 2.1258 1980 Unknown [id number] 2.16.840.1.229844.3.579. 2.1258 1980 Unknown [id number] 2.16.840.1.084918.3.579. 2.1258 1980 Unknown [id number] 2.16.840.1.281018.3.579. 2.9 1980 Unknown [id number] 2.16.840.1.936167.3.579. 2.1258 1980 Unknown [id number] 2.16.840.1.548064.3.579. 2.1258 1980 Unknown [id number] 2.16.840.1.531624.3.579. 2.1258 1980 Unknown [id number] 2.16.840.1.018663.3.579. 2.1259 1959 Unknown [id number] Unknown [id number] 2.16.840.1.592299.3.579. 2.531 Unknown Anabel BC/DEDRICK [id number] Social History Date Type Detail Facility Start: 06-13-2022 End: 06-12-2023 Tobacco smoking status NHIS Never smoked tobacco [facility] Start: 06-13-2022 End: 06-12-2023 Tobacco use and exposure Smokeless tobacco non-user [facility] Start: 06-13-2022 End: 08-13-2023 Alcohol intake Ex-drinker (finding) [facility] Start: 1980 Sex Assigned At Not on file [facility] Start: 07-08-2022 End: 03-13-2024 Exposure to SARS-CoV-2 (event) Not sure [facility] Start: 09-04-2022 Dept. of D ermatology Start: 1980 End: 1980 Sex Assigned At Female [facility] Start: 04-15-2023 End: 01-08-2024 Gender identity Not on file [facility] Work Phone: Start: 04-15-2023 End: 01-08-2024 History of Social function [facility] Work Phone: Start: 06-12-2023 End: 08-12-2024 Alcohol intake Lifetime non-drinker (finding) [facility] Start: 06-12-2023 Alcohol Comment caffeine: 1-2 cups per day [facility] Adult Depression Screening Assessment 0 [facility] NEGATED: Highlighted rowStart: NINF History of tobacco use Passive smoker [facility] Goals Date Patient Goal Desired Activity /State Clinical Notes 06-13-2022 to 08-12-2024 Becky Doll LPN - 08/12/2024 3:20 PM Juan Mccartney MD - 03/13/2024 2:30 PM Soraya Hui DO - 02/26/2024 4:00 PM Christiano Doll LPN - 01/22/2024 1:00 PM EDTDischarge Instructions Note Date & Type Note Facility 08-12-2024 History of Present illness Narrative Reason for Appointment: Patient ID: Magalie Rodriguez is a 44 y.o. female who presents for Well Women Visit Patient presents today for Annual Exam. MEDICATIONS Current Outpatient Medications Medication Instructions albuterol HFA 90 mcg/act inhaler 2 puffs, Inhalation, Every 4 hours PRN clotrimazole-betamethasone (Lotrisone) cream 1 application , Topical, Daily, Apply to affected area daily for 7 days EPINEPHrine (EPIPEN) 0.3 mg, Injection, Once as needed, Inject into upper leg. Call 911 after use. ALLERGIES Allergies Allergen Reactions Bee Venom Anaphylaxis Moxifloxacin Palpitations and Shortness of breath Per patient Per patient Per patient Sulfamethoxazole-Trimethoprim Anaphylaxis Per patient Per patient Per patient Azithromycin Hives Per patient Per patient Per patient Covid-19 (Mrna) Vaccine Other Reaction(s): Rash, Pruritis, Near Syncope Fluconazole Unknown Other Reaction(s): Arthralgia, jaw tightness, Other Per patient Muscle weakness Codeine Nausea And Vomiting, Rash and GI intolerance Per patient Per patient Per patient Penicillins Rash Per patient Per patient Per patient PROBLEMS Active Ambulatory Problems Diagnosis Date Noted Cyst of breast, benign solitary, right 01/08/2024 Resolved Ambulatory Problems Diagnosis Date Noted No Resolved Ambulatory Problems Past Medical History: Diagnosis Date GERD (gastroesophageal reflux disease) Irritable bowel syndrome with both constipation and diarrhea Melanoma (CMS/HCC) Solitary pulmonary nodule 2014 HISTORY PAST MEDICAL HISTORY SOCIAL HISTORY Past Medical History: Diagnosis Date GERD (gastroesophageal reflux disease) Irritable bowel syndrome with both constipation and diarrhea Melanoma (CMS/HCC) Solitary pulmonary nodule 2013 stable Social History Tobacco Use Smoking status: Never Smokeless tobacco: Never Substance Use Topics Alcohol use: Never Comment: caffeine: 1-2 cups per day Drug use: Never FAMILY HISTORY Family History Problem Relation Name Age of Onset Thyroid disease Sister Breast cancer Maternal Cousin 42 Colon cancer Neg Hx Pancreatic cancer Neg Hx Ovarian cancer Neg Hx SURGICAL HISTORY Past Surgical History: Procedure Laterality Date ASPIRATION OF CYST Breast LYMPH NODE BIOPSY Cervical node x2 OTHER SURGICAL HISTORY 08/2022 Exc. melanoma from Rt. side of neck REVIEW OF SYSTEMS Review of Systems: Review of Systems Constitutional: Negative. HENT: Negative. Eyes: Negative. Respiratory: Negative. Cardiovascular: Negative. Gastrointestinal: Negative. Genitourinary: Positive for menstrual problem. Musculoskeletal: Negative. Skin: Negative. Neurological: Negative. All other systems reviewed and are negative. Hematological: Negative. Endocrine: Negative. Allergic/Immunologic: Negative. OBJECTIVE Objective: Physical Exam Constitutional: Appearance: Normal appearance. She is well-developed. Genitourinary: Vulva normal. Breasts: Breasts are soft. Right: Normal. Left: Normal. Cardiovascular: Rate and Rhythm: Normal rate and regular rhythm. Pulmonary: Effort: Pulmonary effort is normal. Breath sounds: Normal breath sounds. Abdominal: General: Bowel sounds are normal. There is no distension. Palpations: Abdomen is soft. Tenderness: There is no abdominal tenderness. There is no guarding or rebound. Musculoskeletal: General: No swelling. Normal range of motion. Right lower leg: No edema. Left lower leg: No edema. Neurological: Mental Status: She is alert and oriented to person, place, and time. Skin: General: Skin is warm and dry. Psychiatric: Mood and Affect: Mood normal. Behavior: Behavior normal. Vitals and nursing note reviewed. Exam conducted with a axle polisher present. Vitals: Estimated body mass index is 18.86 kg/m as calculated from the following: Height as of 01/22/24: 5' 7 . Weight as of this encounter: 120 lb 6.4 oz. BP: 100/68 Patient's last menstrual period was 07/25/2024. ASSESSMENT & PLAN ICD-10-CM 1. Well woman exam with routine gynecological exam Z01.419 POCT urinalysis dipstick manually resulted THIN PREP TIS PAP AND HR HPV DNA 2. Breast cancer screening by mammogram Z12.31 Bilateral screening mammogram Bilateral screening mammogram Annual Exam: Patient presents today for an annual exam. Patient states she is doing well and has complaints of heavy longer periods- pt given ultrasound order to have obtained. Pt given mammogram order. Pap was obtained without difficulty. Orders Placed This Encounter Procedures Bilateral screening mammogram POCT urinalysis dipstick manually resulted Follow Up: Patient is to return in one year for annual unless needed otherwise. Documented by Becky Doll LPN on behalf of: Gianfranco More DO documented in this encounter [facility] 03-13-2024 History of Present illness Narrative ENT Follow up Visit History Of Present Illness Magalie Rodriguez is a 44 y.o. female presents for follow up referred [...] the incision that looks like possible suture 03/13/24: Patient returns for follow-up. We got a follow-up CT scan of her chest which shows stable nodules. She has not had any major concerns since her last visit. She still thinks she can feel a stitch under the skin. She is also regularly following with dermatology Past Medical History She has no past medical history on file. Surgical History She has no past surgical history on file. Social History She reports that she has never smoked. She has never used smokeless tobacco. She reports that she does not drink alcohol and does not use drugs. Family History No family history on file. [...] skin at the bottom of the incision. No exposed suture above the skin PSYCH: Alert and oriented with appropriate mood and affect Last Recorded Vitals Height 1.702 m (5' 7 ), weight 54.2 kg (119 lb 8 oz). Assessment and Plan 44 y.o. female referred for melanoma of the right neck with 0.8 mm depth status post wide local excision, sentinel node biopsy. Final pathology showed negative margins and lymph nodes. stage 1a -Continue regular follow-up with dermatology -Follow-up with me in 6-12 months or earlier with any issues -We will reassess need for additional scans in the future -She will contact our office if there are any concerns Adi Mccartney MD documented in this encounter [facility] Work Phone: 02-26-2024 History of Present illness Narrative Images from the original note were not included. Magalie Rodriguez is a 43 y.o. female presents for 1mos. follow up recheck Rt. breast cyst HPI: HPI Magalie presents for recheck of the drained right breast cyst. She has fibrocystic breasts and found a mass in the right breast in September. She had an US in September that showed a cyst, but she has a history of Melanoma and was concerned about it. She states the area is tender if palpated. She denies any skin changes and no nipple discharge. OBJECTIVE: Physical Exam Right breast shows no signs of recurrence of the cyst. ASSESSMENT AND PLAN: Assessment/Plan Problem List Items Addressed This Visit Cyst of breast, benign solitary, right - Primary Magalie states she didn't realize how heavy the breast was until after I drained the cyst. She is very happy and has no recurrence of the cyst. Her mamm's are due in April. She sates she will follow up with her [employer] doctor and return if she needs anything further. I'll see her PRN. documented in this encounter [facility] 02-14-2024 Telephone encounter Note Patient with upper respiratory symptoms x 5+ days. CXR normal. Terconazole due to history of yeast infections when taking antibiotics. [facility] 02-14-2024 Miscellaneous Notes Patient with upper respiratory symptoms x 5+ days. CXR normal. Terconazole due to history of yeast infections when taking antibiotics. documented in this encounter [facility] 01-22-2024 History of Present illness Narrative Reason for Appointment: Patient ID: Magalie Rodriguez is a 43 y.o. female who presents for Abnormal Pap Smear Patient presents today for Repeat Pap. MEDICATIONS Current Outpatient Medications Medication Instructions albuterol HFA 90 mcg/act inhaler 2 puffs, Inhalation, Every 4 hours PRN cefdinir (OMNICEF) 300 mg, Oral, 2 times daily clotrimazole-betamethasone (Lotrisone) cream 1 application , Topical, Daily, Apply to affected area daily for 7 days EPINEPHrine (EPIPEN) 0.3 mg, Injection, Once as needed, Inject into upper leg. Call 911 after use. terconazole (Terazol 7) 0.4 % vaginal cream 1 applicator, Vaginal, Nightly ALLERGIES Allergies Allergen Reactions Bee Venom Anaphylaxis Moxifloxacin Palpitations and Shortness of breath Per patient Per patient Per patient Sulfamethoxazole-Trimethoprim Anaphylaxis Per patient Per patient Per patient Azithromycin Hives Per patient Per patient Per patient Covid-19 (Mrna) Vaccine Other Reaction(s): Rash, Pruritis, Near Syncope Fluconazole Unknown Other Reaction(s): Arthralgia, jaw tightness, Other Per patient Muscle weakness Codeine Nausea And Vomiting, Rash and GI intolerance Per patient Per patient Per patient Penicillins Rash Per patient Per patient Per patient PROBLEMS Active Ambulatory Problems Diagnosis Date Noted Cyst of breast, benign solitary, right 01/08/2024 Resolved Ambulatory Problems Diagnosis Date Noted No Resolved Ambulatory Problems Past Medical History: Diagnosis Date GERD (gastroesophageal reflux disease) Irritable bowel syndrome with both constipation and diarrhea Melanoma (CMS/HCC) Solitary pulmonary nodule 2014 HISTORY PAST MEDICAL HISTORY SOCIAL HISTORY Past Medical History: Diagnosis Date GERD (gastroesophageal reflux disease) Irritable bowel syndrome with both constipation and diarrhea Melanoma (CMS/HCC) Solitary pulmonary nodule 2013 stable Social History Tobacco Use Smoking status: Never Smokeless tobacco: Never Substance Use Topics Alcohol use: Never Comment: caffeine: 1-2 cups per day Drug use: Never FAMILY HISTORY Family History Problem Relation Name Age of Onset Thyroid disease Sister Breast cancer Maternal Cousin 42 Colon cancer Neg Hx Pancreatic cancer Neg Hx Ovarian cancer Neg Hx SURGICAL HISTORY Past Surgical History: Procedure Laterality Date ASPIRATION OF CYST Breast LYMPH NODE BIOPSY Cervical node x2 OTHER SURGICAL HISTORY 08/2022 Exc. melanoma from Rt. side of neck REVIEW OF SYSTEMS Review of Systems: Review of Systems Constitutional: Negative. HENT: Negative. Eyes: Negative. Respiratory: Negative. Cardiovascular: Negative. Gastrointestinal: Negative. Genitourinary: Negative. Musculoskeletal: Negative. Skin: Negative. Neurological: Negative. All other systems reviewed and are negative. Hematological: Negative. Endocrine: Negative. Allergic/Immunologic: Negative. OBJECTIVE Objective: Physical Exam Constitutional: Appearance: Normal appearance. She is well-developed. Genitourinary: Vulva normal. Cardiovascular: Rate and Rhythm: Normal rate and regular rhythm. Pulmonary: Effort: Pulmonary effort is normal. Breath sounds: Normal breath sounds. Abdominal: General: Bowel sounds are normal. There is no distension. Palpations: Abdomen is soft. Tenderness: There is no abdominal tenderness. There is no guarding or rebound. Musculoskeletal: General: No swelling. Normal range of motion. Right lower leg: No edema. Left lower leg: No edema. Neurological: Mental Status: She is alert and oriented to person, place, and time. Skin: General: Skin is warm and dry. Psychiatric: Mood and Affect: Mood normal. Behavior: Behavior normal. Vitals and nursing note reviewed. Exam conducted with a axle polisher present. Vitals: Estimated body mass index is 18.48 kg/m as calculated from the following: Height as of this encounter: 5' 7 . Weight as of this encounter: 118 lb. BP: 128/78 Patient's last menstrual period was 01/01/2024. ASSESSMENT & PLAN ICD-10-CM 1. ASCUS with positive high risk HPV cervical R87.610 THIN PREP TIS PAP AND HR HPV DNA R87.810 2. Dyspareunia in female N94.10 3. Vaginal irritation N89.8 clotrimazole-betamethasone (Lotrisone) cream terconazole (Terazol 7) 0.4 % vaginal cream 4. Menorrhagia with irregular cycle N92.1 5. Dysmenorrhea N94.6 6. Abnormal uterine bleeding (AUB) N93.9 Repeat Pap: Patient presents today for a repeat pap. Previous pap results were reviewed and noted to be ASCUS and + HPV. Question regarding previous results were discussed. Repeat Pap was obtained without difficulty. Discussed LEEP vs hysterectomy- for future regarding results of pap and complaints of AUB, dyspareunia, dysmenorrhea, heavy bleeding. Follow Up: Patient is to return to the office in 6 months for an annual exam. Documented by Becky Doll LPN on behalf of: Gianfranco More DO documented in this encounter [facility] 01-21-2024 Telephone encounter Note Patient reports UTI symptoms. Requesting Omnicef to pharmacy in [place]. Sent. [facility] 01-21-2024 Miscellaneous Notes Patient reports UTI symptoms. Requesting Omnicef to pharmacy in [place]. Sent. documented in this encounter [facility] 01-08-2024 History of Present illness Narrative Images from the original note were not included. Magalie Rodriguez 1980 Magalie Rodriguez is a 43 y.o. female presents with chief complaint of Breast consult (Fibrocystic breast. Lump felt in Rt. Breast. US benign. Area more tender. PCP recommended she be checked due to her hx of melanoma.) HPI: HPI Magalie states she has fibrocystic breast and found a mass in the right breast in September. She had an US in September that showed a cyst, but she has a history of Melanoma and was concerned about it. She states the area is tender if palpated. She denies any skin changes and no nipple discharge. SUBJECTIVE: MEDICATIONS: ALLERGIES Current Outpatient Medications Medication Instructions albuterol HFA 90 mcg/act inhaler 2 puffs, Inhalation, Every 4 hours PRN EPINEPHrine (EPIPEN) 0.3 mg, Injection, Once as needed, Inject into upper leg. Call 911 after use. Allergies Allergen Reactions Bee Venom Anaphylaxis Moxifloxacin Palpitations and Shortness of breath Per patient Per patient Per patient Sulfamethoxazole-Trimethoprim Anaphylaxis Per patient Per patient Per patient Azithromycin Hives Per patient Per patient Per patient Covid-19 (Mrna) Vaccine Other Reaction(s): Rash, Pruritis, Near Syncope Fluconazole Unknown Other Reaction(s): Arthralgia, jaw tightness, Other Per patient Muscle weakness Codeine Nausea And Vomiting, Rash and GI intolerance Per patient Per patient Per patient Penicillins Rash Per patient Per patient Per patient PAST MEDICAL HISTORY: SOCIAL HISTORY SURGICAL HISTORY: Past Medical History: Diagnosis Date GERD (gastroesophageal reflux disease) Irritable bowel syndrome with both constipation and diarrhea Melanoma (CMS/HCC) Solitary pulmonary nodule 2013 stable Social History Tobacco Use Smoking status: Never Smokeless tobacco: Never Substance Use Topics Alcohol use: Never Comment: caffeine: 1-2 cups per day Drug use: Never Past Surgical History: Procedure Laterality Date LYMPH NODE BIOPSY Cervical node x2 OTHER SURGICAL HISTORY 08/2022 Exc. melanoma from Rt. side of neck FAMILY HISTORY Family History Problem Relation Name Age of Onset Thyroid disease Sister Breast cancer Maternal Cousin 42 Colon cancer Neg Hx Pancreatic cancer Neg Hx Ovarian cancer Neg Hx REVIEW OF SYMPTOMS: Review of Systems Constitutional: Negative for diaphoresis and unexpected weight change. HENT: Negative for hearing loss, tinnitus and voice change. Breasts: Positive for breast mass (Right). Respiratory: Negative for shortness of breath. Cardiovascular: Negative for chest pain and palpitations. Musculoskeletal: Negative for arthralgias. Neurological: Negative for dizziness, seizures and headaches. All other systems reviewed and are negative. Hematological: Negative for adenopathy. Does not bruise/bleed easily. OBJECTIVE: Visit Vitals BP 132/68 Ht 5' 7 Wt 119 lb BMI 18.64 kg/m Smoking Status Never BSA 1.6 m Physical Exam Exam conducted with a axle polisher present. HENT: Head: Normocephalic. Cardiovascular: Rate and Rhythm: Normal rate and regular rhythm. Pulmonary: Effort: Pulmonary effort is normal. Breath sounds: Normal breath sounds. Chest: Comments: Bilateral supraclavicular, infraclavicular, bicipital and axillary lymph nodes were found to be normal. Each breast was examined in the sitting and supine position, there was no evidence of masses, dimpling or discharge in the left breast. The right breast has a 3-4 cm firm smooth mass at the 10-11:00 position just outside the NAC. Abdominal: General: Abdomen is flat. Bowel sounds are normal. Palpations: Abdomen is soft. Skin: General: Skin is warm and dry. Neurological: Mental Status: She is alert. ASSESSMENT AND PLAN: Assessment/Plan Problem List Items Addressed This Visit Cyst of breast, benign solitary, right - Primary Magalie had a mammogram on 05/01/23 that was negative. She had an US on 10/04/23 that showed - Two benign cysts correspond with the palpable lump, 11 o'clock location, largest 1.5 x 2.3 x 2.9 cm, the second approximates 1.0 - 2.0 cm. With her permission I aspirated 5 ml of a thin greenish brown fluid and the cyst resolved completely. She tolerated the procedure well and I will see her in 1 month for recheck. documented in this encounter [facility] 08-19-2023 History of Present illness Narrative ENT [...] office if there are any concerns Adi Mccartney MD documented in this encounter [facility] Work Phone: 08-13-2023 Note HNO ID: [id number] Author: DEREK LINN MD Service: ? Author Type: Physician Type: Progress Notes Filed: 08/14/2023 07:41 Note Text: PATIENT NAME: Magalie COREYN: [id number] DATE: 08/13/2023 PRIMARY CARE PHYSICIAN: Derek Manzanares MD OTHER PHYSICIANS: Dr. Fredy Johnson, Dr. Adi Mccartney ( Oncologic ENT), Hyacinth Ramirez PA-C Portions [...] time. Cranial n (more content not included)... [facility] 08-13-2023 History of Present illness Narrative PATIENT NAME: Magalie Rodriguez DATE: 08/13/2023 PRIMARY CARE PHYSICIAN: Derek Manzanares MD OTHER PHYSICIANS: Dr. Fredy Johnson, Dr. Adi Mccartney ( Oncologic ENT), Hyacinth Ramirez PA-C Portions [...] (0/1) 07/06/2022 Excisional biopsy right neck lesion ([employer]) Invasive melanoma, Breslow's depth 0.8 mm RADIOLOGY/OTHER STUDIES: 05/22/2023 CT chest, abdomen[facility] No acute intrathoracic process. 4 to 5 mm right middle lobe nodule stable. No acute abdominal pelvic process. Normal-appearing bilateral inguinal lymph nodes are identified. 04/15/2023 Abdominal ultrasound ([employer]) Multiple lymph nodes again seen in the groin, largest measures 1.5 cm and is slightly larger than previous study. These may be reactive. 11/13/2022 [facility]dominal [facility] Prominent lymph nodes in the left inguinal [...] patient request she will follow-up with her financial services technician and surgeon. I did not schedule a [...] management. Derek Linn MD CC: Dr. Adi Mccartney (ENT at ) Hyacinth Ramirez PA-C ([facility]) documented in this encounter [facility] 05-09-2023 Note HNO ID: [id number] Author: DEREK LINN MD Service: ? Author Type: Physician Type: Progress Notes Filed: 05/10/2023 07:06 Note Text: PATIENT NAME: Magalie Rodriguez DATE: 05/09/2023 PRIMARY CARE PHYSICIAN: Derek Manzanares MD OTHER PHYSICIANS: Dr. Fredy Johnson, Dr. Adi Mccartney ( Oncologic ENT), Hyacinth Ramirez PA-C HPI: [...] subsequently was seen by ENT at (Dr. Mccartney) and underwent wide excision plus sentinel node biopsy on 08/10/2022. Final pathology revealed no residual disease in the resected specimen, and the sentinel lymph node was negative for metastasis. She was classified as stage IB disease and routine follow-up recommended. She did not undergo preop staging scans. She follows closely with her ENT physician and her financial services technician. She has had no evidence of local [...] currently works as a nurse practitioner at [employer]. MEDICATIONS: Current Outpatient Medications Medication [...] masses, hernia, a (more content not included)... [facility] 04-15-2023 History of Present illness Narrative ENT Follow up Visit History Of Present Illness Magalie Rodriguez is a 43 y.o. female presents for follow up referred by Dr. aJcey Chung for evaluation of a melanoma of [...] there are any concerns on follow-up ultrasound Aid Mccartney MD documented in this encounter [facility] Work Phone: 08-09-2022 Note Post Operative Note: PreOp Diagnosis: melanoma right neck Post-Procedure Diagnosis: melanoma right neck Procedure: 1. Wide local excision right neck melanoma > 4 cm 2. sentinel lymph node biopsy 3. Identification of sentinel node with gamma. Surgeon: lawanda Resident/Fellow/Other Bench Hand Machine: lilibeth Estimated Blood Loss (mL): 2 Specimen: [...] procedure without a resident Electronic Signatures: Adi Mccartney) (Signed 09-Aug-2022 13:44) Authored: Post Operative Note, Note Completion Last Updated: 09-Aug-2022 13:44 by Adi Mccartney) [facility] 08-09-2022 Note History & Physical [...] what the risks are. Electronic Signatures: Adi Mccartney) (Signed 09-Aug-2022 13:37) Authored: History & Physical Reviewed, ERAS, Consent, Note Completion Last Updated: 09-Aug-2022 13:37 by Adi Mccartney) References: 1. Data Referenced From Patient Profile - Preop v3 09-Aug-2022 10:54 [facility] 08-09-2022 Miscellaneous Notes Post Operative Note: PreOp Diagnosis: melanoma right neck Post-Procedure Diagnosis: melanoma right neck Procedure: 1. Wide local excision right neck melanoma > 4 cm 2. sentinel lymph node biopsy 3. Identification of sentinel node with gamma. Surgeon: lawanda Resident/Fellow/Other Bench Hand Machine: lilibeth Estimated Blood Loss (mL): 2 Specimen: [...] procedure without a resident Electronic Signatures: Adi Mccartney) (Signed 09-Aug-2022 13:44) Authored: Post Operative Note, Note Completion Last Updated: 09-Aug-2022 13:44 by Adi Mccartney) documented in this encounter [facility] Work Phone: 08-09-2022 Note Formatting of this n ote is different from the original. Post Operative Note: PreOp Diagnosis: melanoma right neck Post-Procedure Diagnosis: melanoma right neck Procedure: 1. Wide local excision right neck melanoma > 4 cm 2. sentinel lymph node biopsy 3. Identification of sentinel node with gamma. Surgeon: lawanda Resident/Fellow/Other Bench Hand Machine: lilibeth Estimated Blood Loss (mL): 2 Specimen: [...] procedure without a resident Electronic Signatures: Adi Mccartney) (Signed 09-Aug-2022 13:44) Authored: Post Operative Note, Note Completion Last Updated: 09-Aug-2022 13:44 by Adi Mccartney) Health Work Phone: 08-09-2022 History and physical note [...] what the risks are. Electronic Signatures: Adi Mccartney) (Signed 09-Aug-2022 13:37) Authored: History & Physical Reviewed, ERAS, Consent, Note Completion Last Updated: 09-Aug-2022 13:37 by Adi Mccartney) References: 1. Data Referenced From Patient Profile - Preop v3 09-Aug-2022 10:54 [facility] Work Phone: 08-09-2022 History and physical note [...] what the risks are. Electronic Signatures: Adi Mccartney) (Signed 09-Aug-2022 13:37) Authored: History & Physical Reviewed, ERAS, Consent, Note Completion Last Updated: 09-Aug-2022 13:37 by Adi Mccartney) References: 1. Data Referenced From Patient Profile - Preop v3 09-Aug-2022 10:54 documented in this encounter [facility] Work Phone: 07-18-2022 History of Present illness [...] complete dermatologic evaluation. She desires referral to [facility] and we will put this referral into the ENT department. Additionally, we will refer her to Dr. Perez dermatology for evaluation and surveillance Assessment: Melanoma right neck Plan: The pt is to call with any further problems or questions, otherwise I will see them back PRN. We will coordinate referrals. documented in this encounter [facility] [facility] Surgical operation note Discharged in stable condition with personal belongings and written discharge instructions. Patient walked to discharge door per self. [facility] 07-06-2022 Nurse Note Discharged in stable condition with personal belongings and written discharge instructions. Patient walked to discharge door per self. Discharge instructions reviewed with patient, understanding stated. Patient transported to PACU via cart with this RN and [facility]AD[facility] SUPPORT CENTER DIRECTOR. Report given to BRANDON Mensah. OR 2 temp 67.2F, humidity 47%. documented in this encounter [facility] 07-06-2022 Nurse Surgical operation note Discharge instructions reviewed with patient, understanding stated. [facility] 07-06-2022 Hospital Discharge instructions Fredy Johnson MD [...] the area daily. documented in this encounter [facility] 07-06-2022 Note Formatting of this n ote is different from the original. POST OPERATIVE/PROCEDURE NOTE Magalie Rodriguez ([id number]) SURGEON Surgeon(s) and Role: * Fredy Johnson MD - Primary MANAGED CARE ANALYST None ANESTHESIOLOGIST No anesthesia staff entered. SURGICAL STAFF Electrician Chief: Laura Lambert RN; Emily Sharma RN Scrub Person: Ros PinaFrida Bhatti PROCEDURE PERFORMED Excision lesion right neck [...] Johnson MD July 06, 2022 1:32 PM [facility] 07-06-2022 Miscellaneous Notes POST OPERATIVE/PROCEDURE NOTE Magalie Rodriguez ([id number]) SURGEON Surgeon(s) and Role: * Fredy Johnson MD - Primary MANAGED CARE ANALYST None ANESTHESIOLOGIST No anesthesia staff entered. SURGICAL STAFF Electrician Chief: Laura Lambert RN; Emily Sharma RN Scrub Person: Ros PinaFrida Bhatti PROCEDURE PERFORMED Excision lesion right neck [...] 2022 1:32 PM documented in this encounter [facility] 07-06-2022 Nurse Surgical operation note Patient transported to PACU via cart with this RN and [facility] SUPPORT CENTER DIRECTOR. Report given to BRANDON Mensah. [facility] 07-06-2022 History and physical note I have examined the patient and reviewed the previous H&P completed on date 06/13/22 and there are no changes. See paper H&P in chart Fredy Johnson MD, 07/06/2022, 12:40 PM. [facility] 07-06-2022 History and physical note I have examined the patient and reviewed the previous H&P completed on date 06/13/22 and there are no changes. See paper H&P in chart Fredy Johnson MD, 07/06/2022, 12:40 PM. documented in this encounter [facility] 07-06-2022 Nurse Surgical operation note OR 2 temp 67.2F, humidity 47%. [facility] 06-13-2022 History of Present illness Narrative [...] Excision lesion right neck documented in this [facility] Evaluation note Diagnosis Neoplasm of uncertain behavior of skin- Primary [facility] Neoplasm of uncertain behavior of skin [facility] Diagnosis Melanoma of right side of neck- Primary [facility]ADept. of Dermatology Evaluation note* Diagnosis Malignant melanoma of scalp and neck (CMS/HCC) Unspecified asthma, uncomplicated Gastro-esophageal reflux disease without esophagitis Personal history of COVID-19 Allergy status to penicillin documented in this encounter [facility] Work Phone: Evaluation note* Diagnosis Melanoma of neck (CMS/HCC)- Primary documented in this encounter [facility] Work Phone: Evaluation noteNo assessment information available [facility] Work Phone: Evaluation note* Diagnosis Malignant melanoma of skin (HCC)- Primary Melanoma of skin, site unspecified Inguinal lymphadenopathy Enlargement of lymph nodes [facility] Diagnosis Melanoma of neck (Multi) Lung nodule Other diseases of lung, not elsewhere classified documented in this encounter [facility] Work Phone: Evaluation note* Diagnosis Acute bronchitis, unspecified organism- Primary documented in this encounter [facility]* Diagnosis Cyst of breast, benign solitary, right- Primary documented in this encounter [facility] HealthcareEvaluation note* Diagnosis Melanoma of neck (Multi)- Primary Lung nodule Other diseases of lung, not elsewhere classified documented in this encounter [facility] Work Phone: Evaluation note* Diagnosis Dysuria- Primary documented in this encounter [facility] HealthcareEvaluation note* Diagnosis ASCUS with positive high risk HPV cervical Dyspareunia in female Vaginal irritation Pruritus of genital organs Menorrhagia with irregular cycle Dysmenorrhea Abnormal uterine bleeding (AUB) documented [facility] Diagnosis Cyst of breast, benign solitary, right- Primary documented [facility] this [facility]* Diagnosis Well woman exam with routine gynecological exam Routine gynecological examination Breast cancer screening by mammogram Menorrhagia with regular cycle [facility] Narrative* 42-year-old female referred [...] for [facility]. She has not noticed any lymphadenopa thy * She is otherwise fairly healthy. She uses inhaler for asthma. She has not had any issues with anesthesia in the past. She is a non-smoker. She does not have any listed drug allergies [facility] Work Phone: History of Present illness Narrative* [...] does not have any listed drug allergies [id number]-Kjjw [facility] [place] Work Phone: History of Present [...] does not have any listed drug allergies PU[facility]Ixapbcbchkhtbc-Mkjmsptk Work Phone: History of Present illness Narrative* [...] does not have any listed drug allergies [facility] Work Phone: History of Present illness [...] follow-up after surgery. She is doing well [id number]-Zwcr [facility] [place] Work Phone: Reason for referral (narrative)* Consultation (Urgent) - New Request Specialty Diagnoses / Procedures Referred By Roman edmonds Referred To Contact Dermatology Diagnoses Melanoma of right side of neck Fredy Johnosn MD [address] [place] [address] Guero Perez MD [address] [facility] [address] [place] [address] Referral ID Status Reason Start Date Expiration Date V isits Requested Visits Authorized [id number] New Request 07/18/2022 08/12/2023 1 1 * Consultation (Urgent) - New Request Specialty Diagnoses / Procedures Referred By Roman edmonds Referred To Contact Otolaryngology Diagnoses Melanoma of right side of neck Fredy Johnson MD [address] [place] [address] Referral ID Status Reason Start Date Expiration Date V isits Requested Visits Authorized [id number] New Request 07/18/2022 08/12/2023 1 1 [facility] Name Reason for referral NA NA Dept. of Dermatology Reason for visit Narrative* Auth/Cert Specialty Diagnoses / Procedures Referred By Roman t Referred To Contact Diagnoses Neoplasm of uncertain behavior of skin Neoplasm of uncertain behavior of skin [D48.5] Procedures AK EXC SKIN BENIG 2.1-3CM REMAINDR BODY EXCISION LESION SKIN NECK SCALP Fredy Johnson MD [address] [place] [address] Referral ID Status Reason Start Date Expiration Date Visits Re quested Visits Authorized [id number] 06/18/2022 1 1 [facility] Summary Purpose Family History No Family History [...] Procedures CT chest [place] [address] [address] [place] [address] Referral ID Status Reason Start Date Expiration Date Visits Requested Visits Authorized [id number] Pending Review Perform Procedure 08/19/2023 08/18/2024 1 1 Additional Source Comments INFORMATION SOURCE (unrecogn ized section and content) DATE CREATED AUTHOR 01/12/2022 [facility] DATE CREATED AUTHOR AUTHOR'S ORGANIZ ATION 02/03/2022 [facility] DATE CREATED AUTHOR AUTHOR'S ORGANIZ ATION [facility] DATE CREATED AUTHOR AUTHOR'S ORGANIZ ATION 08/20/2022 [facility] DATE CREATED AUTHOR AUTHOR'S ORGANIZ ATION 08/28/2022 [employer] DATE CREATED AUTHOR AUTHOR'S ORGANIZ ATION 09/07/2022 [facility] DATE CREATED AUTHOR AUTHOR'S ORGANIZ ATION 04/21/2023 [facility] DATE CREATED AUTHOR AUTHOR'S ORGANIZ ATION 05/10/[address] [facility] DATE CREATED AUTHOR AUTHOR'S ORGANIZ ATION 07/19/2023 [facility] DATE CREATED AUTHOR AUTHOR'S ORGANIZ ATION 08/14/2023 [facility] DATE CREATED AUTHOR AUTHOR'S ORGANIZ ATION 03/16/2024 [facility] DATE CREATED AUTHOR AUTHOR'S ORGANIZ ATION 06/22/2024 [facility] dical Specialists EPIC Reason for Visit (unrecogniz [...] lymph node biopsy for right neck melanoma [id number] C43.4 Reason Comments Follow-up Reason Comments Melanoma Follow up Reason Comments 1mos. follow up recheck Rt. breast cyst Reason Comments Abnormal Pap Smear Reason Comments Breast consult Fibrocystic breast. Lump felt in Rt. Breast. US benign. Area more tender. PCP recommended she be checked due to her hx of melanoma. Specialty Diagnoses / Procedures Referred By Roman edmonds Referred To Contact General Surgery Diagnoses Mass of right breast, unspecified quadrant Procedures AK OFFICE/OUTPATIENT NEW HIGH MDM 60 MINUTES Andrei Velazquez, DO [address] [place] [address] Douglas Hui, DO [address] [place] [address] Referral ID Status Reason Start Date Expiration Date V isits Requested Visits Authorized [id number] Closed Specialty Services Required 01/02/2024 06/30/2024 1 1 Reason Comments Well Women Visit Care Teams (unrecognized sec tion and content) Tie In Hand Relationship Specialty Start Date End Date Sarah Panchal, RESEARCH COORDINATOR [address] [place] [place] [phone] PCP - General Nurse Practitioner - Family 06/13/22 Tie In Hand Relationship Specialty Start Date End Date Sarah Panchal RESEARCH COORDINATOR [address] [place] [phone] PCP - General Nurse Practitioner - Family 06/13/22 Tie In Hand Relationship Specialty Start Date End Date Sarah Panchal RESEARCH COORDINATOR [address] [place] [phone] PCP - General Nurse Practitioner - Family 06/13/22 Tie In Hand Relationship Specialty Start Date End Date Derek Manzanares MD [address] [place] [address] PCP - General 07/27/22 Tie In Hand Relationship Specialty Start Date End Date Derek Manzanares MD [address] [place] [address] PCP - General 07/27/22 Tie In Hand Relationship Specialty Start Date End Date Derek Manzanares MD [address] [place] [address] PCP - General Family Medicine 09/11/22 Team Status: Inactive Member Role Status Dates Gianfranco More Attending Provider Active Start: [facility] 2023 End: July 17, 2023 Tie In Hand Relationship Specialty Start Date End Date Derek Manzanares MD [address] [place] [address] PCP - General Family Medicine 05/03/23 Fredy Johnson [address] [place] [address] Referring Plastic Surgery 07/24/22 Tie In Hand Relationship Specialty Start Date End Date Derek Manzanares MD [address] [place] [address] PCP - General 07/27/22 Tie In Hand Relationship Specialty Start Date End Date Derek Manzanares MD [address] [place] [address] PCP - General Family Medicine 09/11/22 Tie In Hand Relationship Specialty Start Date End Date Derek Manzanares MD [address] [place] [address] PCP - General Family Medicine 09/11/22 Tie In Hand Relationship Specialty Start Date End Date Derek Manzanares MD [address] [place] [address] PCP - General 07/27/22 Tie In Hand Relationship Specialty Start Date End Date Derek Manzanares MD [address] [place] [address] PCP - General Family Medicine 09/11/22 Tie In Hand Relationship Specialty Start Date End Date Derek Manzanares MD [address] [place] [address] PCP - General Family Medicine 09/11/22 Tie In Hand Relationship Specialty Start Date End Date Derek Manzanares MD [address] [place] [address] PCP - General Family Medicine 09/11/22 Tie In Hand Relationship Specialty Start Date End Date Derek Manzanares MD [address] [place] [id number] PCP - General Family Medicine 09/11/22 Tie In Hand Relationship Specialty Start Date End Date Derek Manzanares MD [address] [place] [address] PCP - General Family Medicine 09/11/22 Tie In Hand Relationship Specialty Start Date End Date Derek Manzanares MD [address] [place] [address] PCP - General Family Medicine 09/11/22 PRN [...] or prosecute any alcohol or drug abuse patient.[facility] FOR RECORDS PERTAINING TO PATIENTS WHO [...] BE BASED ON THE PRIMARY CLINICAL RECORDS. [employer] [facility]. provides no warranty or guarantee of the accuracy or completeness of information in this document.
== END 2024-08-12 21:15 | disposition home or self-care (01) ==
LOC: LAB 21:14
PROVIDERS: Visit Provider Obstetrics & Gynecology
DX: Z01.419 Encounter for gynecological examination (general) (routine) without abnormal findings (principal)
CPT/HCPCS: 88175

== ENCOUNTER 2024-08-31 08:00 | Outpatient (OUT) | payer BC, SELFPAY | END 2024-08-31 08:01 | disposition home or self-care (01) | LOC: PST 08:00 | PROVIDERS: PCP Family Medicine; Visit Provider Obstetrics & Gynecology | DX: Z01.818 Encounter for other preprocedural examination (principal); N92.0 Excessive and frequent menstruation with regular cycle; N94.6 Dysmenorrhea, unspecified ==

== ENCOUNTER 2024-09-04 06:15 | Day surgery (SDC) | payer BC, SELFPAY ==
[2024-08-31 08:35] VITALS: BP 135/78; PULSE 69; TEMP 36.5; O2SAT 100; BMI 19.1
[2024-09-04 06:30] VITALS: BP 153/45; PULSE 85; TEMP 36.1; O2SAT 97; BMI 19.2
[2024-09-04 06:31] LABS: Basophils Percent Auto 0.4 % (0.2-2.0); Eosinophils Percent Auto 0.4 % (0.9-7.0); Hematocrit 44.1 % (36.0-48.0); Immature Granulocytes Abs Auto 0.02 10^3/uL (0.00-0.03); Immature Granulocytes Pct Auto 0.3 % (0.0-0.5); Lymphocytes Absolute Auto 1.8 10^3/uL (1.2-3.8); Lymphocytes Percent Auto 25.1 % (20.5-60.0); Mean Corpuscular Hemoglobin 31.5 pg (26.7-34.0); Mean Corpuscular Volume 92.6 fL (81.0-99.0); Mean Platelet Volume 10.2 fL (9.5-13.5); Monocytes Absolute Auto 0.6 10^3/uL (0.3-0.8); Monocytes Percent Auto 8.8 % (1.7-12.0); Neutrophils Absolute Auto 4.7 10^3/uL (1.4-6.5); Platelet Count 297 10^3/uL (150-450); Red Blood Count 4.76 10^6/uL (4.20-5.40); Red Cell Distribution Width 12.8 % (11.0-15.0); White Blood Count 7.3 10^3/uL (4.0-11.0)
[2024-09-04 07:00] LABS: HCG Quantitative <1 mIU/mL
[2024-09-04] MEDS: LACTATED RINGER'S SOLUTION 1,000 ML 50 ML IV ×2 (07:04→08:15)
[2024-09-04] MEDS: SCOPOLAMINE 1 MG/3 DAYS TRANSDERM PATCH 1 PATCH TD (07:33)
--- NOTE | 2024-09-04 08:22 | PM.ONB ---
Brief Operative Note Date of procedure: 09/04/24 Pre-op diagnosis general: thickend endometrium, aub Post-op diagnosis: same as pre-op Procedure: NAME OF PROCEDURE: [ D&c hysteroscopy with myosure] PROCEDURE: The patient was taken back to the Operating Room where she was prepped and draped in normal sterile fashion after being placed under general anesthesia without difficulty. She was also placed in the dorsal lithotomy position. A weighted speculum was placed in the patient?s vagina. The anterior lip of the cervix was identified and grasped with a single tooth tenaculum. The patient?s uterus was then sounded roughly to [? 8] cm. The patient was then gently dilated using Hegar dilators. The hysteroscope was passed through the patient?s cervix into the uterus. Both ostia were identified. fluffy appearing endometrium. No gross evidence of malignancy, no gross evidence of polyps or fibroids. The myosure apparatus was placed through the scope, The myosure was engaged and endometrial curretting were removed along with endometrial polyp vs fibroid, The hysteroscope was then removed from the uterus. The endometrial curettings were sent out to pathology. The single tooth tenaculum was then removed from the patient's anterior lip of the cervix where excellent hemostasis was noted. All instruments were removed from the patient?s vagina. The patient tolerated the procedure well. Sponge, lap and needle counts were correct times two. The patient was taken to the Recovery Room in stable condition.Room in stable condition. Anesthesia: MAC Surgeon: Gianfranco More Estimated blood loss (mL): 5 Pathology: other (endometrial currettings and endometrial fibroid) Condition: stable Disposition: floor Urinary Catheter Management Urinary Catheter Management Straight: Cath placed during this visit: no
[2024-09-04 08:28] VITALS: BP 119/66; PULSE 77; TEMP 36.4; O2SAT 97
[2024-09-04 08:43] VITALS: BP 126/73; PULSE 68; O2SAT 100
--- NOTE | 2024-09-04 08:45 | PC.NURSE ---
Shivering upon arrival to PACU; warm blankets applied. C/o nausea; no emesis; alcohol pad to nares and pt states that helps; does not want any medication at this time
[2024-09-04 09:13] VITALS: BP 119/46; PULSE 71; O2SAT 98
--- NOTE | 2024-09-04 09:16 | PC.NURSE ---
C/o chest pressure; denies SOB; HOB elevated; continues shivering; angelica hugger applied; small amount bleeding noted on peripad. Anesthesia and Dr. More notified of chest pressure; no orders received.
--- NOTE | 2024-09-04 09:20 | PC.NURSE ---
Up to bathroom and voids without difficulty; small amount bleeding noted in toliet; no clots noted. Expelling air when urinating. Minimal shaking noted and does have some dizziness. Back on cart; chest pressure has lessened.
[2024-09-04 09:43] VITALS: BP 130/69; PULSE 79; O2SAT 99
--- NOTE | 2024-09-04 09:44 | PC.NURSE ---
Has minimal dizziness; no c/o chest pressure, nausea or pain
== END 2024-09-04 09:46 | disposition home or self-care (01) ==
PROVIDERS: PCP Family Medicine; Visit Provider Obstetrics & Gynecology
PROC: (CPT 952; principal; 2024-09-04 07:30)
DX: N92.0 Excessive and frequent menstruation with regular cycle (principal); N94.6 Dysmenorrhea, unspecified; J45.909 Unspecified asthma, uncomplicated
CPT/HCPCS: 58558; 36415; 84702; 85025; J0131; J1100; J1885; J2250; J2405; J2704; J3010